=== PATIENT | male | born 1940 | race Caucasian/White ===

== ENCOUNTER 2019-09-16 23:55 | Observation (INO) ==
--- NOTE | 2019-09-17 00:17 | Emergency Department Note ---
General Adult HPI - General Chief complaint: Bleeding Other Stated complaint: Fall after surgery, bleeding Time Seen by Provider: 09/17/19 00:06 Source: patient Mode of arrival: wheelchair Limitations: no limitations - History of Present Illness HPI Narrative: 79-year-old male had surgery on his left elbow by Dr. Oviedo 2 weeks ago and was healing well. He had sutures removed 2 days ago. However earlier tonight he fell and his elbow ripped back open along incision line. He has Parkinson's and multiple comorbidities - Related Data Home Medications Medication Instructions Recorded Confirmed aspirin 325 mg tablet,delayed 325 mg PO QHS 11/04/15 09/01/19 release ropinirole 12 mg tablet,extended 12 mg PO QHS 03/23/18 09/01/19 release 24 hr quetiapine 25 mg tablet 25 mg PO QHS tab 11/23/18 09/01/19 amiodarone 200 mg tablet 100 mg PO QHS 05/17/19 09/01/19 Metoprolol Tartrate [Lopressor] 25 mg PO QHS 08/27/19 09/01/19 carbidopa 25 mg-levodopa 100 mg 1 tab PO DAILY 08/31/19 09/01/19 tablet Levothyroxine Sodium [Synthroid] 112 mcg PO QHS 09/01/19 09/01/19 Previous Rx's Medication Instructions Recorded simvastatin 20 mg tablet 20 mg PO QPM #90 tab 02/21/19 HYDROcodone/APAP 5/325MG [[place] 1 tab PO Q4HP PRN #7 tab 08/27/19 5-325Mg] Cephalexin [Keflex] 500 mg PO QID #40 cap 08/30/19 Allergies Allergy/AdvReac Type Severity Reaction Status Date / Time No Known Drug Allergies Allergy Verified 08/31/19 14:27 Review of Systems All systems ED: reviewed and negative except as stated. Past Medical History - Past Medical History Attestation: Yes: The following information was validated with the patient. [facility] Narrative: Family History (Last Reviewed 08/31/19 @ 10:01 by Henrry Evans PA-C) Brother Malignant neoplasm of prostate Father Coronary artery disease, Onset Age: 98 Mother Congestive heart failure, Onset Age: 89 Other Heart attack Hypertension Medical History (Last Reviewed 08/31/19 @ 10:01 by Henrry L Nathan, PA-C) At risk for falls (Chronic) Non compliance with medical treatment (Chronic) Dystonia (Chronic) Sialorrhea (Chronic) Restless legs syndrome (Chronic) Prediabetes (Acute) Hx of cardiac pacemaker (Acute) Bladder trabeculation (Acute) Papilloma, bladder urinary (Acute 10/18/14) Parkinsons disease (Chronic) Neuropathy (Acute) Mitral valve disorder (Acute) Lumbago (Acute) Hypothyroidism (Acute) Hypertension, essential (Acute) Hyperlipidemia (Acute) Hematuria (Acute) Heart disease (Acute) Gross hematuria (Acute 09/20/14) Glaucoma (Acute) Erectile dysfunction (Acute 04/19/15) Diverticulum of bladder (Acute) Degeneration, intervertebral disc (Acute) Colon polyp (Acute) Other chronic pain (Acute) Cellulitis (Acute) Cataracts, bilateral (Acute) CAD (coronary artery disease) (Acute) BPH (benign prostatic hyperplasia) (Acute) Benign prostatic hypertrophy without urinary obstruction (Acute 09/20/14) Back spasm (Acute) Atrioventricular block, complete (Acute) Atrial fibrillation (Acute) Aortic valve disorder (Acute) Abdominal pain, LLQ (Acute) Past Surgical History (Last Reviewed 08/31/19 @ 10:01 by Henrry Evans PA-C) Hx of shoulder surgery (Acute) Hx of inguinal hernia repair (Acute) Status post epidural steroid injection (Acute) History of coronary artery bypass surgery (Acute) Hx of colonoscopy (Acute) Hx of cataract surgery (Acute) Hx of CABG (Acute) History of back surgery (Acute) Hx of aortic valve replacement with porcine valve (Acute) History of right inguinal hernia repair (Chronic 10/28/15) Medical history: Reports: hypertension, other (parkinson's disease, neuropathy). Denies: DM Psychiatric history: Reports: no psych history Surgical history ED: Reports: non-contributory - Social History smoking status: Former smoker Alcohol use: Reports: Unknown Drug use: Reports: none Physical Exam No acute distress resting. Normocephalic atraumatic. Conjunctive are clear sclera white nonicteric. No nasal discharge or congestion. Oropharynx with dry buccal mucosa. Neck is supple without lymphadenopathy thyromegaly or carotid bruit. Heart is regular rate and rhythm no murmur appreciated. Lungs are clear to auscultation bilaterally without wheezes rales rhonchi or respiratory distress. Abdomen soft nontender nondistended. Exam of the left arm shows a dehisced wound from the elbow to the proximal one third of the extensor surface of the elbow. I can see underlying tissue-it is a full-thickness dehiscence. Reasonable hemostasis. I covered the wound with gauze wrap [place] over it. He is able to move his shoulder hand and wrist normally. No pedal edema Limitations: no limitations Course Vital Signs Temperature 98.0 F 09/16/19 23:56 Pulse Rate 61 09/16/19 23:56 Respiratory Rate 18 09/16/19 23:56 Blood Pressure 108/61 09/16/19 23:56 Pulse Oximetry (%) 98 09/16/19 23:56 Temperature 98.0 F 09/16/19 23:56 Pulse Rate 59 L 09/17/19 01:48 PST Respiratory Rate 18 09/16/19 23:56 Blood Pressure 121/59 09/17/19 01:46 PST Pulse Oximetry (%) 96 09/17/19 01:48 PST Medical Decision Making - Lab Data Lab results reviewed: Yes I reviewed the patient's lab results. Result diagrams: 09/17/19 00:54 09/17/19 00:54 Lab Results 09/17/19 09/17/19 Range/Units 00:54 00:54 WBC 9.4 (4.5-11.0) K/mcL RBC 3.51 L (4.50-5.90) M/mcL Hgb 9.8 L (13.5-16.5) g/dL Hct 29.4 L (41.0-55.0) % MCV 83.7 (80.0-100.0) fL MCH 27.8 (26.0-34.0) pg MCHC 33.2 (31.0-36.0) g/dL RDW 16.2 H (11.5-14.5) % Plt Count 153 (140-440) K/mcL MPV 6.9 L (7.4-10.4) fL Gran % 83.3 H (38.0-78.0) % Lymph % (Auto) 6.7 L (15.5-49.0) % [place] % (Auto) 6.9 (1.0-12.0) % Eos % (Auto) 2.8 (0.0-7.0) % Baso % (Auto) 0.3 (0.0-2.0) % Gran # 7.8 (1.8-8.0) K/mcL Lymph # (Auto) 0.6 L (1.5-4.8) K/mcL [place] # (Auto) 0.6 (0.1-0.9) K/mcL Eos # (Auto) 0.3 (0.0-0.7) K/mcL Baso # (Auto) 0 (0.0-0.3) K/mcL Sodium 140 (133-145) mmol/L Potassium 3.6 (3.3-5.1) mmol/L Chloride 102 (96-108) mmol/L Carbon Dioxide 26 (22-30) mmol/L Anion Gap 12.0 (8-16) BUN 25 H (8-23) mg/dl Creatinine 1.1 (0.7-1.2) mg/dl GFR Calculation 64 Glucose 119 H (70-105) mg/dL Calcium 8.2 L (8.6-10.4) mg/dl Total Bilirubin 0.3 (0.0-1.0) mg/dL AST 20 (0-37) U/l ALT 13 (0-40) U/l Alkaline Phosphatase 81 (39-117) U/L Total Protein 6.1 (5.9-8.4) gm/dL Albumin 3.2 (3.2-5.2) gm/dL Globulin 2.9 (2.2-3.7) gm/dL Albumin/Globulin Ratio 1.1 (1.0-2.3) - Radiology Data Radiology results reviewed: Yes I reviewed the patient's radiology results. Chest x-ray shows no acute cardia pulmonary disease. Pacemaker seen - EKG Data EKG #1 EKG attestation: Yes I reviewed and interpreted this EKG., Yes There are no EKG findings of acute coronary syndrome, Yes This EKG will be read by community organizer EKG results narrative: EKG shows a rate of 68 left anterior fascicular block. Disposition Pt seen by DISTANCE EDUCATION COORDINATOR/PA only: No Clinical Impression: Surgical wound dehiscence Qualifiers: Encounter type: initial encounter Qualified Code(s): T81.31XA - Disruption of external operation (surgical) wound, not elsewhere classified, initial encounter Fall Qualifiers: Encounter type: initial encounter Qualified Code(s): W19.XXXA - Unspecified fall, initial encounter Summary: Discussed with Dr. Gross, orthopedist front desk officer the situation. He would like the patient admitted to that he can wash the elbow out in the operating room. This would be likely a short observation stay but because of multiple comorbidities would need to go through the hospitalist Discussed with Dr. Jones, hospitalist. He agreed to accept the patient for further care and evaluation in the hospital. I will write transition orders and he will see the patient in the morning. Routine preoperative laboratory ordered and urinalysis. Patient did not urinate before he left but we did start IV fluid Disposition: Xfer As Outpt/Obs ([facility]) Condition: Fair Referrals: Henrry Evans PA-C [Primary Care Provider] - Shan Oviedo MD [Physician] -
[2019-09-17 01:39] LABS: Basophils # (Auto) 0 K/mcL (0.0-0.3); Basophils % (Auto) 0.3 % (0.0-2.0); Eosinophils # (Auto) 0.3 K/mcL (0.0-0.7); Eosinophils % (Auto) 2.8 % (0.0-7.0); Granulocytes % (Auto) 83.3 % (38.0-78.0); Hematocrit 29.4 % (41.0-55.0); Hemoglobin 9.8 g/dL (13.5-16.5); Lymphocytes # (Auto) 0.6 K/mcL (1.5-4.8); Lymphocytes % (Auto) 6.7 % (15.5-49.0); Mean Cell Volume 83.7 fL (80.0-100.0); Mean Corpuscular HGB Conc 33.2 g/dL (31.0-36.0); Mean Platelet Volume 6.9 fL (7.4-10.4); Monocytes # (Auto) 0.6 K/mcL (0.1-0.9); Monocytes % (Auto) 6.9 % (1.0-12.0); Platelet Count 153 K/mcL (140-440); RBC 3.51 M/mcL (4.50-5.90); Red Cell Distribution Width 16.2 % (11.5-14.5); WBC 9.4 K/mcL (4.5-11.0)
[2019-09-17] MEDS ORDERED: 0.9 % SODIUM CHLORIDE 1,000 ML IV ONE (01:40)
[2019-09-17 01:55] LABS: ALT/SGPT 13 U/l (0-40); AST/SGOT 20 U/l (0-37); Albumin 3.2 gm/dL (3.2-5.2); Albumin/Globulin Ratio 1.1 (1.0-2.3); Alkaline Phosphatase 81 U/L (39-117); Bilirubin,Total 0.3 mg/dL (0.0-1.0); Blood Urea Nitrogen 25 mg/dl (8-23); Calcium 8.2 mg/dl (8.6-10.4); Carbon Dioxide 26 mmol/L (22-30); Chloride 102 mmol/L (96-108); Globulin 2.9 gm/dL (2.2-3.7); Glomerular Filtration Rate 64; Glucose 119 mg/dL (70-105)
[2019-09-17] MEDS ORDERED: ONDANSETRON 4 MG/2 ML VIAL IV PRN ×3 (02:25→08:10)
[2019-09-17] MEDS ORDERED: NALOXONE HCL 0.4 MG/ML VIAL IV PRN ×2 (02:25→06:16)
[2019-09-17] MEDS ORDERED: 0.9 % SODIUM CHLORIDE 1,000 ML IV SCH (02:30)
[2019-09-17 04:34] LABS: Appearance,Urine CLEAR; Bacteria,Urine 0 /hpf (0); Bilirubin,Urine NEG (NEG); Color,Urine YELLOW; Culture Indicated,Urine NO; Glucose,Urine (UA) NEGATIVE (NEG); Ketones,Urine NEG (NEG); Leukocyte Esterase,Urine NEG /uL (NEG); Mucus,Urine FEW /hpf (0); Nitrate,Urine NEG (NEG); Protein,Urine 30 mg/dL (NEG); Specific Gravity,Urine 1.031 (1.000-1.035); Urine Blood NEG mg/dL (<0.03); Urine Hyaline Cast 2 /lpf (0-2); Urine RBC 1 /hpf (0-1); Urine Squamous Epithelial Cell 1 /hpf (0-4); Urine WBC 2 /hpf (0-4); Urobilinogen,Urine NEG (NEG)
--- NOTE | 2019-09-17 06:06 | Internal Med History&Physical ---
Medical - H&P: HPI Patient information: Note initiated : 09/17/19 at 6:04 am Service Date, if different from initiated Date: [] Patient: Ti Hallman a 79 y/o M admitted on 09/17/19 for Fall after surgery, bleeding. Chief Complaint: fall, wound bleeding History of present illness: Mr. Hallman is a 79 year old M with a history of Parkinson's, coronary disease, AV block with pacemaker, aortic valve replacement with tissue valve who presents after fall. Patient fell in early August with injury to his left elbow. There is no fracture but he underwent an olecranon bursectomy on 08/31/2019. He does have a history of frequent falls. Last evening and going down a ramp into his bedroom (he was ambulating, not in a wheelchair using a walker) he fell forward, struck his head on a dresser, also struck his left elbow which opened the surgical wound. He presents the ED with dehiscence of his left olecranon bursectomy wound. Patient was otherwise in his usual state of health. He is very unsteady on his feet, wears a helmet when ambulating because of frequent falls. Assistive devices are further limited by severe rotator cuff issues in the right shoulder and now his left elbow. He is has a little bit of sharp anterior chest pain since the fall, he did strike the front of his chest. He has no substernal chest pain/tightness/squeezing. No dyspnea, no cough. Patient's being hospitalized in anticipation of surgical washout and closure of the dehisced wound by Dr. Gross. Patient denies current headache. No fevers or chills. No nausea vomiting, no abdominal pain. He has generalized weakness which is chronic, no new focal weaknesses, no vision changes, no word finding problems. He has chronic pain in the right shoulder and is unable to fully elevate that shoulder due to rotator cuff injury which is unchanged. He does have easy bruising from falls. No sore throat, no rhinorrhea, no dysuria or change in urinary frequency. ROS unobtainable: other (Review of systems as noted above) Medical - H&P: PMH Medical history: Restless legs syndrome (Chronic) Prediabetes (Acute) Hx of cardiac pacemaker (Acute) 2008 Heart disease (Acute) 2008-Valvular heart disease CAD (coronary artery disease) (Acute) 2008-post CABG BPH (benign prostatic hyperplasia) (Acute) Parkinsons disease (Chronic) 2010 Neuropathy (Acute) 2008-numbness/tingling in both feet since heart surgery Atrioventricular block, complete (Acute) 2008-3rd degree AV block after heart surgery Atrial fibrillation (Acute) Post-op At risk for falls (Chronic) Non compliance with medical treatment (Chronic) Dystonia (Chronic) Dystonia of head Sialorrhea (Chronic) Bladder trabeculation (Acute) Papilloma, bladder urinary (Acute 10/18/14) Polypoid abnormality; Bladder-Polypoid abnormality in the posterior and inferior bladder consistent with bladder carcinoma Mitral valve disorder (Acute) Lumbago (Acute) Hypothyroidism (Acute) Hypertension, essential (Acute) Hyperlipidemia (Acute) Hematuria (Acute) Referral for hematuria. No change on imaging studies and cystoscopy confirmed. He stopped his Tamsulosin and Finasteride and will restart. RTC x 6 mo. Glaucoma (Acute) Erectile dysfunction (Acute 04/19/15) Diverticulum of bladder (Acute) Degeneration, intervertebral disc (Acute) Colon polyp (Acute) 01/31/15-Trina Other chronic pain (Acute) Cellulitis (Acute) recurrent on left lower leg ever since vein graft was harvested for CABG in 2008 Cataracts, bilateral (Acute) Back spasm (Acute) Aortic valve disorder (Acute) Abdominal pain, LLQ (Acute) Left groin pain Surgical history: Hx of elbow surgery Left olecranon bursectomy, 08/31/2019 Hx of shoulder surgery (Acute) 2011-Right rotator cuff repair Hx of inguinal hernia repair (Acute) 12/2014-left groin Status post epidural steroid injection (Acute) 01/2013-LESI History of coronary artery bypass surgery (Acute) 2008 Hx of colonoscopy (Acute) 08/03/15--Trina HP Hx of cataract surgery (Acute) 01/2013,02/2013-bilateral Hx of CABG (Acute) 2008 History of back surgery (Acute) 1995-lumbar Hx of aortic valve replacement with porcine valve (Acute) 2008-for aortic stenosis, mitral valve annuloplasty as well History of right inguinal hernia repair (Chronic 10/28/15) with mesh prosthesis 12/27/2014 and 10/28/2015 Pertinent family history: Brother Malignant neoplasm of prostate Father Coronary artery disease, Onset Age: 98 Mother Congestive heart failure, Onset Age: 89 Other Heart attack Hypertension Social history: marital status: occupational status: retired smoking status: Former smoker alcohol intake frequency: holiday/special occasion only substance use type: does not use Medical - H&P: Meds Home Medications Medication Instructions Recorded Confirmed Type aspirin 325 mg tablet,delayed 325 mg PO QHS 11/04/15 09/17/19 History release ropinirole 12 mg tablet,extended 12 mg PO QHS 03/23/18 09/17/19 History release 24 hr quetiapine 25 mg tablet 25 mg PO QHS tab 11/23/18 09/17/19 History simvastatin 20 mg tablet 20 mg PO QPM #90 tab 02/21/19 09/17/19 Rx amiodarone 200 mg tablet 100 mg PO QHS 05/17/19 09/17/19 History HYDROcodone/APAP 5/325MG [[place] 1 tab PO Q4HP PRN #7 tab 08/27/19 09/17/19 Rx 5-325Mg] Metoprolol Tartrate [Lopressor] 25 mg PO QHS 08/27/19 09/17/19 History carbidopa 25 mg-levodopa 100 mg 1 tab PO TID 08/31/19 09/17/19 History tablet Levothyroxine Sodium [Synthroid] 112 mcg PO QHS 09/01/19 09/17/19 History Allergies Allergy/AdvReac Type Severity Reaction Status Date / Time No Known Drug Allergies Allergy Verified 08/31/19 14:27 Medical - H&P: Exam - Constitutional Vitals: Temp Pulse Resp BP Pulse Ox 98.0 F 59 L 18 121/59 96 09/16/19 23:56 09/17/19 01:48 PST 09/16/19 23:56 09/17/19 01:46 PST 09/17/19 01:48 PST Exam: GENERAL: Elderly, alert, laying in bed, soft voice. HEENT: Fading ecchymosis right temporal area. Pupils equal. Oropharynx with moist mucous membranes. NECK: Supple without meningismus, no thyromegaly RESPIRATORY: Breath sounds clear bilaterally. Respiratory effort is unlabored. CARDIOVASCULAR: Regular rate and rhythm, 3/6 systolic murmur at the upper right sternal border radiates towards the clavicle. Left upper chest pacemaker in place. No peripheral edema. Carotid pulses 2+, dorsalis pedis 2+. GI: Abdomen soft, nontender, no guarding or rebound. Bowel sounds are present. MUSCULOSKELETAL: Left elbow with dressing in place. Wound photos reviewed, dehiscence of his olecranon bursectomy wound noted. Right shoulder with reduced range of motion. SKIN: As above, left elbow wound. Scattered areas of ecchymoses of varying ages. Skin turgor decreased. NEUROLOGIC: Cranial nerves II through XII grossly intact. Muscle mass diminished. Strength shows a generalized weakness. Sensation intact to light touch. Increased tone in the extremities with mild cogwheeling. PSYCHIATRIC: Alert, oriented x3, normal mood and affect, normal insight. Medical - H&P: Reslt - Labs CBC & Chem 7: 09/17/19 00:54 09/17/19 00:54 Labs: Short CBC 09/17/19 Range/Units 00:54 WBC 9.4 (4.5-11.0) K/mcL Hgb 9.8 L (13.5-16.5) g/dL Hct 29.4 L (41.0-55.0) % Plt Count 153 (140-440) K/mcL BMP 09/17/19 00:54 Sodium 140 Potassium 3.6 Chloride 102 Carbon Dioxide 26 BUN 25 H Creatinine 1.1 Glucose 119 H Calcium 8.2 L Liver Function 09/17/19 Range/Units 00:54 Total Bilirubin 0.3 (0.0-1.0) mg/dL AST 20 (0-37) U/l ALT 13 (0-40) U/l Alkaline Phosphatase 81 (39-117) U/L Albumin 3.2 (3.2-5.2) gm/dL Urine 09/17/19 09/17/19 Range/Units 03:38 03:38 Urine Color Yellow TNP Urine Appearance Clear TNP Urine pH 6.0 TNP (5.0-9.0) Ur Specific [place] 1.031 TNP (1.000-1.035) Urine Protein 30 A TNP (NEG) mg/dL Urine Glucose (UA) Negative TNP (NEG) mg/dL - EKG Data -: EKG Reviewed by Myself (Atrial paced at rate of 60, no acute ST changes.) - Imaging and Cardiology Chest x-ray Status: image reviewed by me Additional comments: Clear lung [place]ard, right upper lobe calcified density, has been noted previously and described as benign. Most recently CTA of 03/2019. No heart failure, no infiltrate. Pacemaker in place. Medical - H&P: A/P - Narrative A/P Narrative: 79-year-old gentleman with Parkinson's disease, coronary disease, AV block, frequent falls with recent olecranon bursectomy, presenting after a fall at home with wound dehiscence. Fall/wound dehiscence. Dr. Gross has been contacted by the emergency department, he plans to take the patient to the OR for repair later today. Patient does have history of coronary disease, is of surgical risk but this case is emergent. No evidence of decompensated heart failure, coronary ischemia or respiratory failure. Further risk stratification not indicated. Plan: Hospitalized on observation N.p.o. except for a.m. meds PT evaluation Parkinson's disease. On 3 times a day doses of Sinemet. Will provide a.m. dose with small sips of water to help prevent patient from locking up in the perioperative. Plan: A.m. Sinemet with sips of water this morning Coronary artery disease. Has a history of bypass. No current symptoms. Plan: Continue usual medications, all of which are dosed at bedtime History of atrial fibrillation, noted to have a cured postoperatively in the past. On amiodarone, presumably for rhythm control. Is atrially paced on current EKG. Plan: Continue daily amiodarone History of pacemaker for complete AV block. Atrially paced on current EKG. Plan: Noted, nothing further Restless leg syndrome. On Requip at home. Plan: Continue.
[2019-09-17] MEDS ORDERED: ceFAZolin 1 GM VIAL ONE (06:46)
[2019-09-17] MEDS ORDERED: ceFAZolin 2 GM in DEXTROSE 5% IN WATER 50 ML IV SCH (07:00)
--- NOTE | 2019-09-17 07:17 | XRay Report ---
CLINICAL INFORMATION:Fall. Left-sided chest pain TECHNIQUE: AP portable semiupright chest x-ray COMPARISON: Previous examination dated 02/01/2018 FINDINGS:Previous median sternotomy. There is a prosthetic cardiac valve. Left transvenous pacemaker leads are unchanged. No detectable rib fracture with chest x-ray technique. There is no pneumothorax. No focal pulmonary parenchymal infiltrate or contusion. Heart size and mediastinum are normal. No mediastinal widening. Again noted is a benign granuloma in the right upper lung. No acute abnormality or interval change IMPRESSION: No acute abnormality Interpreted and Authenticated by: Adrian Looney 09/17/19
[2019-09-17] MEDS ORDERED: PROPOFOL 200 MG/20 ML VIAL IV ONE (07:35)
[2019-09-17] MEDS ORDERED: LIDOCAINE HCL/PF 100 MG/5 ML SYRINGE IV ONE (07:35)
[2019-09-17] MEDS ORDERED: DEXAMETHASONE 10 MG/ML VIAL IV ONE (07:35)
[2019-09-17] MEDS ORDERED: KETAMINE 100 MG/ML ML IV ONE (07:35)
[2019-09-17] MEDS ORDERED: ePHEDrine 50 MG/ML AMPUL IV ONE (07:35)
[2019-09-17] MEDS ORDERED: GLYCOPYRROLATE 0.2 MG/ML VIAL IV ONE (07:35)
[2019-09-17] MEDS ORDERED: ONDANSETRON 4 MG/2 ML VIAL IV ONE (07:35)
[2019-09-17] MEDS ORDERED: fentaNYL 100 MCG/2 ML VIAL IV ONE (07:35)
[2019-09-17] MEDS ORDERED: VANCOMYCIN 1,000 MG in 0.9 % SODIUM CHLORIDE 250 ML TOPICAL ONE (07:55)
[2019-09-17] MEDS ORDERED: fentaNYL 100 MCG/2 ML VIAL IV PRN (08:10)
[2019-09-17] MEDS ORDERED: IPRATROPIUM/ALBUTEROL 3 ML AMPUL.NEB NEB PRN (08:10)
[2019-09-17] MEDS ORDERED: MEPERIDINE 25 MG/ML SYRINGE IV PRN (08:10)
[2019-09-17] MEDS ORDERED: LACTATED RINGERS 1,000 ML IV SCH (08:15)
[2019-09-17] MEDS: VANCOMYCIN 1 GM VIAL TOPICAL SCH (08:36)
--- NOTE | 2019-09-17 08:49 | Brief Operative Note ---
Date of procedure: 09/17/19 Pre-op diagnosis: left elbow surgical wound dehiscense Post-op diagnosis: same Procedure: I&D of wound, culture and wound closure Grafts/Implants: No Anesthesia: GLMA Findings: no evidence of infection, skin over olecranon very thin Complications: none Surgeon: Justin Gross Wetlands Conservation Laborer: Chasity Issa Estimated blood loss (cc): 2 Tourniquet Time (Minutes): 50 Specimens Removed/Pathology: other (culture tube x2) Condition: stable Disposition: PACU
[2019-09-17] MEDS ORDERED: BENZOCAINE/MENTHOL 1 LOZENGE PO PRN (09:01)
[2019-09-17] MEDS ORDERED: BISACODYL 10 MG SUPP.RECT PR PRN (09:01)
[2019-09-17] MEDS ORDERED: FLEETS ADULT ENEMA PR PRN (09:01)
--- NOTE | 2019-09-17 09:11 | Consultation ---
DATE OF CONSULTATION: 09/17/2019 ORTHOPEDIC CONSULTATION NOTE DATE OF CONSULTATION: 09/17/2019 REASON FOR CONSULTATION: Left elbow surgical wound dehiscence. HISTORY OF PRESENT ILLNESS: The patient is a 79-year-old male with history of Parkinson's, coronary artery disease with pacemaker, and aortic valve replacement, who underwent a left olecranon bursectomy on 08/[address] Oviedo and subsequently was followed up in clinic on 09/03 for suture removal. He fell yesterday evening and opened up his wound. At the time of surgery, per review of the chart, he had a staph infection of the bursa and was placed on Keflex. Review of the notes from the clinic, the wound was healing; however, it did have some significant drainage immediately postop. Per discussion with today, they say that the wound did continue to drain off and on. The patient is unable to immobilize his elbow due to Parkinson's and his significant unsteady gait. Thus, he has frequent falls along with using the extremity to ambulate and move about the house. PAST MEDICAL HISTORY: Noted history of coronary artery disease with a pacemaker in place, Parkinson's, AFib, restless leg syndrome, hypertension, and hyperlipidemia. PAST SURGICAL HISTORY: As noted above. He has also had a history of right rotator cuff repair, inguinal hernia repair, coronary artery bypass surgery in 2008, lumbar surgery, and aortic valve replacement for stenosis. ALLERGIES: No known drug allergies. MEDICATIONS: Aspirin 325 daily, ropinirole, quetiapine, simvastatin, amiodarone, [place], metoprolol, carbidopa, and levothyroxine. REVIEW OF SYSTEMS: Other than HPI are negative. He has multiple musculoskeletal pains including his shoulders. PHYSICAL EXAMINATION: On examination of his left elbow, he has small gas throughout the extremity. His wound from approximately the olecranon to approximately penitentiary down the forearm distal aspect has dehisced completely. He has fibrinous material within it. He has kind of woody tissue edges. There is no chata purulence noted. He does have the fibrinous exudate at the incision lines. He can flex and extend the elbow however. His hand is warm and well perfused. ASSESSMENT AND PLAN: This is a 79-year-old male, who has a surgical wound dehiscence after a fall approximately 2-1/2 weeks out from surgery. Discussed this with the and the patient. I think at this point given the history of the wound, repeat irrigation and debridement of the wound along with primary closure and immobilization will be in the best interest of the patient. He will likely be on postop antibiotics as well. They do understand the risk of repeat washouts and infection further developing as well as wound complications and they wish to proceed. DLW:alysia Job ID: [id number] Doc ID: [id number] Justin Gross MD [facility]LANDMark
[2019-09-17] MEDS: 0.9 % SODIUM CHLORIDE 1,000 ML IV SCH ×2 (09:44→15:01)
[2019-09-17] MEDS: HYDROcodone/APAP 5/325MG TABLET PO PRN ×2 (11:52→17:31)
[2019-09-17] MEDS: CARBIDOPA/LEVODOPA 25/100 TABLET PO SCH ×3 (11:53→20:36)
[2019-09-17] MEDS: 0.9 % SODIUM CHLORIDE 10 ML SYRINGE IV SCH ×2 (13:33→20:46)
--- NOTE | 2019-09-17 14:23 | Discharge Summary ---
Medical - DS: Prov Patient information: Note initiated : 09/17/19 at 2:22 pm Service Date, if different from initiated Date: [] Patient: Ti Hallman 79 y/o M admitted on 09/17/19 for Fall after surgery, bleeding. Chief Complaint: [] Date of admission: 09/17/19 03:11 Primary care physician: Henrry Evans Consults: 09/17/19 Consult to Physician [CONS] Stat Comment: Consulting Provider: Justin Gross Reason For Exam: Physician to Consult 09/17/19 01:30 Consult to Physician [CONS] Stat Comment: Consulting Provider: Janina Dye Reason For Exam: Physician to Consult Medical - DS: Meds - Discharge Medications Prescriptions: Sulfamethoxazole/Trimethoprim [Bactrim Ds Tablet] 1 each PO BID #8 tab Active and Home Medications: Home Medications aspirin 325 mg tablet,delayed release 325 mg PO QHS 11/04/15 [History Confirmed 09/17/19 Last Taken 08/30/19] ropinirole 12 mg tablet,extended release 24 hr 12 mg PO QHS 03/23/18 [History Confirmed 09/17/19 Last Taken 08/30/19] quetiapine 25 mg tablet 25 mg PO QHS tab 11/23/18 [History Confirmed 09/17/19 Last Taken 08/30/19] simvastatin 20 mg tablet 20 mg PO QPM #90 tab 02/21/19 [Rx Confirmed 09/17/19 Last Taken 08/30/19] amiodarone 200 mg tablet 100 mg PO QHS 05/17/19 [History Confirmed 09/17/19 Last Taken 08/30/19] HYDROcodone/APAP 5/325MG [[place] 5-325Mg] 1 tab PO Q4HP PRN #7 tab 08/27/19 [Rx Confirmed 09/17/19 Last Taken 08/31/19 09:00] Metoprolol Tartrate [Lopressor] 25 mg PO QHS 08/27/19 [History Confirmed 09/17/19 Last Taken 08/30/19] carbidopa 25 mg-levodopa 100 mg tablet 1 tab PO TID 08/31/19 [History Confirmed 09/17/19 Last Taken 08/31/19 09:00] Levothyroxine Sodium [Synthroid] 112 mcg PO QHS 09/01/19 [History Confirmed 09/17/19 Last Taken 08/30/19] Medical - DS: Hosp Hospital Course: Mr. Hallman is a 79 year old M with a history of Parkinson's, coronary disease, AV block with pacemaker, aortic valve replacement with tissue valve who presents after fall. Patient fell in early August with injury to his left elbow. There is no fracture but he underwent an olecranon bursectomy on 08/31/2019. He does have a history of frequent falls. Last evening and going down a ramp into his bedroom (he was ambulating, not in a wheelchair using a walker) he fell forward, struck his head on a dresser, also struck his left elbow which opened the surgical wound. He presents the ED with dehiscence of his left olecranon bursectomy wound. Patient was otherwise in his usual state of health. He is very unsteady on his feet, wears a helmet when ambulating because of frequent falls. Assistive devices are further limited by severe rotator cuff issues in the right shoulder and now his left elbow. He is has a little bit of sharp anterior chest pain since the fall, he did strike the front of his chest. He has no substernal chest pain/tightness/squeezing. No dyspnea, no cough. Patient's being hospitalized in anticipation of surgical washout and closure of the dehisced wound by Dr. Gross. Patient denies current headache. No fevers or chills. No nausea vomiting, no abdominal pain. He has generalized weakness which is chronic, no new focal weaknesses, no vision changes, no word finding problems. He has chronic pain in the right shoulder and is unable to fully elevate that shoulder due to rotator cuff injury which is unchanged. He does have easy bruising from falls. No sore throat, no rhinorrhea, no dysuria or change in urinary frequency. Surgical I&D left elbow on September 17. No evidence of skin infection skin over olecranon very thin. 09/18 Had I&D yesterday of left elbow By orthopedics no signs of infection. He did report he was having trouble urinating. Flomax started. Dates he had poor sleep. Surgical Gram stain shows gram-positive cocci in pairs and clusters. Does like he was on Keflex prior. Started on Bactrim. Discharge diagnosis: Wound dehiscence Secondary discharge diagnosis: Parkinson's disease coronary artery disease history of atrial fibrillation pacemaker for AV block restless leg syndrome - Time Spent with Patient Total time spent providing and/or coordinating discharge services: Greater than 30 minutes Medical - DS: Exam - Constitutional Vitals: Vital Signs Temp Pulse Pulse Resp BP BP Pulse Ox 09/17/19 12:00 98.0 F 80 16 106/69 94 09/17/19 09:19 97.0 F 60 16 132/65 98 09/17/19 09:06 60 12 135/57 100 09/17/19 09:01 60 12 128/58 100 09/17/19 08:56 60 13 115/57 100 09/17/19 08:55 98.2 F 61 12 101/58 99 09/17/19 07:45 98.3 F 20 129/68 92 09/17/19 03:11 97.8 F 61 18 130/66 93 09/17/19 01:48 PST 59 L 96 09/17/19 01:46 PST 60 121/59 100 09/17/19 01:34 PST 60 115/59 92 09/16/19 23:56 98.0 F 61 18 108/61 98 Intake and Output 09/17/19 09/17/19 09/17/19 05:59 13:59 21:59 Intake Total Balance Intake: IV Sodium Chloride 0.9% 1,000 ml @ Wide Open IV [facility] Rx#: [id number] Other: Urine Color Urine Odor # Voids Weight Medical - DS: Data Labs on day of discharge: Labs from last 24 hours 09/17/19 09/17/19 09/17/19 03:38 03:38 00:54 WBC RBC Hgb Hct MCV MCH MCHC RDW Plt Count MPV Gran % Lymph % (Auto) [place] % (Auto) Eos % (Auto) Baso % (Auto) Gran # Lymph # (Auto) [place] # (Auto) Eos # (Auto) Baso # (Auto) Sodium 140 Potassium 3.6 Chloride 102 Carbon Dioxide 26 Anion Gap 12.0 BUN 25 H Creatinine 1.1 GFR Calculation 64 Glucose 119 H Calcium 8.2 L Total Bilirubin 0.3 AST 20 ALT 13 Alkaline Phosphatase 81 Total Protein 6.1 Albumin 3.2 Globulin 2.9 Albumin/Globulin Ratio 1.1 Urine Color TNP Yellow Urine Appearance TNP Clear Urine pH TNP 6.0 Ur Specific [place] TNP 1.031 Urine Protein TNP 30 A Urine Glucose (UA) TNP Negative Urine Ketones TNP Neg Urine Occult Blood TNP Neg Urine Nitrate TNP Neg Urine Bilirubin TNP Neg Urine Urobilinogen TNP Neg Ur Leukocyte Esterase TNP Neg Urine RBC 1 Urine WBC 2 Ur Squamous Epith Cells 1 Urine Bacteria 0 Hyaline Casts 2 Urine Mucus Few Ur Culture Indicated? No 09/17/19 00:54 WBC 9.4 RBC 3.51 L Hgb 9.8 L Hct 29.4 L MCV 83.7 MCH 27.8 MCHC 33.2 RDW 16.2 H Plt Count 153 MPV 6.9 L Gran % 83.3 H Lymph % (Auto) 6.7 L [place] % (Auto) 6.9 Eos % (Auto) 2.8 Baso % (Auto) 0.3 Gran # 7.8 Lymph # (Auto) 0.6 L [place] # (Auto) 0.6 Eos # (Auto) 0.3 Baso # (Auto) 0 Sodium Potassium Chloride Carbon Dioxide Anion Gap BUN Creatinine GFR Calculation Glucose Calcium Total Bilirubin AST ALT Alkaline Phosphatase Total Protein Albumin Globulin Albumin/Globulin Ratio Urine Color Urine Appearance Urine pH Ur Specific [place] Urine Protein Urine Glucose (UA) Urine Ketones Urine Occult Blood Urine Nitrate Urine Bilirubin Urine Urobilinogen Ur Leukocyte Esterase Urine RBC Urine WBC Ur Squamous Epith Cells Urine Bacteria Hyaline Casts Urine Mucus Ur Culture Indicated? Medical - DS: A/P - Patient/Caregiver Discharge Instructions Activity: as per physical therapy Diet: Cardiac Prescriptions: Sulfamethoxazole/Trimethoprim [Bactrim Ds Tablet] 1 each PO BID #8 tab - Follow up Plan Follow up with: Henrry Evans PA-C [Primary Care Provider] - Shan Oviedo MD [Physician] - Disposition: Xfer SNF Prognosis: Fair Rehab Potential: Fair I certify that the patient requires SNF services: Yes Overall status at discharge: patient is progressing back to baseline Medical - DS: Qual - VTE Deep Vein Thrombosis/Pulmonary Embolism Present on Admission: No
[2019-09-17] MEDS ORDERED: ceFAZolin 1 GM VIAL IV SCH (15:00)
[2019-09-17] MEDS: LEVOTHYROXINE SODIUM 112 MCG TABLET PO SCH (20:35)
[2019-09-17] MEDS: DOCUSATE SODIUM 100 MG CAPSULE PO SCH (20:36)
[2019-09-17] MEDS: AMIODARONE HCL 200 MG TABLET PO SCH (20:36)
[2019-09-17] MEDS: ASPIRIN 325 MG ENTERIC COATED TABLET PO SCH (20:36)
[2019-09-17] MEDS: ROPINIROLE HCL 12 MG PO SCH (20:38)
[2019-09-17] MEDS: METOPROLOL TARTRATE 25 MG TABLET PO SCH (20:42)
[2019-09-17] MEDS: SENNOSIDES 1 TABLET PO SCH (20:42)
[2019-09-17] MEDS: SIMVASTATIN 20 MG TABLET PO SCH (20:42)
[2019-09-17] MEDS: QUEtiapine 25 MG TABLET PO SCH (20:42)
[2019-09-18] MEDS: 0.9 % SODIUM CHLORIDE 1,000 ML IV SCH ×2 (01:06→14:44)
[2019-09-18] MEDS: HYDROcodone/APAP 5/325MG TABLET PO PRN ×2 (05:05→20:49)
[2019-09-18] MEDS: 0.9 % SODIUM CHLORIDE 10 ML SYRINGE IV SCH ×3 (06:57→22:14)
[2019-09-18] MEDS ORDERED: TAMSULOSIN 0.4 MG CAPSULE PO ONE (08:59)
--- NOTE | 2019-09-18 09:07 | Operative Note ---
DATE OF OPERATION: 09/17/2019 PREOPERATIVE DIAGNOSIS: Dehiscence of left elbow surgical wound. POSTOPERATIVE DIAGNOSIS: Dehiscence of left elbow surgical wound. PROCEDURE PERFORMED: Irrigation and debridement of left elbow surgical wound and closure. SURGEON: Justin Gross M.D. WOOD SHINGLE ROOFER: Chasity Issa PA-C. The PA's assistance was required for the safe and efficient completion of the entire case. This provider's expertise and technical skill were required throughout the case. The PA assisted with preoperative coordination, intraoperative retraction, wound closure, dressing and splint application, as well as postoperative documentation and care coordination. ANESTHESIA: General via LMA. IV FLUIDS: A liter of lactated Ringer's. ESTIMATED BLOOD LOSS: Minimal. TOURNIQUET TIME: 50 minutes at 200 mmHg. IMPLANTS: None. However, I placed 1 gram of vancomycin powder in the wound. PATHOLOGY/LAB: Cultures x2 from the wound. INDICATION FOR PROCEDURE: The patient is a 79-year-old male who underwent a left olecranon bursectomy which appeared to be a septic bursectomy given the positive cultures from the bursa at that time. He was placed on Keflex and was healing well per routine until yesterday evening when he slipped and fell, resulting in dehiscence of his wound. He was brought to the emergency department for further evaluation and treatment. He was admitted for observation and I and D of his wound. I discussed with the patient and his that likely it should be irrigated and debrided with wound closure given the nature of the dehiscence. They do understand there is risk of infection, wound complications and surgery in general. They wished to proceed. DESCRIPTION OF PROCEDURE: The patient was met in the preoperative holding area where site was verified and marked with the patient's input. He was then taken back to the operating room where he underwent successful anesthesia via LMA. His left upper extremity had a padded tourniquet about the proximal thigh. It was scrubbed with Betadine initially prior to prepping and draping. After this was completed, the extremity was prepped and draped in the usual sterile fashion with Betadine. A surgical timeout was performed to verify patient identity, correct procedure being performed, and correct extremity being operated on. Everybody was in agreement. [place] exsanguination was utilized to exsanguinate the extremity and tourniquet was inflated to 200 mmHg. The incision was already opened, and I took a small curet and irrigated the wound with 3 liters of normal saline and trimmed the edges, removing all the eschar edges as well. There was no purulence within the wound. There did not appear to be any ongoing or active infection. The tissue edges were slightly woody in appearance, and I did take cultures of both the medial and lateral flaps of the wound itself and sent them. I irrigated with three additional liters of normal saline. At this point, the subcutaneous tissue did not have much integrity and was difficult to hold a suture. I put a 3-0 Monocryl deep to reapproximate the edges and then 2-0 nylon vertical mattress to reapproximate the wound edges. At this point, I cleaned and dried the extremity. I placed Xeroform over the wound, placed a compressive dressing over the incision, as well with 4 x 4's, fluffs, Webril, a posterior splint and Nino wrap and a sling. The patient awoke from anesthesia and was transferred to PACU in stable condition. POSTOPERATIVE PLAN: The patient will be resumed on antibiotics of Keflex which he had completed already. We will follow cultures. PHILIP:jeremy Job ID: [id number] Doc ID: [id number] Justin Gross MD MTDD
--- NOTE | 2019-09-18 10:00 | Internal Med Progress Note ---
Medical - PN: Subj Patient information: Note initiated : 09/18/19 at 9:55 am Service Date, if different from initiated Date: [] Patient: Ti Hallman a 79 y/o M admitted on 09/17/19 for Fall after surgery, bleeding. Chief Complaint: [] Interval history: Mr. Hallman is a 79 year old M with a history of Parkinson's, coronary disease, AV block with pacemaker, aortic valve replacement with tissue valve who presents after fall. Patient fell in early August with injury to his left elbow. There is no fracture but he underwent an olecranon bursectomy on 08/31/2019. He does have a history of frequent falls. Last evening and going down a ramp into his bedroom (he was ambulating, not in a wheelchair using a walker) he fell forward, struck his head on a dresser, also struck his left elbow which opened the surgical wound. He presents the ED with dehiscence of his left olecranon bursectomy wound. Patient was otherwise in his usual state of health. He is very unsteady on his feet, wears a helmet when ambulating because of frequent falls. Assistive devices are further limited by severe rotator cuff issues in the right shoulder and now his left elbow. He is has a little bit of sharp anterior chest pain since the fall, he did strike the front of his chest. He has no substernal chest pain/tightness/squeezing. No dyspnea, no cough. Patient's being hospitalized in anticipation of surgical washout and closure of the dehisced wound by Dr. Gross. Patient denies current headache. No fevers or chills. No nausea vomiting, no abdominal pain. He has generalized weakness which is chronic, no new focal weaknesses, no vision changes, no word finding problems. He has chronic pain in the right shoulder and is unable to fully elevate that shoulder due to rotator cuff injury which is unchanged. He does have easy bruising from falls. No sore throat, no rhinorrhea, no dysuria or change in urinary frequency. 09/18 Had I&D yesterday of left elbow By orthopedics no signs of infection. He did report he was having trouble urinating. Flomax started. Dates he had poor sleep. Review of Systems: denies headache/fever/chills/nausea/vomiting/chest or abdominal pain/cough/dyspnea/diarrhea. Otherwise see above. - Constitutional Vitals: Vital Signs Temp Pulse Resp BP Pulse Ox 97.7 F 61 20 151/74 91 09/18/19 03:56 09/18/19 03:56 09/18/19 03:56 09/18/19 03:56 09/18/19 03:56 Period Temp Pulse Resp BP Sys/Van Pulse Ox Last 24 Hr 97.7 F-98.4 F 60-80 16-20 100-151/57-74 90-98 Intake and Output 09/17/19 09/18/19 09/18/19 21:59 05:59 13:59 Intake Total 360 1525 Output Total 802 426 225 Balance -442 1099 -225 Weight 74.072 kg Intake & Output: Intake & Output 09/17/19 09/18/19 09/18/19 21:59 05:59 13:59 Intake Total 360 1525 Output Total 802 426 225 Balance -442 1099 -225 Weight 74.072 kg Intake: IV 1000 Sodium Chloride 0.9% 1,000 ml @ 1000 100 mls/hr IV .Q10H [facility] Rx#: [id number] Oral 360 525 Output: Urine Catheter Amount 800 Void Amount 425 225 # of times incontinent of urine 2 1 Other: Meal Lunch Percent of Meal Consumed 75% Feeding Ability Independent Urine Appearance Clear Clear Urine Color Dark Yellow Bright Yellow Urine Odor Normal Exam: General: Alert, Awake, No acute Distress Eyes/N/T: EOMI, Head/Neck: neck supple, CV: RRR, 3/6 SM Pulm: Clear b/l, no wheezing/rhonchi/rales Abd: soft, nontender, +BS x4 Ext: no clubbing/cyanosis/edema LE's. Left arm in sling Neuro: Alert, no focal deficits, moves all extremities, Skin: warm/dry Medical - PN: Obj Da - Labs CBC & Chem 7: 09/17/19 00:54 09/17/19 00:54 Labs: Abnormal Lab Results 09/17/19 09/17/19 09/17/19 03:38 00:54 00:54 RBC 3.51 L Hgb 9.8 L Hct 29.4 L RDW 16.2 H MPV 6.9 L Gran % 83.3 H Lymph % (Auto) 6.7 L Lymph # (Auto) 0.6 L BUN 25 H Glucose 119 H Calcium 8.2 L Urine Protein 30 A Meds: Medications Hydrocodone Bitart/Acetaminophen ([place] 5/325mg) 0 tab PO Q4HP PRN; Protocol PRN Reason: Per Pain Protocol Last Admin: 09/18/19 05:05 Dose: 1 tab Documented by: Amiodarone HCl (Cordarone) 100 mg PO QHS [facility] Last Admin: 09/17/19 20:36 Dose: 100 mg Documented by: Aspirin (Ecotrin) 325 mg PO QHS [facility] Last Admin: 09/17/19 20:36 Dose: 325 mg Documented by: Bisacodyl (Dulcolax) 10 mg TN Q2-3DAYS PRN PRN Reason: Constipation Carbidopa/Levodopa (Sinemet 25/100) 1 tab PO TID [facility] Last Admin: 09/17/19 20:36 Dose: 1 tab Documented by: Docusate Sodium (Colace) 100 mg PO BID [facility] Last Admin: 09/17/19 20:36 Dose: 100 mg Documented by: Enoxaparin Sodium (Lovenox) 40 mg SQ DAILY [facility] Sodium Chloride (Sodium Chloride 0.9%) 1,000 mls @ 100 mls/hr IV .Q10H [facility] Last Admin: 09/18/19 01:06 Dose: 100 mls/hr Documented by: [facility]othy[facility]ine [facility] ([facility]) [facility] Last Admin: 09/17/19 20:35 Dose: 112 mcg Documented by: Magnesium Hydroxide (Milk Of Magnesia) 30 ml PO BIDP PRN PRN Reason: Constipation Metoprolol Tartrate ([facility]ressor) [facility] Last Admin: 09/17/19 20:42 Dose: 25 mg Documented by: Morphine Sulfate (Morphine) 2 mg IV Q2HP PRN; Protocol PRN Reason: Per Pain Protocol Last Admin: 09/17/19 11:53 Dose: 2 mg Documented by: Naloxone HCl (Narcan) 0.1 mg IV Q2MIN PRN PRN Reason: Opiate Reversal Ondansetron HCl (Zofran) 4 mg IV Q4HP PRN PRN Reason: Nausea And Vomiting Ropinirole Hcl [ (Requip Xl] 12 Mg) 1 dose PO [facility] Last Admin: 11/03/19 20:38 Dose: Not Given Documented by: Polyethylene Glycol (Miralax) 17 gm PO DAILYP PRN PRN Reason: Constipation Quetiapine Fumarate (Seroquel) 25 mg PO QHS [facility] Last Admin: 09/17/19 20:42 Dose: 25 mg Documented by: Senna (Senokot) 2 tab PO HS [facility] Last Admin: 09/17/19 20:42 Dose: 2 tab Documented by: Simvastatin (Zocor) 20 mg PO QPM [facility] Last Admin: 09/17/19 20:42 Dose: 20 mg Documented by: Sodium Biphosphate/Sodium Phosphate (Fleets Adult) 1 dose [place] Q3-4DAYS PRN PRN Reason: Constipation Sodium Chloride (Saline Flush) 10 ml IV Q8 [facility] Last Admin: 09/18/19 06:57 Dose: Not Given Documented by: Tamsulosin HCl (Flomax) 0.4 mg PO HS [facility] Throat Lozenges (Cepacol) 1 lozenge PO PRN PRN PRN Reason: Sore Throat Vancomycin HCl (Vancomycin) 1 gm TOPICAL ONCE [facility]; Protocol Last Admin: 09/17/19 08:36 Dose: Not Given Documented by: Medical - PN: A/P - Time Spent With Patient Total time spent is greater than 50% in coordination of care (as documented) at patient's floor/unit and/or counseling patient: - Narrative A/P Narrative: A: *Fall/wound dehiscence. Plan: Patient had I&D (09/17) by Dr. Gross no signs of infection *Parkinson's disease: On Sinemet. Plan: cont Sinemet wit *Coronary artery disease. Has a history of bypass. No current symptoms. Plan: Continue ASA/BB *History of pacemaker for complete AV block. Atrially paced on current EKG. Plan: Noted, nothing further *Aortic valve replacement, porcine: *Restless leg syndrome. On Requip at home. *ppx: lovenox awaiting placement Medical - PN: Qual - VTE Deep Vein Thrombosis/Pulmonary Embolism Present on Admission: No
[2019-09-18] MEDS: ENOXAPARIN 40 MG/0.4 ML SYRINGE SQ SCH (10:27)
[2019-09-18] MEDS: LEVODOPA PO SCH ×3 (10:35→20:52)
[2019-09-18] MEDS: ENTACAPONE PO SCH ×3 (10:35→20:52)
[2019-09-18] MEDS: POLYETHYLENE GLYCOL 3350 17 GM PACKET PO PRN (10:35)
[2019-09-18] MEDS: DOCUSATE SODIUM 100 MG CAPSULE PO SCH ×2 (10:35→20:51)
[2019-09-18] MEDS: CARBIDOPA PO SCH ×3 (10:35→20:52)
[2019-09-18] MEDS: CARBIDOPA/LEVODOPA 25/100 TABLET PO SCH (11:08)
[2019-09-18] MEDS: VANCOMYCIN 1 GM VIAL TOPICAL SCH (12:00)
--- NOTE | 2019-09-18 13:36 | Orthopedic Progress Note ---
Subjective Patient information: Note initiated : 09/18/19 at 1:32 pm Service Date, if different from initiated Date: [] Patient: Ti Hallman 79 y/o M admitted on 09/17/19 for Fall after surgery, bleeding. Chief Complaint: [] Principal diagnosis: left elbow surgical wound dehiscence Interval history: No new issues overnight, likely will agree to SNF placement. Objective Vital signs: Vital Signs Temp Pulse Resp BP Pulse Ox 09/18/19 08:00 97.4 F 60 20 150/74 91 09/18/19 03:56 97.7 F 61 20 151/74 91 09/17/19 23:07 98.4 F 61 16 141/70 90 09/17/19 18:53 98.0 F 60 16 100/57 90 09/17/19 15:59 98.4 F 20 123/67 93 09/17/19 13:55 140/64 94 Intake and Output 09/17/19 09/18/19 09/18/19 21:59 05:59 13:59 Intake Total 360 1525 Output Total 802 426 425 Balance -442 1099 -425 Intake: IV 1000 Sodium Chloride 0.9% 1,000 ml @ 1000 100 mls/hr IV .Q10H [facility] Rx#: [id number] Oral 360 525 Output: Urine Catheter Amount 800 Void Amount 425 425 # of times incontinent of urine 2 1 Other: Meal Lunch Percent of Meal Consumed 75% Feeding Ability Independent Urine Appearance Clear Clear Urine Color Dark Yellow Bright Yellow Dark Yellow Urine Odor Normal Strong Weight 163 lb 4.8 oz Intake & Output: Intake & Output 09/17/19 09/18/19 09/18/19 21:59 05:59 13:59 Intake Total 360 1525 Output Total 802 426 425 Balance -442 1099 -425 Weight 163 lb 4.8 oz Intake: IV 1000 Sodium Chloride 0.9% 1,000 ml @ 1000 100 mls/hr IV .Q10H [facility] Rx#: [id number] Oral 360 525 Output: Urine Catheter Amount 800 Void Amount 425 425 # of times incontinent of urine 2 1 Other: Meal Lunch Percent of Meal Consumed 75% Feeding Ability Independent Urine Appearance Clear Clear Urine Color Dark Yellow Bright Yellow Dark Yellow Urine Odor Normal Strong Dressing: Yes splint in place Weight bearing status: non Additional Comments: hand is warm well perfused, more swollen in exposed digits. NVIT. - Labs CBC & BMP: 09/17/19 00:54 09/17/19 00:54 Labs: 09/17/19 00:54 Hgb 9.8 L Hct 29.4 L Assessment and Plan (1) Surgical wound dehiscence POD 1 s/p I&D with wound closure. -- splint, non weight bearing -- 09/17/2019 : cultures pos for gram pos cocci ------ continue ancef for now pending sensitivities -- PT eval and potentially having him placement in rehab facility as spouse feels that she is unable to care for him Status: Acute Qualifiers: Encounter type: initial encounter Qualified Code(s): T81.31XA - Disruption of external operation (surgical) wound, not elsewhere classified, initial encounter
--- NOTE | 2019-09-18 14:31 | Discharge Summary ---
Medical - DS: Prov Patient information: Note initiated : 09/18/19 at 2:28 pm Service Date, if different from initiated Date: [] Patient: Ti Hallman 79 y/o M admitted on 09/17/19 for Fall after surgery, bleeding. Chief Complaint: [] Date of admission: 09/17/19 03:11 Discharge date: 09/19/19 Primary care physician: Henrry Evans Consults: 09/17/19 Consult to Physician [CONS] Stat Comment: Consulting Provider: Justin Gross Reason For Exam: Physician to Consult 09/17/19 01:30 Consult to Physician [CONS] Stat Comment: Consulting Provider: Janina Dye Reason For Exam: Physician to Consult Medical - DS: Meds - Discharge Medications Prescriptions: Sulfamethoxazole/Trimethoprim [Bactrim Ds Tablet] 1 each PO BID #8 tab Active and Home Medications: Home Medications aspirin 325 mg tablet,delayed release 325 mg PO QHS 11/04/15 [History Confirmed 09/17/19 Last Taken 08/30/19] ropinirole 12 mg tablet,extended release 24 hr 12 mg PO QHS 03/23/18 [History Confirmed 09/17/19 Last Taken 08/30/19] quetiapine 25 mg tablet 25 mg PO QHS tab 11/23/18 [History Confirmed 09/17/19 Last Taken 08/30/19] simvastatin 20 mg tablet 20 mg PO QPM #90 tab 02/21/19 [Rx Confirmed 09/17/19 Last Taken 08/30/19] amiodarone 200 mg tablet 100 mg PO QHS 05/17/19 [History Confirmed 09/17/19 Last Taken 08/30/19] HYDROcodone/APAP 5/325MG [Sterling 5-325Mg] 1 tab PO Q4HP PRN #7 tab 08/27/19 [Rx Confirmed 09/17/19 Last Taken 08/31/19 09:00] Metoprolol Tartrate [Lopressor] 25 mg PO QHS 08/27/19 [History Confirmed 09/17/19 Last Taken 08/30/19] Levothyroxine Sodium [Synthroid] 112 mcg PO QHS 09/01/19 [History Confirmed 09/17/19 Last Taken 08/30/19] Patients Own Medication 1 tab PO TID 09/18/19 [History Confirmed 09/18/19 Last Taken Unknown] Medical - DS: Hosp Hospital Course: Mr. Hallman is a 79 year old M with a history of Parkinson's, coronary disease, AV block with pacemaker, aortic valve replacement with tissue valve who presents after fall. Patient fell in early August with injury to his left elbow. There is no fracture but he underwent an olecranon bursectomy on 08/31/2019. He does have a history of frequent falls. Last evening and going down a ramp into his bedroom (he was ambulating, not in a wheelchair using a walker) he fell forward, struck his head on a dresser, also struck his left elbow which opened the surgical wound. He presents the ED with dehiscence of his left olecranon bursectomy wound. Patient was otherwise in his usual state of health. He is very unsteady on his feet, wears a helmet when ambulating because of frequent falls. Assistive devices are further limited by severe rotator cuff issues in the right shoulder and now his left elbow. He is has a little bit of sharp anterior chest pain since the fall, he did strike the front of his chest. He has no substernal chest pain/tightness/squeezing. No dyspnea, no cough. Patient's being hospitalized in anticipation of surgical washout and closure of the dehisced wound by Dr. Gross. Patient denies current headache. No fevers or chills. No nausea vomiting, no abdominal pain. He has generalized weakness which is chronic, no new focal weaknesses, no vision changes, no word finding problems. He has chronic pain in the right shoulder and is unable to fully elevate that shoulder due to rotator cuff injury which is unchanged. He does have easy bruising from falls. No sore throat, no rhinorrhea, no dysuria or change in urinary frequency. Surgical I&D left elbow on September 17. No evidence of skin infection skin over olecranon very thin. 09/18 Had I&D yesterday of left elbow By orthopedics no signs of infection. He did report he was having trouble urinating. Flomax started. Dates he had poor sleep. Surgical Gram stain shows gram-positive cocci in pairs and clusters. Does like he was on Keflex prior. Started on Bactrim. 09/19 Plan for discharge today to rehab. Discharge diagnosis: Wound dehiscence with possible superficial infection Parkinson's disease Secondary discharge diagnosis: Coronary artery disease - Time Spent with Patient Total time spent providing and/or coordinating discharge services: Greater than 30 minutes Medical - DS: Exam - Constitutional Vitals: Vital Signs Temp Pulse Resp BP Pulse Ox 09/18/19 08:00 97.4 F 60 20 150/74 91 09/18/19 03:56 97.7 F 61 20 151/74 91 09/17/19 23:07 98.4 F 61 16 141/70 90 09/17/19 18:53 98.0 F 60 16 100/57 90 09/17/19 15:59 98.4 F 20 123/67 93 Intake and Output 09/18/19 09/18/19 09/18/19 05:59 13:59 21:59 Intake Total 1525 Output Total 426 425 Balance 1099 -425 Intake: IV 1000 Sodium Chloride 0.9% 1,000 ml @ 1000 100 mls/hr IV .Q10H BORA Rx#: [id number] Oral 525 Output: Void Amount 425 425 # of times incontinent of urine 1 Other: Urine Appearance Clear Urine Color Bright Yellow Dark Yellow Urine Odor Strong Medical - DS: Data Labs on day of discharge: Preliminary micro results at discharge 09/17/19 09:02 Anaerobic Culture - Preliminary Elbow - Left Wound Culture - Preliminary 09/17/19 09:02 Anaerobic Culture - Preliminary Elbow - Left Tissue Culture - Preliminary Medical - DS: A/P - Patient/Caregiver Discharge Instructions Activity: as per physical therapy Diet: Cardiac Prescriptions: Sulfamethoxazole/Trimethoprim [Bactrim Ds Tablet] 1 each PO BID #8 tab - Follow up Plan Follow up with: Henrry Evans PA-C [Primary Care Provider] - Shan Oviedo MD [Physician] - Disposition: Xfer SNF Prognosis: Undetermined Rehab Potential: Fair I certify that the patient requires SNF services: Yes Overall status at discharge: patient is progressing back to baseline Medical - DS: Qual - VTE Deep Vein Thrombosis/Pulmonary Embolism Present on Admission: No
[2019-09-18] MEDS: ceFAZolin 1 GM VIAL IV SCH ×2 (14:37→22:13)
[2019-09-18] MEDS: LEVOTHYROXINE SODIUM 112 MCG TABLET PO SCH (20:51)
[2019-09-18] MEDS: AMIODARONE HCL 200 MG TABLET PO SCH (20:51)
[2019-09-18] MEDS: SENNOSIDES 1 TABLET PO SCH (20:51)
[2019-09-18] MEDS: METOPROLOL TARTRATE 25 MG TABLET PO SCH (20:51)
[2019-09-18] MEDS: ASPIRIN 325 MG ENTERIC COATED TABLET PO SCH (20:51)
[2019-09-18] MEDS: QUEtiapine 25 MG TABLET PO SCH (20:51)
[2019-09-18] MEDS: SIMVASTATIN 20 MG TABLET PO SCH (20:52)
[2019-09-18] MEDS: ROPINIROLE HCL 12 MG PO SCH (20:52)
[2019-09-18] MEDS: MAGNESIUM HYDROXIDE 30 ML ORAL.SUSP PO PRN (21:24)
[2019-09-19] MEDS: 0.9 % SODIUM CHLORIDE 10 ML SYRINGE IV SCH ×3 (03:18→18:45)
[2019-09-19] MEDS: ceFAZolin 1 GM VIAL IV SCH ×2 (07:11→18:45)
[2019-09-19] MEDS: LEVODOPA PO SCH ×3 (09:36→23:01)
[2019-09-19] MEDS: CARBIDOPA PO SCH ×3 (09:36→23:01)
[2019-09-19] MEDS: ENOXAPARIN 40 MG/0.4 ML SYRINGE SQ SCH (09:36)
[2019-09-19] MEDS: POLYETHYLENE GLYCOL 3350 17 GM PACKET PO PRN (09:36)
[2019-09-19] MEDS: DOCUSATE SODIUM 100 MG CAPSULE PO SCH ×2 (09:36→22:50)
[2019-09-19] MEDS: ENTACAPONE PO SCH ×3 (09:36→23:01)
[2019-09-19] MEDS: MAGNESIUM HYDROXIDE 30 ML ORAL.SUSP PO PRN (11:03)
--- NOTE | 2019-09-19 12:41 | Orthopedic Progress Note ---
Subjective Patient information: Note initiated : 09/19/19 at 12:39 pm Service Date, if different from initiated Date: [] Patient: Ti Hallman 79 y/o M admitted on 09/17/19 for Fall after surgery, bleeding. Chief Complaint: [] Principal diagnosis: left elbow surgical wound dehiscence Interval history: no acute issues. Objective Vital signs: Vital Signs Temp Pulse Resp BP Pulse Ox 09/19/19 12:00 97.3 F 60 14 138/70 85 L 09/19/19 08:00 99.2 F H 60 20 128/70 90 09/19/19 04:27 97.5 F 60 22 145/66 90 09/19/19 03:26 97.9 F 60 28 H 173/78 89 L 09/19/19 00:18 97.5 F 60 20 136/71 90 09/18/19 19:30 98.1 F 63 18 116/75 98 09/18/19 16:00 97.4 F 69 18 134/68 90 Intake and Output 09/18/19 09/19/19 09/19/19 21:59 05:59 13:59 Intake Total 350 480 Output Total 1228 5 951 Balance -1228 345 -471 Intake: Oral 350 480 Output: Urine Catheter Amount 800 Straight 800 Void Amount 1225 150 # of times incontinent of urine 3 5 1 Other: Meal Dinner Breakfast Percent of Meal Consumed 100% 100% Urine Appearance Clear Clear Straight Clear Urine Color Dark Yellow Dark Yellow Bright Yellow Straight Light Flak[place] Urine Odor Normal # Voids 3 1 Weight 177 lb 6.4 oz Intake & Output: Intake & Output 09/18/19 09/19/19 09/19/19 21:59 05:59 13:59 Intake Total 350 480 Output Total 1228 5 951 Balance -1228 345 -471 Weight 177 lb 6.4 oz Intake: Oral 350 480 Output: Urine Catheter Amount 800 Straight 800 Void Amount 1225 150 # of times incontinent of urine 3 5 1 Other: Meal Dinner Breakfast Percent of Meal Consumed 100% 100% Urine Appearance Clear Clear Straight Clear Urine Color Dark Yellow Dark Yellow Bright Yellow Straight Light Flakita Urine Odor Normal # Voids 3 1 Dressing: Yes splint in place - Labs CBC & BMP: 09/17/19 00:54 09/17/19 00:54 Labs: 09/17/19 00:54 Hgb 9.8 L Hct 29.4 L Assessment and Plan (1) Surgical wound dehiscence POD 2 s/p I&D with wound closure. -- splint, non weight bearing -- 09/17/2019 : cultures pos for gram pos cocci -- sensitivities-- MSSA ------ bactrim x 2 weeks. -- Dispo: denied SNF since not in an inpt status. Plan for d/c home with home health. Will have to f/u with Salvatore Villarreal next week. Status: Acute Qualifiers: Encounter type: initial encounter Qualified Code(s): T81.31XA - Disruption of external operation (surgical) wound, not elsewhere classified, initial encounter
--- NOTE | 2019-09-19 16:37 | Internal Med Progress Note ---
Medical - PN: Subj Patient information: Note initiated : 09/19/19 at 4:34 pm Service Date, if different from initiated Date: [] Patient: Ti Hallman a 79 y/o M admitted on 09/17/19 for Fall after surgery, bleeding. Chief Complaint: [] Interval history: Mr. Hallman is a 79 year old M with a history of Parkinson's, coronary disease, AV block with pacemaker, aortic valve replacement with tissue valve who presents after fall. Patient fell in early August with injury to his left elbow. There is no fracture but he underwent an olecranon bursectomy on 08/31/2019. He does have a history of frequent falls. Last evening and going down a ramp into his bedroom (he was ambulating, not in a wheelchair using a walker) he fell forward, struck his head on a dresser, also struck his left elbow which opened the surgical wound. He presents the ED with dehiscence of his left olecranon bursectomy wound. Patient was otherwise in his usual state of health. He is very unsteady on his feet, wears a helmet when ambulating because of frequent falls. Assistive devices are further limited by severe rotator cuff issues in the right shoulder and now his left elbow. He is has a little bit of sharp anterior chest pain since the fall, he did strike the front of his chest. He has no substernal chest pain/tightness/squeezing. No dyspnea, no cough. Patient's being hospitalized in anticipation of surgical washout and closure of the dehisced wound by Dr. Gross. Patient denies current headache. No fevers or chills. No nausea vomiting, no abdominal pain. He has generalized weakness which is chronic, no new focal weaknesses, no vision changes, no word finding problems. He has chronic pain in the right shoulder and is unable to fully elevate that shoulder due to rotator cuff injury which is unchanged. He does have easy bruising from falls. No sore throat, no rhinorrhea, no dysuria or change in urinary frequency. 09/18 Had I&D yesterday of left elbow By orthopedics no signs of infection. He did report he was having trouble urinating. Flomax started. Dates he had poor sleep. 09/19 Patient feeling constipated today. Also feels little short of breath, but states better than this morning. Has been in bed not moving much. I asked and Acapella and ambulation more as well as physical therapy. He was digitally and disimpacted to some degree with noted hard stool. And now trying enema's. Denies any cough or chest pain. Review of Systems: denies headache/fever/chills/nausea/vomiting/chest pain/cough/diarrhea. Otherwise see above. - Constitutional Vitals: Vital Signs Temp Pulse Resp BP Pulse Ox 97.6 F 70 14 140/66 91 09/19/19 15:50 09/19/19 15:50 09/19/19 15:50 09/19/19 15:50 09/19/19 15:50 Period Temp Pulse Resp BP Sys/Van Pulse Ox Last 24 Hr 97.3 F-99.2 F 60-70 14-28 116-173/66-78 85-98 Intake and Output 09/19/19 09/19/19 09/19/19 05:59 13:59 21:59 Intake Total 350 480 Output Total 5 951 Balance 345 -471 Intake & Output: Intake & Output 09/19/19 09/19/19 09/19/19 05:59 13:59 21:59 Intake Total 350 480 Output Total 5 951 Balance 345 -471 Intake: Oral 350 480 Output: Urine Catheter Amount 800 Straight 800 Void Amount 150 # of times incontinent of urine 5 1 Other: Meal Breakfast Percent of Meal Consumed 100% 75% Feeding Ability Independent Urine Appearance Clear Straight Clear Urine Color Dark Yellow Bright Yellow Straight Light Flakita # Voids 1 Exam: General: Alert, Awake, No acute Distress Eyes/N/T: EOMI, Head/Neck: neck supple, CV: RRR, 3/6 SM Pulm: very mild rales left base, otherwise clear, no wheezing Abd: soft, nontender, +BS x4 Ext: no clubbing/cyanosis/edema LE's. Left arm in sling Neuro: Alert, no focal deficits, moves all extremities, Skin: warm/dry Medical - PN: Obj Da - Labs CBC & Chem 7: 09/17/19 00:54 09/17/19 00:54 Labs: Abnormal Lab Results 09/17/19 09/17/19 09/17/19 03:38 00:54 00:54 RBC 3.51 L Hgb 9.8 L Hct 29.4 L RDW 16.2 H MPV 6.9 L Gran % 83.3 H Lymph % (Auto) 6.7 L Lymph # (Auto) 0.6 L BUN 25 H Glucose 119 H Calcium 8.2 L Urine Protein 30 A Meds: Medications Hydrocodone Bitart/Acetaminophen (Oneco 5/325mg) 0 tab PO Q4HP PRN; Protocol PRN Reason: Per Pain Protocol Last Admin: 09/18/19 20:49 Dose: 1 tab Documented by: Amiodarone HCl (Cordarone) 100 mg PO QHS [facility] Last Admin: 09/18/19 20:51 Dose: 100 mg Documented by: Aspirin (Ecotrin) 325 mg PO QHS [facility] Last Admin: 09/18/19 20:51 Dose: 325 mg Documented by: Bisacodyl (Dulcolax) 10 mg UT Q2-3DAYS PRN PRN Reason: Constipation Cefazolin Sodium (Ancef) 1 gm IV Q8H [facility]; Protocol Last Admin: 09/19/19 07:11 Dose: 1 gm Documented by: Docusate Sodium (Colace) 100 mg PO BID [facility] Last Admin: 09/19/19 09:36 Dose: 100 mg Documented by: Enoxaparin Sodium (Lovenox) 40 mg SQ DAILY [facility] Last Admin: 09/19/19 09:36 Dose: 40 mg Documented by: Levothyroxine Sodium (Synthroid) 112 mcg PO [facility] Last Admin: 09/18/19 20:51 Dose: 112 mcg Documented by: Magnesium Hydroxide (Milk Of Magnesia) 30 ml PO BIDP PRN PRN Reason: Constipation Last Admin: 09/19/19 11:03 Dose: 30 ml Documented by: Metoprolol Tartrate (Lopressor) 25 mg PO QHS [facility] Last Admin: 09/18/19 20:51 Dose: 25 mg Documented by: Morphine Sulfate (Morphine) 2 mg IV Q2HP PRN; Protocol PRN Reason: Per Pain Protocol Last Admin: 09/19/19 03:19 Dose: 2 mg Documented by: Naloxone HCl (Narcan) 0.1 mg IV Q2MIN PRN PRN Reason: Opiate Reversal Ondansetron HCl (Zofran) 4 mg IV Q4HP PRN PRN Reason: Nausea And Vomiting Ropinirole Hcl [ (Requip Xl] 12 Mg) 1 dose PO [facility] Last Admin: 09/18/19 20:52 Dose: Not Given Documented by: Levodopa 100 Mg, Carbidopa 25 Mg, And Entacapone 200 Mg Tablet 1 dose PO TID [facility] Last Admin: 09/19/19 09:36 Dose: 1 dose Documented by: Polyethylene Glycol (Miralax) 17 gm PO DAILYP PRN PRN Reason: Constipation Last Admin: 09/19/19 09:36 Dose: 17 gm Documented by: Quetiapine Fumarate (Seroquel) 25 mg PO QHS [facility] Last Admin: 09/18/19 20:51 Dose: 25 mg Documented by: Senna (Senokot) 2 tab PO [facility] Last Admin: 09/18/19 20:51 Dose: 2 tab Documented by: Simvastatin (Zocor) 20 mg PO QPM [facility] Last Admin: 09/18/19 20:52 Dose: 20 mg Documented by: Sodium Biphosphate/Sodium Phosphate (Fleets Adult) 1 dose UT Q3-4DAYS PRN PRN Reason: Constipation Last Admin: 09/19/19 13:45 Dose: 1 dose Documented by: Sodium Chloride (Saline Flush) 10 ml IV Q8 [facility] Last Admin: 09/19/19 07:11 Dose: 10 ml Documented by: Tamsulosin HCl (Flomax) 0.4 mg PO [facility] Throat Lozenges (Cepacol) 1 lozenge PO PRN PRN PRN Reason: Sore Throat Medical - PN: A/P - Time Spent With Patient Total time spent is greater than 50% in coordination of care (as documented) at patient's floor/unit and/or counseling patient: - Narrative A/P Narrative: A: *Fall/wound dehiscence. Plan: Patient had I&D (09/17) by Dr. Gross no physical exam findings of infection but wound culture growing MSSA. on cefazolin currently *Parkinson's disease: On Sinemet. *Coronary artery disease. Has a history of bypass. No current symptoms. Plan: Continue ASA/BB *History of pacemaker for complete AV block. Atrially paced on current EKG. Plan: Noted, nothing further *Aortic valve replacement, porcine: *Restless leg syndrome. On Requip at home. *ppx: lovenox awaiting placement Medical - PN: Qual - VTE Deep Vein Thrombosis/Pulmonary Embolism Present on Admission: No
[2019-09-19] MEDS ORDERED: LACTULOSE 20 GM/30 ML ORAL.SOL PO PRN (17:04)
[2019-09-19] MEDS ORDERED: TAMSULOSIN 0.4 MG CAPSULE PO SCH (21:00)
[2019-09-19] MEDS: SIMVASTATIN 20 MG TABLET PO SCH (22:50)
[2019-09-19] MEDS: ASPIRIN 325 MG ENTERIC COATED TABLET PO SCH (22:50)
[2019-09-19] MEDS: AMIODARONE HCL 200 MG TABLET PO SCH (22:50)
[2019-09-19] MEDS: QUEtiapine 25 MG TABLET PO SCH (22:50)
[2019-09-19] MEDS: METOPROLOL TARTRATE 25 MG TABLET PO SCH (22:50)
[2019-09-19] MEDS: LEVOTHYROXINE SODIUM 112 MCG TABLET PO SCH (22:50)
[2019-09-19] MEDS: SENNOSIDES 1 TABLET PO SCH (23:01)
[2019-09-19] MEDS: ROPINIROLE HCL 12 MG PO SCH (23:02)
[2019-09-20] MEDS: ceFAZolin 1 GM VIAL IV SCH ×3 (00:26→13:52)
[2019-09-20] MEDS: 0.9 % SODIUM CHLORIDE 10 ML SYRINGE IV SCH ×3 (00:27→13:53)
[2019-09-20] MEDS ORDERED: PEG 3350/NA SULF,BICARB,CL/KCL 4,000 ML ORAL.SOL PO ONE (06:52)
[2019-09-20] MEDS ORDERED: METHYLNALTREXONE BROMIDE 12 MG/0.6 ML SYRINGE SC ONE (07:00)
[2019-09-20] MEDS: DOCUSATE SODIUM 100 MG CAPSULE PO SCH (08:51)
[2019-09-20] MEDS: ENOXAPARIN 40 MG/0.4 ML SYRINGE SQ SCH (08:51)
[2019-09-20] MEDS: CARBIDOPA PO SCH (08:52)
[2019-09-20] MEDS: ENTACAPONE PO SCH (08:52)
[2019-09-20] MEDS: LEVODOPA PO SCH (08:52)
== END 2019-09-20 14:30 ==
LOC: ED 23:55 → MEDSUR 23:55
PROVIDERS: ADMIT Internal Medicine; ATTEND Internal Medicine

== ENCOUNTER 2019-10-24 09:08 | Inpatient (IN) ==
[2019-10-24 09:57] LABS: Basophils # (Auto) 0 K/mcL (0.0-0.3); Basophils % (Auto) 0.3 % (0.0-2.0); Eosinophils # (Auto) 0.1 K/mcL (0.0-0.7); Eosinophils % (Auto) 1.9 % (0.0-7.0); Granulocytes % (Auto) 78.1 % (38.0-78.0); Lymphocytes # (Auto) 0.9 K/mcL (1.5-4.8); Lymphocytes % (Auto) 12.1 % (15.5-49.0); Mean Cell Volume 81.6 fL (80.0-100.0); Mean Corpuscular HGB Conc 32.1 g/dL (31.0-36.0); Mean Platelet Volume 6.2 fL (7.4-10.4); Monocytes # (Auto) 0.5 K/mcL (0.1-0.9); Monocytes % (Auto) 7.6 % (1.0-12.0); Platelet Count 219 K/mcL (140-440); Red Cell Distribution Width 15.9 % (11.5-14.5); WBC 7.2 K/mcL (4.5-11.0)
[2019-10-24 10:12] LABS: Blood Urea Nitrogen 23 mg/dl (8-23); Carbon Dioxide 27 mmol/L (22-30); Chloride 101 mmol/L (96-108); Glomerular Filtration Rate 71; Glucose 92 mg/dL (70-105)
[2019-10-24 10:32] LABS: Prothrombin Time 13.5 sec (11.9-14.5)
[2019-10-24 10:41] LABS: Erythrocyte Sedimentation Rate 60 mm/hr (0-15)
[2019-10-24] MEDS ORDERED: ceFAZolin 2 GM in DEXTROSE 5% IN WATER 50 ML IV SCH (11:00)
[2019-10-24 11:36] LABS: Appearance,Urine CLEAR; Bilirubin,Urine NEG (NEG); Color,Urine YELLOW; Culture Indicated,Urine NO; Glucose,Urine (UA) NEGATIVE (NEG); Ketones,Urine NEG (NEG); Leukocyte Esterase,Urine NEG /uL (NEG); Nitrate,Urine NEG (NEG); Protein,Urine NEG (NEG); Specific Gravity,Urine 1.019 (1.000-1.035); Urine Blood NEG mg/dL (<0.03); Urobilinogen,Urine NEG (NEG)
[2019-10-24] MEDS ORDERED: DEXAMETHASONE 10 MG/ML VIAL IV ONE (15:02)
[2019-10-24] MEDS ORDERED: PHENYLEPHRINE 10 MG/ML VIAL IV ONE (15:02)
[2019-10-24] MEDS ORDERED: ONDANSETRON 4 MG/2 ML VIAL IV ONE (15:02)
[2019-10-24] MEDS ORDERED: fentaNYL 100 MCG/2 ML VIAL IV ONE (15:02)
[2019-10-24] MEDS ORDERED: PROPOFOL 200 MG/20 ML VIAL IV ONE (15:02)
[2019-10-24] MEDS ORDERED: ATROPINE SULFATE 0.4 MG/ML VIAL IV PRN (15:15)
[2019-10-24] MEDS ORDERED: ONDANSETRON 4 MG/2 ML VIAL IV PRN ×2 (15:15→15:46)
[2019-10-24] MEDS ORDERED: PROMETHAZINE 25 MG/ML VIAL IV PRN (15:15)
[2019-10-24] MEDS ORDERED: ePHEDrine 50 MG/ML AMPUL IV PRN (15:15)
[2019-10-24] MEDS ORDERED: ACETAMINOPHEN 1,000 MG/100 ML BOTTLE IV ONE (15:15)
[2019-10-24] MEDS ORDERED: fentaNYL 100 MCG/2 ML VIAL IV PRN (15:15)
[2019-10-24] MEDS ORDERED: HYDROmorphone 2 MG/ML VIAL IV PRN (15:15)
[2019-10-24] MEDS ORDERED: IPRATROPIUM/ALBUTEROL 3 ML AMPUL.NEB NEB PRN (15:15)
[2019-10-24] MEDS ORDERED: NALOXONE HCL 0.4 MG/ML VIAL IV PRN (15:15)
[2019-10-24] MEDS ORDERED: diphenhydrAMINE 50 MG/ML VIAL IV PRN (15:15)
[2019-10-24] MEDS ORDERED: METOPROLOL TARTRATE 5 MG/5 ML VIAL IV PRN (15:15)
[2019-10-24] MEDS ORDERED: FLUMAZENIL 0.1 MG/ML ML IV PRN (15:15)
[2019-10-24] MEDS ORDERED: METHOCARBAMOL 1,000 MG/10 ML VIAL IV PRN (15:15)
[2019-10-24] MEDS ORDERED: FLEETS ADULT ENEMA PR PRN (15:46)
[2019-10-24] MEDS ORDERED: BENZOCAINE/MENTHOL 1 LOZENGE PO PRN (15:46)
[2019-10-24] MEDS ORDERED: POLYETHYLENE GLYCOL 3350 17 GM PACKET PO PRN (15:46)
[2019-10-24] MEDS ORDERED: BISACODYL 10 MG SUPP.RECT PR PRN (15:46)
--- NOTE | 2019-10-24 15:46 | Brief Operative Note ---
Date of procedure: 10/24/19 Pre-op diagnosis: Infected left elbow wound s/p prior bursectomy Post-op diagnosis: same Procedure: I&D and packing of Left elbow wound Grafts/Implants: No Anesthesia: GLMA Findings: mild purulence, wound tracking about 3 cm in diameter over the olecranon Complications: none Surgeon: Shan Oviedo All Round Logger: Miguel A Villarreal Estimated blood loss (cc): 50 Tourniquet Time (Minutes): 15 Specimens Removed/Pathology: other (c&s) Condition: stable Disposition: PACU
[2019-10-24] MEDS: HYDROcodone/APAP 5/325MG TABLET PO PRN (17:21)
[2019-10-24] MEDS: LACTATED RINGERS 1,000 ML IV SCH (19:30)
[2019-10-24] MEDS: ASPIRIN 325 MG ENTERIC COATED TABLET PO SCH (21:00)
[2019-10-24] MEDS: ENTACAPONE 200 MG PO SCH (21:00)
[2019-10-24] MEDS: LEVODOPA PO SCH (21:00)
[2019-10-24] MEDS: SENNOSIDES 1 TABLET PO SCH (21:00)
[2019-10-24] MEDS: CARBIDOPA PO SCH (21:00)
[2019-10-24] MEDS ORDERED: ROPINIROLE HCL 12 MG PO SCH (21:00)
[2019-10-24] MEDS: LEVOTHYROXINE SODIUM 112 MCG TABLET PO SCH (21:00)
[2019-10-24] MEDS: QUEtiapine 25 MG TABLET PO SCH (21:00)
[2019-10-24] MEDS: SIMVASTATIN 20 MG TABLET PO SCH (21:00)
[2019-10-24] MEDS: METOPROLOL TARTRATE 25 MG TABLET PO SCH (21:00)
[2019-10-24] MEDS: VANCOMYCIN 1,250 MG in 0.9 % SODIUM CHLORIDE 500 ML IV SCH (22:23)
[2019-10-24] MEDS: DOCUSATE SODIUM 100 MG CAPSULE PO SCH (22:50)
[2019-10-25] MEDS: 0.9 % SODIUM CHLORIDE 10 ML SYRINGE IV SCH ×4 (02:26→20:47)
[2019-10-25] MEDS: SENNOSIDES 1 TABLET PO SCH ×2 (02:36→20:38)
[2019-10-25] MEDS: ceFAZolin 1 GM VIAL IV SCH ×4 (02:37→23:30)
[2019-10-25] MEDS: LACTATED RINGERS 1,000 ML IV SCH (03:03)
[2019-10-25] MEDS: HYDROcodone/APAP 5/325MG TABLET PO PRN (03:53)
[2019-10-25 05:42] LABS: Basophils # (Auto) 0 K/mcL (0.0-0.3); Basophils % (Auto) 0 % (0.0-2.0); Eosinophils # (Auto) 0 K/mcL (0.0-0.7); Eosinophils % (Auto) 0 % (0.0-7.0); Granulocytes % (Auto) 93.9 % (38.0-78.0); Hematocrit 30.3 % (41.0-55.0); Hemoglobin 9.8 g/dL (13.5-16.5); Lymphocytes # (Auto) 0.4 K/mcL (1.5-4.8); Lymphocytes % (Auto) 5.6 % (15.5-49.0); Mean Cell Volume 81.7 fL (80.0-100.0); Mean Corpuscular HGB Conc 32.4 g/dL (31.0-36.0); Mean Platelet Volume 6.6 fL (7.4-10.4); Monocytes # (Auto) 0 K/mcL (0.1-0.9); Monocytes % (Auto) 0.5 % (1.0-12.0); Platelet Count 220 K/mcL (140-440); RBC 3.71 M/mcL (4.50-5.90); Red Cell Distribution Width 15.6 % (11.5-14.5); WBC 7.1 K/mcL (4.5-11.0)
[2019-10-25 05:49] LABS: C-Reactive Protein 1.4 mg/dl (0.0-0.8)
[2019-10-25 06:49] LABS: Erythrocyte Sedimentation Rate 55 mm/hr (0-15)
--- NOTE | 2019-10-25 07:02 | Orthopedic Progress Note ---
Orthopedics - Auxillary Note - Subjective Patient Information: Note initiated : 10/25/19 at 7:01 am Service Date, if different from initiated Date: [] Patient: Ti Hallman 79 y/o M admitted on 10/24/19 for Left Elbow Irrigation and Debridment. Chief Complaint: Mild L elbow pain. bandages c/d/i nvi-distal Vital Signs Temp Pulse Pulse Resp BP Pulse Ox 10/25/19 02:40 97.8 F 60 12 143/70 91 10/24/19 23:15 98.0 F 61 12 131/60 92 10/24/19 19:49 98.2 F 60 12 123/67 94 10/24/19 18:59 98.2 F 60 16 140/69 94 10/24/19 18:30 62 16 133/56 95 10/24/19 18:00 60 17 150/65 96 10/24/19 17:30 59 L 16 164/77 95 10/24/19 17:10 60 17 173/82 97 10/24/19 16:55 97.6 F 60 17 168/74 97 10/24/19 16:45 98.6 F 60 17 166/73 99 10/24/19 16:35 60 18 158/83 97 10/24/19 16:31 98.6 F 60 18 151/74 100 10/24/19 16:25 98.6 F 60 15 153/74 100 10/24/19 16:20 60 16 168/70 97 10/24/19 16:15 60 17 165/77 100 10/24/19 16:10 60 15 168/89 100 10/24/19 16:05 60 14 175/84 100 10/24/19 16:00 98.2 F 61 12 140/71 100 10/24/19 09:34 98.6 F 57 L 16 173/70 96 Intake and Output 10/24/19 10/25/19 10/25/19 21:59 05:59 13:59 Intake Total 1450 200 Output Total 451 278 250 Balance 999 -78 -250 Intake: IV 150 Ancef 2 gm In Dextrose 5% in 50 Water 50 ml @ 100 mls/hr IV PREOP [facility] Rx#:[id number] Oral 400 200 IV - Manual Only 900 Output: Void Amount 400 275 250 # of times incontinent of urine 1 3 Estimated Blood Loss 50 Other: Urine Appearance Clear Clear Clear Urine Color Bright Yellow Bright Yellow Dark Yellow Urine Odor Normal Strong # Voids 1 Weight 175 lb 8 oz Laboratory Results - last 24 hr 10/24/19 10/24/19 10/24/19 09:22 09:22 09:22 WBC 7.2 RBC 3.80 L Hgb 10.0 L Hct 31.0 L MCV 81.6 MCH 26.2 MCHC 32.1 RDW 15.9 H Plt Count 219 MPV 6.2 L Gran % 78.1 H Lymph % (Auto) 12.1 L Arch[place] % (Auto) 7.6 Eos % (Auto) 1.9 Baso % (Auto) 0.3 Gran # 5.6 Lymph # (Auto) 0.9 L [place] # (Auto) 0.5 Eos # (Auto) 0.1 Baso # (Auto) 0 ESR 60 H PT 13.5 INR 1.0 Sodium 139 Potassium 4.0 Chloride 101 Carbon Dioxide 27 Anion Gap 11.0 BUN 23 Creatinine 1.0 GFR Calculation 71 Glucose 92 Calcium 9.0 C-Reactive Protein 2.0 H Urine Color Urine Appearance Urine pH Ur Specific Iselin Urine Protein Urine Glucose (UA) Urine Ketones Urine Occult Blood Urine Nitrate Urine Bilirubin Urine Urobilinogen Ur Leukocyte Esterase Ur Culture Indicated? 10/24/19 10/25/19 10/25/19 10:39 04:10 04:10 WBC 7.1 RBC 3.71 L Hgb 9.8 L Hct 30.3 L MCV 81.7 MCH 26.5 MCHC 32.4 RDW 15.6 H Plt Count 220 MPV 6.6 L Gran % 93.9 H Lymph % (Auto) 5.6 L [place] % (Auto) 0.5 L Eos % (Auto) 0 Baso % (Auto) 0 Gran # 6.6 Lymph # (Auto) 0.4 L [place] # (Auto) 0 L Eos # (Auto) 0 Baso # (Auto) 0 ESR 55 H PT INR Sodium Potassium Chloride Carbon Dioxide Anion Gap BUN Creatinine GFR Calculation Glucose Calcium C-Reactive Protein 1.4 H Urine Color Yellow Urine Appearance Clear Urine pH 6.0 Ur Specific Iselin 1.019 Urine Protein Neg Urine Glucose (UA) Negative Urine Ketones Neg Urine Occult Blood Neg Urine Nitrate Neg Urine Bilirubin Neg Urine Urobilinogen Neg Ur Leukocyte Esterase Neg Ur Culture Indicated? No s/p L elbow I&D-stable will stay for consult with ID and Wound Care. May discharge once plan with ID and wound care has been developed. f/u with ortho 2 weeks.
--- NOTE | 2019-10-25 08:21 | Operative Note ---
DATE OF OPERATION: 10/24/2019 PREOPERATIVE DIAGNOSIS: Infected left elbow wound status post prior bursectomy. POSTOPERATIVE DIAGNOSIS: Infected left elbow wound status post prior bursectomy. PROCEDURE PERFORMED: Incision and drainage with irrigation and debridement of the left elbow wound with wound packing. SURGEON: Shan Oviedo MD MEDIA SERVICES DIRECTOR: Salvatore Villarreal PA-C. This provider's expertise and technical skill were required throughout the case. The PA assisted with preoperative coordination, intraoperative retraction, wound closure, dressing and splint application, as well as postoperative documentation and care coordination. ANESTHESIA: General. DRAINS: None. SPECIMENS: Culture and sensitivity. BLOOD LOSS: 30 mL COMPLICATIONS: None. POSTOPERATIVE CONDITION: Stable. INDICATIONS FOR SURGERY: This is a 79-year-old male who had a very inflamed olecranon bursitis for which we performed a bursectomy a number of weeks prior. He then early in his postoperative recovery fell, striking his elbow on the ground and dehiscing the wound. This was then washed out by my partner and then things had been doing well for a number of weeks, but then over the past few days, he had increasing redness and swelling and then eventually started draining purulent material. FINDINGS AT SURGERY: He did have a very small amount of pus, but there was clearly a pocket approximately 3 cm in diameter over the olecranon. The post-debridement showed complete washout and packing. PROCEDURE IN DETAIL: The patient had been seen preoperatively and informed consent had been obtained after discussion of risks and benefits of surgery. Risks including, but not limited to, bleeding, continued infection, injury to nerves, blood vessels or other surrounding structures; anesthetic risks; incomplete or no resolution of the infection, possibility of needing further surgery such as further washouts or skin grafting. He understood and wished to proceed. Correct operative site was marked and the patient was taken to the operating room. General anesthesia induced. He was carefully positioned in the right lateral decubitus position and pressure points carefully padded. The beanbag was suctioned to hold in that position. The left upper extremity was then carefully prepped and draped in normal sterile fashion and a timeout was performed verifying patient name, operative site, and plan. We used the scalpel to open about 3 cm of his incision directly over the olecranon and a small amount of purulent material was expressed; however, we did note that it tracked under the skin a couple of centimeters. We initially did a debridement with rongeur and curet and then pulse lavaged about 1500 mL of saline. We then irrigated about 100 mL of Betadine and then left the final irrigation of Betadine in place. This was left for 2 minutes and then I pulse irrigated another 1500 mL saline. At the conclusion then I took a Nu Gauze soaked in saline and then wrung out so it was damp and then packed this circumferentially in the wound. Fluffs and ABD were placed and then a Kerlix was wrapped around. We then released the sterile tourniquet and placed a removable long arm posterior splint. The patient was then awakened, extubated, and transferred to recovery in stable condition. BJB:elmer Job ID: [id number] Doc ID: [id number] Shan Oviedo MD
[2019-10-25] MEDS ORDERED: VANCOMYCIN PER PHARMACY IV SCH (09:00)
[2019-10-25] MEDS ORDERED: DOCUSATE SODIUM 100 MG CAPSULE PO SCH (09:00)
[2019-10-25] MEDS: VANCOMYCIN 1,250 MG in 0.9 % SODIUM CHLORIDE 500 ML IV SCH ×2 (09:41→20:49)
[2019-10-25] MEDS: CARBIDOPA PO SCH ×3 (09:42→20:38)
[2019-10-25] MEDS: TAMSULOSIN 0.4 MG CAPSULE PO SCH (09:42)
[2019-10-25] MEDS: LEVODOPA PO SCH ×3 (09:42→20:38)
[2019-10-25] MEDS: ENTACAPONE 200 MG PO SCH ×3 (09:42→20:38)
[2019-10-25] MEDS: DOCUSATE SODIUM 100 MG CAPSULE PO SCH ×2 (09:42→20:37)
--- NOTE | 2019-10-25 10:26 | General Surgery Consult Note ---
History of Present Illness Patient information: Note initiated : 10/25/19 at 10:20 am Service Date, if different from initiated Date: [] Patient: Ti Hallman 79 y/o M admitted on 10/24/19 for Left Elbow Irrigation and Debridment. Chief Complaint: [] Consult date: 10/24/19 Requesting physician: Shan Oviedo (Post Op Wound Management) History of present illness: 79/M I saw this gentleman along with his Temitope and Bethany RN In Patient wound care nurse. Spoke with Dr. Oviedo and Dr. Dominguez Infectious disease. Patient is s/p debridement of LEFT elbow olecranon bursa post surgical wound with open packing. Preliminary wound cultures are positive for Staph aureus, Antibiotic sensitivity is pending. I reviewed his comorbid conditions and went over his regular list of medications with him and his . He is afebrile with stable vital signs. LEFT elbow dressings currently are CDI. NO NV deficits. Fingers are PWD. ROM are WNL for forearm and hand. Medications and Allergies Home Medications Medication Instructions Recorded Confirmed Type aspirin 325 mg tablet,delayed 325 mg PO QHS 11/04/15 10/24/19 History release quetiapine 25 mg tablet 25 mg PO QHS tab 11/23/18 10/24/19 History simvastatin 20 mg tablet 20 mg PO QPM #90 tab 02/21/19 10/24/19 Rx Metoprolol Tartrate [Lopressor] 25 mg PO QHS 08/27/19 10/24/19 History Levothyroxine Sodium [Synthroid] 112 mcg PO QHS 09/01/19 10/24/19 History Patients Own Medication 1 tab PO TID 09/18/19 10/24/19 History tamsulosin 0.4 mg capsule 0.4 mg PO QDAY #30 cap 10/06/19 10/24/19 Rx Docusate Sodium [Colace] 100 mg PO DAILY PRN 10/24/19 10/24/19 History HYDROcodone/APAP 5/325MG [[place] 1 tab PO Q6HP PRN 10/24/19 10/24/19 History 5-325Mg] rOPINIRole HCL [Requip Xl] 16 mg PO QHS 10/24/19 10/24/19 History Allergies Allergy/AdvReac Type Severity Reaction Status Date / Time No Known Drug Allergies Allergy Verified 10/24/19 09:28 Exam Temp Pulse Resp BP Pulse Ox 98.2 F 60 18 144/70 91 10/25/19 08:00 10/25/19 08:00 10/25/19 08:00 10/25/19 08:00 10/25/19 08:00 - General physical appearance well developed, well nourished, no distress - Eyes PERRL - ENT normal pinna, normal nares, normal mucosa, no congestion - Head Head exam IM: Present: atraumatic, normocephalic - Neck no masses, trachea midline, no venous distension - Cardiovascular Cardiovascular exam IM: Present: normal rate and rhythm - Respiratory normal respiratory effort, clear to auscultation - Abdomen Abdomen: Present: soft, non tender, bowel sounds - Integumentary Present: other (Outer dressings were changed and packing site was reinforced. Currently CDI dressings.) - Neurologic Present: normal coordination, normal sensation, other (No gross neurological deficits. ) - Musculoskeletal Present: normal posture, other (Left UE elbow dressings are CDI. ) - Psychiatric Present: oriented to time, oriented to person, oriented to place, speech is normal, memory intact Results - Labs 10/25/19 04:10 10/24/19 09:22 Abnormal lab results 10/24/19 10/25/19 10/25/19 Range/Units 09:22 04:10 04:10 RBC 3.71 L (4.50-5.90) M/mcL Hgb 9.8 L (13.5-16.5) g/dL Hct 30.3 L (41.0-55.0) % RDW 15.6 H (11.5-14.5) % MPV 6.6 L (7.4-10.4) fL Gran % 93.9 H (38.0-78.0) % Lymph % (Auto) 5.6 L (15.5-49.0) % [place] % (Auto) 0.5 L (1.0-12.0) % Lymph # (Auto) 0.4 L (1.5-4.8) K/mcL [place] # (Auto) 0 L (0.1-0.9) K/mcL ESR 60 H 55 H (0-15) mm/hr C-Reactive Protein 1.4 H (0.0-0.8) mg/dl All other labs normal. Assessment and Plan (1) Wound dehiscence, external operation Assessment: Stable form wound care point of view. Plan: Per ID, patient will be staying in hospital until all results are in and plan of antibiotics / regime will be formalized before discharge. Upon discharge, F/U at the wound care center for ongoing care. Patient and his Temitope chambers. Status: Acute Priority: Medium Qualifiers: Encounter type: initial encounter Qualified Code(s): T81.31XA - Disruption of external operation (surgical) wound, not elsewhere classified, initial encounter
--- NOTE | 2019-10-25 20:34 | Infectious Disease Consult ---
History of Present Illness Patient information: Note initiated : 10/25/19 at 8:10 pm Service Date, if different from initiated Date: [] Patient: Ti Hallman 79 y/o M admitted on 10/24/19 for Left Elbow Irrigation and Debridment. Chief Complaint: [] Consult date: 10/25/19 Requesting Physician: Shan Oviedo Reason for Consult: Left olecranon bursitis Chief complaint: my left elbow hurts History of present illness: 79 year old man with PMHx of Parkinson's, coronary disease, AV block with pacemaker, aortic valve replacement with tissue valve, and severe left olecranon bursitis underwent left olecranon bursectomy initially on 08/31/19. The wound Cx grew MSSA. Pt mentioned that he didnot recieve any antibiotics post procedure. Pt fell in early August, leading to wound dehiscence of left olecranon bursectomy wound. Pt underwent surgical washout and closure of the dehisced wound by Dr. Gross. The cultures grew MSSA. Pt received 4-days of PO Bactrim after discharge. Pt presented again on 10/20 with worsening left elbow pain, redness, decreased range of motion since last few days. Endorsed chills, fever, left shoulder pain. Denies any trauma, contact with pets. He was admitted and underwent "I&D and packing of Left elbow wound" on 10/24. Cx were obtained. There were operative findings of mild purulence, wound tracking about 3 cm in diameter over the olecranon. Operatuve Cx grew Staph aureus with sensi pending. Review of Systems All systems PM: reviewed and no additional remarkable complaints except as stated Constitutional: as per HPI Past History Past family history: no sick contacts, although has MSSA ankle hardware infection as well. Past social history: Lives in [place] Medications and Allergies Home Medications Medication Instructions Recorded Confirmed Type aspirin 325 mg tablet,delayed 325 mg PO QHS 11/04/15 10/24/19 History release quetiapine 25 mg tablet 25 mg PO QHS tab 11/23/18 10/24/19 History simvastatin 20 mg tablet 20 mg PO QPM #90 tab 02/21/19 10/24/19 Rx Metoprolol Tartrate [Lopressor] 25 mg PO QHS 08/27/19 10/24/19 History Levothyroxine Sodium [Synthroid] 112 mcg PO QHS 09/01/19 10/24/19 History Patients Own Medication 1 tab PO TID 09/18/19 10/24/19 History tamsulosin 0.4 mg capsule 0.4 mg PO QDAY #30 cap 10/06/19 10/24/19 Rx Docusate Sodium [Colace] 100 mg PO DAILY PRN 10/24/19 10/24/19 History HYDROcodone/APAP 5/325MG [[place] 1 tab PO Q6HP PRN 10/24/19 10/24/19 History 5-325Mg] rOPINIRole HCL [Requip Xl] 16 mg PO QHS 10/24/19 10/24/19 History Allergies Allergy/AdvReac Type Severity Reaction Status Date / Time No Known Drug Allergies Allergy Verified 10/24/19 09:28 Physical Examination Vital signs: Temp Pulse Resp BP Pulse Ox 37.1 C 63 16 127/65 95 10/25/19 16:00 10/25/19 16:00 10/25/19 16:00 10/25/19 16:00 10/25/19 16:00 General appearance: appears uncomfortable Eyes pulmonary: nonicteric ENT: oropharynx moist, other (no thrush) Extremities: no cyanosis, no edema, pink and warm, other (left elbow wraped in dressing. The fingers are normal in color and temperature, intact movements) Results - Laboratory Findings CBC and BMP: 10/25/19 04:10 10/24/19 09:22 PT/INR, D-dimer PT 13.5 sec (11.9-14.5) 10/24/19 09:22 INR 1.0 (0.9-1.1) 10/24/19 09:22 Abnormal lab findings: Abnormal Labs 10/24/19 10/24/19 10/25/19 09:22 09:22 04:10 RBC 3.80 L 3.71 L Hgb 10.0 L 9.8 L Hct 31.0 L 30.3 L RDW 15.9 H 15.6 H MPV 6.2 L 6.6 L Gran % 78.1 H 93.9 H Lymph % (Auto) 12.1 L 5.6 L [place] % (Auto) 0.5 L Lymph # (Auto) 0.9 L 0.4 L [place] # (Auto) 0 L ESR 60 H 55 H C-Reactive Protein 2.0 H 10/25/19 04:10 RBC Hgb Hct RDW MPV Gran % Lymph % (Auto) [place] % (Auto) Lymph # (Auto) [place] # (Auto) ESR C-Reactive Protein 1.4 H Microbiology: Microbiology 10/24/19 15:47 Elbow - Left Gram Stain - Final 10/24/19 15:47 Elbow - Left Wound Culture - Preliminary Staphylococcus aureus Assessment and Plan - Narrative A/P Narrative: A: 1. Recurrent MSSA infections of left elbow: initially sec to bursitis (08/31), complicated by wound dehiscence (09/17) and then recurrence of bursitis (10/24) - s/p I and D on 10/24, with op Cx growing Staph aureus. I am concerned that it will be MSSA (similar to past Cx) - on IV Vanc and IV Cefazolin 2. NO sepsis 3. Left shoulder pain: no signs of active infection (redness, tenderness, fluctuance) - could be degenerative: rotator cuff tear, osteoarthritis Recommendations: - Continue IV Vanc per pharmacy assisted dosing. Check trough before 4th dose (target 10-20) - Continue IV Cefazolin 2 gm q8 hrs - will descalate to a single antibiotic tomorrow, once sensi are available. I am thinking IV Oritavancin 1200 mg once weekly x 2-3 doses with ID f/u. - start intranasl mupirocin2% bid with daily CHG bathing with chlorhexidine wipes 2% (below neck) for 5 days will follow Prabhakar Dominguez MD Infectious diseases
[2019-10-25] MEDS: SIMVASTATIN 20 MG TABLET PO SCH (20:37)
[2019-10-25] MEDS: ASPIRIN 325 MG ENTERIC COATED TABLET PO SCH (20:37)
[2019-10-25] MEDS: LEVOTHYROXINE SODIUM 112 MCG TABLET PO SCH (20:37)
[2019-10-25] MEDS: QUEtiapine 25 MG TABLET PO SCH (20:37)
[2019-10-25] MEDS: METOPROLOL TARTRATE 25 MG TABLET PO SCH (20:38)
[2019-10-25] MEDS: ROPINIROLE HCL 8 MG PO SCH (20:38)
[2019-10-26] MEDS: HYDROcodone/APAP 5/325MG TABLET PO PRN ×3 (00:52→21:09)
[2019-10-26] MEDS: 0.9 % SODIUM CHLORIDE 10 ML SYRINGE IV SCH ×4 (06:42→21:10)
[2019-10-26] MEDS: ceFAZolin 1 GM VIAL IV SCH ×3 (06:52→22:47)
[2019-10-26] MEDS: MAGNESIUM HYDROXIDE 30 ML ORAL.SUSP PO PRN ×2 (07:15→21:08)
--- NOTE | 2019-10-26 09:51 | Infectious Disease Prog Note ---
Subjective Patient information: Note initiated : 10/26/19 at 9:49 am Service Date, if different from initiated Date: [] Patient: Ti Hallman 79 y/o M admitted on 10/24/19 for Left Elbow Irrigation and Debridment. Chief Complaint: [] Interval history: Pt doing fine. Had a BM last night. Denies any fevers, chills, n/v/diarrhea. Endorses pain in left elbow. Objective Objective Narrative: drowsy but arousable no thrush chest cta s1 soft s2 normal, has 2/6 ESM at right 2nd ICS bs hypoactive, non tender Left elbow: the surgical incision and ulcer at the tip of elbow look clean, mild serosanguineous drainage, tender, swollen, slightly warm. able to move fingers without any problems. - Vital Signs Vital signs: Vital Signs Temp Pulse Pulse Resp BP Pulse Ox 10/26/19 08:00 36.6 C 60 20 124/65 96 10/26/19 02:57 37.2 C 60 20 156/94 96 10/25/19 23:51 36.3 C 60 16 160/74 92 10/25/19 19:28 37.2 C 61 16 146/61 94 10/25/19 16:00 37.1 C 63 63 16 127/65 95 10/25/19 15:00 62 60 10/25/19 12:00 36.6 C 62 18 139/63 93 Intake and Output 10/25/19 10/26/19 10/26/19 21:59 05:59 13:59 Intake Total 1000 1075 Output Total 775 626 300 Balance 225 449 -300 Intake: IV 500 Vancomycin 1,250 mg In Sodium 500 Chloride 0.9% 500 ml @ 333.3 mls/hr IV Q12H [facility] Rx#: [id number] Oral 1000 575 Output: Void Amount 775 625 300 # of times incontinent of urine 1 Other: Urine Appearance Clear Urine Color Bright Yellow Bright Yellow Bright Yellow Weight 80.059 kg Intake & Output: Intake & Output 10/25/19 10/26/19 10/26/19 21:59 05:59 13:59 Intake Total 1000 1075 Output Total 775 626 300 Balance 225 449 -300 Weight 80.059 kg Intake: IV 500 Vancomycin 1,250 mg In Sodium 500 Chloride 0.9% 500 ml @ 333.3 mls/hr IV Q12H [facility] Rx#: [id number] Oral 1000 575 Output: Void Amount 775 625 300 # of times incontinent of urine 1 Other: Urine Appearance Clear Urine Color Bright Yellow Bright Yellow Bright Yellow - Lab 10/25/19 04:10 10/24/19 09:22 Most recent lab results Calcium 9.0 mg/dl (8.6-10.4) 10/24/19 09:22 Microbiology 10/24/19 15:47 Elbow - Left Gram Stain - Final 10/24/19 15:47 Elbow - Left Wound Culture - Preliminary Staphylococcus aureus Medications Active Medications: Hydrocodone Bitart/Acetaminophen ([place] 5/325mg) 0 tab PO Q4HP PRN; Protocol PRN Reason: Per Pain Protocol Last Admin: 10/26/19 00:52 Dose: 1 tab Documented by: Admin: 10/25/19 03:53 Dose: 1 tab Documented by: Admin: 10/24/19 17:21 Dose: 2 tab Documented by: JOSE E Aspirin (Ecotrin) 325 mg PO QHS [facility] Last Admin: 10/25/19 20:37 Dose: 325 mg Documented by: Admin: 10/24/19 21:00 Dose: Not Given Documented by: KODI Non-Admin Reason: Clinical Judgement Comments: Pt's spouse gave his home medication without my knowledge & then told me after Bisacodyl (Dulcolax) 10 mg LA Q2-3DAYS PRN PRN Reason: Constipation Cefazolin Sodium (Ancef) 2 gm IV Q8H [facility] Last Admin: 10/26/19 06:52 Dose: 2 gm Documented by: Admin: 10/25/19 23:30 Dose: 2 gm Documented by: KODI Comments: Had to start new IV Admin: 10/25/19 16:01 Dose: 2 gm Documented by: Admin: 10/25/19 09:08 Dose: 2 gm Documented by: CITLALLI Comments: sliding times; given last last night/this am. Admin: 10/25/19 02:37 Dose: 2 gm Documented by: KODI Docusate Sodium (Colace) 100 mg PO BID [facility] Last Admin: 10/25/19 20:37 Dose: 100 mg Documented by: Admin: 10/25/19 09:42 Dose: 100 mg Documented by: Admin: 10/24/19 22:50 Dose: 100 mg Documented by: KODI Vancomycin HCl 1,250 mg/ (Sodium Chloride) 500 mls @ 333.3 mls/hr IV Q12H [facility] Last Infusion: 10/25/19 22:30 Dose: 0 mls/hr Documented by: Admin: 10/25/19 20:49 Dose: 333.3 mls/hr Documented by: Infusion: 10/25/19 11:12 Dose: 333.3 mls/hr Documented by: Admin: 10/25/19 09:41 Dose: 333.3 mls/hr Documented by: Infusion: 10/24/19 23:54 Dose: 333.3 mls/hr Documented by: Admin: 10/24/19 22:23 Dose: 333.3 mls/hr Documented by: KODI Levothyroxine Sodium (Synthroid) 112 mcg PO QHS [facility] Last Admin: 10/25/19 20:37 Dose: 112 mcg Documented by: Admin: 10/24/19 21:00 Dose: Not Given Documented by: KODI Non-Admin Reason: Clinical Judgement Comments: Pt's spouse gave his home medication without my knowledge & then told me after Magnesium Hydroxide (Milk Of Magnesia) 30 ml PO BIDP PRN PRN Reason: Constipation Last Admin: 10/26/19 07:15 Dose: 30 ml Documented by: CHLOÉ Metoprolol Tartrate (Lopressor) 25 mg PO QHS [facility] Last Admin: 10/25/19 20:38 Dose: 25 mg Documented by: Admin: 10/24/19 21:00 Dose: Not Given Documented by: KODI Non-Admin Reason: Clinical Judgement Comments: Pt's spouse gave his home medication without my knowledge & then told me after Mupirocin (Bactroban Oint 2%) 1 dose NARES BID [facility] Ondansetron HCl (Zofran) 4 mg IV Q4HP PRN; Protocol PRN Reason: Nausea And Vomiting Carbidopa 25 Mg/Levodopa 100 Mg/Entocapone 200 Mg Tablet 1 dose PO TID [facility] Last Admin: 10/25/19 20:38 Dose: 1 dose Documented by: Admin: 10/25/19 16:02 Dose: 1 dose Documented by: Admin: 10/25/19 09:42 Dose: 1 dose Documented by: Admin: 10/24/19 21:00 Dose: Not Given Documented by: KODI Non-Admin Reason: Clinical Judgement Comments: Pt's spouse gave his home medication without my knowledge & then told me after Ropinirole Hcl [ (Requip Xl] 8 Mg) 2 dose PO [facility] Last Admin: 10/25/19 20:38 Dose: 2 dose Documented by: KODI Polyethylene Glycol (Miralax) 17 gm PO DAILYP PRN PRN Reason: Constipation Quetiapine Fumarate (Seroquel) 25 mg PO QHS [facility] Last Admin: 10/25/19 20:37 Dose: 25 mg Documented by: Admin: 10/24/19 21:00 Dose: Not Given Documented by: KODI Non-Admin Reason: Clinical Judgement Comments: Pt's spouse gave his home medication without my knowledge & then told me after Senna (Senokot) 2 tab PO [facility] Last Admin: 10/25/19 20:38 Dose: 2 tab Documented by: Admin: 10/25/19 02:36 Dose: 2 tab Documented by: KODI Simvastatin (Zocor) 20 mg PO QPM [facility] Last Admin: 10/25/19 20:37 Dose: 20 mg Documented by: Admin: 10/24/19 21:00 Dose: Not Given Documented by: KODI Non-Admin Reason: Clinical Judgement Comments: Pt's spouse gave his home medication without my knowledge & then told me after Sodium Biphosphate/Sodium Phosphate (Fleets Adult) 1 dose LA Q3-4DAYS PRN PRN Reason: Constipation Sodium Chloride (Saline Flush) 10 ml IV Q8 [facility] Last Admin: 10/26/19 06:42 Dose: 10 ml Documented by: Admin: 10/25/19 20:47 Dose: 10 ml Documented by: Admin: 10/25/19 16:02 Dose: 10 ml Documented by: Admin: 10/25/19 09:09 Dose: 10 ml Documented by: Admin: 10/25/19 02:26 Dose: Not Given Documented by: KODI Non-Admin Reason: Bag Still Infusing Tamsulosin HCl (Flomax) 0.4 mg PO QDAY [facility] Last Admin: 10/25/19 09:42 Dose: 0.4 mg Documented by: CITLALLI Throat Lozenges (Cepacol) 1 lozenge PO PRN PRN PRN Reason: Sore Throat Vancomycin HCl (Vancomycin Per Pharmacy) 1 order IV UD [facility]; Protocol Assessment and Plan - Narrative A/P Narrative: A: 1. Recurrent MSSA infections of left elbow: initially sec to bursitis (08/31), complicated by wound dehiscence (09/17) and then recurrence of bursitis (10/24) - s/p I and D on 10/24, with op Cx growing Staph aureus. I am concerned that it will be MSSA (similar to past Cx) - on IV Vanc and IV Cefazolin 2. Left shoulder pain: no signs of active infection (redness, tenderness, fluctuance) - could be degenerative: rotator cuff tear, osteoarthritis Recommendations: - Stop IV Vanc - Continue IV Cefazolin 2 gm q8 hrs - will order IV Oritavancin 1200 mg once weekly x 2 doses at discharge, with ID f/u [scheduled for 11/10 at 9:45 am] - continue intranasal mupirocin 2% bid with daily CHG bathing with chlorhexidine wipes 2% (below neck) , today day 2/ Prabhakar Dominguez MD Infectious diseases
[2019-10-26] MEDS: DOCUSATE SODIUM 100 MG CAPSULE PO SCH ×2 (10:58→21:10)
[2019-10-26] MEDS: TAMSULOSIN 0.4 MG CAPSULE PO SCH (10:58)
[2019-10-26] MEDS: MUPIROCIN OINT 2% 22GM NARES SCH ×2 (10:58→21:11)
[2019-10-26] MEDS: LEVODOPA PO SCH ×3 (10:59→21:09)
[2019-10-26] MEDS: ENTACAPONE 200 MG PO SCH ×3 (10:59→21:09)
[2019-10-26] MEDS: CARBIDOPA PO SCH ×3 (10:59→21:09)
--- NOTE | 2019-10-26 11:39 | General Surgery Progress Note ---
Subjective Patient reports: no new complaints Narrative: Note initiated : 10/26/19 at 11:36 am Service Date, if different from initiated Date: [] Patient: Ti Hallman 79 y/o M admitted on 10/24/19 for Left Elbow Ir rigation and Debridement. Chief Complaint: [] Patient seen on rounds with Bethany GARCIA, Inpatient wound care nurse. Wound examined. Patient is progressing well. No overnight events. Objective Temp Pulse Resp BP Pulse Ox 97.8 F 60 20 124/65 96 10/26/19 08:00 10/26/19 08:00 10/26/19 08:00 10/26/19 08:00 10/26/19 08:00 AVSS No changes SALVATORE. L/E clean wound post surgical changes. Reviewed ID input and antibiotics plan. Will follow patient in clinic and consider VAC. - Additional Data Intake & Output - Last 24 hours: Intake & Output 10/24/19 10/25/19 10/26/19 10/27/19 05:59 05:59 05:59 05:59 Intake Total 2150 3175 Output Total 729 2301 300 Balance 1421 874 -300 Weight 175 lb 8 oz 176 lb 8 oz - Labs 10/25/19 04:10 10/24/19 09:22 Assessment and Plan (1) Wound dehiscence, external operation Status: Acute Current Visit: Yes - Narrative A/P Narrative: Assessment: Satisfactory progress from wound care point of view. Plan: O K for discharge and F/U at wound clinic - Time Spent With Patient Total time spent is greater than 50% in coordination of care (as documented) at patient's floor/unit and/or counseling patient: 15 - 24 minutes
--- NOTE | 2019-10-26 12:53 | Discharge Summary ---
Providers - Providers Patient information: Note initiated : 10/26/19 at 12:51 pm Service Date, if different from initiated Date: [] Patient: Ti Hallman 79 y/o M admitted on 10/24/19 for Left Elbow Irrigation and Debridment. Chief Complaint: [] Date of admission: 10/25/19 Discharge date: 10/27/19 Hospitalization Discharge diagnosis: infected elbow bursectomy wound Ortho Discharge Plan - General - Patient Instructions Diet: Consistent Carbohydrate Activity: other (keep elbow splint on except for dressing changes, non weight b earing) Dressing Care: Cover dressing in shower Patient Education: Incision and Drainage (DC) - Follow Up Plan Follow Up Appointments: Prabhakar Dominguez MD [Physician] - 11/10/19 9:30 am Disposition: Xfer SNF Prognosis: Fair Rehab Potential: Fair I certify that the patient requires SNF services: Yes Pending Studies Resuscitation Status Full Code Diet Regular Diet Start WedOct 24 1551 Hydrocodone Bitart/Acetaminophen ([place] 5/325mg) 0 tab PO Q4HP PRN; Protocol PRN Reason: Per Pain Protocol Last Admin: 10/26/19 10:57 Dose: 1 tab Documented by: Admin: 10/26/19 00:52 Dose: 1 tab Documented by: Admin: 10/25/19 03:53 Dose: 1 tab Documented by: Admin: 10/24/19 17:21 Dose: 2 tab Documented by: JOSE E Aspirin (Ecotrin) 325 mg PO QHS [facility] Last Admin: 10/25/19 20:37 Dose: 325 mg Documented by: Admin: 10/24/19 21:00 Dose: Not Given Documented by: KODI Cefazolin Sodium (Ancef) 2 gm IV Q8H [facility] Last Admin: 10/26/19 06:52 Dose: 2 gm Documented by: Admin: 10/25/19 23:30 Dose: 2 gm Documented by: Admin: 10/25/19 16:01 Dose: 2 gm Documented by: Admin: 10/25/19 09:08 Dose: 2 gm Documented by: Admin: 10/25/19 02:37 Dose: 2 gm Documented by: KODI Docusate Sodium (Colace) 100 mg PO BID [facility] Last Admin: 10/26/19 10:58 Dose: 100 mg Documented by: Admin: 10/25/19 20:37 Dose: 100 mg Documented by: Admin: 10/25/19 09:42 Dose: 100 mg Documented by: Admin: 10/24/19 22:50 Dose: 100 mg Documented by: KODI Levothyroxine Sodium (Synthroid) 112 mcg PO QHS [facility] Last Admin: 10/25/19 20:37 Dose: 112 mcg Documented by: Admin: 10/24/19 21:00 Dose: Not Given Documented by: KODI Magnesium Hydroxide (Milk Of Magnesia) 30 ml PO BIDP PRN PRN Reason: Constipation Last Admin: 10/26/19 07:15 Dose: 30 ml Documented by: CHLOÉ Metoprolol Tartrate (Lopressor) 25 mg PO QHS [facility] Last Admin: 10/25/19 20:38 Dose: 25 mg Documented by: Admin: 10/24/19 21:00 Dose: Not Given Documented by: KODI Mupirocin (Bactroban Oint 2%) 1 dose NARES BID [facility] Last Admin: 10/26/19 10:58 Dose: 1 dose Documented by: CHLOÉ Carbidopa 25 Mg/Levodopa 100 Mg/Entocapone 200 Mg Tablet 1 dose PO TID [facility] Last Admin: 10/26/19 10:59 Dose: 1 dose Documented by: Admin: 10/25/19 20:38 Dose: 1 dose Documented by: Admin: 10/25/19 16:02 Dose: 1 dose Documented by: Admin: 10/25/19 09:42 Dose: 1 dose Documented by: Admin: 10/24/19 21:00 Dose: Not Given Documented by: KODI Ropinirole Hcl [ (Requip Xl] 8 Mg) 2 dose PO [facility] Last Admin: 10/25/19 20:38 Dose: 2 dose Documented by: KODI Quetiapine Fumarate (Seroquel) 25 mg PO QHS [facility] Last Admin: 10/25/19 20:37 Dose: 25 mg Documented by: Admin: 10/24/19 21:00 Dose: Not Given Documented by: KODI Senna (Senokot) 2 tab PO HS [facility] Last Admin: 10/25/19 20:38 Dose: 2 tab Documented by: Admin: 10/25/19 02:36 Dose: 2 tab Documented by: KODI Simvastatin (Zocor) 20 mg PO QPM [facility] Last Admin: 10/25/19 20:37 Dose: 20 mg Documented by: Admin: 10/24/19 21:00 Dose: Not Given Documented by: KODI Sodium Chloride (Saline Flush) 10 ml IV Q8 [facility] Last Admin: 10/26/19 06:42 Dose: 10 ml Documented by: [email or web address] Admin: 10/25/19 20:47 Dose: 10 ml Documented by: Admin: 10/25/19 16:02 Dose: 10 ml Documented by: Admin: 10/25/19 09:09 Dose: 10 ml Documented by: Admin: 10/25/19 02:26 Dose: Not Given Documented by: KODI Tamsulosin HCl (Flomax) 0.4 mg PO QDAY [facility] Last Admin: 10/26/19 10:58 Dose: 0.4 mg Documented by: [email or web address] Admin: 10/25/19 09:42 Dose: 0.4 mg Documented by: CITLALLI Shift Summary 10/25/19 16:08 Shift Summary by Kelly Roberson Pt AA&O x4; pt is a , very bright; hx Parkinson's on two home meds in pt specific bin; ellie ellis, 1 asst with GB, uses the urinal at bedside and rings appropriately; VSS on RA; no pain medication requested most of the day; left FA/elbow wound from dehisced surgery, cultures pending; dressing wrapped with an RYAN with a brace which is to stay in place until tomorrow morning when Dr. Rodriguez and direct sales professional to assess; Infectious Disease following, conversed with Dr. Flores today; on Vanco and Ancef; SL between infusions; will update at bedside. Initialized on 10/25/19 16:08 - END OF NOTE
--- NOTE | 2019-10-26 15:05 | Orthopedic Progress Note ---
Orthopedics - Auxillary Note - Subjective Patient Information: Note initiated : 10/26/19 at 3:04 pm Service Date, if different from initiated Date: [] Patient: Ti Hallman 79 y/o M admitted on 10/24/19 for Left Elbow Irrigation and Debridment. Chief Complaint: No c/o. bandages c/d/i. nvi-distal Vital Signs Temp Pulse Pulse Resp BP Pulse Ox 10/26/19 14:00 60 60 10/26/19 08:00 97.8 F 60 60 20 124/65 96 10/26/19 02:57 98.9 F 60 20 156/94 96 10/25/19 23:51 97.4 F 60 16 160/74 92 10/25/19 19:28 98.9 F 61 16 146/61 94 10/25/19 16:00 98.7 F 63 63 16 127/65 95 Intake and Output 10/26/19 10/26/19 10/26/19 05:59 13:59 21:59 Intake Total 1075 Output Total 626 300 Balance 449 -300 Intake: IV 500 Vancomycin 1,250 mg In Sodium 500 Chloride 0.9% 500 ml @ 333.3 mls/hr IV Q12H [facility] Rx#: [id number] Oral 575 Output: Void Amount 625 300 # of times incontinent of urine 1 Other: Urine Color Bright Yellow Bright Yellow Weight 176 lb 8 oz Patient Weight 10/27/19 05:59 Weight 176 lb 8 oz Laboratory Results - last 24 hr 10/26/19 07:55 Vancomycin Trough 16.1 s/p L elbow I&D-stable discharge to SNF 10/27/19. f/u at [facility] 2 weeks.
[2019-10-26] MEDS: ROPINIROLE HCL 8 MG PO SCH (21:08)
[2019-10-26] MEDS: SENNOSIDES 1 TABLET PO SCH (21:09)
[2019-10-26] MEDS: METOPROLOL TARTRATE 25 MG TABLET PO SCH (21:10)
[2019-10-26] MEDS: QUEtiapine 25 MG TABLET PO SCH (21:10)
[2019-10-26] MEDS: ASPIRIN 325 MG ENTERIC COATED TABLET PO SCH (21:10)
[2019-10-26] MEDS: SIMVASTATIN 20 MG TABLET PO SCH (21:10)
[2019-10-26] MEDS: LEVOTHYROXINE SODIUM 112 MCG TABLET PO SCH (21:10)
[2019-10-27] MEDS: ceFAZolin 1 GM VIAL IV SCH (05:10)
[2019-10-27] MEDS: 0.9 % SODIUM CHLORIDE 10 ML SYRINGE IV SCH ×2 (05:10→08:51)
[2019-10-27] MEDS: DOCUSATE SODIUM 100 MG CAPSULE PO SCH (08:48)
[2019-10-27] MEDS: TAMSULOSIN 0.4 MG CAPSULE PO SCH (08:48)
[2019-10-27] MEDS: MUPIROCIN OINT 2% 22GM NARES SCH (08:48)
[2019-10-27] MEDS: CARBIDOPA PO SCH (08:48)
[2019-10-27] MEDS: LEVODOPA PO SCH (08:48)
[2019-10-27] MEDS: ENTACAPONE 200 MG PO SCH (08:48)
== END 2019-10-27 11:10 | DRG 572 ==
LOC: SUR 09:08 → MEDSUR 19:00
PROVIDERS: ADMIT Orthopaedic Surgery; ATTEND Orthopaedic Surgery

== ENCOUNTER 2021-03-14 09:21 | Observation (INO) ==
[2021-03-14] MEDS ORDERED: LIDOCAINE 1% 20 ML VIAL SQ ONE ×2 (09:22→19:09)
--- NOTE | 2021-03-14 09:40 | Emergency Department Note ---
Nausea/Vomiting/Diarrhea HPI General Chief complaint: Nausea/Vomiting/Diarrhea Stated complaint: Weakness, n/v Time Seen by Provider: 03/14/21 09:26 Source: EMS Mode of arrival: EMS Limitations: altered mental status History of Present Illness HPI Narrative: Narrative: Presents to room T3 via EMS for evaluation of nausea vomiting and generalized weakness. The patient has decreased level of function and that he only mumbles when I talk to him and I am unable to obtain additional history from the patient. There is no family at bedside initially. Per EMS, the patient called for evaluation of nausea vomiting and generalized weakness over the last 24 hours. The patient lives at home with his . The patient has multiple medical problems including Parkinson's disease. Further history is unavailable at this time. Related Data Home Medications Medication Instructions Recorded Confirmed aspirin 325 mg tablet,delayed 325 mg PO QHS 11/04/15 01/24/21 release quetiapine 25 mg tablet 25 mg PO QHS tab 11/23/18 01/24/21 metoprolol succinate 25 mg capsule 25 mg PO QDAY 11/10/19 01/24/21 sprinkle, ext. release 24 hr magnesium oxide 250 mg PO BID 05/07/20 01/24/21 [id number] 1 tab PO TID 03/14/21 hydrocodone-acetaminophen 1 tab PO BIDP PRN 03/14/21 ropinirole 16 mg PO HS 03/14/21 Previous Rx's Medication Instructions Recorded tamsulosin 0.4 mg capsule 0.4 mg PO QDAY #30 cap 10/06/19 simvastatin 20 mg tablet 20 mg PO QPM 90 Days #90 tab 04/18/20 amlodipine 10 mg tablet 10 mg PO QDAY 90 Days #90 tab 07/15/20 levothyroxine 112 mcg tablet 112 mcg PO QHS 90 Days #90 tab 10/21/20 albuterol sulfate 2.5 mg INHALATION TID #90 ml 12/04/20 nebulizer #1 ea 12/04/20 nebulizer accessories #1 each 12/04/20 pantoprazole 40 mg tablet,delayed 40 mg PO QDAY #14 tab 01/24/21 release Allergies Allergy/AdvReac Type Severity Reaction Status Date / Time No Known Drug Allergies Allergy Verified 03/14/21 09:22 Review of Systems ROS ROS Narrative: Narrative: Limitations: ROS unobtainable due to patients medical condition (Decreased level of consciousness) [facility] Narrative Patient History Narrative: Narrative: Medical/Surgical/Family History All Active Problems (Updated 03/14/21 @ 17:06 by Jordan Farias MD) Vomiting (Acute) Frequent falls (Acute) Altered level of consciousness (Acute) Chest pain (Acute) Knee swelling (Acute) Knee effusion (Acute) Fall (Acute) Bruised rib (Acute) Acute dyspnea (Acute) Falls frequently (Acute) Left elbow pain (Acute) Wound dehiscence, external operation (Acute) Urinary tract infection (Acute) Right thigh pain (Acute) Hip strain (Acute) History of aortic valve replacement (Chronic) CAD (coronary artery disease) (Chronic) Prediabetes (Chronic) Hyperlipidemia (Chronic) Hypertension, essential (Chronic) Pacemaker, artificial (Chronic) Atrial fibrillation (Chronic) Aortic valve disorder (Chronic) Foreign body in soft tissue (Acute) At risk for falls (Chronic) Non compliance with medical treatment (Chronic) Dystonia (Chronic) Restless legs syndrome (Chronic) Bladder trabeculation (Chronic) Papilloma, 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) Parkinsons disease (Chronic) Neuropathy (Chronic) Mitral valve disorder (Chronic) Lumbago (Chronic) Hypothyroidism (Chronic) Heart disease (Chronic) Glaucoma (Chronic) Erectile dysfunction (Chronic 04/19/15) Diverticulum of bladder (Chronic) Degeneration, intervertebral disc (Chronic) Other chronic pain (Chronic) Cataracts, bilateral (Chronic) BPH (benign prostatic hyperplasia) (Chronic) Benign prostatic hypertrophy without urinary obstruction (Chronic 09/20/14) Medical History (Updated 03/14/21 @ 17:06 by Jordan Farias MD) Abdominal pain, LLQ Left groin pain Acute retention of urine Aortic valve disorder At risk for falls Atrial fibrillation Post-op Atrioventricular block, complete 2008-3rd degree AV block after heart surgery Benign prostatic hypertrophy without urinary obstruction (09/20/14) Bladder trabeculation BPH (benign prostatic hyperplasia) CAD (coronary artery disease) 2008-post CABG Cataracts, bilateral Cellulitis recurrent on left lower leg ever since vein graft was harvested for CABG in 2008 Cellulitis of left elbow Colon polyp 01/31/15-[facility] Degeneration, intervertebral disc Diverticulum of bladder Dystonia Dystonia of head Erectile dysfunction (04/19/15) Fall Glaucoma Gross hematuria (09/20/14) Heart disease 2008-Valvular heart disease Hematuria Referral for hematuria. No change on imaging studies and cystoscopy confirmed. He stopped his Tamsulosin and Finasteride and will restart. RTC x 6 mo. 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 Parkinsons disease 2010 Prediabetes Restless legs syndrome Urine retention Post anesthesia/surgery Surgical History History of aortic valve replacement History of back surgery 1995-lumbar History of coronary artery bypass surgery 2008 History of right inguinal hernia repair (10/28/15) with mesh prosthesis 12/27/2014 and 10/28/2015 Hx of aortic valve replacement with porcine valve 2008-for aortic stenosis, mitral valve annuloplasty as well Hx of CABG 2008 Hx of cataract surgery 01/2013,02/2013-bilateral Hx of colonoscopy 08/03/15--[facility] Hx of inguinal hernia repair 12/2014-left groin Hx of shoulder surgery 2011-Right rotator cuff repair Status post epidural steroid injection 01/2013-[facility] Family History Brother Malignant neoplasm of prostate Father Coronary artery disease, Onset Age: 98 Mother Congestive heart failure, Onset Age: 89 Other Heart attack Hypertension Social History Smoking Status: Never smoker Alcohol Intake Frequency: holiday/special occasion only Substance Use: does not use Exam Narrative Narrative: Narrative: General Limitations: altered mental status General appearance: Present cachectic, in no apparent distress and lethargic Head Head: Present atraumatic, normocephalic and normal inspection Eye Eye: Present normal appearance, PERRL and EOMI; Absent conjunctival injection ENT ENT: Present normal exam and mucous membranes moist Neck Neck: Present normal inspection and trachea midline Respiratory Respiratory: Present normal lung sounds bilaterally; Absent respiratory distress Cardiovascular Cardiovascular: Present regular rate, normal rhythm and normal heart sounds Adbominal Abdominal: Present soft; Absent distention, tenderness, guarding and rebound Extremities Extremities: Present normal inspection; Absent tenderness Back Back: Present normal inspection; Absent tenderness Neurological Neurological: Present other (Limited neurologic exam secondary to altered mental status, no obvious focal neurologic deficit) Psychiatric Psychiatric: Present normal affect and normal mood Skin Skin: Present warm (WNL) and dry; Absent rash Course Vital Signs Vital signs: Vital Signs Temperature 97.6 F 03/14/21 09:22 Pulse Rate 67 03/14/21 09:22 Respiratory Rate 14 03/14/21 09:22 Blood Pressure 162/77 03/14/21 09:22 Pulse Oximetry (%) 93 03/14/21 09:22 Temperature 97.6 F 03/14/21 09:22 Pulse Rate 59 L 03/14/21 15:18 Respiratory Rate 20 03/14/21 16:06 Blood Pressure 127/85 03/14/21 16:06 Pulse Oximetry (%) 97 03/14/21 15:18 MDM MDM Narrative Medical decision making narrative: Narrative: The patient initially presents for evaluation of change in mental status with nausea and vomiting. The patient was treated with IV fluid and diagnostic studies were initiated. CT scan of the head is unremarkable. Chest x-ray is unremarkable. Labs are unremarkable. The patient was reassessed after the IV fluid and he does have improving mental status. He is more alert and interactive. His is at bedside and provides additional history. She states that he has been reporting occipital headache with some neck stiffness in addition to the nausea, vomiting and decreased level of consciousness. Lumbar puncture was performed under fluoroscopy. CSF studies are unremarkable. The patient's does report that the patient has had increasingly frequent falls and she is concerned about her ability to care for h im at home. I have engaged case management to initiate the process to look for placement for the patient. Due to the patient's frequent falls and the change in mentation it would be best to keep the patient overnight for observation until he can be placed. I discussed the case with the hospitalist, Dr. Negrete. He is agreed to see the patient for admission. Lab Data Lab results reviewed: Yes I reviewed the patient's lab results. Result diagrams: 03/14/21 10:04 03/14/21 10:04 Labs: Lab Results 03/14/21 03/14/21 03/14/21 Range/Units 10:04 10:04 10:04 WBC 5.9 (4.5-11.0) K/mcL RBC 4.45 L (4.50-5.90) M/mcL Hgb 11.1 L (13.5-16.5) g/dL Hct 35.8 L (41.0-55.0) % MCV 80.4 (80.0-100.0) fL MCH 24.9 L (26.0-34.0) pg MCHC 31.0 (31.0-36.0) g/dL RDW 15.6 H (11.5-14.5) % Plt Count 140 (140-440) K/mcL MPV 9.5 (7.4-10.4) fL Neut % (Auto) 78.0 (38.0-78.0) % Lymph % (Auto) 11.0 L (15.0-49.0) % [place] % (Auto) 8.0 (1.0-12.0) % Eos % (Auto) 2.5 (0.0-7.0) % Baso % (Auto) 0.5 (0.0-2.0) % Lymph # (Auto) 0.65 L (1.50-4.80) K/mcL [place] # (Auto) 0.47 (0.10-0.90) K/mcL Eos # (Auto) 0.15 (0.00-0.70) K/mcL Baso # (Auto) 0.03 (0.00-0.20) K/mcL Absolute Neutrophils 4.60 (1.80-8.00) K/mcL VBG Lactic Acid 0.9 (0.5-2.0) mmol/L Sodium 139 (133-145) mmol/L Potassium 3.9 (3.3-5.1) mmol/L Chloride 103 (96-108) mmol/L Carbon Dioxide 28 (22-30) mmol/L Anion Gap 8.0 (8.0-16.0) BUN 18 (8-23) mg/dL Creatinine 0.8 (0.7-1.2) mg/dL GFR Calculation 84 Glucose 104 (70-105) mg/dL Calcium 8.9 (8.6-10.4) mg/dL Total Bilirubin 0.4 (0.1-1.0) mg/dL AST 30 (<40) U/L ALT 16 (<40) U/L Alkaline Phosphatase 90 (39-117) U/L Ammonia (16-60) umol/L Total Protein 6.4 (5.9-8.4) gm/dL Albumin 3.9 (3.2-5.2) gm/dL Globulin 2.5 (2.2-3.7) gm/dL Albumin/Globulin Ratio 1.6 (1.0-2.3) Lipase 17 (7-60) U/L Urine Color Urine Appearance (Clear) Urine pH (5.0-9.0) Ur Specific [place] (1.000-1.035) Urine Protein (Negative) mg/dL Urine Glucose (UA) (Negative) mg/dL Urine Ketones (Negative) mg/dL Urine Occult Blood (Negative) mg/dL Urine Nitrate (Negative) Urine Bilirubin (Negative) mg/dL Urine Urobilinogen mg/dL Ur Leukocyte Esterase (Negative) /ug Urine RBC (0-3) /hpf Urine WBC (0-4) /hpf Ur Squamous Epith Cells (0-4) /hpf Urine Bacteria (0) /hpf Ur Culture Indicated? CSF Source CSF Appearance CSF Color CSF RBC (0-1) /cumm CSF Total Nucleated Auto (0-5) /cumm CSF Neutrophils (0-7) % CSF Lymphocytes (28-96) % CSF Monocytes (16-56) % CSF Glucose (40-70) mg/dL CSF Total Protein (15.0-60.0) mg/dL 03/14/21 03/14/21 03/14/21 Range/Units 10:04 10:55 14:19 WBC (4.5-11.0) K/mcL RBC (4.50-5.90) M/mcL Hgb (13.5-16.5) g/dL Hct (41.0-55.0) % MCV (80.0-100.0) fL MCH (26.0-34.0) pg MCHC (31.0-36.0) g/dL RDW (11.5-14.5) % Plt Count (140-440) K/mcL MPV (7.4-10.4) fL Neut % (Auto) (38.0-78.0) % Lymph % (Auto) (15.0-49.0) % [place] % (Auto) (1.0-12.0) % Eos % (Auto) (0.0-7.0) % Baso % (Auto) (0.0-2.0) % Lymph # (Auto) (1.50-4.80) K/mcL [place] # (Auto) (0.10-0.90) K/mcL Eos # (Auto) (0.00-0.70) K/mcL Baso # (Auto) (0.00-0.20) K/mcL Absolute Neutrophils (1.80-8.00) K/mcL VBG Lactic Acid (0.5-2.0) mmol/L Sodium (133-145) mmol/L Potassium (3.3-5.1) mmol/L Chloride (96-108) mmol/L Carbon Dioxide (22-30) mmol/L Anion Gap (8.0-16.0) BUN (8-23) mg/dL Creatinine (0.7-1.2) mg/dL GFR Calculation Glucose (70-105) mg/dL Calcium (8.6-10.4) mg/dL Total Bilirubin (0.1-1.0) mg/dL AST (<40) U/L ALT (<40) U/L Alkaline Phosphatase (39-117) U/L Ammonia 14 L (16-60) umol/L Total Protein (5.9-8.4) gm/dL Albumin (3.2-5.2) gm/dL Globulin (2.2-3.7) gm/dL Albumin/Globulin Ratio (1.0-2.3) Lipase (7-60) U/L Urine Color Yellow Urine Appearance Clear (Clear) Urine pH 7.0 (5.0-9.0) Ur Specific [place] 1.014 (1.000-1.035) Urine Protein Negative (Negative) mg/dL Urine Glucose (UA) Negative (Negative) mg/dL Urine Ketones Negative (Negative) mg/dL Urine Occult Blood Negative (Negative) mg/dL Urine Nitrate Negative (Negative) Urine Bilirubin Negative (Negative) mg/dL Urine Urobilinogen Negative mg/dL Ur Leukocyte Esterase Negative (Negative) /ug Urine RBC < 1 (0-3) /hpf Urine WBC 11 H (0-4) /hpf Ur Squamous Epith Cells 0 (0-4) /hpf Urine Bacteria None (0) /hpf Ur Culture Indicated? yes CSF Source Tube 1 CSF Appearance Clear CSF Color Colorless CSF RBC 281 H (0-1) /cumm CSF Total Nucleated Auto 3 (0-5) /cumm CSF Neutrophils 14 H (0-7) % CSF Lymphocytes 43 (28-96) % CSF Monocytes 34 (16-56) % CSF Glucose 56 (40-70) mg/dL CSF Total Protein 46.0 (15.0-60.0) mg/dL Discharge Plan Patient/Caregiver Discharge Instructions Pt seen by NYLON MENDER/PA only: No Clinical Impression: Vomiting, Frequent falls, Altered level of consciousness Patient Disposition: Xfer As Inpt ([facility] Follow up with: Henrry Evans PA-C [Primary Care Provider] - Prescriptions: No Action simvastatin 20 mg tablet 20 mg PO QPM 90 Days Qty: 90 RF: 1 Hold Instructions: Doctor's Order amlodipine 10 mg tablet 10 mg PO QDAY 90 Days Qty: 90 RF: 1 Hold Instructions: Low blood pressure levothyroxine 112 mcg tablet 112 mcg PO QHS 90 Days Qty: 90 RF: 1 albuterol sulfate 2.5 mg /3 mL (0.083 %) solution for nebulization 2.5 mg INHALATION TID Qty: 90 RF: 0 aspirin 325 mg tablet,delayed release (DR/EC) 325 mg PO QHS RF: 0 quetiapine 25 mg tablet 25 mg PO QHS RF: 0 (DME) nebulizer accessories Kit See Rx Instructions .ROUTE .MEDSUPPLY Qty: 1 RF: 0 (DME) nebulizer Qty: 1 RF: 0 pantoprazole 40 mg tablet,delayed release (DR/EC) 40 mg PO QDAY Qty: 14 RF: 0 magnesium oxide 250 mg magnesium tablet 250 mg PO BID RF: 0 Hold Instructions: Holding in light of diarrhea metoprolol succinate 25 mg capsule,sprinkle,ER 24hr 25 mg PO QDAY RF: 0 ropinirole 8 mg tablet extended release 24 hr 16 mg PO HS RF: 0 hydrocodone-acetaminophen 5-325 mg tablet 1 tab PO BIDP PRN (Reason: pain) RF: 0 wzggsejsp-xzpsajry-kbctewjcsd 25-100-200 mg tablet 1 tab PO TID RF: 0 tamsulosin 0.4 mg capsule 0.4 mg PO QDAY Qty: 30 RF: 3
[2021-03-14] MEDS ORDERED: ONDANSETRON 4 MG/2 ML VIAL IV ONE ×2 (09:48→11:53)
--- NOTE | 2021-03-14 10:02 | Cat Scan Report ---
CLINICAL INFORMATION: Decreased level consciousness COMPARISON: 08/27/[address] TECHNIQUE: 2.5 mm helical slices were obtained in the skull base to vertex. Following reconstruction, axial reformatted images were reviewed at bone and parenchymal windows. The exam was performed using radiation dose optimization techniques including, but not limited to, automated exposure control, adjustment of the mA and/or kV according to patient size and use of iterative reconstruction technique. FINDINGS: The ventricles, sulci, fissures, and cisterns are symmetrically enlarged compatible with mild age-related atrophy - no subdural hemorrhage or extra-axial fluid collection or mass appreciated. Patchy chronic ischemic changes in the deep cerebral white matter expected for age. A few tiny remote lacunar infarcts in the basal ganglia appreciated. There is no intracerebral hemorrhage, mass effect, edema or other acute posttraumatic change. Bone windows show no fracture or other osseous abnormalities. IMPRESSION: Mild atrophy and chronic ischemic changes in the deep cerebral white matter. No acute findings and no change. Interpreted and Authenticated by: Adrian Malone 03/14/21
--- NOTE | 2021-03-14 10:23 | XRay Report ---
CLINICAL INFORMATION: Decreased level of consciousness with n/v COMPARISON: 01/16/2021 FINDINGS: Moderate cardiomegaly is unchanged. Pacemaker leads in stable satisfactory position without complication. Mitral valve prostheses in stable, satisfactory position. Mediastinum and pulmonary vasculature are normal. Mild elevation left diaphragm unchanged. There is minor atelectasis left base. No new pulmonary abnormalities. IMPRESSION: Moderate stable cardiomegaly. No evidence of CHF or other acute process Mild elevation left diaphragm with minor atelectasis left base-stable Heavy calcific plaque seen in the carotid bifurcation. Suggest carotid Doppler study to evaluate for stenosis Interpreted and Authenticated by: Adrian Malone 03/14/21
[2021-03-14] MEDS ORDERED: 0.9 % SODIUM CHLORIDE 1,000 ML IV ONE ×2 (10:56→11:19)
[2021-03-14 11:12] LABS: Basophils # (Auto) 0.03 K/mcL (0.00-0.20); Basophils % (Auto) 0.5 % (0.0-2.0); Eosinophils # (Auto) 0.15 K/mcL (0.00-0.70); Eosinophils % (Auto) 2.5 % (0.0-7.0); Hematocrit 35.8 % (41.0-55.0); Hemoglobin 11.1 g/dL (13.5-16.5); Lymphocytes # (Auto) 0.65 K/mcL (1.50-4.80); Mean Cell Volume 80.4 fL (80.0-100.0); Mean Platelet Volume 9.5 fL (7.4-10.4); Monocytes # (Auto) 0.47 K/mcL (0.10-0.90); Platelet Count 140 K/mcL (140-440); RBC 4.45 M/mcL (4.50-5.90); Red Cell Distribution Width 15.6 % (11.5-14.5); WBC 5.9 K/mcL (4.5-11.0)
[2021-03-14 11:46] LABS: ALT/SGPT 16 U/L (<40); AST/SGOT 30 U/L (<40); Albumin 3.9 gm/dL (3.2-5.2); Albumin/Globulin Ratio 1.6 (1.0-2.3); Alkaline Phosphatase 90 U/L (39-117); Bilirubin,Total 0.4 mg/dL (0.1-1.0); Blood Urea Nitrogen 18 mg/dL (8-23); Calcium 8.9 mg/dL (8.6-10.4); Carbon Dioxide 28 mmol/L (22-30); Chloride 103 mmol/L (96-108); Globulin 2.5 gm/dL (2.2-3.7); Glomerular Filtration Rate 84; Glucose 104 mg/dL (70-105)
[2021-03-14 12:17] LABS: Appearance,Urine CLEAR (Clear); Bilirubin,Urine Negative (Negative); Color,Urine YELLOW; Culture Indicated,Urine yes; Glucose,Urine (UA) Negative (Negative); Ketones,Urine Negative (Negative); Leukocyte Esterase,Urine Negative /ug (Negative); Nitrate,Urine Negative (Negative); Protein,Urine Negative (Negative); Specific Gravity,Urine 1.014 (1.000-1.035); Urine Blood Negative (Negative); Urine RBC < 1 /hpf (0-3); Urine Squamous Epithelial Cell 0 /hpf (0-4); Urine WBC 11 /hpf (0-4); Urobilinogen,Urine Negative
--- NOTE | 2021-03-14 14:24 | XRay Report ---
CLINICAL INFORMATION: Obtundation occipital pain. COMPARISON: None. TECHNIQUE: The procedure and risks including the possibility of bleeding, infection, CSF leak requiring blood patch were explained to the patient. The understood and wished to proceed. Under fluoroscopic guidance, the L2-3 intralaminar space was marked, prepped and locally anesthetized with 1% Lidocaine using a 25 gauge needle. A 22 gauge spinal needle was placed under fluoroscopy through the intralaminar space into the thecal sac. Unfortunately, no fluid could be aspirated at this level. The L3-4 level was then prepped and attempted. Unfortunately, no fluid could be obtained at the L3-4 level, either. The L1-2 level was then utilized which did result in successful CSF aspiration. Approximately 5 cc of clear CSF was aspirated and sent to pathology for requested studies. There was no apparent complication. The patient tolerated procedure well. Fluoroscopy time one minute 33 seconds. IMPRESSION: Successful fluoroscopic guided lumbar puncture yielding 5 cc of clear CSF. Interpreted and Authenticated by: Adrian Malone 03/14/21
[2021-03-14 15:36] LABS: Glucose,CSF 56 mg/dL (40-70)
[2021-03-14 16:13] LABS: Appearance,CSF Clear; Lymphocytes,CSF 43 % (28-96); Monocytes,CSF 34 % (16-56); Neutrophils,CSF 14 % (0-7); Nucleated Cells,CSF 3 /cumm (0-5); Other Cells,CSF 9 %; Red Blood Cell,CSF 281 /cumm (0-1)
[2021-03-14] MEDS ORDERED: HYDROcodone/APAP 5/325MG TABLET PO PRN ×2 (17:14→19:09)
--- NOTE | 2021-03-14 17:33 | Internal Med History&Physical ---
HPI History of Present Illness Patient information: Note initiated : 03/14/21 at 5:20 pm Service Date, if different from initiated Date: [] Patient: Ti Hallman a 80 y/o M admitted on for Weakness, n/v. Chief Complaint: [Frequent falls ] History of present illness: Mr. Hallman is a 80 year old M history of Parkinson disease, BPH, atrial fibrillation status post pacemaker placement, aortic valve repair and replacement, essential hypertension, mixed dyslipidemia, hypothyroidism, restless leg syndrome, presenting with frequent falls and general body weakness. According to patient's present at the bedside, patient has frequent falls with 2 additional episodes of falls earlier this morning when he leg just gave out without loss of consciousness. This afternoon patient was not able to get up from his bed, so she called EMS to send patient to our emergency room for further evaluations. 3-year-old investigations including CT of the head, lumbar puncture with CSF fluid analysis, chest x-ray, urine analysis, and chemistry does not reveal any cause of such for such as infections, stroke, intracranial bleeding. Patient is currently denying of any confusions or lethargy. Constitutional Constitutional: Present fatigue and weakness; Absent chills, excessive sweating and fever(s) EENT Eyes: Absent blurry vision, change in vision, loss of vision and other visual disturbances Ears: Absent decreased hearing and tinnitus Nose, mouth and throat: Absent abnormal hearing, dry mouth, headache(s), nasal congestion and sore throat Cardiovascular Cardiovascular: Absent chest pain, chest pain at rest, edema, irregular heart rhythm and palpatations Respiratory Respiratory: Absent cough, dyspnea and wheezing Gastrointestinal Gastrointestinal: Absent abdominal pain, constipation, diarrhea, nausea and vomiting Musculoskeletal Musculoskeletal: Absent back pain, deformity, limited range of motion, muscle cramps, muscle weakness and numbness Integumentary Integumentary: Absent lesions, rash and wounds Neurological Neurological: Absent focal weakness, headache(s) and numbness Psychiatric Psychiatric: Absent anxiety, depression and hallucinations PFSH PFSH All Active Problems (Updated 03/14/21 @ 17:06 by Jordan Farias MD) Vomiting (Acute) Frequent falls (Acute) Altered level of consciousness (Acute) Chest pain (Acute) Knee swelling (Acute) Knee effusion (Acute) Fall (Acute) Bruised rib (Acute) Acute dyspnea (Acute) Falls frequently (Acute) Left elbow pain (Acute) Wound dehiscence, external operation (Acute) Urinary tract infection (Acute) Right thigh pain (Acute) Hip strain (Acute) History of aortic valve replacement (Chronic) CAD (coronary artery disease) (Chronic) Prediabetes (Chronic) Hyperlipidemia (Chronic) Hypertension, essential (Chronic) Pacemaker, artificial (Chronic) Atrial fibrillation (Chronic) Aortic valve disorder (Chronic) Foreign body in soft tissue (Acute) At risk for falls (Chronic) Non compliance with medical treatment (Chronic) Dystonia (Chronic) Restless legs syndrome (Chronic) Bladder trabeculation (Chronic) Papilloma, 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) Parkinsons disease (Chronic) Neuropathy (Chronic) Mitral valve disorder (Chronic) Lumbago (Chronic) Hypothyroidism (Chronic) Heart disease (Chronic) Glaucoma (Chronic) Erectile dysfunction (Chronic 04/19/15) Diverticulum of bladder (Chronic) Degeneration, intervertebral disc (Chronic) Other chronic pain (Chronic) Cataracts, bilateral (Chronic) BPH (benign prostatic hyperplasia) (Chronic) Benign prostatic hypertrophy without urinary obstruction (Chronic 09/20/14) Medical History (Updated 03/14/21 @ 17:06 by Jordan Farias MD) Abdominal pain, LLQ Left groin pain Acute retention of urine Aortic valve disorder At risk for falls Atrial fibrillation Post-op Atrioventricular block, complete 2008-3rd degree AV block after heart surgery Benign prostatic hypertrophy without urinary obstruction (09/20/14) Bladder trabeculation BPH (benign prostatic hyperplasia) CAD (coronary artery disease) 2009-post CABG Cataracts, bilateral Cellulitis recurrent on left lower leg ever since vein graft was harvested for CABG in 2008 Cellulitis of left elbow Colon polyp 01/31/15-[facility] Degeneration, intervertebral disc Diverticulum of bladder Dystonia Dystonia of head Erectile dysfunction (04/19/15) Fall Glaucoma Gross hematuria (09/20/14) Heart disease 2009-Valvular heart disease Hematuria Referral for hematuria. No change on imaging studies and cystoscopy confirmed. He stopped his Tamsulosin and Finasteride and will restart. RTC x 6 mo. 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 ferior bladder consistent with bladder carcinoma Parkinsons disease 2010 Prediabetes Restless legs syndrome Urine retention Post anesthesia/surgery Surgical History History of aortic valve replacement History of back surgery 1995-lumbar History of coronary artery bypass surgery 2008 History of right inguinal hernia repair (10/28/15) with mesh prosthesis 12/27/2014 and 10/28/2015 Hx of aortic valve replacement with porcine valve 2008-for aortic stenosis, mitral valve annuloplasty as well Hx of CABG 2009 Hx of cataract surgery 01/2013,02/2013-bilateral Hx of colonoscopy 08/03/15--[facility] Hx of inguinal hernia repair 12/2014-left groin Hx of shoulder surgery 2011-Right rotator cuff repair Status post epidural steroid injection 01/2013-[facility] Family History Brother Malignant neoplasm of prostate Father Coronary artery disease, Onset Age: 98 Mother Congestive heart failure, Onset Age: 89 Other Heart attack Hypertension Social History marital status: occupational status: retired alcohol intake frequency: holiday/special occasion only substance use type: does not use MEDS/ALLERGIES Home Medications and Allergies Home Medications Medication Instructions Recorded Confirmed Type aspirin 325 mg tablet,delayed 325 mg PO QHS 11/04/15 01/24/21 History release quetiapine 25 mg tablet 25 mg PO QHS tab 11/23/18 01/24/21 History tamsulosin 0.4 mg capsule 0.4 mg PO QDAY #30 cap 10/06/19 01/24/21 Rx metoprolol succinate 25 mg capsule 25 mg PO QDAY 11/10/19 01/24/21 History sprinkle, ext. release 24 hr simvastatin 20 mg tablet 20 mg PO QPM 90 Days #90 tab 04/18/20 01/24/21 Rx magnesium oxide 250 mg PO BID 05/07/20 01/24/21 History amlodipine 10 mg tablet 10 mg PO QDAY 90 Days #90 tab 07/15/20 01/24/21 Rx levothyroxine 112 mcg tablet 112 mcg PO QHS 90 Days #90 tab 10/21/20 01/24/21 Rx albuterol sulfate 2.5 mg INHALATION TID #90 ml 12/04/20 01/24/21 Rx nebulizer #1 ea 12/04/20 01/24/21 Rx nebulizer accessories #1 each 12/04/20 01/24/21 Rx pantoprazole 40 mg tablet,delayed 40 mg PO QDAY #14 tab 01/24/21 01/24/21 Rx release dfiksjjvw-fijurxoa-npjnvxebgr 1 tab PO TID 03/14/21 History hydrocodone-acetaminophen 1 tab PO BIDP PRN 03/14/21 History ropinirole 16 mg PO HS 03/14/21 History Allergies Allergy/AdvReac Type Severity Reaction Status Date / Time No Known Drug Allergies Allergy Verified 03/14/21 09:22 EXAM Constitutional Vitals: Temp Pulse Resp BP Pulse Ox 36.4 C 59 L 20 127/85 97 03/14/21 09:22 03/14/21 15:18 03/14/21 16:06 03/14/21 16:06 03/14/21 15:18 General appearance: cooperative and no acute distress Exam: Dysarthria with soft, stuttered speech Head Head exam: Present atraumatic and normocephalic Eye Eye exam: Present EOMI and PERRL ENT ENT exam: Present mucous membranes moist, normal exam and normal external ear exam Neck Neck exam: Present normal inspection; Absent lymphadenopathy, tenderness and thyromegaly Respiratory Respiratory exam: Absent accessory muscle use, respiratory distress and wheezes Cardiovascular Cardiovascular exam: Present normal rate and rhythm; Absent JVD GI/Abdominal GI/Abdominal exam: Present normal bowel sounds and soft; Absent organomegaly and tenderness Rectal Rectal exam: Present deferred Extremities Exam Extremities exam: Present full ROM, normal capillary refill and normal inspection; Absent tenderness Neurological Exam Neurological exam: Present alert, CN II-XII intact and oriented X3; Absent motor sensory deficit Additional comments: Right > left hand tremors Psychiatric Psychiatric exam: Present normal affect and normal mood; Absent anxious and depressed Skin Skin exam: Present dry and intact DATA Data Completed and Pending Labs: Labs from last 24 hours 03/14/21 03/14/21 03/14/21 14:19 10:55 10:04 WBC RBC Hgb Hct MCV MCH MCHC RDW Plt Count MPV Neut % (Auto) Lymph % (Auto) Wilson % (Auto) Eos % (Auto) Baso % (Auto) Lymph # (Auto) Wilson # (Auto) Eos # (Auto) Baso # (Auto) Absolute Neutrophils VBG Lactic Acid Sodium Potassium Chloride Carbon Dioxide Anion Gap BUN Creatinine GFR Calculation Glucose Calcium Total Bilirubin AST ALT Alkaline Phosphatase Ammonia 14 L Total Protein Albumin Globulin Albumin/Globulin Ratio Lipase Urine Color Yellow Urine Appearance Clear Urine pH 7.0 Ur Specific [place] 1.014 Urine Protein Negative Urine Glucose (UA) Negative Urine Ketones Negative Urine Occult Blood Negative Urine Nitrate Negative Urine Bilirubin Negative Urine Urobilinogen Negative Ur Leukocyte Esterase Negative Urine RBC < 1 Urine WBC 11 H Ur Squamous Epith Cells 0 Urine Bacteria None Ur Culture Indicated? yes CSF Source Tube 1 CSF Appearance Clear CSF Color Colorless CSF RBC 281 H CSF Total Nucleated Auto 3 CSF Neutrophils 14 H CSF Lymphocytes 43 CSF Monocytes 34 CSF Glucose 56 CSF Total Protein 46.0 03/14/21 03/14/21 03/14/21 10:04 10:04 10:04 WBC 5.9 RBC 4.45 L Hgb 11.1 L Hct 35.8 L MCV 80.4 MCH 24.9 L MCHC 31.0 RDW 15.6 H Plt Count 140 MPV 9.5 Neut % (Auto) 78.0 Lymph % (Auto) 11.0 L Wilson % (Auto) 8.0 Eos % (Auto) 2.5 Baso % (Auto) 0.5 Lymph # (Auto) 0.65 L Wilson # (Auto) 0.47 Eos # (Auto) 0.15 Baso # (Auto) 0.03 Absolute Neutrophils 4.60 VBG Lactic Acid 0.9 Sodium 139 Potassium 3.9 Chloride 103 Carbon Dioxide 28 Anion Gap 8.0 BUN 18 Creatinine 0.8 GFR Calculation 84 Glucose 104 Calcium 8.9 Total Bilirubin 0.4 AST 30 ALT 16 Alkaline Phosphatase 90 Ammonia Total Protein 6.4 Albumin 3.9 Globulin 2.5 Albumin/Globulin Ratio 1.6 Lipase 17 Urine Color Urine Appearance Urine pH Ur Specific [place] Urine Protein Urine Glucose (UA) Urine Ketones Urine Occult Blood Urine Nitrate Urine Bilirubin Urine Urobilinogen Ur Leukocyte Esterase Urine RBC Urine WBC Ur Squamous Epith Cells Urine Bacteria Ur Culture Indicated? CSF Source CSF Appearance CSF Color CSF RBC CSF Total Nucleated Auto CSF Neutrophils CSF Lymphocytes CSF Monocytes CSF Glucose CSF Total Protein Preliminary micro results at discharge 03/14/21 14:19 Gram Stain - Preliminary Cerebral Spinal Fluid - Cerebral Spinal Fluid A/P Assessment and plan (1) Frequent falls: Status: Acute (2) Parkinsons disease: Status: Chronic Comment: 2010 (3) BPH (benign prostatic hyperplasia): Status: Chronic Qualifiers: Prostatic enlargement morphology: unspecified morphology Lower urinary tract symptom presence: symptoms present Qualified Code(s): N40.1 - Enlarged prostate with lower urinary tract symptoms (4) Hypothyroidism: Status: Chronic Qualifiers: Hypothyroidism type: acquired Qualified Code(s): E03.9 - Hypothyroidism, unspecified (5) Restless legs syndrome: Status: Chronic (6) Hyperlipidemia: Status: Chronic (7) Hypertension, essential: Status: Chronic (8) Pacemaker, artificial: Status: Chronic (9) Atrial fibrillation: Status: Chronic Comment: Post-op Narrative A/P Narrative: 1. Parkinson's Disease with frequent falls: Observation med surg Bedside swwallowing evaluation before feeding regular diet Physical therapy Occupational therapy Continue Avwwqjetk-Xciysltx-Qdkrvegpqk 2. Hypothyroidism: Continue thyroid replacement therapy 3. BPH: Continue Flomax 4. Restless Leg Syndrome: Continue Ropinirole 5. Essential HTN: Currently normotensive Continue Metoprolol ER Continue Amlodipine 6. Mixed dyslipidemia: Continue statin therapy 7. h/o atrial fibrillation s/p cardiac pacemaker placement: Continue Metoprolol ER for rate control Anticoagulants contra-indicated at this point given elevated fall risk GI ppx: continue oral PPI from home regimen DVT ppx: SCDs Code status: Full Prognosis: Stable Disposition: observation med surg; PT OT evaluation for placement Time Spent With Patient Time: Total time spent is greater than 50% in coordination of care (as documented) at patient's floor/unit and/or counseling patient: Total time spent with greater than 50% in coordination of care (as documented) at patient's floor/unit and/or counseling patient:: 15 - 24 minutes
[2021-03-14] MEDS ORDERED: ONDANSETRON 4 MG/2 ML VIAL IV PRN (19:09)
[2021-03-14] MEDS ORDERED: traZODone HCL 50 MG TABLET PO PRN (19:09)
[2021-03-14] MEDS ORDERED: ACETAMINOPHEN 325 MG TABLET PO PRN (19:09)
[2021-03-14] MEDS ORDERED: QUEtiapine 25 MG TABLET PO SCH (21:00)
[2021-03-14] MEDS ORDERED: ROPINIROLE 8 MG PO SCH ×2 (21:00)
[2021-03-14] MEDS ORDERED: SIMVASTATIN 20 MG TABLET PO SCH (21:00)
[2021-03-14] MEDS ORDERED: CARBIDOPA LEVODOPA ENTACAPONE PO SCH (21:00)
[2021-03-14] MEDS ORDERED: SENNOSIDES 1 TABLET PO SCH (21:00)
[2021-03-14] MEDS ORDERED: LEVOTHYROXINE SODIUM 112 MCG TABLET PO SCH (21:00)
[2021-03-14] MEDS ORDERED: ASPIRIN 325 MG ENTERIC COATED TABLET PO SCH (21:00)
[2021-03-14] MEDS: MAGNESIUM OXIDE 400 MG TABLET PO SCH (21:04)
[2021-03-14] MEDS: DOCUSATE SODIUM 100 MG CAPSULE PO SCH (21:04)
[2021-03-14] MEDS: CARBIDOPA LEVODOPA ENTACAPONE PO SCH (21:05)
[2021-03-14] MEDS: ALBUTEROL SULFATE 2.5 MG/3 ML NEBULIZER INH SCH (21:07)
[2021-03-14] MEDS: 0.9 % SODIUM CHLORIDE 10 ML SYRINGE IV SCH (21:08)
[2021-03-15] MEDS: 0.9 % SODIUM CHLORIDE 10 ML SYRINGE IV SCH (04:49)
--- NOTE | 2021-03-15 07:40 | Internal Med Progress Note ---
SUBJECTIVE Subjective Patient information: Note initiated : 03/15/21 at 7:34 am Service Date, if different from initiated Date: [] Patient: Ti Hallman a 80 y/o M admitted on 03/14/21 for Weakness, n/v. Chief Complaint: [Frequent falls ] History of present illness: Mr. Hallman is a 80 year old M history of Parkinson disease, BPH, atrial fibrillation status post pacemaker placement, aortic valve repair and replacement, essential hypertension, mixed dyslipidemia, hypothyroidism, restless leg syndrome, presenting with frequent falls and general body weakness. According to patient's present at the bedside, patient has frequent falls with 2 additional episodes of falls earlier this mo rning when he leg just gave out without loss of consciousness. This afternoon patient was not able to get up from his bed, so she called EMS to send patient to our emergency room for further evaluations. 3-year-old investigations including CT of the head, lumbar puncture with CSF fluid analysis, chest x-ray, urine analysis, and chemistry does not reveal any cause of such for such as infections, stroke, intracranial bleeding. Patient is currently denying of any confusions or lethargy. 03/15: No major overnight events. No falls. c/o mild pain to his left elbow. Denies SOB. Denies dizziness or light headedness. Constitutional Vitals: Vital Signs Temp Pulse Resp BP Pulse Ox 36.3 C 60 14 134/72 60 L 03/15/21 07:25 03/15/21 07:25 03/15/21 07:25 03/15/21 07:25 03/15/21 07:25 Period Temp Pulse Resp BP Sys/Van Pulse Ox Last 24 Hr 36.3 C-36.9 C 56-72 13-22 127-179/49-121 60-99 Intake and Output 03/14/21 03/15/21 03/15/21 21:59 05:59 13:59 Intake Total 1000 300 Output Total 1103 Balance 1000 -803 Weight 68.719 kg Intake & Output: Intake & Output 03/14/21 03/15/21 03/15/21 21:59 05:59 13:59 Intake Total 1000 300 Output Total 1103 Balance 1000 -803 Weight 68.719 kg Intake: IV 1000 Sodium Chloride 0.9% 1,000 ml @ 1000 Wide Open IV BOLUS ONE Rx#: [id number] Oral 300 Output: Void Amount 1100 # of times incontinent of urine 3 Other: Urine Appearance Clear Urine Color Bright Yellow Urine Odor Normal General appearance: cooperative and no acute distress Exam: Stuttering speech Head Head exam: Present atraumatic and normocephalic Additional comments: Masked faces Eye Eye exam: Present EOMI and PERRL ENT ENT exam: Present mucous membranes moist, normal exam and normal external ear exam Neck Neck exam: Present normal inspection; Absent lymphadenopathy, tenderness and t hyromegaly Respiratory Respiratory exam: Absent accessory muscle use, respiratory distress and wheezes Cardiovascular Cardiovascular exam: Present normal rate and rhythm; Absent JVD GI/Abdominal GI/Abdominal exam: Present normal bowel sounds and soft; Absent organomegaly and tenderness Rectal Rectal exam: Present deferred Extremities Exam Extremities exam: Present full ROM, normal capillary refill and normal inspection; Absent tenderness Neurological Exam Neurological exam: Present alert, CN II-XII intact and oriented X3; Absent motor sensory deficit Additional comments: Cogwheel movement of bilateral hands Psychiatric Psychiatric exam: Present normal affect and normal mood; Absent anxious and depressed Skin Skin exam: Present dry and intact OBJ DATA Labs CBC & Chem 7: 03/14/21 10:04 03/14/21 10:04 Labs: Abnormal Lab Results 03/14/21 03/14/21 03/14/21 14:19 10:55 10:04 RBC Hgb Hct MCH RDW Lymph % (Auto) Lymph # (Auto) Ammonia 14 L Urine WBC 11 H CSF RBC 281 H CSF Neutrophils 14 H 03/14/21 10:04 RBC 4.45 L Hgb 11.1 L Hct 35.8 L MCH 24.9 L RDW 15.6 H Lymph % (Auto) 11.0 L Lymph # (Auto) 0.65 L Ammonia Urine WBC CSF RBC CSF Neutrophils Meds: Medications Acetaminophen (Acetaminophen 325 Mg Tablet) 650 mg PO Q6HP PRN; Protocol PRN Reason: Per Pain Protocol/Fever > 101 Hydrocodone Bitart/Acetaminophen (Hydrocodone/Apap 5/325mg Tablet) 1 tab PO BIDP PRN; Protocol PRN Reason: pain Albuterol Sulfate (Albuterol Sulfate 2.5 Mg/3 Ml Nebulizer) 2.5 mg INH TID BORA Last Admin: 03/14/21 21:07 Dose: Not Given Documented by: Amlodipine Besylate (Amlodipine 10 Mg Tablet) 10 mg PO QDAY [facility] Aspirin (Aspirin 325 Mg Enteric Coated Tablet) 325 mg PO QHS [facility] Last Admin: 03/14/21 21:04 Dose: 325 mg Documented by: Docusate Sodium (Docusate Sodium 100 Mg Capsule) 100 mg PO BID [facility] Last Admin: 03/14/21 21:04 Dose: 100 mg Documented by: Levothyroxine Sodium (Levothyroxine Sodium 112 Mcg Tablet) 112 mcg PO QHS [facility] Last Admin: 03/14/21 21:04 Dose: 112 mcg Documented by: Magnesium Oxide (Magnesium Oxide 400 Mg Tablet) 400 mg PO BID [facility] Last Admin: 03/14/21 21:04 Dose: 400 mg Documented by: Metoprolol Succinate (Metoprolol Succinate 25 Mg Tab.Xl.24h) 25 mg PO DAILY [facility] Ondansetron HCl (Ondansetron 4 Mg/2 Ml Vial) 4 mg IV Q6HP PRN PRN Reason: Nausea And Vomiting Pantoprazole Sodium (Pantoprazole 40 Mg Tablet) 40 mg PO QDAY [facility] (Carbidopa-Levodopa- Entacapone 25 Mg-100 Mg-200 Mg Tablet 1 dose PO TID [facility] Last Admin: 03/14/21 21:05 Dose: 1 dose Documented by: Ropinirole Er 8 Mg (Tablet) 1 dose PO [facility] Last Admin: 03/14/21 21:05 Dose: 1 dose Documented by: Quetiapine Fumarate (Quetiapine 25 Mg Tablet) 25 mg PO QHS [facility] Last Admin: 03/14/21 21:04 Dose: 25 mg Documented by: Senna (Sennosides 1 Tablet) 2 tab PO [facility] Last Admin: 03/14/21 21:04 Dose: 2 tab Documented by: Simvastatin (Simvastatin 20 Mg Tablet) 20 mg PO QPM [facility] Last Admin: 03/14/21 21:04 Dose: 20 mg Documented by: Sodium Chloride (0.9 % Sodium Chloride 10 Ml Syringe) 10 ml IV Q8 [facility] Last Admin: 03/15/21 04:49 Dose: 10 ml Documented by: Tamsulosin HCl (Tamsulosin 0.4 Mg Capsule) 0.4 mg PO QDAY [facility] Trazodone HCl (Trazodone Hcl 50 Mg Tablet) 25 mg PO HSP PRN PRN Reason: Insomnia A/P Assessment and plan (1) Frequent falls: Status: Acute (2) Parkinsons disease: Status: Chronic Comment: 2010 (3) BPH (benign prostatic hyperplasia): Status: Chronic Qualifiers: Prostatic enlargement morphology: unspecified morphology Lower urinary tract symptom presence: symptoms present Qualified Code(s): N40.1 - Enlarged prostate with lower urinary tract symptoms (4) Hypothyroidism: Status: Chronic Qualifiers: Hypothyroidism type: acquired Qualified Code(s): E03.9 - Hypothyroidism, unspecified (5) Restless legs syndrome: Status: Chronic (6) Hyperlipidemia: Status: Chronic (7) Hypertension, essential: Status: Chronic (8) Pacemaker, artificial: Status: Chronic (9) Atrial fibrillation: Status: Chronic Comment: Post-op Narrative A/P Narrative: 1. Parkinson's Disease with frequent falls: Observation med surg Bedside swwallowing evaluation before feeding regular diet Physical therapy Occupational therapy Continue Nhjnmzigi-Ayfmjdjx-Zvwzbpgwgm 2. Hypothyroidism: Continue thyroid replacement therapy 3. BPH: Continue Flomax 4. Restless Leg Syndrome: Continue Ropinirole 5. Essential HTN: Currently normotensive Continue Metoprolol ER Continue Amlodipine 6. Mixed dyslipidemia: Continue statin therapy 7. h/o atrial fibrillation s/p cardiac pacemaker placement: Continue Metoprolol ER for rate control Anticoagulants contra-indicated at this point given elevated fall risk GI ppx: continue oral PPI from home regimen DVT ppx: SCDs Code status: Full Prognosis: Stable Disposition: observation med surg; PT OT evaluation for placement Time Spent With Patient Time: Total time spent is greater than 50% in coordination of care (as documented) at patient's floor/unit and/or counseling patient: QUALITY VTE Deep Vein Thrombosis/Pulmonary Embolism Present on Admission: No
[2021-03-15] MEDS: ALBUTEROL SULFATE 2.5 MG/3 ML NEBULIZER INH SCH (08:42)
[2021-03-15] MEDS ORDERED: amLODIPine 10 MG TABLET PO SCH (09:00)
[2021-03-15] MEDS ORDERED: TAMSULOSIN 0.4 MG CAPSULE PO SCH (09:00)
[2021-03-15] MEDS ORDERED: METOPROLOL SUCCINATE 25 MG TAB.XL.24H PO SCH (09:00)
[2021-03-15] MEDS ORDERED: PANTOPRAZOLE 40 MG TABLET PO SCH (09:00)
[2021-03-15] MEDS: DOCUSATE SODIUM 100 MG CAPSULE PO SCH (09:52)
[2021-03-15] MEDS: CARBIDOPA LEVODOPA ENTACAPONE PO SCH (09:52)
--- NOTE | 2021-03-15 09:57 | Discharge Summary ---
Discharge Provider Provider Patient information: Note initiated : 03/15/21 at 9:54 am Service Date, if different from initiated Date: [] Patient: Ti Hallman 80 y/o M admitted on 03/14/21 for Weakness, n/v. Chief Complaint: [Frequent falls] Date of admission: 03/14/21 18:33 Discharge date: 03/15/21 Primary care physician: Henrry Evans PA-C Consults: 03/14/21 16:52 Consult to Physician [CONS] Stat Comment: Consulting Provider: Rony Negrete Reason For Exam: Physician to Consult Discharge Meds Discharge Medications Home Medications aspirin 325 mg tablet,delayed release 325 mg PO QHS 11/04/15 [History Confirmed 03/14/21 Last Taken 03/13/21 09:00 325 mg] quetiapine 25 mg tablet 25 mg PO QHS tab 11/23/18 [History Confirmed 03/14/21 Last Taken 03/13/21 09:00 25 mg] metoprolol succinate 25 mg capsule sprinkle, ext. release 24 hr 25 mg PO QHS 11/10/19 [History Confirmed 03/15/21 Last Taken 03/13/21 09:00 25 mg] levothyroxine 112 mcg tablet 112 mcg PO QHS 90 Days #90 tab 10/21/20 [Rx Confirmed 03/14/21 Last Taken 03/13/21 09:00 112 mcg] nebulizer #1 ea 12/04/20 [Rx Confirmed 03/14/21 Last Taken Unknown] nebulizer accessories #1 each 12/04/20 [Rx Confirmed 03/14/21 Last Taken Unknown] azpdmlhxs-fxgiqiyj-jedqtlfimv 1 tab PO TID 03/14/21 [History Confirmed 03/14/21 Last Taken 03/13/21 09:00 tid] ropinirole 16 mg PO HS 03/14/21 [History Confirmed 03/14/21 Last Taken 03/13/21 09:00 8 mg] albuterol sulfate 2.5 mg INH TID 14 Days ml 03/15/21 [Rx Last Taken Unknown] amlodipine 10 mg PO QDAY 14 Days #14 tab 03/15/21 [Rx Last Taken Unknown] amlodipine PO QHS 03/15/21 [History Last Taken Unknown] hydrocodone-acetaminophen 1 tab PO BIDP PRN #10 tab 03/15/21 [Rx Last Taken Unknown] magnesium oxide 400 mg PO BID 14 Days #28 tab 03/15/21 [Rx Last Taken Unknown] simvastatin 20 mg PO QHS 03/15/21 [History Last Taken Unknown] simvastatin 20 mg PO QPM 14 Days #14 tab 03/15/21 [Rx Last Taken Unknown] tamsulosin 0.4 mg PO QDAY 14 Days #14 cap 03/15/21 [Rx Last Taken Unknown] COURSE Hospital Course Hospital course: Conservative cares with cautions on fall given. No additional falls during his hospital stay. Physical and occupational therapy consulted and recommended SNF placement. Family insisted of taking patient home with private caregiver instead. Discharge diagnosis: Parkinson's Disease Time Spent with Patient Time attestation: Total time spent providing and/or coordinating discharge services: Time spent: Less than 30 minutes EXAM Constitutional Vitals: Temp Pulse Resp BP Pulse Ox 36.3 C 60 20 134/72 91 03/15/21 07:25 03/15/21 07:25 03/15/21 08:30 03/15/21 07:25 03/15/21 08:30 Exam: Stuttering speech Head Additional comments: Masked faces Neurological Exam Additional comments: Cogwheel movement of bilateral hands Discharge Data Data Completed and Pending Labs on day of discharge: Labs from last 24 hours 03/14/21 03/14/21 03/14/21 14:19 10:55 10:04 WBC RBC Hgb Hct MCV MCH MCHC RDW Plt Count MPV Neut % (Auto) Lymph % (Auto) [place] % (Auto) Eos % (Auto) Baso % (Auto) Lymph # (Auto) [place] # (Auto) Eos # (Auto) Baso # (Auto) Absolute Neutrophils VBG Lactic Acid Sodium Potassium Chloride Carbon Dioxide Anion Gap BUN Creatinine GFR Calculation Glucose Calcium Total Bilirubin AST ALT Alkaline Phosphatase Ammonia 14 L Total Protein Albumin Globulin Albumin/Globulin Ratio Lipase Urine Color Yellow Urine Appearance Clear Urine pH 7.0 Ur Specific [place] 1.014 Urine Protein Negative Urine Glucose (UA) Negative Urine Ketones Negative Urine Occult Blood Negative Urine Nitrate Negative Urine Bilirubin Negative Urine Urobilinogen Negative Ur Leukocyte Esterase Negative Urine RBC < 1 Urine WBC 11 H Ur Squamous Epith Cells 0 Urine Bacteria None Ur Culture Indicated? yes CSF Source Tube 1 CSF Appearance Clear CSF Color Colorless CSF RBC 281 H CSF Total Nucleated Auto 3 CSF Neutrophils 14 H CSF Lymphocytes 43 CSF Monocytes 34 CSF Glucose 56 CSF Total Protein 46.0 03/14/21 03/14/21 03/14/21 10:04 10:04 10:04 WBC 5.9 RBC 4.45 L Hgb 11.1 L Hct 35.8 L MCV 80.4 MCH 24.9 L MCHC 31.0 RDW 15.6 H Plt Count 140 MPV 9.5 Neut % (Auto) 78.0 Lymph % (Auto) 11.0 L [place] % (Auto) 8.0 Eos % (Auto) 2.5 Baso % (Auto) 0.5 Lymph # (Auto) 0.65 L [place] # (Auto) 0.47 Eos # (Auto) 0.15 Baso # (Auto) 0.03 Absolute Neutrophils 4.60 VBG Lactic Acid 0.9 Sodium 139 Potassium 3.9 Chloride 103 Carbon Dioxide 28 Anion Gap 8.0 BUN 18 Creatinine 0.8 GFR Calculation 84 Glucose 104 Calcium 8.9 Total Bilirubin 0.4 AST 30 ALT 16 Alkaline Phosphatase 90 Ammonia Total Protein 6.4 Albumin 3.9 Globulin 2.5 Albumin/Globulin Ratio 1.6 Lipase 17 Urine Color Urine Appearance Urine pH Ur Specific [place] Urine Protein Urine Glucose (UA) Urine Ketones Urine Occult Blood Urine Nitrate Urine Bilirubin Urine Urobilinogen Ur Leukocyte Esterase Urine RBC Urine WBC Ur Squamous Epith Cells Urine Bacteria Ur Culture Indicated? CSF Source CSF Appearance CSF Color CSF RBC CSF Total Nucleated Auto CSF Neutrophils CSF Lymphocytes CSF Monocytes CSF Glucose CSF Total Protein Preliminary micro results at discharge 03/14/21 14:19 Gram Stain - Preliminary Cerebral Spinal Fluid - Cerebral Spinal Fluid Discharge Plan Patient/Caregiver Discharge Instructions Activity: as per physical therapy Diet: Regular Diet Activity Restrictions/Additional Instructions: 2 week PCP follow up appointment Prescriptions: New albuterol sulfate 2.5 mg /3 mL (0.083 %) Solution For Nebulization 2.5 mg INH TID 14 Days RF: 0 hydrocodone-acetaminophen 5-325 mg Tablet 1 tab PO BIDP PRN (Reason: pain) Qty: 10 RF: 0 magnesium oxide 400 mg (241.3 mg magnesium) Tablet 400 mg PO BID 14 Days Qty: 28 RF: 0 amlodipine 10 mg Tablet 10 mg PO QDAY 14 Days Qty: 14 RF: 0 simvastatin 20 mg Tablet 20 mg PO QPM 14 Days Qty: 14 RF: 0 tamsulosin 0.4 mg Capsule 0.4 mg PO QDAY 14 Days Qty: 14 RF: 0 Continued levothyroxine 112 mcg tablet 112 mcg PO QHS 90 Days Qty: 90 RF: 1 aspirin 325 mg tablet,delayed release (DR/EC) 325 mg PO QHS RF: 0 quetiapine 25 mg tablet 25 mg PO QHS RF: 0 (DME) nebulizer accessories Kit See Rx Instructions .ROUTE .MEDSUPPLY Qty: 1 RF: 0 (DME) nebulizer Qty: 1 RF: 0 metoprolol succinate 25 mg capsule,sprinkle,ER 24hr 25 mg PO QHS RF: 0 ropinirole 8 mg tablet extended release 24 hr 16 mg PO HS RF: 0 fwjlgirnd-khrehdcd-npaojjzxlp 25-100-200 mg tablet 1 tab PO TID RF: 0 amlodipine 10 mg Tablet PO QHS RF: 0 simvastatin 20 mg Tablet 20 mg PO QHS RF: 0 Follow Up Plan Follow up with: Henrry Evans PA-C [Primary Care Provider] - Patient Disposition: Xfer Other Rehab Potential: Fair Overall status at discharge: patient is back to baseline Discharge Orders: Discharge Order (Routine); Ordered 03/15/21 Ordered By: Rony MORENO VTE Deep Vein Thrombosis/Pulmonary Embolism Present on Admission: No
[2021-03-15] MEDS: MAGNESIUM OXIDE 400 MG TABLET PO SCH (10:03)
== END 2021-03-15 11:14 | disposition other institution (70) ==
LOC: MEDSUR 09:21 → ED 09:21 → MEDSUR 18:47
PROVIDERS: ADMIT Internal Medicine; ATTEND Internal Medicine

== ENCOUNTER 2021-08-11 01:33 | Inpatient (IN) ==
[2021-08-11] MEDS ORDERED: IOPAMIDOL 100 ML BOTTLE IV ONE ×2 (01:34→11:06)
--- NOTE | 2021-08-11 01:37 | Emergency Department Note ---
HPI General Chief complaint: Abdominal Pain Stated complaint: ABD pain, diarrhea Time Seen by Provider: 08/11/21 01:37 Mode of arrival: ambulatory History of Present Illness HPI Narrative: Narrative: The patient is an 81-year-old male who presents via ambulance with a chief complaint of abdominal pain and diarrhea. The patient is a DNR/comfort care. He was treated with antibiotics last month for cellulitis. He has advanced dementia. His is here with him and states that he started having abdominal pain and diarrhea earlier today without fevers she also noted that he is more weak than usual. Related Data Home Medications Medication Instructions Recorded Confirmed aspirin 325 mg tablet,delayed 325 mg PO QHS 11/04/15 07/03/21 release metoprolol succinate 25 mg capsule 25 mg PO QHS 11/10/19 07/03/21 sprinkle, ext. release 24 hr otwychkuw-catrusux-acfickwzwi 1 tab PO TID 03/14/21 07/03/21 amlodipine PO QHS 03/15/21 07/03/21 Previous Rx's Medication Instructions Recorded hydrocodone-acetaminophen 1 tab PO BIDP PRN #10 tab 03/15/21 levothyroxine 112 mcg tablet 112 mcg PO QHS 90 Days #90 tab 04/15/21 citalopram 20 mg tablet 20 mg PO QDAY #30 tab 06/02/21 ropinirole 8 mg tablet,extended 16 mg PO HS #180 tab 06/02/21 release 24 hr simvastatin 20 mg tablet 20 mg PO QHS 90 Days #90 tab 07/10/21 Allergies Allergy/AdvReac Type Severity Reaction Status Date / Time No Known Drug Allergies Allergy Verified 08/11/21 01:41 Review of Systems ROS ROS Narrative: Narrative: All systems ED: reviewed and negative except as stated. [facility] Narrative Patient History Narrative: Narrative: Medical/Surgical/Family History All Active Problems Laceration (Acute) Dehiscence of laceration wound (Acute) Acute hypotension (Acute) Diarrhea (Acute) Leukocytosis (Acute) Bursitis, prepatellar, left (Acute) Laceration (Acute) Medicare annual wellness visit, initial (Acute) Vomiting (Acute) Frequent falls (Acute) Altered level of consciousness (Acute) Chest pain (Acute) Knee swelling (Acute) Knee effusion (Acute) Fall (Acute) Bruised rib (Acute) Acute dyspnea (Acute) Falls frequently (Acute) Left elbow pain (Acute) Wound dehiscence, external operation (Acute) Urinary tract infection (Acute) Right thigh pain (Acute) Hip strain (Acute) History of aortic valve replacement (Chronic) CAD (coronary artery disease) (Chronic) Prediabetes (Chronic) Hyperlipidemia (Chronic) Hypertension, essential (Chronic) Pacemaker, artificial (Chronic) Atrial fibrillation (Chronic) Aortic valve disorder (Chronic) Foreign body in soft tissue (Acute) At risk for falls (Chronic) Non compliance with medical treatment (Chronic) Dystonia (Chronic) Restless legs syndrome (Chronic) Bladder trabeculation (Chronic) Papilloma, 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) Parkinsons disease (Chronic) Neuropathy (Chronic) Mitral valve disorder (Chronic) Lumbago (Chronic) Hypothyroidism (Chronic) Heart disease (Chronic) Glaucoma (Chronic) Erectile dysfunction (Chronic 04/19/15) Diverticulum of bladder (Chronic) Degeneration, intervertebral disc (Chronic) Other chronic pain (Chronic) Cataracts, bilateral (Chronic) BPH (benign prostatic hyperplasia) (Chronic) Benign prostatic hypertrophy without urinary obstruction (Chronic 09/20/14) Medical History Abdominal pain, LLQ Left groin pain Acute retention of urine Aortic valve disorder At risk for falls Atrial fibrillation Post-op Atrioventricular block, complete 2008-3rd degree AV block after heart surgery Benign prostatic hypertrophy without urinary obstruction (09/20/14) Bladder trabeculation BPH (benign prostatic hyperplasia) CAD (coronary artery disease) 2009-post CABG Cataracts, bilateral Cellulitis recurrent on left lower leg ever since vein graft was harvested for CABG in 2008 Cellulitis of left elbow Colon polyp 01/31/15-[facility] Degeneration, intervertebral disc Diverticulum of bladder Dystonia Dystonia of head Erectile dysfunction (04/19/15) Fall Glaucoma Gross hematuria (09/20/14) Heart disease 2009-Valvular heart disease Hematuria Referral for hematuria. No change on imaging studies and cystoscopy confirmed. He stopped his Tamsulosin and Finasteride and will restart. RTC x 6 mo. 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 Parkinsons disease 2010 Prediabetes Restless legs syndrome Urine retention Post anesthesia/surgery Surgical History History of aortic valve replacement History of back surgery 1995-lumbar History of coronary artery bypass surgery 2008 History of right inguinal hernia repair (10/28/15) with mesh prosthesis 12/27/2014 and 10/28/2015 Hx of aortic valve replacement with porcine valve 2008-for aortic stenosis, mitral valve annuloplasty as well Hx of CABG 2009 Hx of cataract surgery 01/2013,02/2013-bilateral Hx of colonoscopy 08/03/15--[facility] Hx of inguinal hernia repair 12/2014-left groin Hx of shoulder surgery 2011-Right rotator cuff repair Status post epidural steroid injection 01/2013-[facility] Family History Brother Malignant neoplasm of prostate Father Coronary artery disease, Onset Age: 98 Mother Congestive heart failure, Onset Age: 89 Other Heart attack Hypertension Social History Smoking Status: Never smoker Alcohol Intake Frequency: holiday/special occasion only Substance Use: does not use Exam Narrative Narrative: Narrative: General General appearance: Present alert, thin and other (Frail-appearing, advanced dementia.) Head Head: Present atraumatic and normocephalic Eye Eye: Present normal appearance, PERRL and EOMI ENT ENT: Present normal exam, normal oropharynx and mucous membranes moist Neck Neck: Present normal inspection, full ROM and trachea midline Chest Chest: Present normal inspection and symmetric chest wall rise Respiratory Respiratory: Present normal lung sounds bilaterally Cardiovascular Cardiovascular: Present regular rate and normal rhythm Adbominal Abdominal: Present soft, tenderness and normal bowel sounds; Absent guarding, rebound, organomegaly and pulsatile mass Rectal Rectal: Present normal rectal tone, heme (+) stool and other (Profuse watery stool) Extremities Extremities: Present normal inspection and full ROM; Absent tenderness Back Back: Present normal inspection and full ROM; Absent tenderness Neurological Neurological: Present alert, oriented X3, CN II-XII intact and other (Advanced dementia. No facial droop or unilateral weakness.) Psychiatric Psychiatric: Present normal affect Skin Skin: Present warm (WNL); Absent rash Course Course Course Narrative: Work-up shows a leukocytosis. Patient continues to be hypotensive he received IV Rocephin empirically. CT scan the abdomen and pelvis are pending at this time. Patient will need to be admitted to the hospital. His work-up is still incomplete at the time of shift change. Shift change the patient's care will be turned over to the oncoming emergency physician Dr. Mitch Gao. Vital Signs Vital signs: Vital Signs Temperature 96.8 F L 08/11/21 01:36 Pulse Rate 79 08/11/21 01:36 Respiratory Rate 14 08/11/21 01:36 Blood Pressure 128/115 08/11/21 01:36 Pulse Oximetry (%) 93 08/11/21 01:36 Temperature 96.8 F L 08/11/21 01:36 Pulse Rate 59 L 08/11/21 06:34 Respiratory Rate 14 08/11/21 06:34 Blood Pressure 70/50 08/11/21 06:34 Pulse Oximetry (%) 96 08/11/21 06:34 MDM MDM Narrative Medical decision making narrative: Narrative: Lab Data Result diagrams: 08/11/21 02:25 08/11/21 02:25 Labs: Lab Results 08/11/21 08/11/21 08/11/21 Range/Units 02:25 02:25 04:12 WBC 17.1 H (4.5-11.0) K/mcL RBC 5.12 (4.63-6.08) M/mcL Hgb 12.9 L (13.7-17.5) g/dL Hct 43.2 (40.1-51.0) % MCV 84.4 (80.0-100.0) fL MCH 25.2 L (26.0-34.0) pg MCHC 29.9 L (31.0-36.0) g/dL RDW 16.8 H (11.5-14.5) % Plt Count 162 (140-440) K/mcL MPV 9.5 (7.4-10.4) fL Neut % (Auto) 94.0 H (38.0-78.0) % Lymph % (Auto) 4.1 L (15.5-49.0) % [place] % (Auto) 1.2 (1.0-12.0) % Eos % (Auto) 0.5 (0.0-7.0) % Baso % (Auto) 0.2 (0.0-2.0) % Lymph # (Auto) 0.70 L (1.50-4.80) K/mcL [place] # (Auto) 0.21 (0.10-0.90) K/mcL Eos # (Auto) 0.08 (0.00-0.70) K/mcL Baso # (Auto) 0.04 (0.00-0.30) K/mcL Absolute Neutrophils 16.06 H (1.80-8.00) K/mcL VBG Lactic Acid 2.4 H (0.5-2.0) mmol/L Sodium 139 (133-145) mmol/L Potassium 4.2 (3.3-5.1) mmol/L Chloride 99 (96-108) mmol/L Carbon Dioxide 23 (22-30) mmol/L Anion Gap 17.0 H (8.0-16.0) BUN 19 (8-23) mg/dL Creatinine 1.2 (0.7-1.2) mg/dL GFR Calculation 56 Glucose 119 H (70-105) mg/dL Calcium 9.8 (8.6-10.4) mg/dL Total Bilirubin 0.5 (0.1-1.0) mg/dL AST 38 (<40) U/L ALT 6 (<40) U/L Alkaline Phosphatase 109 (39-117) U/L Total Protein 7.1 (5.9-8.4) gm/dL Albumin 4.2 (3.2-5.2) gm/dL Globulin 2.9 (2.2-3.7) gm/dL Albumin/Globulin Ratio 1.4 (1.0-2.3) Lipase 32 (7-60) U/L Discharge Plan Patient/Caregiver Discharge Instructions Pt seen by [employer]/PA only: No Clinical Impression: Acute hypotension, Diarrhea, Leukocytosis Patient Disposition: Still a Patient Follow up with: Henrry Evans PA-C [Primary Care Provider] - Prescriptions: No Action levothyroxine 112 mcg tablet 112 mcg PO QHS 90 Days Qty: 90 RF: 1 simvastatin 20 mg tablet 20 mg PO QHS 90 Days Qty: 90 RF: 1 aspirin 325 mg tablet,delayed release (DR/EC) 325 mg PO QHS RF: 0 citalopram 20 mg tablet 20 mg PO QDAY Qty: 30 RF: 2 ropinirole 8 mg tablet extended release 24 hr 16 mg PO HS Qty: 180 RF: 1 metoprolol succinate 25 mg capsule,sprinkle,ER 24hr 25 mg PO QHS RF: 0 tmdceawmy-tcgorima-moqkiptsfr 25-100-200 mg tablet 1 tab PO TID RF: 0 amlodipine 10 mg Tablet PO QHS RF: 0 hydrocodone-acetaminophen 5-325 mg Tablet 1 tab PO BIDP PRN (Reason: pain) Qty: 10 RF: 0
[2021-08-11] MEDS ORDERED: ONDANSETRON 4 MG/2 ML VIAL IV ONE (01:42)
[2021-08-11] MEDS ORDERED: 0.9 % SODIUM CHLORIDE 1,000 ML IV ONE ×2 (01:42→03:38)
[2021-08-11] MEDS ORDERED: morphine 4 MG/ML VIAL IV ONE (01:42)
[2021-08-11 03:30] LABS: Basophils # (Auto) 0.04 K/mcL (0.00-0.30); Basophils % (Auto) 0.2 % (0.0-2.0); Eosinophils # (Auto) 0.08 K/mcL (0.00-0.70); Eosinophils % (Auto) 0.5 % (0.0-7.0); Hematocrit 43.2 % (40.1-51.0); Hemoglobin 12.9 g/dL (13.7-17.5); Lymphocytes % (Auto) 4.1 % (15.5-49.0); Mean Cell Volume 84.4 fL (80.0-100.0); Mean Corpuscular HGB Conc 29.9 g/dL (31.0-36.0); Mean Platelet Volume 9.5 fL (7.4-10.4); Monocytes # (Auto) 0.21 K/mcL (0.10-0.90); Monocytes % (Auto) 1.2 % (1.0-12.0); Platelet Count 162 K/mcL (140-440); RBC 5.12 M/mcL (4.63-6.08); Red Cell Distribution Width 16.8 % (11.5-14.5); WBC 17.1 K/mcL (4.5-11.0)
[2021-08-11 03:53] LABS: ALT/SGPT 6 U/L (<40); AST/SGOT 38 U/L (<40); Albumin 4.2 gm/dL (3.2-5.2); Albumin/Globulin Ratio 1.4 (1.0-2.3); Alkaline Phosphatase 109 U/L (39-117); Bilirubin,Total 0.5 mg/dL (0.1-1.0); Blood Urea Nitrogen 19 mg/dL (8-23); Calcium 9.8 mg/dL (8.6-10.4); Carbon Dioxide 23 mmol/L (22-30); Chloride 99 mmol/L (96-108); Globulin 2.9 gm/dL (2.2-3.7); Glomerular Filtration Rate 56; Glucose 119 mg/dL (70-105)
[2021-08-11] MEDS ORDERED: cefTRIAXone 1 GM VIAL IV ONE (05:18)
[2021-08-11] MEDS ORDERED: LOPERAMIDE 2 MG CAPSULE PO ONE (05:49)
--- NOTE | 2021-08-11 07:39 | Cat Scan Report ---
INDICATION: abd pain COMPARISON: Previous CT scans dated 04/29/2020 and 10/18/2014 TECHNIQUE: Axial images were obtained through the abdomen and pelvis. Sagittally and coronally reformatted images. 80 mL Isovue 370 injected intravenously. Oral contrast material was not administered FINDINGS: Lung bases:There is left lower lobe parenchymal density. This is at the left lung base. Appearance is essentially unchanged since 04/29/2020 and is consistent with chronic volume loss. Chest x-ray recommended. There is no pleural fluid. No pericardial fluid. There is cardiomegaly, unchanged. There is a cardiac pacemaker. There is coronary artery calcification and findings consistent with previous coronary artery bypass procedure. There is a prosthetic mitral valve. Liver:Negative. No focal intrahepatic mass. No focal abnormality. Liver contour is smooth. No evidence for cirrhosis Gallbladder, bilary:No calcified gallstones. No gallbladder wall thickening. No dilated intra or extrahepatic bile ducts. Spleen:No splenomegaly. Normal enhancement of splenic and portal veins. Pancreas:There is a 10 mm low density pancreatic tail mass. This was not described on previous examination but was present and appears essentially unchanged. This may have been present on a prior CT scan dated 10/18/2014 but is not as well visualized. [address] follow-up is recommended. Pancreas is otherwise negative. No evidence for pancreatitis. Adrenal glands:Negative Kidneys, ureters, bladder:No solid renal mass. No hydronephrosis. No obstructing calculi. There is no hydroureter. No ureteral stone Bladder is not distended. Diffusely thickened bladder wall is possible. There are intraluminal gas bubbles. Clinical correlation recommended for history of instrumentation. Cystitis is possible. Gastrointestinal: Prominent fecal material within the rectum consistent with constipation or impaction. There is no pneumatosis. There is thickening of the rectal wall. There is mural thickening in the descending colon and sigmoid colon. Appearance is consistent with colitis. There is no discrete mass. There is mild pericolonic inflammatory change and prominence of the vasa recta. No focal abnormality. No evidence for diverticulitis. No discrete abscess. A sending colon and transverse colon are mildly prominent and contain fluid and gas. Small bowel is negative. No mechanical small bowel obstruction. Stomach and duodenum are unremarkable Appendix: The appendix is not well visualized. No enlarged appendix or evidence for appendicitis. Vascular:Severe calcified atherosclerotic plaque. No abdominal aortic aneurysm. There is calcified plaque at the origin of the superior mesenteric artery and probable 50% diameter stenosis. Celiac trunk is patent. Superior mesenteric artery enhances normally. Inferior mesenteric artery also enhances. Lymphatic:No retroperitoneal or mesenteric adenopathy Mesentery, peritoneum: Small amount of free fluid within the pelvis and right lower quadrant. There is no pneumoperitoneum. No intra-abdominal abscess. Reproductive:No definite prostatic mass. Prostate appears prominent with mild calcification. Musculoskeletal:Multilevel degenerative disc disease. No lumbar compression fracture. Sacrum is negative. Pelvis is negative. No pelvic fracture. No lytic lesion. No abdominal wall or inguinal hernia IMPRESSION: 1. Prominent fecal material within the rectum consistent with impaction or constipation. 2. Thickened colonic wall involving the rectum, sigmoid colon, descending colon. Appearance is consistent with colitis. 3. Mild free intraperitoneal fluid. No localized abscess. 4. Severe atherosclerotic disease. Superior mesenteric artery and inferior mesenteric artery are opacified 5. 10 mm mass in the pancreatic tail. This is unchanged since 04/29/2020. 12 month follow-up recommended. 6. Multilevel degenerative disc disease in the lumbar spine 7. Left lower lobe pulmonary parenchymal density consistent with chronic volume loss. Chest x-ray recommended 8. Cardiomegaly and severe coronary artery calcification. Patient has a cardiac pacemaker and is undergone previous coronary artery bypass procedure and mitral valve replacement. The exam was performed using radiation dose optimization techniques including, but not limited to, automated exposure control, adjustment of the mA and/or kV according to patient size and use of iterative reconstruction technique. Interpreted and Authenticated by: Adrian Looney 08/11/21
[2021-08-11] MEDS ORDERED: metroNIDAZOLE 500 MG/100 ML BAG IV ONE (09:30)
--- NOTE | 2021-08-11 09:34 | Emergency Department Note ---
Course Vital Signs Vital signs: Vital Signs Temperature 96.8 F L 08/11/21 01:36 Pulse Rate 79 08/11/21 01:36 Respiratory Rate 14 08/11/21 01:36 Blood Pressure 128/115 08/11/21 01:36 Pulse Oximetry (%) 93 08/11/21 01:36 Temperature 96.8 F L 08/11/21 01:36 Pulse Rate 62 08/11/21 08:31 Respiratory Rate 14 08/11/21 06:34 Blood Pressure 87/55 08/11/21 08:31 Pulse Oximetry (%) 95 08/11/21 08:31 MDM MDM Narrative Medical decision making narrative: Narrative: Lab Data Lab results reviewed: Yes I reviewed the patient's lab results. Lab results narrative: I assumed care at the change of shift. I evaluated the patient in person at approximately 9 AM. He is complaining of abdominal pain. His abdomen is soft and mildly tender to palpation diffusely without guarding rebound tenderness. He appears quite dehydrated on exam with dry mucous membranes and poor skin turgor. I discussed the plan for admission and he was agreeable. Patient's labs are remarkable for minimal alteration in his renal function. He does have a significant leukocytosis. CT scan reveals findings concerning for colitis. Given that his leukocytosis and high level of suspicion for C. difficile colitis I think he would benefit from antibiotics. I discussed his history examination diagnostic findings with Dr. Negrete. He agrees with the plan to initiate antibiotic therapy and accepts admission. Result diagrams: 08/11/21 02:25 08/11/21 02:25 Labs: Lab Results 08/11/21 08/11/21 08/11/21 Range/Units 02:25 02:25 04:12 WBC 17.1 H (4.5-11.0) K/mcL RBC 5.12 (4.63-6.08) M/mcL Hgb 12.9 L (13.7-17.5) g/dL Hct 43.2 (40.1-51.0) % MCV 84.4 (80.0-100.0) fL MCH 25.2 L (26.0-34.0) pg MCHC 29.9 L (31.0-36.0) g/dL RDW 16.8 H (11.5-14.5) % Plt Count 162 (140-440) K/mcL MPV 9.5 (7.4-10.4) fL Neut % (Auto) 94.0 H (38.0-78.0) % Lymph % (Auto) 4.1 L (15.5-49.0) % [place] % (Auto) 1.2 (1.0-12.0) % Eos % (Auto) 0.5 (0.0-7.0) % Baso % (Auto) 0.2 (0.0-2.0) % Lymph # (Auto) 0.70 L (1.50-4.80) K/mcL [place] # (Auto) 0.21 (0.10-0.90) K/mcL Eos # (Auto) 0.08 (0.00-0.70) K/mcL Baso # (Auto) 0.04 (0.00-0.30) K/mcL Absolute Neutrophils 16.06 H (1.80-8.00) K/mcL VBG Lactic Acid 2.4 H (0.5-2.0) mmol/L Sodium 139 (133-145) mmol/L Potassium 4.2 (3.3-5.1) mmol/L Chloride 99 (96-108) mmol/L Carbon Dioxide 23 (22-30) mmol/L Anion Gap 17.0 H (8.0-16.0) BUN 19 (8-23) mg/dL Creatinine 1.2 (0.7-1.2) mg/dL GFR Calculation 56 Glucose 119 H (70-105) mg/dL Calcium 9.8 (8.6-10.4) mg/dL Total Bilirubin 0.5 (0.1-1.0) mg/dL AST 38 (<40) U/L ALT 6 (<40) U/L Alkaline Phosphatase 109 (39-117) U/L Total Protein 7.1 (5.9-8.4) gm/dL Albumin 4.2 (3.2-5.2) gm/dL Globulin 2.9 (2.2-3.7) gm/dL Albumin/Globulin Ratio 1.4 (1.0-2.3) Lipase 32 (7-60) U/L ED POC Tests ED POC Tests: HOLLIE - SARS Antigen Negative Discharge Plan Patient/Caregiver Discharge Instructions Pt seen by JAVA DEVELOPER ANALYST/PA only: No Clinical Impression: Acute hypotension, Diarrhea, Leukocytosis Patient Disposition: Xfer As Inpt ([facility]) Follow up with: Henrry Evans PA-C [Primary Care Provider] - Prescriptions: No Action levothyroxine 112 mcg tablet 112 mcg PO QHS 90 Days Qty: 90 RF: 1 simvastatin 20 mg tablet 20 mg PO QHS 90 Days Qty: 90 RF: 1 aspirin 325 mg tablet,delayed release (DR/EC) 325 mg PO QHS RF: 0 citalopram 20 mg tablet 20 mg PO QDAY Qty: 30 RF: 2 ropinirole 8 mg tablet extended release 24 hr 16 mg PO HS Qty: 180 RF: 1 metoprolol succinate 25 mg capsule,sprinkle,ER 24hr 25 mg PO QHS RF: 0 fnigacqft-diivlbmt-xiykxptgsq 25-100-200 mg tablet 1 tab PO TID RF: 0 amlodipine 10 mg Tablet PO QHS RF: 0 hydrocodone-acetaminophen 5-325 mg Tablet 1 tab PO BIDP PRN (Reason: pain) Qty: 10 RF: 0
--- NOTE | 2021-08-11 10:41 | Internal Med History&Physical ---
HPI History of Present Illness Patient information: Note initiated : 08/11/21 at 10:39 am Service Date, if different from initiated Date: [] Patient: Ti Hallman a 81 y/o M admitted on for ABD pain, diarrhea. Chief Complaint: [C diff colitis] History of present illness: Mr. Hallman is a 81 year old M history of restless leg syndrome, Parkinson disease, essential HTN, mixed dyslipidemia, hypothyroidism, presenting with 2-day history of diarrhea and abdominal pain. There was no prior similar episode. According to the family, yesterday patient developed acute onset of the multiple episode of watery diarrhea, in addition to diffuse abdominal pain. The pain is graded as moderate to severe, cramping, constant. No associated fever or shaking chills or diaphoresis. No reported nausea vomiting. No alleviating or exacerbating factors. Decreased appetite since yesterday. Vital signs at ED presentations significant for mild bradycardia with heart rate in the 50s, as well as softer blood pressure as low as 80s over 50s mmHg. Labs significant for leukocytosis with WBC 17.1. Lactic acid elevated 2.4. Initial CT screening negative. CT abdomen pelvis showing thickened colonic wall involving the rectum sigmoid colon and descending colon s uggestive of colitis. Constitutional Constitutional: Absent chills, excessive sweating, fatigue, fever(s) and weak ness EENT Eyes: Absent blurry vision, change in vision, loss of vision and other visual disturbances Ears: Absent decreased hearing and tinnitus Nose, mouth and throat: Absent abnormal hearing, dry mouth, headache(s), nasal congestion and sore throat Cardiovascular Cardiovascular: Absent chest pain, chest pain at rest, edema, irregular heart rhythm and palpatations Respiratory Respiratory: Absent cough, dyspnea and wheezing Gastrointestinal Gastrointestinal: Present abdominal pain and diarrhea; Absent constipation, nausea and vomiting Musculoskeletal Musculoskeletal: Absent back pain, deformity, limited range of motion, muscle cramps, muscle weakness and numbness Integumentary Integumentary: Absent lesions, rash and wounds Neurological Neurological: Absent focal weakness, headache(s) and numbness Psychiatric Psychiatric: Absent anxiety, depression and hallucinations PFSH PFSH All Active Problems (Updated 08/11/21 @ 10:47 by Rony Negrete MD) C. difficile colitis (Acute) Laceration (Acute) Dehiscence of laceration wound (Acute) Acute hypotension (Acute) Diarrhea (Acute) Leukocytosis (Acute) Bursitis, prepatellar, left (Acute) Laceration (Acute) Medicare annual wellness visit, initial (Acute) Vomiting (Acute) Frequent falls (Acute) Altered level of consciousness (Acute) Chest pain (Acute) Knee swelling (Acute) Knee effusion (Acute) Fall (Acute) Bruised rib (Acute) Acute dyspnea (Acute) Falls frequently (Acute) Left elbow pain (Acute) Wound dehiscence, external operation (Acute) Urinary tract infection (Acute) Right thigh pain (Acute) Hip strain (Acute) History of aortic valve replacement (Chronic) CAD (coronary artery disease) (Chronic) Prediabetes (Chronic) Hyperlipidemia (Chronic) Hypertension, essential (Chronic) Pacemaker, artificial (Chronic) Atrial fibrillation (Chronic) Aortic valve disorder (Chronic) Foreign body in soft tissue (Acute) At risk for falls (Chronic) Non compliance with medical treatment (Chronic) Dystonia (Chronic) Restless legs syndrome (Chronic) Bladder trabeculation (Chronic) Papilloma, 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) Parkinsons disease (Chronic) Neuropathy (Chronic) Mitral valve disorder (Chronic) Lumbago (Chronic) Hypothyroidism (Chronic) Heart disease (Chronic) Glaucoma (Chronic) Erectile dysfunction (Chronic 04/19/15) Diverticulum of bladder (Chronic) Degeneration, intervertebral disc (Chronic) Other chronic pain (Chronic) Cataracts, bilateral (Chronic) BPH (benign prostatic hyperplasia) (Chronic) Benign prostatic hypertrophy without urinary obstruction (Chronic 09/20/14) Medical History Abdominal pain, LLQ Left groin pain Acute retention of urine Aortic valve disorder At risk for falls Atrial fibrillation Post-op Atrioventricular block, complete 2008-3rd degree AV block after heart surgery Benign prostatic hypertrophy without urinary obstruction (09/20/14) Bladder trabeculation BPH (benign prostatic hyperplasia) CAD (coronary artery disease) 2009-post CABG Cataracts, bilateral Cellulitis recurrent on left lower leg ever since vein graft was harvested for CABG in 2008 Cellulitis of left elbow Colon polyp 01/31/15-[facility] Degeneration, intervertebral disc Diverticulum of bladder Dystonia Dystonia of head Erectile dysfunction (04/19/15) Fall Glaucoma Gross hematuria (09/20/14) Heart disease 2009-Valvular heart disease Hematuria Referral for hematuria. No change on imaging studies and cystoscopy confirmed. He stopped his Tamsulosin and Finasteride and will restart. RTC x 6 mo. 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 Parkinsons disease 2010 Prediabetes Restless legs syndrome Urine retention Post anesthesia/surgery Surgical History History of aortic valve replacement History of back surgery 1995-lumbar History of coronary artery bypass surgery 2008 History of right inguinal hernia repair (10/28/15) with mesh prosthesis 12/27/2014 and 10/28/2015 Hx of aortic valve replacement with porcine valve 2008-for aortic stenosis, mitral valve annuloplasty as well Hx of CABG 2008 Hx of cataract surgery 01/2013,02/2013-bilateral Hx of colonoscopy 08/03/15--[facility] Hx of inguinal hernia repair 12/2014-left groin Hx of shoulder surgery 2011-Right rotator cuff repair Status post epidural steroid injection 01/2013-LESI Family History Brother Malignant neoplasm of prostate Father Coronary artery disease, Onset Age: 98 Mother Congestive heart failure, Onset Age: 89 Other Heart attack Hypertension Social History household members: spouse housing: house lives independently: Yes marital status: education level: high school service: Yes [phone]) branch: [employer] force 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 release 24 hr duhevuazt-bgeviuvk-vnseywahis 1 tab PO TID 03/14/21 08/11/21 History levothyroxine 112 mcg tablet 112 mcg PO QHS 90 Days #90 tab 04/15/21 08/11/21 Rx citalopram 20 mg tablet 20 mg PO QDAY #30 tab 06/02/21 08/11/21 Rx ropinirole 8 mg tablet,extended 16 mg PO HS #180 tab 06/02/21 08/11/21 Rx release 24 hr simvastatin 20 mg tablet 20 mg PO QHS 90 Days #90 tab 07/10/21 08/11/21 Rx Allergies Allergy/AdvReac Type Severity Reaction Status Date / Time No Known Drug Allergies Allergy Verified 08/11/21 01:41 EXAM Constitutional Vitals: Temp Pulse Resp BP Pulse Ox 37.2 C 62 14 90/77 96 08/11/21 09:50 08/11/21 09:30 08/11/21 06:34 08/11/21 09:30 08/11/21 09:30 General appearance: cooperative and mild distress Head Head exam: Present atraumatic and normocephalic Eye Eye exam: Present EOMI and PERRL ENT ENT exam: Present mucous membranes moist, normal exam and normal external ear exam Neck Neck exam: Present normal inspection; Absent lymphadenopathy, tenderness and thyromegaly Respiratory Respiratory exam: Absent accessory muscle use, respiratory distress and wheezes Cardiovascular Cardiovascular exam: Present normal rate and rhythm; Absent JVD GI/Abdominal GI/Abdominal exam: Present normal bowel sounds, soft, guarding and tenderness; Absent organomegaly Rectal Rectal exam: Present deferred Extremities Exam Extremities exam: Present full ROM, normal capillary refill and normal inspection; Absent tenderness Neurological Exam Neurological exam: Present alert, CN II-XII intact and oriented X3; Absent motor sensory deficit Psychiatric Psychiatric exam: Present normal affect and normal mood; Absent anxious and depressed Skin Skin exam: Present dry and intact DATA Data Completed and Pending Labs: Labs from last 24 hours 08/11/21 08/11/21 08/11/21 04:12 02:25 02:25 WBC 17.1 H RBC 5.12 Hgb 12.9 L Hct 43.2 MCV 84.4 MCH 25.2 L MCHC 29.9 L RDW 16.8 H Plt Count 162 MPV 9.5 Neut % (Auto) 94.0 H Lymph % (Auto) 4.1 L [place] % (Auto) 1.2 Eos % (Auto) 0.5 Baso % (Auto) 0.2 Lymph # (Auto) 0.70 L [place] # (Auto) 0.21 Eos # (Auto) 0.08 Baso # (Auto) 0.04 Absolute Neutrophils 16.06 H VBG Lactic Acid 2.4 H Sodium 139 Potassium 4.2 Chloride 99 Carbon Dioxide 23 Anion Gap 17.0 H BUN 19 Creatinine 1.2 GFR Calculation 56 Glucose 119 H Calcium 9.8 Total Bilirubin 0.5 AST 38 ALT 6 Alkaline Phosphatase 109 Total Protein 7.1 Albumin 4.2 Globulin 2.9 Albumin/Globulin Ratio 1.4 Lipase 32 A/P Assessment and plan (1) Hypertension, essential: Status: Chronic (2) Restless legs syndrome: Status: Chronic (3) Parkinsons disease: Status: Chronic Comment: 2010 (4) Hyperlipidemia: Status: Chronic Qualifiers: Hyperlipidemia type: unspecified Qualified Code(s): E78.5 - Hyperlipidemia, unspecified (5) C. difficile colitis: Status: Acute (6) Hypothyroidism: Status: Chronic Qualifiers: Hypothyroidism type: acquired Qualified Code(s): E03.9 - Hypothyroidism, unspecified Narrative A/P Narrative: Assessment and Plans: 1. C diff colitis: Admit to inpatient med surg Although patient was initially tested negative for C. difficile PCR, given the high clinical suspicions, will be tested for C. difficile PCR Isolations: Contact Vancomycin 500 mg p.o. 4 times daily for 10 days Status post 3 L fluid boluses given in the ED, IV NS at 100 cc/h Oxycodone as needed moderate pain Morphine IV as needed severe pain Regular diet CBC with auto differential in the morning to trend WBC next #2 history of essential hypertension: Given soft blood pressure, will hold any oral antihypertensives including beta- albert #3 mixed dyslipidemia: Continue statin therapy 4. Parkinson disease: Continue Sinemet 5. Restless leg syndrome: Continue ropinirole 6. Hypothyroidism: Continue oral thyroid replacement GI prophylaxis: Not currently indicated DVT prophylaxis: Lovenox CODE STATUS: DNI DNR Prognosis: Guarded Dispositions: Inpatient MedSurg Time Spent With Patient Time: Total time spent is greater than 50% in coordination of care (as documented) at patient's floor/unit and/or counseling patient: Total time spent with greater than 50% in coordination of care (as documented) at patient's floor/unit and/or counseling patient:: Greater than 35 minutes
[2021-08-11] MEDS ORDERED: morphine 4 MG/ML VIAL IV PRN (11:06)
[2021-08-11] MEDS ORDERED: ACETAMINOPHEN 325 MG TABLET PO PRN (11:06)
[2021-08-11] MEDS ORDERED: ONDANSETRON 4 MG/2 ML VIAL IV PRN (11:06)
[2021-08-11] MEDS ORDERED: ZOLPIDEM 5 MG TABLET PO PRN (11:06)
--- NOTE | 2021-08-11 11:37 | XRay Report ---
INDICATION: follow up study to CT abdomen pelvis TECHNIQUE: AP portable upright chest x-ray COMPARISON: Previous chest x-rays dated 03/14/2021, 01/16/2021, 07/28/2020. Chest CT scan dated 08/11/2021 FINDINGS:Previous median sternotomy and probable coronary artery bypass procedure. There is a prosthetic cardiac valve, probably mitral. There are left transvenous pacemaker leads with tips in appropriate positions for right atrium and right ventricle. Lungs:No focal pulmonary parenchymal consolidation or acute infiltrate. Benign calcification in the right upper lobe is stable. There is elevation of the left hemidiaphragm. Density on previous CT scan is probably secondary to chronic volume loss. Heart, vascular:No significant cardiomegaly. Pulmonary vascularity is normal. No pulmonary edema or pulmonary congestion Mediastinum, isis:No mediastinal widening. No hilar mass Pleura:No pleural fluid. No pleural-based mass or calcification Skeletal:Severe degenerative joint disease in the right glenohumeral joint. Elevation of right humeral head consistent with rotator cuff degeneration. Patient has undergone previous bilateral Suzanne procedure IMPRESSION: 1. Mild chronic elevation of left hemidiaphragm. Probable chronic left basilar volume loss 2. No acute abnormality. No interval change Interpreted and Authenticated by: Adrian Looney 08/11/21
[2021-08-11] MEDS: 0.9 % SODIUM CHLORIDE 1,000 ML IV SCH ×2 (11:42→22:34)
[2021-08-11] MEDS ORDERED: VANCOMYCIN 250 MG CAPSULE PO SCH (13:00)
[2021-08-11] MEDS: 0.9 % SODIUM CHLORIDE 10 ML SYRINGE IV SCH ×2 (13:45→21:17)
[2021-08-11] MEDS: CARBIDOPA LEVODOPA ENTACAPONE PO SCH ×2 (13:45→21:17)
[2021-08-11] MEDS: VANCOMYCIN ORAL SOL 1,000 MG/10 ML BOTTLE PO SCH ×3 (13:46→20:10)
[2021-08-11] MEDS ORDERED: CARBIDOPA LEVODOPA ENTACAPONE PO SCH (15:00)
[2021-08-11] MEDS: ROPINIROLE 8 MG PO SCH (20:09)
[2021-08-11] MEDS: SIMVASTATIN 20 MG TABLET PO SCH (20:10)
[2021-08-11] MEDS: LEVOTHYROXINE SODIUM 112 MCG TABLET PO SCH (20:10)
[2021-08-11] MEDS: ASPIRIN 325 MG ENTERIC COATED TABLET PO SCH (20:10)
[2021-08-11] MEDS: SENNOSIDES 1 TABLET PO SCH (20:11)
[2021-08-11] MEDS: DOCUSATE SODIUM 100 MG CAPSULE PO SCH (20:11)
[2021-08-11] MEDS ORDERED: ASPIRIN 325 MG ENTERIC COATED TABLET PO SCH (21:00)
[2021-08-11] MEDS ORDERED: ROPINIROLE 8 MG PO SCH (21:00)
[2021-08-11] MEDS ORDERED: SIMVASTATIN 20 MG TABLET PO SCH (21:00)
[2021-08-11] MEDS ORDERED: LEVOTHYROXINE SODIUM 112 MCG TABLET PO SCH (21:00)
[2021-08-12] MEDS: oxyCODONE HCL 5 MG TABLET PO PRN (03:48)
[2021-08-12] MEDS: 0.9 % SODIUM CHLORIDE 10 ML SYRINGE IV SCH ×3 (06:12→22:21)
[2021-08-12 08:25] LABS: Basophils # (Auto) 0.03 K/mcL (0.00-0.30); Basophils % (Auto) 0.3 % (0.0-2.0); Eosinophils # (Auto) 0.08 K/mcL (0.00-0.70); Eosinophils % (Auto) 0.7 % (0.0-7.0); Hematocrit 30.6 % (40.1-51.0); Hemoglobin 9.6 g/dL (13.7-17.5); Lymphocytes # (Auto) 0.79 K/mcL (1.50-4.80); Lymphocytes % (Auto) 6.7 % (15.5-49.0); Mean Cell Volume 80.7 fL (80.0-100.0); Mean Corpuscular HGB Conc 31.4 g/dL (31.0-36.0); Mean Platelet Volume 9.7 fL (7.4-10.4); Monocytes # (Auto) 1.06 K/mcL (0.10-0.90); Monocytes % (Auto) 8.9 % (1.0-12.0); Neutrophils % (Auto) 83.4 % (38.0-78.0); Platelet Count 89 K/mcL (140-440); RBC 3.79 M/mcL (4.63-6.08); Red Cell Distribution Width 17.2 % (11.5-14.5); WBC 11.9 K/mcL (4.5-11.0)
[2021-08-12] MEDS: 0.9 % SODIUM CHLORIDE 1,000 ML IV SCH ×2 (08:40→22:16)
[2021-08-12] MEDS ORDERED: CITALOPRAM 20 MG TABLET PO SCH (09:00)
[2021-08-12] MEDS: CARBIDOPA LEVODOPA ENTACAPONE PO SCH ×3 (09:16→22:19)
[2021-08-12] MEDS: CITALOPRAM 20 MG TABLET PO SCH (10:01)
[2021-08-12] MEDS: DOCUSATE SODIUM 100 MG CAPSULE PO SCH ×2 (10:01→22:19)
[2021-08-12] MEDS: ENOXAPARIN 40 MG/0.4 ML SYRINGE SQ SCH (10:01)
[2021-08-12] MEDS: VANCOMYCIN ORAL SOL 1,000 MG/10 ML BOTTLE PO SCH (10:02)
[2021-08-12] MEDS: metroNIDAZOLE 500 MG TABLET PO SCH ×2 (13:39→22:17)
--- NOTE | 2021-08-12 15:05 | Internal Med Progress Note ---
SUBJECTIVE Subjective Patient information: Note initiated : 08/12/21 at 3:02 pm Service Date, if different from initiated Date: [] Patient: Ti Hallman a 81 y/o M admitted on 08/11/21 for ABD pain, diarrhea. Chief Complaint: [descending, sigmoid, and rectal colitis] Interval history: History of present illness: Mr. Hallman is a 81 year old M hi story of restless leg syndrome, Parkinson disease, essential HTN, mixed dyslipidemia, hypothyroidism, presenting with 2-day history of diarrhea and abdominal pain. There was no prior similar episode. According to the family, yesterday patient developed acute onset of the multiple episode of watery d iarrhea, in addition to diffuse abdominal pain. The pain is graded as moderate to severe, cramping, constant. No associated fever or shaking chills or diaphoresis. No reported nausea vomiting. No alleviating or exacerbating factors. Decreased appetite since yesterday. Vital signs at ED presentations significant for mild bradycardia with heart rate in the 50s, as well as softer blood pressure as low as 80s over 50s mmHg. Labs significant for leukocytosis with WBC 17.1. Lactic acid elevated 2.4. Initial CT screening negative. CT abdomen pelvis showing thickened colonic wall involving the rectum sigmoid colon and descending colon suggestive of colitis. 08/12: Afebrile overnight. C diff toxin PCR retest negative. Blood culture negative to date. Subjective not obtained due to clinical situations. Constitutional Vitals: Vital Signs Temp Pulse Resp BP Pulse Ox 36.3 C 62 20 135/64 93 08/12/21 12:00 08/12/21 12:00 08/12/21 12:00 08/12/21 12:00 08/12/21 12:00 Period Temp Pulse Resp BP Sys/Van Pulse Ox Last 24 Hr 36.2 C-36.9 C 59-68 20-26 96-135/53-64 87-95 Intake and Output 08/12/21 08/12/21 08/12/21 05:59 13:59 21:59 Intake Total 300 1000 Output Total 1 Balance 299 1000 Intake & Output: Intake & Output 08/12/21 08/12/21 08/12/21 05:59 13:59 21:59 Intake Total 300 1000 Output Total 1 Balance 299 1000 Intake: IV 1000 Sodium Chloride 0.9% 1,000 ml @ 1000 100 mls/hr IV .Q10H [facility] Rx#: [id number] Oral 300 Output: # of times incontinent of urine 1 Other: Stool Size Moderate Small Stool Color Brown Brown Stool Consistency Liquid Loose Watery Loose # Bowel Movements 1 # of times incontinent of 1 Bowels General appearance: cooperative and no acute distress Head Head exam: Present atraumatic and normocephalic Eye Eye exam: Present EOMI and PERRL ENT ENT exam: Present mucous membranes moist, normal exam and normal external ear exam Neck Neck exam: Present normal inspection; Absent lymphadenopathy, tenderness and thyromegaly Respiratory Respiratory exam: Absent accessory muscle use, respiratory distress and wheezes Cardiovascular Cardiovascular exam: Present normal rate and rhythm; Absent JVD GI/Abdominal GI/Abdominal exam: Present normal bowel sounds and soft; Absent organomegaly and tenderness Rectal Rectal exam: Present deferred Extremities Exam Extremities exam: Present full ROM, normal capillary refill and normal inspectio n; Absent tenderness Neurological Exam Neurological exam: Present alert and CN II-XII intact; Absent motor sensory deficit and oriented X3 Psychiatric Psychiatric exam: Present normal affect and normal mood; Absent anxious and depressed Skin Skin exam: Present dry and intact OBJ DATA Labs CBC & Chem 7: 08/12/21 06:33 08/11/21 02:25 Labs: Abnormal Lab Results 08/12/21 08/11/21 08/11/21 06:33 04:12 02:25 WBC 11.9 H RBC 3.79 L Hgb 9.6 L Hct 30.6 L MCH 25.3 L MCHC RDW 17.2 H Plt Count 89 L Neut % (Auto) 83.4 H Lymph % (Auto) 6.7 L Lymph # (Auto) 0.79 L [place] # (Auto) 1.06 H Absolute Neutrophils 9.90 H VBG Lactic Acid 2.4 H Anion Gap 17.0 H Glucose 119 H 08/11/21 02:25 WBC 17.1 H RBC Hgb 12.9 L Hct MCH 25.2 L MCHC 29.9 L RDW 16.8 H Plt Count Neut % (Auto) 94.0 H Lymph % (Auto) 4.1 L Lymph # (Auto) 0.70 L [place] # (Auto) Absolute Neutrophils 16.06 H VBG Lactic Acid Anion Gap Glucose Meds: Medications Acetaminophen (Acetaminophen 325 Mg Tablet) 650 mg PO Q6HP PRN; Protocol PRN Reason: Per Pain Protocol/Fever > 101 Aspirin (Aspirin 325 Mg Enteric Coated Tablet) 325 mg PO QHS [facility] Last Admin: 08/11/21 20:10 Dose: 325 mg Documented by: Ciprofloxacin (Ciprofloxacin 500 Mg Tablet) 500 mg PO BID [facility]; Protocol Citalopram Hydrobromide (Citalopram 20 Mg Tablet) 20 mg PO QDAY [facility] Last Admin: 08/12/21 10:01 Dose: 20 mg Documented by: Docusate Sodium (Docusate Sodium 100 Mg Capsule) 100 mg PO BID [facility] Last Admin: 08/12/21 10:01 Dose: Not Given Documented by: Enoxaparin Sodium (Enoxaparin 40 Mg/0.4 Ml Syringe) 40 mg SQ DAILY [facility] Last Admin: 08/12/21 10:01 Dose: 40 mg Documented by: Sodium Chloride (Sodium Chloride 0.9%) 1,000 mls @ 100 mls/hr IV .Q10H [facility] Last Admin: 08/12/21 08:40 Dose: 100 mls/hr Documented by: Levothyroxine Sodium (Levothyroxine Sodium 112 Mcg Tablet) 112 mcg PO QHS [facility] Last Admin: 08/11/21 20:10 Dose: 112 mcg Documented by: Metronidazole (Metronidazole 500 Mg Tablet) 500 mg PO Q8 [facility]; Protocol Last Admin: 08/12/21 13:39 Dose: 500 mg Documented by: Morphine Sulfate (Morphine 4 Mg/Ml Vial) 4 mg IV Q4HP PRN; Protocol PRN Reason: Per Pain Protocol Ondansetron HCl (Ondansetron 4 Mg/2 Ml Vial) 4 mg IV Q6HP PRN PRN Reason: Nausea And Vomiting Oxycodone HCl (Oxycodone Hcl 5 Mg Tablet) 5 mg PO Q4HP PRN; Protocol PRN Reason: Per Pain Protocol Last Admin: 08/12/21 03:48 Dose: 5 mg Documented by: Carbidopa-Levodopa- (Entacapone 1 Tab)) 1 dose PO TID [facility] Last Admin: 08/12/21 09:16 Dose: Not Given Documented by: Ropinirole Er 8 Mg (Tablets) 1 dose PO [facility] Last Admin: 08/11/21 20:09 Dose: 1 dose Documented by: Senna (Sennosides 1 Tablet) 2 tab PO [facility] Last Admin: 08/11/21 20:11 Dose: Not Given Documented by: Simvastatin (Simvastatin 20 Mg Tablet) 20 mg PO QHS [facility] Last Admin: 08/11/21 20:10 Dose: 20 mg Documented by: Sodium Chloride (0.9 % Sodium Chloride 10 Ml Syringe) 10 ml IV Q8 [facility] Last Admin: 08/12/21 13:40 Dose: Not Given Documented by: Zolpidem Tartrate (Zolpidem 5 Mg Tablet) 5 mg PO HSP PRN PRN Reason: Insomnia A/P Assessment and plan (1) Hypertension, essential: Status: Chronic (2) Restless legs syndrome: Status: Chronic (3) Parkinsons disease: Status: Chronic Comment: 2010 (4) Hyperlipidemia: Status: Chronic Qualifiers: Hyperlipidemia type: unspecified Qualified Code(s): E78.5 - Hype rlipidemia, unspecified (5) Hypothyroidism: Status: Chronic Qualifiers: Hypothyroidism type: acquired Qualified Code(s): E03.9 - Hypothyroidism, unspecified (6) Colitis: Status: Acute Narrative A/P Narrative: Assessment and Plans: 1. Colitis, descending, sigmoid, and rectal: Stays in inpatient med surg C Diff PCR re-test negative Remove contact isolation DC oral vancomycin Start ciprofloxacin p.o. Start metronidazole p.o. Status post 3 L fluid boluses given in the ED, IV NS at 100 cc/h Oxycodone as needed moderate pain Morphine IV as needed severe pain Regular diet CBC with auto differential in the morning to trend WBC next #2 history of essential hypertension: Given soft blood pressure, will hold any oral antihypertensives including beta- albert #3 mixed dyslipidemia: Continue statin therapy 4. Parkinson disease: Continue Sinemet 5. Restless leg syndrome: Continue ropinirole 6. Hypothyroidism: Continue oral thyroid replacement GI prophylaxis: Not currently indicated DVT prophylaxis: Lovenox CODE STATUS: DNI DNR Prognosis: Guarded Dispositions: Inpatient MedSurg Time Spent With Patient Time: Total time spent is greater than 50% in coordination of care (as documented) at patient's floor/unit and/or counseling patient: Total time spent with greater than 50% in coordination of care (as documented) at patient's floor/unit and/or counseling patient:: 25 - 35 minutes QUALITY VTE Deep Vein Thrombosis/Pulmonary Embolism Present on Admission: No
[2021-08-12 18:22] LABS: ALT/SGPT 19 U/L (<40); AST/SGOT 29 U/L (<40); Albumin 2.8 gm/dL (3.2-5.2); Albumin/Globulin Ratio 1.1 (1.0-2.3); Alkaline Phosphatase 68 U/L (39-117); Bilirubin,Total 0.3 mg/dL (0.1-1.0); Blood Urea Nitrogen 21 mg/dL (8-23); Calcium 7.9 mg/dL (8.6-10.4); Carbon Dioxide 21 mmol/L (22-30); Chloride 106 mmol/L (96-108); Globulin 2.5 gm/dL (2.2-3.7); Glomerular Filtration Rate 88; Glucose 104 mg/dL (70-105)
[2021-08-12] MEDS: ASPIRIN 325 MG ENTERIC COATED TABLET PO SCH (22:17)
[2021-08-12] MEDS: SIMVASTATIN 20 MG TABLET PO SCH (22:17)
[2021-08-12] MEDS: LEVOTHYROXINE SODIUM 112 MCG TABLET PO SCH (22:17)
[2021-08-12] MEDS: CIPROFLOXACIN 500 MG TABLET PO SCH (22:17)
[2021-08-12] MEDS: ROPINIROLE 8 MG PO SCH (22:19)
[2021-08-12] MEDS: SENNOSIDES 1 TABLET PO SCH (22:20)
[2021-08-13] MEDS: metroNIDAZOLE 500 MG TABLET PO SCH ×3 (05:37→21:15)
[2021-08-13] MEDS: 0.9 % SODIUM CHLORIDE 1,000 ML IV SCH (05:37)
[2021-08-13] MEDS: 0.9 % SODIUM CHLORIDE 10 ML SYRINGE IV SCH ×3 (05:57→21:15)
[2021-08-13 07:51] LABS: ALT/SGPT 17 U/L (<40); AST/SGOT 24 U/L (<40); Albumin/Globulin Ratio 1.2 (1.0-2.3); Alkaline Phosphatase 93 U/L (39-117); Bilirubin,Total 0.3 mg/dL (0.1-1.0); Blood Urea Nitrogen 16 mg/dL (8-23); Calcium 8.2 mg/dL (8.6-10.4); Carbon Dioxide 24 mmol/L (22-30); Chloride 104 mmol/L (96-108); Globulin 2.5 gm/dL (2.2-3.7); Glomerular Filtration Rate 94; Glucose 74 mg/dL (70-105)
[2021-08-13 08:08] LABS: Basophils # (Auto) 0.03 K/mcL (0.00-0.30); Basophils % (Auto) 0.4 % (0.0-2.0); Eosinophils # (Auto) 0.17 K/mcL (0.00-0.70); Eosinophils % (Auto) 2.4 % (0.0-7.0); Hematocrit 32.6 % (40.1-51.0); Hemoglobin 9.9 g/dL (13.7-17.5); Lymphocytes # (Auto) 0.62 K/mcL (1.50-4.80); Lymphocytes % (Auto) 8.8 % (15.5-49.0); Mean Corpuscular HGB Conc 30.4 g/dL (31.0-36.0); Mean Platelet Volume 9.6 fL (7.4-10.4); Monocytes % (Auto) 5.7 % (1.0-12.0); Neutrophils % (Auto) 82.7 % (38.0-78.0); Platelet Count 101 K/mcL (140-440); RBC 3.93 M/mcL (4.63-6.08)
[2021-08-13] MEDS: CITALOPRAM 20 MG TABLET PO SCH (09:29)
[2021-08-13] MEDS: oxyCODONE HCL 5 MG TABLET PO PRN (09:29)
[2021-08-13] MEDS: CIPROFLOXACIN 500 MG TABLET PO SCH ×2 (09:30→21:15)
[2021-08-13] MEDS: DOCUSATE SODIUM 100 MG CAPSULE PO SCH ×2 (09:30→21:16)
[2021-08-13] MEDS: CARBIDOPA LEVODOPA ENTACAPONE PO SCH ×3 (09:30→21:14)
[2021-08-13] MEDS: ENOXAPARIN 40 MG/0.4 ML SYRINGE SQ SCH (09:30)
--- NOTE | 2021-08-13 11:19 | Internal Med Progress Note ---
SUBJECTIVE Subjective Patient information: Note initiated : 08/13/21 at 11:18 am Service Date, if different from initiated Date: [] Patient: Ti Hallman a 81 y/o M admitted on 08/11/21 for ABD pain, diarrhea. Chief Complaint: [colitis] Interval history: History of present illness: Mr. Hallman is a 81 year old M history of restless leg syndrome, Parkinson disease, essential HTN, mixed dyslipidemia, hypothyroidism, presenting with 2-day history of diarrhea and abdominal pain. There was no prior similar episode. According to the family, yesterday patient developed acute onset of the multiple episode of watery diarrhea, in addition to diffuse abdominal pain. The pain is graded as moderate to severe, cramping, constant. No associated fever or shaking chills or diaphoresis. No reported nausea vomiting. No alleviating or exacerbating facto rs. Decreased appetite since yesterday. Vital signs at ED presentations significant for mild bradycardia with heart rate in the 50s, as well as softer blood pressure as low as 80s over 50s mmHg. Labs significant for leukocytosis with WBC 17.1. Lactic acid elevated 2.4. Initial CT screening negative. CT abdomen pelvis showing thickened colonic wall involving the rectum sigmoid colon and descending colon suggestive of colitis. 08/12: Afebrile overnight. C diff toxin PCR retest negative. Blood culture negative to date. Subjective not obtained due to clinical situations. 08/13: Afebrile overnight. Still has 10 BMs overnight as per patient. Denies abdominal pain. Denies fever chills or sweating. Constitutional Vitals: Vital Signs Temp Pulse Resp BP Pulse Ox 36.3 C 63 22 169/86 93 08/13/21 07:41 08/13/21 07:41 08/13/21 07:41 08/13/21 07:41 08/13/21 07:41 Period Temp Pulse Resp BP Sys/Van Pulse Ox Last 24 Hr 36.3 C-36.9 C 62-67 18-22 135-169/64-86 91-93 Intake and Output 08/12/21 08/13/21 08/13/21 21:59 05:59 13:59 Intake Total 1000 735 Output Total 3 3 Balance 997 732 Weight 65.408 kg Intake & Output: Intake & Output 08/12/21 08/13/21 08/13/21 21:59 05:59 13:59 Intake Total 1000 735 Output Total 3 3 Balance 997 732 Weight 65.408 kg Intake: IV 1000 735 Sodium Chloride 0.9% 1,000 ml @ 1000 735 100 mls/hr IV .Q10H [facility] Rx#: [id number] Output: # of times incontinent of urine 3 3 Other: Urine Color Dark Yellow Urine Odor Normal Stool Size Smear Small Stool Color Brown Brown Stool Consistency Watery # of times incontinent of 1 3 Bowels General appearance: cooperative and no acute distress Head Head exam: Present atraumatic and normocephalic Eye Eye exam: Present EOMI and PERRL ENT ENT exam: Present mucous membranes moist, normal exam and normal external ear exam Neck Neck exam: Present normal inspection; Absent lymphadenopathy, tenderness and thy romegaly Respiratory Respiratory exam: Absent accessory muscle use, respiratory distress and wheezes Cardiovascular Cardiovascular exam: Present normal rate and rhythm; Absent JVD GI/Abdominal GI/Abdominal exam: Present normal bowel sounds and soft; Absent organomegaly and tenderness Rectal Rectal exam: Present deferred Extremities Exam Extremities exam: Present full ROM, normal capillary refill and normal inspection; Absent tenderness Neurological Exam Neurological exam: Present alert, CN II-XII intact and oriented X3; Absent motor sensory deficit Psychiatric Psychiatric exam: Present normal affect and normal mood; Absent anxious and depressed Skin Skin exam: Present dry and intact OBJ DATA Labs CBC & Chem 7: 08/13/21 05:32 08/13/21 05:32 Labs: Abnormal Lab Results 08/13/21 08/13/21 08/12/21 05:32 05:32 09:22 WBC RBC 3.93 L Hgb 9.9 L Hct 32.6 L MCH 25.2 L MCHC 30.4 L RDW 17.0 H Plt Count 101 L Neut % (Auto) 82.7 H Lymph % (Auto) 8.8 L Lymph # (Auto) 0.62 L [place] # (Auto) Absolute Neutrophils VBG Lactic Acid Carbon Dioxide 21 L Anion Gap Creatinine 0.6 L Glucose Calcium 8.2 L 7.9 L Total Protein 5.5 L 5.3 L Albumin 3.0 L 2.8 L 08/12/21 08/11/21 08/11/21 06:33 04:12 02:25 WBC 11.9 H RBC 3.79 L Hgb 9.6 L Hct 30.6 L MCH 25.3 L MCHC RDW 17.2 H Plt Count 89 L Neut % (Auto) 83.4 H Lymph % (Auto) 6.7 L Lymph # (Auto) 0.79 L [place] # (Auto) 1.06 H Absolute Neutrophils 9.90 H VBG Lactic Acid 2.4 H Carbon Dioxide Anion Gap 17.0 H Creatinine Glucose 119 H Calcium Total Protein Albumin 08/11/21 02:25 WBC 17.1 H RBC Hgb 12.9 L Hct MCH 25.2 L MCHC 29.9 L RDW 16.8 H Plt Count Neut % (Auto) 94.0 H Lymph % (Auto) 4.1 L Lymph # (Auto) 0.70 L [place] # (Auto) Absolute Neutrophils 16.06 H VBG Lactic Acid Carbon Dioxide Anion Gap Creatinine Glucose Calcium Total Protein Albumin Meds: Medications Acetaminophen (Acetaminophen 325 Mg Tablet) 650 mg PO Q6HP PRN; Protocol PRN Reason: Per Pain Protocol/Fever > 101 Aspirin (Aspirin 325 Mg Enteric Coated Tablet) 325 mg PO QHS [facility] Last Admin: 08/12/21 22:17 Dose: 325 mg Documented by: Ciprofloxacin (Ciprofloxacin 500 Mg Tablet) 500 mg PO BID [facility]; Protocol Last Admin: 08/13/21 09:30 Dose: 500 mg Documented by: Citalopram Hydrobromide (Citalopram 20 Mg Tablet) 20 mg PO QDAY [facility] Last Admin: 08/13/21 09:29 Dose: 20 mg Documented by: Docusate Sodium (Docusate Sodium 100 Mg Capsule) 100 mg PO BID [facility] Last Admin: 08/13/21 09:30 Dose: 100 mg Documented by: Enoxaparin Sodium (Enoxaparin 40 Mg/0.4 Ml Syringe) 40 mg SQ DAILY [facility] Last Admin: 08/13/21 09:30 Dose: 40 mg Documented by: Sodium Chloride (Sodium Chloride 0.9%) 1,000 mls @ 100 mls/hr IV .Q10H [facility] Last Admin: 08/13/21 05:37 Dose: 100 mls/hr Documented by: Levothyroxine Sodium (Levothyroxine Sodium 112 Mcg Tablet) 112 mcg PO QHS [facility] Last Admin: 08/12/21 22:17 Dose: 112 mcg Documented by: Loperamide HCl (Loperamide 2 Mg Capsule) 2 mg PO PRN PRN PRN Reason: Diarrhea Metronidazole (Metronidazole 500 Mg Tablet) 500 mg PO Q8 [facility]; Protocol Last Admin: 08/13/21 05:37 Dose: 500 mg Documented by: Morphine Sulfate (Morphine 4 Mg/Ml Vial) 4 mg IV Q4HP PRN; Protocol PRN Reason: Per Pain Protocol Ondansetron HCl (Ondansetron 4 Mg/2 Ml Vial) 4 mg IV Q6HP PRN PRN Reason: Nausea And Vomiting Oxycodone HCl (Oxycodone Hcl 5 Mg Tablet) 5 mg PO Q4HP PRN; Protocol PRN Reason: Per Pain Protocol Last Admin: 08/13/21 09:29 Dose: 5 mg Documented by: Carbidopa-Levodopa- (Entacapone 1 Tab)) 1 dose PO TID [facility] Last Admin: 08/13/21 09:30 Dose: Not Given Documented by: Ropinirole Er 8 Mg (Tablets) 1 dose PO [facility] Last Admin: 08/12/21 22:19 Dose: Not Given Documented by: Senna (Sennosides 1 Tablet) 2 tab PO [facility] Last Admin: 08/12/21 22:20 Dose: Not Given Documented by: Simvastatin (Simvastatin 20 Mg Tablet) 20 mg PO QHS [facility] Last Admin: 08/12/21 22:17 Dose: 20 mg Documented by: Sodium Chloride (0.9 % Sodium Chloride 10 Ml Syringe) 10 ml IV Q8 [facility] Last Admin: 08/13/21 05:57 Dose: Not Given Documented by: Zolpidem Tartrate (Zolpidem 5 Mg Tablet) 5 mg PO HSP PRN PRN Reason: Insomnia A/P Assessment and plan (1) Hypertension, essential: Status: Chronic (2) Restless legs syndrome: Status: Chronic (3) Parkinsons disease: Status: Chronic Comment: 2010 (4) Hyperlipidemia: Status: Chronic Qualifiers: Hyperlipidemia type: unspecified Qualified Code(s): E78.5 - Hyperlipidemia, unspecified (5) Hypothyroidism: Status: Chronic Qualifiers: Hypothyroidism type: acquired Qualified Code(s): E03.9 - Hypothyroidism, unspecified (6) Colitis: Status: Acute Narrative A/P Narrative: Assessment and Plans: 1. Colitis, descending, sigmoid, and rectal: Stays in inpatient med surg C Diff PCR re-test negative Remove contact isolation DC oral vancomycin Ciprofloxacin p.o. Metronidazole p.o. Imodium PRN loose stool Oxycodone as needed moderate pain Morphine IV as needed severe pain Regular diet Saline lock CBC with auto differential in the morning to trend WBC next #2 history of essential hypertension: Given soft blood pressure, will hold any oral antihypertensives including beta-albert #3 mixed dyslipidemia: Continue statin therapy 4. Parkinson disease: Continue Sinemet 5. Restless leg syndrome: Continue ropinirole 6. Hypothyroidism: Continue oral thyroid replacement GI prophylaxis: Not currently indicated DVT prophylaxis: Lovenox CODE STATUS: DNI DNR Prognosis: Stable Dispositions: Inpatient MedSurg; PT OT for placement pending Time Spent With Patient Time: Total time spent is greater than 50% in coordination of care (as documented) at patient's floor/unit and/or counseling patient: QUALITY VTE Deep Vein Thrombosis/Pulmonary Embolism Present on Admission: No
--- NOTE | 2021-08-13 14:38 | Internal Med Progress Note ---
SUBJECTIVE Subjective Patient information: Note initiated : 08/13/21 at 2:35 pm Service Date, if different from initiated Date: [] Patient: Ti Hallman a 81 y/o M admitted on 08/11/21 for ABD pain, diarrhea. Chief Complaint: [] Interval history: History of present illness: Mr. Hallman is a 81 year old M history of restless leg syndrome, Parkinson disease, essential HTN, mixed dyslipidemia, hypothyroidism, presenting with 2-day history of diarrhea and abdominal pain. There was no prior similar episode. According to the family, yesterday patient developed acute onset of the multiple episode of watery diarrhea, in addition to diffuse abdominal pain. The pain is graded as moderate to severe, cramping, constant. No associated fever or shaking chills or diaphoresis. No reported nausea vomiting. No alleviating or exacerbating factors. Decreased appetite since yesterday. Vital signs at ED presentations significant for mild bradycardia with heart rate in the 50s, as well as softer blood pressure as low as 80s over 50s mmHg. Labs significant for leukocytosis with WBC 17.1. Lactic acid elevated 2.4. Initial CT screening negative. CT a bdomen pelvis showing thickened colonic wall involving the rectum sigmoid colon and descending colon suggestive of colitis. 08/12: Afebrile overnight. C diff toxin PCR retest negative. Blood culture negative to date. Subjective not obtained due to clinical situations. 08/13: Afebrile overnight. Still has 10 BMs overnight as per patient. Denies abdominal pain. Denies fever chills or sweating. 08/14 Constitutional Vitals: Vital Signs Temp Pulse Resp BP Pulse Ox 97.9 F 78 22 159/91 92 08/13/21 12:00 08/13/21 12:00 08/13/21 12:00 08/13/21 12:00 08/13/21 12:00 Period Temp Pulse Resp BP Sys/Van Pulse Ox Last 24 Hr 97.3 F-98.4 F 63-78 18-22 138-169/71-91 91-93 Intake and Output 08/13/21 08/13/21 08/13/21 05:59 13:59 21:59 Intake Total 735 680 Output Total 3 102 Balance 732 578 Intake & Output: Intake & Output 08/13/21 08/13/21 08/13/21 05:59 13:59 21:59 Intake Total 735 680 Output Total 3 102 Balance 732 578 Intake: IV 735 Sodium Chloride 0.9% 1,000 ml @ 735 100 mls/hr IV .Q10H [facility] Rx#: [id number] Oral 680 Output: Void Amount 100 # of times incontinent of urine 3 2 Other: Meal Lunch Percent of Meal Consumed 100% Feeding Ability Assist with Tray Set Up Urine Color Dark Yellow Straw Urine Odor Normal Strong Stool Size Small Stool Color Brown Stool Consistency Watery # of times incontinent of 3 Bowels Exam: General: Alert, Awake, No acute Distress Eyes/N/T: EOMI, Head/Neck: neck supple, CV: RRR, No murmurs, Pulm: Clear b/l, no wheezing/rhonchi/rales Abd: soft, nontender, +BS x4 Ext: no clubbing/cyanosis/edema Neuro: Alert, no focal deficits, moves all extremities, Skin: warm/dry OBJ DATA Labs CBC & Chem 7: 08/13/21 05:32 08/13/21 05:32 Labs: Abnormal Lab Results 08/13/21 08/13/21 08/12/21 05:32 05:32 09:22 WBC RBC 3.93 L Hgb 9.9 L Hct 32.6 L MCH 25.2 L MCHC 30.4 L RDW 17.0 H Plt Count 101 L Neut % (Auto) 82.7 H Lymph % (Auto) 8.8 L Lymph # (Auto) 0.62 L [place] # (Auto) Absolute Neutrophils VBG Lactic Acid Carbon Dioxide 21 L Anion Gap Creatinine 0.6 L Glucose Calcium 8.2 L 7.9 L Total Protein 5.5 L 5.3 L Albumin 3.0 L 2.8 L 08/12/21 08/11/21 08/11/21 06:33 04:12 02:25 WBC 11.9 H RBC 3.79 L Hgb 9.6 L Hct 30.6 L MCH 25.3 L MCHC RDW 17.2 H Plt Count 89 L Neut % (Auto) 83.4 H Lymph % (Auto) 6.7 L Lymph # (Auto) 0.79 L [place] # (Auto) 1.06 H Absolute Neutrophils 9.90 H VBG Lactic Acid 2.4 H Carbon Dioxide Anion Gap 17.0 H Creatinine Glucose 119 H Calcium Total Protein Albumin 08/11/21 02:25 WBC 17.1 H RBC Hgb 12.9 L Hct MCH 25.2 L MCHC 29.9 L RDW 16.8 H Plt Count Neut % (Auto) 94.0 H Lymph % (Auto) 4.1 L Lymph # (Auto) 0.70 L [place] # (Auto) Absolute Neutrophils 16.06 H VBG Lactic Acid Carbon Dioxide Anion Gap Creatinine Glucose Calcium Total Protein Albumin Meds: Medications Acetaminophen (Acetaminophen 325 Mg Tablet) 650 mg PO Q6HP PRN; Protocol PRN Reason: Per Pain Protocol/Fever > 101 Aspirin (Aspirin 325 Mg Enteric Coated Tablet) 325 mg PO QHS [facility] Last Admin: 08/12/21 22:17 Dose: 325 mg Documented by: Ciprofloxacin (Ciprofloxacin 500 Mg Tablet) 500 mg PO BID [facility]; Protocol Last Admin: 08/13/21 09:30 Dose: 500 mg Documented by: Citalopram Hydrobromide (Citalopram 20 Mg Tablet) 20 mg PO QDAY [facility] Last Admin: 08/13/21 09:29 Dose: 20 mg Documented by: Docusate Sodium (Docusate Sodium 100 Mg Capsule) 100 mg PO BID [facility] Last Admin: 08/13/21 09:30 Dose: 100 mg Documented by: Enoxaparin Sodium (Enoxaparin 40 Mg/0.4 Ml Syringe) 40 mg SQ DAILY [facility] Last Admin: 08/13/21 09:30 Dose: 40 mg Documented by: Levothyroxine Sodium (Levothyroxine Sodium 112 Mcg Tablet) 112 mcg PO QHS [facility] Last Admin: 08/12/21 22:17 Dose: 112 mcg Documented by: Loperamide HCl (Loperamide 2 Mg Capsule) 2 mg PO PRN PRN PRN Reason: Diarrhea Metronidazole (Metronidazole 500 Mg Tablet) 500 mg PO Q8 [facility]; Protocol Last Admin: 08/13/21 05:37 Dose: 500 mg Documented by: Morphine Sulfate (Morphine 4 Mg/Ml Vial) 4 mg IV Q4HP PRN; Protocol PRN Reason: Per Pain Protocol Ondansetron HCl (Ondansetron 4 Mg/2 Ml Vial) 4 mg IV Q6HP PRN PRN Reason: Nausea And Vomiting Oxycodone HCl (Oxycodone Hcl 5 Mg Tablet) 5 mg PO Q4HP PRN; Protocol PRN Reason: Per Pain Protocol Last Admin: 08/13/21 09:29 Dose: 5 mg Documented by: Carbidopa-Levodopa- (Entacapone 1 Tab)) 1 dose PO TID [facility] Last Admin: 08/13/21 09:30 Dose: Not Given Documented by: Ropinirole Er 8 Mg (Tablets) 1 dose PO HS [facility] Last Admin: 08/12/21 22:19 Dose: Not Given Documented by: Senna (Sennosides 1 Tablet) 2 tab PO [facility] Last Admin: 08/12/21 22:20 Dose: Not Given Documented by: Simvastatin (Simvastatin 20 Mg Tablet) 20 mg PO QHS [facility] Last Admin: 08/12/21 22:17 Dose: 20 mg Documented by: Sodium Chloride (0.9 % Sodium Chloride 10 Ml Syringe) 10 ml IV Q8 [facility] Last Admin: 08/13/21 05:57 Dose: Not Given Documented by: Zolpidem Tartrate (Zolpidem 5 Mg Tablet) 5 mg PO HSP PRN PRN Reason: Insomnia A/P Narrative A/P Narrative: Assessment and Plans: # Colitis, descending, sigmoid, and rectal: -C Diff PCR re-test negative -Ciprofloxacin/Metronidazole #HTN/HLD: cont beta-albert #Parkinson disease: Continue Sinemet #Depression: #Restless leg syndrome: Continue ropinirole #Anemia, chronic: #Hypothyroidism: DVT prophylaxis: Lovenox CODE STATUS: DNI DNR Time Spent With Patient Time: Total time spent is greater than 50% in coordination of care (as documented) at patient's floor/unit and/or counseling patient: QUALITY VTE Deep Vein Thrombosis/Pulmonary Embolism Present on Admission: No
[2021-08-13] MEDS ORDERED: hydrALAZINE 20 MG/ML VIAL IV PRN (14:47)
--- NOTE | 2021-08-13 14:47 | Discharge Summary ---
Discharge Provider Provider Patient information: Note initiated : 08/13/21 at 2:46 pm Service Date, if different from initiated Date: [] Patient: Ti Hallman 81 y/o M admitted on 08/11/21 for ABD pain, diarrhea. Chief Complaint: [] Date of admission: 08/11/21 10:45 Primary care physician: Henrry Evans PA-C Consults: 08/11/21 09:09 Consult to Physician [CONS] Stat Comment: Consulting Provider: Rony Negrete Reason For Exam: Physician to Consult 08/13/21 14:19 Consult to Physician [CONS] Routine Comment: snf referral Consulting Provider: [facility] Reason For Exam: Physician to Consult Discharge Meds Discharge Medications Home Medications aspirin 325 mg tablet,delayed release 325 mg PO QHS 11/04/15 [History Confirmed 08/11/21 Last Taken 03/13/21 09:00 325 mg] metoprolol succinate 25 mg capsule sprinkle, ext. release 24 hr 25 mg PO QHS 11/10/19 [History Confirmed 08/11/21 Last Taken 03/13/21 09:00 25 mg] euogdiknp-jcdckgbt-spythhuuty 1 tab PO TID 03/14/21 [History Confirmed 08/11/21 Last Taken 03/13/21 09:00 tid] levothyroxine 112 mcg tablet 112 mcg PO QHS 90 Days #90 tab 04/15/21 [Rx Confirmed 08/11/21 Last Taken Unknown] citalopram 20 mg tablet 20 mg PO QDAY #30 tab 06/02/21 [Rx Confirmed 08/11/21 Last Taken Unknown] ropinirole 8 mg tablet,extended release 24 hr 16 mg PO HS #180 tab 06/02/21 [Rx Confirmed 08/11/21 Last Taken Unknown] simvastatin 20 mg tablet 20 mg PO QHS 90 Days #90 tab 07/10/21 [Rx Confirmed 08/11/21 Last Taken Unknown] ciprofloxacin HCl 500 mg PO BID #6 tab 08/13/21 [Rx Last Taken Unknown] metronidazole 500 mg PO Q8 #9 tab 08/13/21 [Rx Last Taken Unknown] COURSE Hospital Course Hospital course: Interval history: History of present illness: Mr. Hallman is a 81 year old M history of restless leg syndrome, Parkinson disease, essential HTN, mixed dyslipidemia, hypothyroidism, presenting with 2-day history of diarrhea and abdominal pain. There was no prior similar episode. According to the family, yesterday patient developed acute onset of the multiple episode of watery diarrhea, in addition to diffuse abdominal pain. The pain is graded as moderate to severe, cramping, constant. No associated fever or shaking chills or diaphoresis. No reported nausea vomiting. No alleviating or exacerbating factors. Decreased appetite since yesterday. Vital signs at ED presentations significant for mild bradycardia with heart rate in the 50s, as well as softer blood pressure as low as 80s over 50s mmHg. Labs significant for leukocytosis with WBC 17.1. Lactic acid elevated 2.4. Initial CT screening negative. CT abdomen pelvis showing thickened colonic wall involving the rectum sigmoid colon and descending colon suggestive of colitis. 08/12: Afebrile overnight. C diff toxin PCR retest negative. Blood culture negative to date. Subjective not obtained due to clinical situations. 08/13: Afebrile overnight. Still has 10 BMs overnight as per patient. Denies abdominal pain. Denies fever chills or sweating. 08/14 Assessment and Plans: # Colitis, descending, sigmoid, and rectal: -C Diff PCR re-test negative -Ciprofloxacin/Metronidazole #HTN/HLD: Given soft blood pressure, will hold any oral antihypertensives including beta-albert #Parkinson disease: Continue Sinemet #Depression: #Restless leg syndrome: Continue ropinirole #Anemia, chronic: #Hypothyroidism: Discharge diagnosis: Colitis Secondary discharge diagnosis: Parkinson's depression anemia hypothyroidism hypertension Time Spent with Patient Time attestation: Total time spent providing and/or coordinating discharge services: Time spent: Greater than 30 minutes EXAM Constitutional Vitals: Temp Pulse Resp BP Pulse Ox 97.9 F 78 22 159/91 92 08/13/21 12:00 08/13/21 12:00 08/13/21 12:00 08/13/21 12:00 08/13/21 12:00 Discharge Data Data Completed and Pending Labs on day of discharge: Labs from last 24 hours 08/13/21 08/13/21 08/12/21 05:32 05:32 09:22 WBC 7.0 RBC 3.93 L Hgb 9.9 L Hct 32.6 L MCV 83.0 MCH 25.2 L MCHC 30.4 L RDW 17.0 H Plt Count 101 L MPV 9.6 Neut % (Auto) 82.7 H Lymph % (Auto) 8.8 L Jefferson % (Auto) 5.7 Eos % (Auto) 2.4 Baso % (Auto) 0.4 Lymph # (Auto) 0.62 L Jefferson # (Auto) 0.40 Eos # (Auto) 0.17 Baso # (Auto) 0.03 Absolute Neutrophils 5.81 Sodium 138 138 Potassium 4.0 4.3 Chloride 104 106 Carbon Dioxide 24 21 L Anion Gap 10.0 11.0 BUN 16 21 Creatinine 0.6 L 0.7 GFR Calculation 94 88 Glucose 74 104 Calcium 8.2 L 7.9 L Total Bilirubin 0.3 0.3 AST 24 29 ALT 17 19 Alkaline Phosphatase 93 68 Total Protein 5.5 L 5.3 L Albumin 3.0 L 2.8 L Globulin 2.5 2.5 Albumin/Globulin Ratio 1.2 1.1 Preliminary micro results at discharge 08/11/21 04:49 Blood Culture - Preliminary Blood 08/11/21 04:00 Blood Culture - Preliminary Blood Discharge Plan Patient/Caregiver Discharge Instructions Activity: increase activity as tolerated Diet: Regular Diet Prescriptions: New metronidazole 500 mg Tablet 500 mg PO Q8 Qty: 9 RF: 0 ciprofloxacin HCl 500 mg Tablet 500 mg PO BID Qty: 6 RF: 0 Continued levothyroxine 112 mcg tablet 112 mcg PO QHS 90 Days Qty: 90 RF: 1 simvastatin 20 mg tablet 20 mg PO QHS 90 Days Qty: 90 RF: 1 aspirin 325 mg tablet,delayed release (DR/EC) 325 mg PO QHS RF: 0 citalopram 20 mg tablet 20 mg PO QDAY Qty: 30 RF: 2 ropinirole 8 mg tablet extended release 24 hr 16 mg PO HS Qty: 180 RF: 1 metoprolol succinate 25 mg capsule,sprinkle,ER 24hr 25 mg PO QHS RF: 0 hjvrlkbgu-onsvctau-manpljmttk 25-100-200 mg tablet 1 tab PO TID RF: 0 Follow Up Plan Follow up with: Henrry Evans PA-C [Primary Care Provider] - Patient Disposition: Xfer SNF Prognosis: Fair Rehab Potential: Fair I certify that the patient requires SNF services: Yes Overall status at discharge: patient is progressing back to baseline QUALITY VTE Deep Vein Thrombosis/Pulmonary Embolism Present on Admission: No
[2021-08-13] MEDS: ROPINIROLE 8 MG PO SCH (21:14)
[2021-08-13] MEDS: ASPIRIN 325 MG ENTERIC COATED TABLET PO SCH (21:14)
[2021-08-13] MEDS: METOPROLOL SUCCINATE 25 MG TAB.XL.24H PO SCH (21:15)
[2021-08-13] MEDS: LEVOTHYROXINE SODIUM 112 MCG TABLET PO SCH (21:15)
[2021-08-13] MEDS: SIMVASTATIN 20 MG TABLET PO SCH (21:15)
[2021-08-13] MEDS: SENNOSIDES 1 TABLET PO SCH (21:16)
[2021-08-14] MEDS: metroNIDAZOLE 500 MG TABLET PO SCH ×3 (05:58→20:19)
[2021-08-14] MEDS: 0.9 % SODIUM CHLORIDE 10 ML SYRINGE IV SCH ×3 (05:58→23:01)
--- NOTE | 2021-08-14 08:29 | Internal Med Progress Note ---
SUBJECTIVE Subjective Patient information: Note initiated : 08/14/21 at 8:27 am Service Date, if different from initiated Date: [] Patient: Ti Hallman a 81 y/o M admitted on 08/11/21 for ABD pain, diarrhea. Chief Complaint: [] Interval history: History of present illness: Mr. Hallman is a 81 year old M history of restless leg syndrome, Parkinson disease, essential HTN, mixed dyslipidemia, hypothyroidism, presenting with 2-day history of diarrhea and abdominal pain. There was no prior similar episode. According to the family, yesterday patient developed acute onset of the multiple episode of watery diarrhea, in addition to diffuse abdominal pain. The pain is graded as moderate to severe, cramping, constant. No associated fever or shaking chills or diaphoresis. No reported nausea vomiting. No alleviating or exacerbating factors. Decreased appetite since yesterday. Vital signs at ED presentations significant for mild bradycardia with heart rate in the 50s, as well as softer blood pressure as low as 80s over 50s mmHg. Labs significant for leukocytosis with WBC 17.1. Lactic acid elevated 2.4. Initial CT screening negative. CT a bdomen pelvis showing thickened colonic wall involving the rectum sigmoid colon and descending colon suggestive of colitis. 08/12: Afebrile overnight. C diff toxin PCR retest negative. Blood culture negative to date. Subjective not obtained due to clinical situations. 08/13: Afebrile overnight. Still has 10 BMs overnight as per patient. Denies abdominal pain. Denies fever chills or sweating. 08/14 Patient found down to the bathroom. Was felt he might of bumped his head. CT head unremarkable. Leukocytosis resolved. No complaints other than some diarrhea Review of Systems: denies headache/fever/chills/nausea/vomiting/chest or abdominal pain/cough/dyspnea. Otherwise see above. Constitutional Vitals: Vital Signs Temp Pulse Resp BP Pulse Ox 97.4 F 93 H 22 141/90 94 08/14/21 04:19 08/14/21 04:19 08/14/21 04:19 08/14/21 04:19 08/14/21 04:19 Period Temp Pulse Resp BP Sys/Van Pulse Ox Last 24 Hr 97.4 F-98.1 F 61-93 20-24 141-178/71-91 92-95 Intake and Output 09/29/21 09/30/21 09/30/21 21:59 05:59 13:59 Intake Total 1480 340 Output Total 555 455 Balance 925 -115 Weight 64.047 kg Intake & Output: Intake & Output 08/13/21 08/14/21 08/14/21 21:59 05:59 13:59 Intake Total 1480 340 Output Total 555 455 Balance 925 -115 Weight 64.047 kg Intake: IV 1000 Sodium Chloride 0.9% 1,000 ml @ 1000 100 mls/hr IV .Q10H BORA Rx#: [id number] Oral 480 340 Output: Void Amount 550 450 # of times incontinent of urine 5 5 Other: Meal Dinner Percent of Meal Consumed 100% Feeding Ability Independent Urine Appearance Clear Clear Urine Color Bright Yellow Bright Yellow Stool Size Small Stool Color Brown Stool Consistency Watery # of times incontinent of 1 1 Bowels Exam: General: Alert, Awake, No acute Distress Eyes/N/T: EOMI, Head/Neck: neck supple, CV: RRR, 2/6 SM Pulm: Clear b/l, no wheezing/rhonchi/rales Abd: soft, nontender, +BS x4 Ext: no clubbing/cyanosis/edema Neuro: Alert, no focal deficits, moves all extremities, Skin: warm/dry OBJ DATA Labs CBC & Chem 7: 08/13/21 05:32 08/13/21 05:32 Labs: Abnormal Lab Results 08/13/21 08/13/21 08/12/21 05:32 05:32 09:22 WBC RBC 3.93 L Hgb 9.9 L Hct 32.6 L MCH 25.2 L MCHC 30.4 L RDW 17.0 H Plt Count 101 L Neut % (Auto) 82.7 H Lymph % (Auto) 8.8 L Lymph # (Auto) 0.62 L Craig # (Auto) Absolute Neutrophils Carbon Dioxide 21 L Creatinine 0.6 L Calcium 8.2 L 7.9 L Total Protein 5.5 L 5.3 L Albumin 3.0 L 2.8 L 08/12/21 06:33 WBC 11.9 H RBC 3.79 L Hgb 9.6 L Hct 30.6 L MCH 25.3 L MCHC RDW 17.2 H Plt Count 89 L Neut % (Auto) 83.4 H Lymph % (Auto) 6.7 L Lymph # (Auto) 0.79 L Craig # (Auto) 1.06 H Absolute Neutrophils 9.90 H Carbon Dioxide Creatinine Calcium Total Protein Albumin Meds: Medications Acetaminophen (Acetaminophen 325 Mg Tablet) 650 mg PO Q6HP PRN; Protocol PRN Reason: Per Pain Protocol/Fever > 101 Aspirin (Aspirin 325 Mg Enteric Coated Tablet) 325 mg PO QHS [facility] Last Admin: 08/13/21 21:14 Dose: 325 mg Documented by: Ciprofloxacin (Ciprofloxacin 500 Mg Tablet) 500 mg PO BID [facility]; Protocol Last Admin: 08/13/21 21:15 Dose: 500 mg Documented by: Citalopram Hydrobromide (Citalopram 20 Mg Tablet) 20 mg PO QDAY [facility] Last Admin: 08/13/21 09:29 Dose: 20 mg Documented by: Docusate Sodium (Docusate Sodium 100 Mg Capsule) 100 mg PO BID [facility] Last Admin: 08/13/21 21:16 Dose: Not Given Documented by: Enoxaparin Sodium (Enoxaparin 40 Mg/0.4 Ml Syringe) 40 mg SQ DAILY [facility] Last Admin: 08/13/21 09:30 Dose: 40 mg Documented by: Hydralazine HCl (Hydralazine 20 Mg/Ml Vial) 0 mg IV Q2HP PRN PRN Reason: Hypertension Levothyroxine Sodium (Levothyroxine Sodium 112 Mcg Tablet) 112 mcg PO QHS [facility] Last Admin: 08/13/21 21:15 Dose: 112 mcg Documented by: Loperamide HCl (Loperamide 2 Mg Capsule) 2 mg PO PRN PRN PRN Reason: Diarrhea Metoprolol Succinate (Metoprolol Succinate 25 Mg Tab.Xl.24h) 25 mg PO QHS [facility] Last Admin: 08/13/21 21:15 Dose: 25 mg Documented by: Metronidazole (Metronidazole 500 Mg Tablet) 500 mg PO Q8 [facility]; Protocol Last Admin: 08/14/21 05:58 Dose: 500 mg Documented by: Morphine Sulfate (Morphine 4 Mg/Ml Vial) 4 mg IV Q4HP PRN; Protocol PRN Reason: Per Pain Protocol Ondansetron HCl (Ondansetron 4 Mg/2 Ml Vial) 4 mg IV Q6HP PRN PRN Reason: Nausea And Vomiting Oxycodone HCl (Oxycodone Hcl 5 Mg Tablet) 5 mg PO Q4HP PRN; Protocol PRN Reason: Per Pain Protocol Last Admin: 08/13/21 09:29 Dose: 5 mg Documented by: Carbidopa-Levodopa- (Entacapone 1 Tab)) 1 dose PO TID [facility] Last Admin: 08/13/21 21:14 Dose: 1 dose Documented by: Ropinirole Er 8 Mg (Tablets) 1 dose PO HS [facility] Last Admin: 08/13/21 21:14 Dose: 1 dose Documented by: Senna (Sennosides 1 Tablet) 2 tab PO [facility] Last Admin: 08/13/21 21:16 Dose: Not Given Documented by: Simvastatin (Simvastatin 20 Mg Tablet) 20 mg PO QHS [facility] Last Admin: 08/13/21 21:15 Dose: 20 mg Documented by: Sodium Chloride (0.9 % Sodium Chloride 10 Ml Syringe) 10 ml IV Q8 [facility] Last Admin: 08/14/21 05:58 Dose: 10 ml Documented by: Zolpidem Tartrate (Zolpidem 5 Mg Tablet) 5 mg PO HSP PRN PRN Reason: Insomnia A/P Narrative A/P Narrative: Assessment and Plans: # Colitis, descending, sigmoid, and rectal: -C Diff PCR re-test negative -Ciprofloxacin/Metronidazole -Leukocytosis resolved #HTN/HLD: cont beta-albert #Parkinson disease: Continue Sinemet #Dementia: worsening per #Depression: #Restless leg syndrome: Continue ropinirole #Anemia, chronic: #Hypothyroidism: DVT prophylaxis: Lovenox CODE STATUS: DNI/DNR Time Spent With Patient Time: Total time spent is greater than 50% in coordination of care (as documented) at patient's floor/unit and/or counseling patient: QUALITY VTE Deep Vein Thrombosis/Pulmonary Embolism Present on Admission: No
--- NOTE | 2021-08-14 08:59 | Cat Scan Report ---
INDICATION: S/P Fall COMPARISON: Previous examination dated 03/14/2021 TECHNIQUE: Axial noncontrast-enhanced images through the brain. Sagittally and coronally reformatted images. FINDINGS: Cerebral hemispheres:Negative. No intra-axial abnormality. No intra-axial hematoma. No localized mass effect. Brain volume is within normal limits. No hydrocephalus Brainstem and cerebellum:No intra-axial abnormality Extra-axial:No acute hemorrhage. No subdural or epidural hematoma. No subarachnoid hemorrhage. Basilar cisterns are normal Calvarial:No calvarial fracture. No lytic lesion Temporal bones are negative. No destructive lesions Soft tissue, orbits, sinuses:Orbits and visualized facial soft tissues and paranasal sinuses are negative IMPRESSION: Negative noncontrast enhanced brain CT scan. No intracranial hemorrhage The exam was performed using radiation dose optimization techniques including, but not limited to, automated exposure control, adjustment of the mA and/or kV according to patient size and use of iterative reconstruction technique. Interpreted and Authenticated by: Adrian Looney 08/14/21
[2021-08-14] MEDS: DOCUSATE SODIUM 100 MG CAPSULE PO SCH ×2 (10:25→20:03)
[2021-08-14] MEDS: CIPROFLOXACIN 500 MG TABLET PO SCH ×2 (10:25→20:15)
[2021-08-14] MEDS: ENOXAPARIN 40 MG/0.4 ML SYRINGE SQ SCH (10:26)
[2021-08-14] MEDS: CITALOPRAM 20 MG TABLET PO SCH (10:26)
[2021-08-14] MEDS: CARBIDOPA LEVODOPA ENTACAPONE PO SCH ×3 (10:27→20:17)
--- NOTE | 2021-08-14 14:31 | XRay Report ---
INDICATION: fall/pain TECHNIQUE: AP internal and external rotation, Y views COMPARISON: Previous examination dated 06/21/2019 FINDINGS: Previous right Suzanne procedure. There is degenerative joint disease in the right glenohumeral joint. There is superior decentering of the right humeral head consistent with rotator cuff degeneration. Right humeral head contacts the undersurface of the acromion process. No acute fracture. No acute dislocation. No interval change. IMPRESSION: 1. No acute abnormality. No acute fracture or glenohumeral dislocation 2. 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 No interval change since 06/21/2019 Interpreted and Authenticated by: Adrian Looney 08/14/21
[2021-08-14] MEDS: SENNOSIDES 1 TABLET PO SCH (20:04)
[2021-08-14] MEDS: SIMVASTATIN 20 MG TABLET PO SCH (20:15)
[2021-08-14] MEDS: METOPROLOL SUCCINATE 25 MG TAB.XL.24H PO SCH (20:16)
[2021-08-14] MEDS: LEVOTHYROXINE SODIUM 112 MCG TABLET PO SCH (20:16)
[2021-08-14] MEDS: ASPIRIN 325 MG ENTERIC COATED TABLET PO SCH (20:16)
[2021-08-14] MEDS: ROPINIROLE 8 MG PO SCH (20:17)
[2021-08-15] MEDS: metroNIDAZOLE 500 MG TABLET PO SCH ×3 (05:24→21:47)
[2021-08-15] MEDS: 0.9 % SODIUM CHLORIDE 10 ML SYRINGE IV SCH ×3 (05:24→21:48)
--- NOTE | 2021-08-15 07:36 | Internal Med Progress Note ---
SUBJECTIVE Subjective Patient information: Note initiated : 08/15/21 at 7:33 am Service Date, if different from initiated Date: [] Patient: Ti Hallman a 81 y/o M admitted on 08/11/21 for ABD pain, diarrhea. Chief Complaint: [] Interval history: History of present illness: Mr. Hallman is a 81 year old M history of restless leg syndrome, Parkinson disease, essential HTN, mixed dyslipidemia, hypothyroidism, presenting with 2-day history of diarrhea and abdominal pain. There was no prior similar episode. According to the family, yesterday patient developed acute onset of the multiple episode of watery diarrhea, in addition to diffuse abdominal pain. The pain is graded as moderate to severe, cramping, constant. No associated fever or shaking chills or diaphoresis. No reported nausea vomiting. No alleviating or exacerbating factors. Decreased appetite since yesterday. Vital signs at ED presentations significant for mild bradycardia with heart rate in the 50s, as well as softer blood pressure as low as 80s over 50s mmHg. Labs significant for leukocytosis with WBC 17.1. Lactic acid elevated 2.4. Initial CT screening negative. CT a bdomen pelvis showing thickened colonic wall involving the rectum sigmoid colon and descending colon suggestive of colitis. 08/12: Afebrile overnight. C diff toxin PCR retest negative. Blood culture negative to date. Subjective not obtained due to clinical situations. 08/13: Afebrile overnight. Still has 10 BMs overnight as per patient. Denies abdominal pain. Denies fever chills or sweating. 08/14 Patient found down to the bathroom. Was felt he might of bumped his head. CT head unremarkable. Leukocytosis resolved. No complaints other than some diarrhea 08/15 No overnight event or complaints. Patient states he feels his diarrhea is improving. Review of Systems: denies headache/fever/chills/nausea/vomiting/chest or abdominal pain/cough/dyspnea. Otherwise see above. Constitutional Vitals: Vital Signs Temp Pulse Resp BP Pulse Ox 98.8 F 60 18 121/71 93 08/15/21 06:50 08/15/21 06:50 08/15/21 06:50 08/15/21 06:50 08/15/21 06:50 Period Temp Pulse Resp BP Sys/Van Pulse Ox Last 24 Hr 96.5 F-98.8 F 59-93 16-22 111-147/62-87 90-97 Intake and Output 08/14/21 08/15/21 08/15/21 21:59 05:59 13:59 Intake Total 120 400 Output Total 255 2 Balance -135 398 Weight 64.047 kg Intake & Output: Intake & Output 08/14/21 08/15/21 08/15/21 21:59 05:59 13:59 Intake Total 120 400 Output Total 255 2 Balance -135 398 Weight 64.047 kg Intake: Oral 120 400 Output: Void Amount 250 # of times incontinent of urine 5 2 Other: Meal Dinner Percent of Meal Consumed 75% Feeding Ability Assist with Tray Set Up Stool Size Small Small Stool Color Brown Brown Stool Consistency Soft Liquid Loose # of times incontinent of 1 1 Bowels Exam: General: Alert, Awake, No acute Distress Eyes/N/T: EOMI, Head/Neck: neck supple, CV: RRR, 2/6 SM Pulm: Clear b/l, no wheezing/rhonchi/rales Abd: soft, nontender, +BS x4 Ext: no clubbing/cyanosis/edema Neuro: Alert, no focal deficits, moves all extremities, Skin: warm/dry OBJ DATA Labs CBC & Chem 7: 08/13/21 05:32 08/13/21 05:32 Labs: Abnormal Lab Results 08/13/21 08/13/21 08/12/21 05:32 05:32 09:22 WBC RBC 3.93 L Hgb 9.9 L Hct 32.6 L MCH 25.2 L MCHC 30.4 L RDW 17.0 H Plt Count 101 L Neut % (Auto) 82.7 H Lymph % (Auto) 8.8 L Lymph # (Auto) 0.62 L Tyler # (Auto) Absolute Neutrophils Carbon Dioxide 21 L Creatinine 0.6 L Calcium 8.2 L 7.9 L Total Protein 5.5 L 5.3 L Albumin 3.0 L 2.8 L 08/12/21 06:33 WBC 11.9 H RBC 3.79 L Hgb 9.6 L Hct 30.6 L MCH 25.3 L MCHC RDW 17.2 H Plt Count 89 L Neut % (Auto) 83.4 H Lymph % (Auto) 6.7 L Lymph # (Auto) 0.79 L Tyler # (Auto) 1.06 H Absolute Neutrophils 9.90 H Carbon Dioxide Creatinine Calcium Total Protein Albumin Meds: Medications Acetaminophen (Acetaminophen 325 Mg Tablet) 650 mg PO Q6HP PRN; Protocol PRN Reason: Per Pain Protocol/Fever > 101 Aspirin (Aspirin 325 Mg Enteric Coated Tablet) 325 mg PO QHS [facility] Last Admin: 08/14/21 20:16 Dose: 325 mg Documented by: Ciprofloxacin (Ciprofloxacin 500 Mg Tablet) 500 mg PO BID [facility]; Protocol Last Admin: 08/14/21 20:15 Dose: 500 mg Documented by: Citalopram Hydrobromide (Citalopram 20 Mg Tablet) 20 mg PO QDAY [facility] Last Admin: 08/14/21 10:26 Dose: 20 mg Documented by: Docusate Sodium (Docusate Sodium 100 Mg Capsule) 100 mg PO BID [facility] Last Admin: 08/14/21 20:03 Dose: Not Given Documented by: Enoxaparin Sodium (Enoxaparin 40 Mg/0.4 Ml Syringe) 40 mg SQ DAILY [facility] Last Admin: 08/14/21 10:26 Dose: 40 mg Documented by: Hydralazine HCl (Hydralazine 20 Mg/Ml Vial) 0 mg IV Q2HP PRN PRN Reason: Hypertension Levothyroxine Sodium (Levothyroxine Sodium 112 Mcg Tablet) 112 mcg PO QHS [facility] Last Admin: 08/14/21 20:16 Dose: 112 mcg Documented by: Loperamide HCl (Loperamide 2 Mg Capsule) 2 mg PO PRN PRN PRN Reason: Diarrhea Metoprolol Succinate (Metoprolol Succinate 25 Mg Tab.Xl.24h) 25 mg PO QHS [facility] Last Admin: 08/14/21 20:16 Dose: 25 mg Documented by: Metronidazole (Metronidazole 500 Mg Tablet) 500 mg PO Q8 [facility]; Protocol Last Admin: 08/15/21 05:24 Dose: 500 mg Documented by: Morphine Sulfate (Morphine 4 Mg/Ml Vial) 4 mg IV Q4HP PRN; Protocol PRN Reason: Per Pain Protocol Ondansetron HCl (Ondansetron 4 Mg/2 Ml Vial) 4 mg IV Q6HP PRN PRN Reason: Nausea And Vomiting Oxycodone HCl (Oxycodone Hcl 5 Mg Tablet) 5 mg PO Q4HP PRN; Protocol PRN Reason: Per Pain Protocol Last Admin: 08/13/21 09:29 Dose: 5 mg Documented by: Carbidopa-Levodopa- (Entacapone 1 Tab)) 1 dose PO TID [facility] Last Admin: 08/14/21 20:17 Dose: 1 dose Documented by: Ropinirole Er 8 Mg (Tablets) 1 dose PO HS [facility] Last Admin: 08/14/21 20:17 Dose: 1 dose Documented by: Senna (Sennosides 1 Tablet) 2 tab PO [facility] Last Admin: 08/14/21 20:04 Dose: Not Given Documented by: Simvastatin (Simvastatin 20 Mg Tablet) 20 mg PO QHS [facility] Last Admin: 08/14/21 20:15 Dose: 20 mg Documented by: Sodium Chloride (0.9 % Sodium Chloride 10 Ml Syringe) 10 ml IV Q8 [facility] Last Admin: 08/15/21 05:24 Dose: 10 ml Documented by: Zolpidem Tartrate (Zolpidem 5 Mg Tablet) 5 mg PO HSP PRN PRN Reason: Insomnia A/P Narrative A/P Narrative: Assessment and Plans: # Colitis, descending, sigmoid, and rectal: -C Diff PCR re-test negative -Ciprofloxacin/Metronidazole -Leukocytosis resolved #HTN/HLD: cont beta-albert #Parkinson disease: Continue Sinemet #Dementia: worsening per #Depression: #Restless leg syndrome: Continue ropinirole #Anemia, chronic: #Hypothyroidism: CM for placement DVT prophylaxis: Lovenox CODE STATUS: DNI/DNR Time Spent With Patient Time: Total time spent is greater than 50% in coordination of care (as documented) at patient's floor/unit and/or counseling patient: QUALITY VTE Deep Vein Thrombosis/Pulmonary Embolism Present on Admission: No
[2021-08-15] MEDS: DOCUSATE SODIUM 100 MG CAPSULE PO SCH ×2 (10:29→20:09)
[2021-08-15] MEDS: CIPROFLOXACIN 500 MG TABLET PO SCH ×2 (12:21→20:08)
[2021-08-15] MEDS: LOPERAMIDE 2 MG CAPSULE PO PRN ×2 (12:21→20:07)
[2021-08-15] MEDS: CITALOPRAM 20 MG TABLET PO SCH (12:21)
[2021-08-15] MEDS: ENOXAPARIN 40 MG/0.4 ML SYRINGE SQ SCH (12:22)
[2021-08-15] MEDS: CARBIDOPA LEVODOPA ENTACAPONE PO SCH ×3 (12:22→20:08)
[2021-08-15] MEDS: ROPINIROLE 8 MG PO SCH (20:08)
[2021-08-15] MEDS: ASPIRIN 325 MG ENTERIC COATED TABLET PO SCH (20:08)
[2021-08-15] MEDS: SIMVASTATIN 20 MG TABLET PO SCH (20:08)
[2021-08-15] MEDS: LEVOTHYROXINE SODIUM 112 MCG TABLET PO SCH (20:08)
[2021-08-15] MEDS: METOPROLOL SUCCINATE 25 MG TAB.XL.24H PO SCH (20:08)
[2021-08-15] MEDS: SENNOSIDES 1 TABLET PO SCH (20:09)
[2021-08-16] MEDS: LOPERAMIDE 2 MG CAPSULE PO PRN ×2 (00:11→09:46)
[2021-08-16] MEDS: 0.9 % SODIUM CHLORIDE 10 ML SYRINGE IV SCH ×3 (05:28→21:50)
[2021-08-16] MEDS: metroNIDAZOLE 500 MG TABLET PO SCH ×3 (05:28→21:49)
--- NOTE | 2021-08-16 07:27 | Internal Med Progress Note ---
SUBJECTIVE Subjective Patient information: Note initiated : 08/16/21 at 7:27 am Service Date, if different from initiated Date: [] Patient: Ti Hallman a 81 y/o M admitted on 08/11/21 for ABD pain, diarrhea. Chief Complaint: [] Interval history: History of present illness: Mr. Hallman is a 81 year old M history of restless leg syndrome, Parkinson disease, essential HTN, mixed dyslipidemia, hypothyroidism, presenting with 2-day history of diarrhea and abdominal pain. There was no prior similar episode. According to the family, yesterday patient developed acute onset of the multiple episode of watery diarrhea, in addition to diffuse abdominal pain. The pain is graded as moderate to severe, cramping, constant. No associated fever or shaking chills or diaphoresis. No reported nausea vomiting. No alleviating or exacerbating factors. Decreased appetite since yesterday. Vital signs at ED presentations significant for mild bradycardia with heart rate in the 50s, as well as softer blood pressure as low as 80s over 50s mmHg. Labs significant for leukocytosis with WBC 17.1. Lactic acid elevated 2.4. Initial CT screening negative. CT a bdomen pelvis showing thickened colonic wall involving the rectum sigmoid colon and descending colon suggestive of colitis. 08/12: Afebrile overnight. C diff toxin PCR retest negative. Blood culture negative to date. Subjective not obtained due to clinical situations. 08/13: Afebrile overnight. Still has 10 BMs overnight as per patient. Denies abdominal pain. Denies fever chills or sweating. 08/14 Patient found down to the bathroom. Was felt he might of bumped his head. CT head unremarkable. Leukocytosis resolved. No complaints other than some diarrhea 08/15 No overnight event or complaints. Patient states he feels his diarrhea is improving. 08/16 No new complaints. No overnight events. Awaiting placement. Review of Systems: denies headache/fever/chills/nausea/vomiting/chest or abdominal pain/cough/dyspnea. Otherwise see above. Constitutional Vitals: Vital Signs Temp Pulse Resp BP Pulse Ox 97.9 F 61 20 122/72 93 08/16/21 07:06 08/16/21 04:37 08/16/21 07:06 08/16/21 07:06 08/16/21 07:06 Period Temp Pulse Resp BP Sys/Van Pulse Ox Last 24 Hr 97.7 F-98.2 F 60-72 16-20 122-162/59-83 93-96 Intake and Output 08/15/21 08/16/21 08/16/21 21:59 05:59 13:59 Intake Total 400 Output Total 150 3 Balance -150 397 Weight 61.779 kg Intake & Output: Intake & Output 08/15/21 08/16/21 08/16/21 21:59 05:59 13:59 Intake Total 400 Output Total 150 3 Balance -150 397 Weight 61.779 kg Intake: Oral 400 Output: Void Amount 150 # of times incontinent of urine 3 Other: Meal Dinner Percent of Meal Consumed 100% Feeding Ability Needs Supervision Urine Appearance Cloudy Urine Color Tea Colored Stool Size Small Smear Stool Color Brown Brown Yellow Yellow Stool Consistency Loose Loose # Bowel Movements 1 1 # of times incontinent of 1 1 Bowels Exam: General: Alert, Awake, No acute Distress Eyes/N/T: EOMI, Head/Neck: neck supple, CV: RRR, 2/6 SM Pulm: Clear b/l, no wheezing/rhonchi/rales Abd: soft, nontender, +BS x4 Ext: no clubbing/cyanosis/edema Neuro: Alert, no focal deficits, moves all extremities, Skin: warm/dry OBJ DATA Labs CBC & Chem 7: 08/13/21 05:32 08/13/21 05:32 Labs: Abnormal Lab Results 08/13/21 08/13/21 05:32 05:32 RBC 3.93 L Hgb 9.9 L Hct 32.6 L MCH 25.2 L MCHC 30.4 L RDW 17.0 H Plt Count 101 L Neut % (Auto) 82.7 H Lymph % (Auto) 8.8 L Lymph # (Auto) 0.62 L Creatinine 0.6 L Calcium 8.2 L Total Protein 5.5 L Albumin 3.0 L Meds: Medications Acetaminophen (Acetaminophen 325 Mg Tablet) 650 mg PO Q6HP PRN; Protocol PRN Reason: Per Pain Protocol/Fever > 101 Aspirin (Aspirin 325 Mg Enteric Coated Tablet) 325 mg PO QHS [facility] Last Admin: 08/15/21 20:08 Dose: 325 mg Documented by: Ciprofloxacin (Ciprofloxacin 500 Mg Tablet) 500 mg PO BID [facility]; Protocol Last Admin: 08/15/21 20:08 Dose: 500 mg Documented by: Citalopram Hydrobromide (Citalopram 20 Mg Tablet) 20 mg PO QDAY [facility] Last Admin: 08/15/21 12:21 Dose: 20 mg Documented by: Docusate Sodium (Docusate Sodium 100 Mg Capsule) 100 mg PO BID [facility] Last Admin: 08/15/21 20:09 Dose: Not Given Documented by: Enoxaparin Sodium (Enoxaparin 40 Mg/0.4 Ml Syringe) 40 mg SQ DAILY [facility] Last Admin: 08/15/21 12:22 Dose: 40 mg Documented by: Hydralazine HCl (Hydralazine 20 Mg/Ml Vial) 0 mg IV Q2HP PRN PRN Reason: Hypertension Levothyroxine Sodium (Levothyroxine Sodium 112 Mcg Tablet) 112 mcg PO QHS [facility] Last Admin: 08/15/21 20:08 Dose: 112 mcg Documented by: Loperamide HCl (Loperamide 2 Mg Capsule) 2 mg PO PRN PRN PRN Reason: Diarrhea Last Admin: 08/16/21 00:11 Dose: 2 mg Documented by: Metoprolol Succinate (Metoprolol Succinate 25 Mg Tab.Xl.24h) 25 mg PO QHS [facility] Last Admin: 08/15/21 20:08 Dose: 25 mg Documented by: Metronidazole (Metronidazole 500 Mg Tablet) 500 mg PO Q8 [facility]; Protocol Last Admin: 08/16/21 05:28 Dose: 500 mg Documented by: Morphine Sulfate (Morphine 4 Mg/Ml Vial) 4 mg IV Q4HP PRN; Protocol PRN Reason: Per Pain Protocol Ondansetron HCl (Ondansetron 4 Mg/2 Ml Vial) 4 mg IV Q6HP PRN PRN Reason: Nausea And Vomiting Oxycodone HCl (Oxycodone Hcl 5 Mg Tablet) 5 mg PO Q4HP PRN; Protocol PRN Reason: Per Pain Protocol Last Admin: 08/13/21 09:29 Dose: 5 mg Documented by: Carbidopa-Levodopa- (Entacapone 1 Tab)) 1 dose PO TID [facility] Last Admin: 08/15/21 20:08 Dose: 1 dose Documented by: Ropinirole Er 8 Mg (Tablets) 1 dose PO HS [facility] Last Admin: 08/15/21 20:08 Dose: 1 dose Documented by: Senna (Sennosides 1 Tablet) 2 tab PO HS [facility] Last Admin: 08/15/21 20:09 Dose: Not Given Documented by: Simvastatin (Simvastatin 20 Mg Tablet) 20 mg PO QHS [facility] Last Admin: 08/15/21 20:08 Dose: 20 mg Documented by: Sodium Chloride (0.9 % Sodium Chloride 10 Ml Syringe) 10 ml IV Q8 [facility] Last Admin: 08/16/21 05:28 Dose: 10 ml Documented by: Zolpidem Tartrate (Zolpidem 5 Mg Tablet) 5 mg PO HSP PRN PRN Reason: Insomnia A/P Narrative A/P Narrative: Assessment and Plans: # Colitis, descending, sigmoid, and rectal: -C Diff PCR re-test negative -Ciprofloxacin/Metronidazole -Leukocytosis resolved #HTN/HLD: cont beta-albert #Parkinson disease: Continue Sinemet #Dementia: worsening per #Depression: #Restless leg syndrome: Continue ropinirole #Anemia, chronic: #Hypothyroidism: CM for placement DVT prophylaxis: Lovenox CODE STATUS: DNI/DNR Time Spent With Patient Time: Total time spent is greater than 50% in coordination of care (as documented) at patient's floor/unit and/or counseling patient: QUALITY VTE Deep Vein Thrombosis/Pulmonary Embolism Present on Admission: No
[2021-08-16] MEDS: CARBIDOPA LEVODOPA ENTACAPONE PO SCH ×3 (09:01→21:48)
[2021-08-16] MEDS: CIPROFLOXACIN 500 MG TABLET PO SCH ×2 (09:01→21:49)
[2021-08-16] MEDS: ENOXAPARIN 40 MG/0.4 ML SYRINGE SQ SCH (09:01)
[2021-08-16] MEDS: DOCUSATE SODIUM 100 MG CAPSULE PO SCH ×2 (09:01→21:49)
[2021-08-16] MEDS: CITALOPRAM 20 MG TABLET PO SCH (09:01)
[2021-08-16] MEDS: ROPINIROLE 8 MG PO SCH (21:48)
[2021-08-16] MEDS: SIMVASTATIN 20 MG TABLET PO SCH (21:49)
[2021-08-16] MEDS: ASPIRIN 325 MG ENTERIC COATED TABLET PO SCH (21:49)
[2021-08-16] MEDS: LEVOTHYROXINE SODIUM 112 MCG TABLET PO SCH (21:49)
[2021-08-16] MEDS: METOPROLOL SUCCINATE 25 MG TAB.XL.24H PO SCH (21:49)
[2021-08-16] MEDS: SENNOSIDES 1 TABLET PO SCH (21:49)
[2021-08-17] MEDS: 0.9 % SODIUM CHLORIDE 10 ML SYRINGE IV SCH ×3 (05:05→21:33)
[2021-08-17] MEDS: metroNIDAZOLE 500 MG TABLET PO SCH ×3 (05:48→21:33)
--- NOTE | 2021-08-17 07:45 | Internal Med Progress Note ---
SUBJECTIVE Subjective Patient information: Note initiated : 08/17/21 at 7:44 am Service Date, if different from initiated Date: [] Patient: Ti Hallman a 81 y/o M admitted on 08/11/21 for ABD pain, diarrhea. Chief Complaint: [] Interval history: History of present illness: Mr. Hallman is a 81 year old M history of restless leg syndrome, Parkinson disease, essential HTN, mixed dyslipidemia, hypothyroidism, presenting with 2-day history of diarrhea and abdominal pain. There was no prior similar episode. According to the family, yesterday patient developed acute onset of the multiple episode of watery diarrhea, in addition to diffuse abdominal pain. The pain is graded as moderate to severe, cramping, constant. No associated fever or shaking chills or diaphoresis. No reported nausea vomiting. No alleviating or exacerbating factors. Decreased appetite since yesterday. Vital signs at ED presentations significant for mild bradycardia with heart rate in the 50s, as well as softer blood pressure as low as 80s over 50s mmHg. Labs significant for leukocytosis with WBC 17.1. Lactic acid elevated 2.4. Initial CT screening negative. CT a bdomen pelvis showing thickened colonic wall involving the rectum sigmoid colon and descending colon suggestive of colitis. 08/12: Afebrile overnight. C diff toxin PCR retest negative. Blood culture negative to date. Subjective not obtained due to clinical situations. 08/13: Afebrile overnight. Still has 10 BMs overnight as per patient. Denies abdominal pain. Denies fever chills or sweating. 08/14 Patient found down to the bathroom. Was felt he might of bumped his head. CT head unremarkable. Leukocytosis resolved. No complaints other than some diarrhea 08/15 No overnight event or complaints. Patient states he feels his diarrhea is improving. 08/16 No new complaints. No overnight events. Awaiting placement. 08/17 No changes. No overnight events. Awaiting placement. Review of Systems: denies headache/fever/chills/nausea/vomiting/chest or abdominal pain/cough/dyspnea. Otherwise see above. Constitutional Vitals: Vital Signs Temp Pulse Resp BP Pulse Ox 97.6 F 78 18 111/62 93 08/17/21 04:00 08/17/21 04:00 08/17/21 04:00 08/17/21 04:00 08/17/21 04:00 Period Temp Pulse Resp BP Sys/Van Pulse Ox Last 24 Hr 97.2 F-98.3 F 63-78 16-20 98-136/62-77 92-97 Intake and Output 08/16/21 08/17/21 08/17/21 21:59 05:59 13:59 Intake Total 480 Output Total 1 3 Balance 479 -3 Weight 61.405 kg Intake & Output: Intake & Output 08/16/21 08/17/21 08/17/21 21:59 05:59 13:59 Intake Total 480 Output Total 1 3 Balance 479 -3 Weight 61.405 kg Intake: Oral 480 Output: # of times incontinent of urine 1 3 Other: Urine Appearance Clear Urine Color Dark Flak[place] # Voids 1 Exam: General: Alert, Awake, No acute Distress Eyes/N/T: EOMI, Head/Neck: neck supple, CV: RRR, 2/6 SM Pulm: Clear b/l, no wheezing/rhonchi/rales Abd: soft, nontender, +BS x4 Ext: no clubbing/cyanosis/edema Neuro: Alert, no focal deficits, moves all extremities, Skin: warm/dry OBJ DATA Labs CBC & Chem 7: 08/13/21 05:32 08/13/21 05:32 Meds: Medications Acetaminophen (Acetaminophen 325 Mg Tablet) 650 mg PO Q6HP PRN; Protocol PRN Reason: Per Pain Protocol/Fever > 101 Aspirin (Aspirin 325 Mg Enteric Coated Tablet) 325 mg PO QHS [facility] Last Admin: 08/16/21 21:49 Dose: 325 mg Documented by: Ciprofloxacin (Ciprofloxacin 500 Mg Tablet) 500 mg PO BID [facility]; Protocol Last Admin: 08/16/21 21:49 Dose: 500 mg Documented by: Citalopram Hydrobromide (Citalopram 20 Mg Tablet) 20 mg PO QDAY [facility] Last Admin: 08/16/21 09:01 Dose: 20 mg Documented by: Docusate Sodium (Docusate Sodium 100 Mg Capsule) 100 mg PO BID [facility] Last Admin: 08/16/21 21:49 Dose: Not Given Documented by: Enoxaparin Sodium (Enoxaparin 40 Mg/0.4 Ml Syringe) 40 mg SQ DAILY [facility] Last Admin: 08/16/21 09:01 Dose: 40 mg Documented by: Hydralazine HCl (Hydralazine 20 Mg/Ml Vial) 0 mg IV Q2HP PRN PRN Reason: Hypertension Levothyroxine Sodium ([facility] 112 [facility]g [facility]t) [facility] Admin: 08/16/21 21:49 Dose: 112 mcg Documented by: Loperamide HCl (Loperamide 2 Mg Capsule) 2 mg PO PRN PRN PRN Reason: Diarrhea Last Admin: 08/16/21 09:46 Dose: 2 mg Documented by: Metoprolol Succinate (Metoprolol Succinate 25 Mg Tab.Xl.24h) 25 mg PO QHS [facility] Last Admin: 08/16/21 21:49 Dose: 25 mg Documented by: Metronidazole (Metronidazole 500 Mg Tablet) 500 mg PO Q8 [facility]; Protocol Last Admin: 08/17/21 05:48 Dose: 500 mg Documented by: Morphine Sulfate (Morphine 4 Mg/Ml Vial) 4 mg IV Q4HP PRN; Protocol PRN Reason: Per Pain Protocol Ondansetron HCl (Ondansetron 4 Mg/2 Ml Vial) 4 mg IV Q6HP PRN PRN Reason: Nausea And Vomiting Oxycodone HCl (Oxycodone Hcl 5 Mg Tablet) 5 mg PO Q4HP PRN; Protocol PRN Reason: Per Pain Protocol Last Admin: 08/13/21 09:29 Dose: 5 mg Documented by: Carbidopa-Levodopa- (Entacapone 1 Tab)) 1 dose PO TID [facility] Last Admin: 08/16/21 21:48 Dose: 1 dose Documented by: Ropinirole Er 8 Mg (Tablets) 1 dose PO [facility] Last Admin: 08/16/21 21:48 Dose: 1 dose Documented by: Senna (Sennosides 1 Tablet) 2 tab PO [facility] Last Admin: 08/16/21 21:49 Dose: Not Given Documented by: Simvastatin (Simvastatin 20 Mg Tablet) 20 mg PO QHS [facility] Last Admin: 08/16/21 21:49 Dose: 20 mg Documented by: Sodium Chloride (0.9 % Sodium Chloride 10 Ml Syringe) 10 ml IV Q8 [facility] Last Admin: 08/17/21 05:05 Dose: Not Given Documented by: Zolpidem Tartrate (Zolpidem 5 Mg Tablet) 5 mg PO HSP PRN PRN Reason: Insomnia A/P Narrative A/P Narrative: Assessment and Plans: # Colitis, descending, sigmoid, and rectal: -C Diff PCR re-test negative -Ciprofloxacin/Metronidazole -Leukocytosis resolved #HTN/HLD: cont beta-albert #Parkinson disease: Continue Sinemet #Dementia: worsening per #Depression: #Restless leg syndrome: Continue ropinirole #Anemia, chronic: #Hypothyroidism: CM for placement DVT prophylaxis: Lovenox CODE STATUS: DNI/DNR Time Spent With Patient Time: Total time spent is greater than 50% in coordination of care (as documented) at patient's floor/unit and/or counseling patient: QUALITY VTE Deep Vein Thrombosis/Pulmonary Embolism Present on Admission: No
[2021-08-17] MEDS: CARBIDOPA LEVODOPA ENTACAPONE PO SCH ×3 (09:09→21:30)
[2021-08-17] MEDS: CITALOPRAM 20 MG TABLET PO SCH (09:09)
[2021-08-17] MEDS: ENOXAPARIN 40 MG/0.4 ML SYRINGE SQ SCH (09:09)
[2021-08-17] MEDS: CIPROFLOXACIN 500 MG TABLET PO SCH ×2 (09:09→21:30)
[2021-08-17] MEDS: DOCUSATE SODIUM 100 MG CAPSULE PO SCH ×2 (09:09→21:31)
[2021-08-17] MEDS: LOPERAMIDE 2 MG CAPSULE PO PRN (09:12)
[2021-08-17] MEDS: ROPINIROLE 8 MG PO SCH (21:30)
[2021-08-17] MEDS: LEVOTHYROXINE SODIUM 112 MCG TABLET PO SCH (21:30)
[2021-08-17] MEDS: SENNOSIDES 1 TABLET PO SCH (21:31)
[2021-08-17] MEDS: SIMVASTATIN 20 MG TABLET PO SCH (21:31)
[2021-08-17] MEDS: ASPIRIN 325 MG ENTERIC COATED TABLET PO SCH (21:31)
[2021-08-17] MEDS: METOPROLOL SUCCINATE 25 MG TAB.XL.24H PO SCH (21:31)
[2021-08-18] MEDS: 0.9 % SODIUM CHLORIDE 10 ML SYRINGE IV SCH ×3 (05:33→21:15)
[2021-08-18] MEDS: metroNIDAZOLE 500 MG TABLET PO SCH ×3 (05:36→21:24)
[2021-08-18] MEDS: DOCUSATE SODIUM 100 MG CAPSULE PO SCH ×2 (09:00→21:15)
[2021-08-18] MEDS: ENOXAPARIN 40 MG/0.4 ML SYRINGE SQ SCH (09:00)
[2021-08-18] MEDS: CITALOPRAM 20 MG TABLET PO SCH (09:00)
[2021-08-18] MEDS: CIPROFLOXACIN 500 MG TABLET PO SCH ×2 (09:00→21:13)
[2021-08-18] MEDS: CARBIDOPA LEVODOPA ENTACAPONE PO SCH ×3 (09:01→21:26)
--- NOTE | 2021-08-18 10:04 | Internal Med Progress Note ---
SUBJECTIVE Subjective Patient information: Note initiated : 08/18/21 at 10:01 am Service Date, if different from initiated Date: [] Patient: Ti Hallman a 81 y/o M admitted on 08/11/21 for ABD pain, diarrhea. Chief Complaint: [] Interval history: History of present illness: Mr. Hallman is a 81 year old M history of restless leg syndrome, Parkinson disease, essential HTN, mixed dyslipidemia, hypothyroidism, presenting with 2-day history of diarrhea and abdominal pain. There was no prior similar episode. According to the family, yesterday patient developed acute onset of the multiple episode of watery diarrhea, in addition to diffuse abdominal pain. The pain is graded as moderate to severe, cramping, constant. No associated fever or shaking chills or diaphoresis. No reported nausea vomiting. No alleviating or exacerbating factors. Decreased appetite since yesterday. Vital signs at ED presentations significant for mild bradycardia with heart rate in the 50s, as well as softer blood pressure as low as 80s over 50s mmHg. Labs significant for leukocytosis with WBC 17.1. Lactic acid elevated 2.4. Initial CT screening negative. CT abdomen pelvis showing thickened colonic wall involving the rectum sigmoid colon and descending colon suggestive of colitis. 08/12: Afebrile overnight. C diff toxin PCR retest negative. Blood culture negative to date. Subjective not obtained due to clinical situations. 08/13: Afebrile overnight. Still has 10 BMs overnight as per patient. Denies abdominal pain. Denies fever chills or sweating. 08/14 Patient found down to the bathroom. Was felt he might of bumped his head. CT head unremarkable. Leukocytosis resolved. No complaints other than some diarrhea 08/15 No overnight event or complaints. Patient states he feels his diarrhea is improving. 08/16 No new complaints. No overnight events. Awaiting placement. 08/17 No changes. No overnight events. Awaiting placement. 08/18 No overnight event or new complaints, confusion at baseline. Awaiting placement. Review of Systems: denies headache/fever/chills/nausea/vomiting/chest or abdominal pain/cough/dyspnea. Otherwise see above. Constitutional Vitals: Vital Signs Temp Pulse Resp BP Pulse Ox 97.6 F 61 20 133/85 94 08/18/21 07:40 08/18/21 07:40 08/18/21 07:40 08/18/21 07:40 08/18/21 07:40 Period Temp Pulse Resp BP Sys/Van Pulse Ox Last 24 Hr 97.1 F-98.6 F 61-66 16-20 93-133/56-85 92-96 Intake and Output 08/17/21 08/18/21 08/18/21 21:59 05:59 13:59 Intake Total 360 500 Output Total 100 6 Balance 260 494 Weight 61.575 kg Intake & Output: Intake & Output 08/17/21 08/18/21 08/18/21 21:59 05:59 13:59 Intake Total 360 500 Output Total 100 6 Balance 260 494 Weight 61.575 kg Intake: Oral 360 500 Output: Void Amount 100 # of times incontinent of urine 6 Other: Meal Dinner Percent of Meal Consumed 75% Feeding Ability Total Assistance Urine Appearance Clear Urine Color Dark Flakita Stool Size Small Stool Color Brown Stool Consistency Loose # of times incontinent of 2 Bowels Exam: General: Alert, Awake, No acute Distress Eyes/N/T: EOMI, Head/Neck: neck supple, CV: RRR, 2/6 SM Pulm: Clear b/l, no wheezing/rhonchi/rales Abd: soft, nontender, +BS x4 Ext: no clubbing/cyanosis/edema Neuro: Alert, no focal deficits, moves all extremities, Skin: warm/dry OBJ DATA Labs CBC & Chem 7: 08/13/21 05:32 08/13/21 05:32 Meds: Medications Acetaminophen (Acetaminophen 325 Mg Tablet) 650 mg PO Q6HP PRN; Protocol PRN Reason: Per Pain Protocol/Fever > 101 Aspirin (Aspirin 325 Mg Enteric Coated Tablet) 325 mg PO QHS [facility] Last Admin: 08/17/21 21:31 Dose: 325 mg Documented by: Ciprofloxacin (Ciprofloxacin 500 Mg Tablet) 500 mg PO BID [facility]; Protocol Last Admin: 08/18/21 09:00 Dose: 500 mg Documented by: Citalopram Hydrobromide (Citalopram 20 Mg Tablet) 20 mg PO QDAY [facility] Last Admin: 08/18/21 09:00 Dose: 20 mg Documented by: Docusate Sodium (Docusate Sodium 100 Mg Capsule) 100 mg PO BID [facility] Last Admin: 08/18/21 09:00 Dose: Not Given Documented by: Enoxaparin Sodium (Enoxaparin 40 Mg/0.4 Ml Syringe) 40 mg SQ DAILY [facility] Last Admin: 08/18/21 09:00 Dose: 40 mg Documented by: Hydralazine HCl (Hydralazine 20 Mg/Ml Vial) 0 mg IV Q2HP PRN PRN Reason: Hypertension Levothyroxine Sodium (Levothyroxine Sodium 112 Mcg Tablet) 112 mcg PO QHS [facility] Last Admin: 08/17/21 21:30 Dose: 112 mcg Documented by: Loperamide HCl (Loperamide 2 Mg Capsule) 2 mg PO PRN PRN PRN Reason: Diarrhea Last Admin: 08/17/21 09:12 Dose: 2 mg Documented by: Metoprolol Succinate (Metoprolol Succinate 25 Mg Tab.Xl.24h) 25 mg PO QHS [facility] Last Admin: 08/17/21 21:31 Dose: 25 mg Documented by: Metronidazole (Metronidazole 500 Mg Tablet) 500 mg PO Q8 [facility]; Protocol Last Admin: 08/18/21 05:36 Dose: 500 mg Documented by: Morphine Sulfate (Morphine 4 Mg/Ml Vial) 4 mg IV Q4HP PRN; Protocol PRN Reason: Per Pain Protocol Ondansetron HCl (Ondansetron 4 Mg/2 Ml Vial) 4 mg IV Q6HP PRN PRN Reason: Nausea And Vomiting Oxycodone HCl (Oxycodone Hcl 5 Mg Tablet) 5 mg PO Q4HP PRN; Protocol PRN Reason: Per Pain Protocol Last Admin: 08/13/21 09:29 Dose: 5 mg Documented by: Carbidopa-Levodopa- (Entacapone 1 Tab)) 1 dose PO TID [facility] Last Admin: 08/18/21 09:01 Dose: 1 dose Documented by: Ropinirole Er 8 Mg (Tablets) 1 dose PO [facility] Last Admin: 08/17/21 21:30 Dose: 1 dose Documented by: Senna (Sennosides 1 Tablet) 2 tab PO [facility] Last Admin: 08/17/21 21:31 Dose: Not Given Documented by: Simvastatin (Simvastatin 20 Mg Tablet) 20 mg PO QHS [facility] Last Admin: 08/17/21 21:31 Dose: 20 mg Documented by: Sodium Chloride (0.9 % Sodium Chloride 10 Ml Syringe) 10 ml IV Q8 [facility] Last Admin: 08/18/21 05:33 Dose: Not Given Documented by: Zolpidem Tartrate (Zolpidem 5 Mg Tablet) 5 mg PO HSP PRN PRN Reason: Insomnia A/P Narrative A/P Narrative: Assessment and Plans: # Colitis, descending, sigmoid, and rectal: -C Diff PCR re-test negative -Ciprofloxacin/Metronidazole finish abx today -Leukocytosis resolved #HTN/HLD: cont beta-albert #Parkinson disease: Continue Sinemet #Dementia: worsening per #Oral pharyngeal dysphagia, moderate: -cont diet per ST #Depression: #Restless leg syndrome: Continue ropinirole #Anemia, chronic: #Hypothyroidism: CM for placement DVT prophylaxis: Lovenox CODE STATUS: DNI/DNR Time Spent With Patient Time: Total time spent is greater than 50% in coordination of care (as documented) at patient's floor/unit and/or counseling patient: QUALITY VTE Deep Vein Thrombosis/Pulmonary Embolism Present on Admission: No
[2021-08-18] MEDS: METOPROLOL SUCCINATE 25 MG TAB.XL.24H PO SCH (21:13)
[2021-08-18] MEDS: SIMVASTATIN 20 MG TABLET PO SCH (21:14)
[2021-08-18] MEDS: ASPIRIN 325 MG ENTERIC COATED TABLET PO SCH (21:14)
[2021-08-18] MEDS: SENNOSIDES 1 TABLET PO SCH ×2 (21:14→21:16)
[2021-08-18] MEDS: LEVOTHYROXINE SODIUM 112 MCG TABLET PO SCH (21:14)
[2021-08-18] MEDS: ROPINIROLE 8 MG PO SCH (21:26)
[2021-08-19] MEDS: LOPERAMIDE 2 MG CAPSULE PO PRN (02:44)
[2021-08-19] MEDS: metroNIDAZOLE 500 MG TABLET PO SCH (05:08)
[2021-08-19] MEDS: CITALOPRAM 20 MG TABLET PO SCH (08:31)
[2021-08-19] MEDS: ENOXAPARIN 40 MG/0.4 ML SYRINGE SQ SCH (08:32)
[2021-08-19] MEDS: DOCUSATE SODIUM 100 MG CAPSULE PO SCH ×2 (08:32→23:18)
[2021-08-19] MEDS: CARBIDOPA LEVODOPA ENTACAPONE PO SCH ×3 (08:32→22:15)
--- NOTE | 2021-08-19 10:03 | Internal Med Progress Note ---
SUBJECTIVE Subjective Patient information: Note initiated : 08/19/21 at 10:02 am Service Date, if different from initiated Date: [] Patient: Ti Hallman a 81 y/o M admitted on 08/11/21 for ABD pain, diarrhea. Chief Complaint: [] Interval history: History of present illness: Mr. Hallman is a 81 year old M history of restless leg syndrome, Parkinson disease, essential HTN, mixed dyslipidemia, hypothyroidism, presenting with 2-day history of diarrhea and abdominal pain. There was no prior similar episode. According to the family, yesterday patient developed acute onset of the multiple episode of watery diarrhea, in addition to diffuse abdominal pain. The pain is graded as moderate to severe, cramping, constant. No associated fever or shaking chills or diaphoresis. No reported nausea vomiting. No alleviating or exacerbating factors. Decreased appetite since yesterday. Vital signs at ED presentations significant for mild bradycardia with heart rate in the 50s, as well as softer blood pressure as low as 80s over 50s mmHg. Labs significant for leukocytosis with WBC 17.1. Lactic acid elevated 2.4. Initial CT screening negative. CT abdomen pelvis showing thickened colonic wall involving the rectum sigmoid colon and descending colon suggestive of colitis. 08/12: Afebrile overnight. C diff toxin PCR retest negative. Blood culture negative to date. Subjective not obtained due to clinical situations. 08/13: Afebrile overnight. Still has 10 BMs overnight as per patient. Denies abdominal pain. Denies fever chills or sweating. 08/14 Patient found down to the bathroom. Was felt he might of bumped his head. CT head unremarkable. Leukocytosis resolved. No complaints other than some diarrhea 08/15 No overnight event or complaints. Patient states he feels his diarrhea is improving. 08/16 No new complaints. No overnight events. Awaiting placement. 08/17 No changes. No overnight events. Awaiting placement. 08/18 No overnight event or new complaints, confusion at baseline. Awaiting placement. 08/19 No changes, awaiting placement Constitutional Vitals: Vital Signs Temp Pulse Resp BP Pulse Ox 98.0 F 64 20 106/67 94 08/19/21 08:00 08/19/21 08:00 08/19/21 08:00 08/19/21 08:00 08/19/21 08:00 Period Temp Pulse Resp BP Sys/Van Pulse Ox Last 24 Hr 97.7 F-98.6 F 60-64 12-20 93-137/57-73 91-95 Intake and Output 08/18/21 08/19/21 08/19/21 21:59 05:59 13:59 Intake Total 0 120 240 Output Total 5 100 1 Balance -5 20 239 Weight 62.188 kg Intake & Output: Intake & Output 08/18/21 08/19/21 08/19/21 21:59 05:59 13:59 Intake Total 0 120 240 Output Total 5 100 1 Balance -5 20 239 Weight 62.188 kg Intake: Oral 0 120 240 Output: Void Amount 100 # of times incontinent of urine 5 1 Other: Meal Dinner snack Breakfast Percent of Meal Consumed 50% 100% Feeding Ability Independent Assist with Tray Set Up Nourishment/Supplement name refused 1 pudding cup and 1 applesauce cup Urine Appearance Clear Urine Color Dark Yellow Stool Size Small Moderate Small Stool Color Brown Brown Brown Stool Consistency Loose Loose Soft # Bowel Movements 2 # of times incontinent of 1 1 1 Bowels Exam: General: Awake, No acute Distress Eyes/N/T: EOMI, Head/Neck: neck supple, CV: RRR, 2/6 SM Pulm: Clear b/l, no wheezing/rhonchi/rales Abd: soft, nontender, +BS x4 Ext: no clubbing/cyanosis/edema Neuro: Alert, no focal deficits, moves all extremities, Skin: warm/dry OBJ DATA Labs CBC & Chem 7: 08/13/21 05:32 08/13/21 05:32 Meds: Medications Acetaminophen (Acetaminophen 325 Mg Tablet) 650 mg PO Q6HP PRN; Protocol PRN Reason: Per Pain Protocol/Fever > 101 Aspirin (Aspirin 325 Mg Enteric Coated Tablet) 325 mg PO QHS [facility] Last Admin: 08/18/21 21:14 Dose: 325 mg Documented by: Citalopram Hydrobromide (Citalopram 20 Mg Tablet) 20 mg PO QDAY [facility] Last Admin: 08/19/21 08:31 Dose: 20 mg Documented by: Docusate Sodium (Docusate Sodium 100 Mg Capsule) 100 mg PO BID [facility] Last Admin: 08/19/21 08:32 Dose: Not Given Documented by: Enoxaparin Sodium (Enoxaparin 40 Mg/0.4 Ml Syringe) 40 mg SQ DAILY [facility] Last Admin: 08/19/21 08:32 Dose: 40 mg Documented by: Hydralazine HCl (Hydralazine 20 Mg/Ml Vial) 0 mg IV Q2HP PRN PRN Reason: Hypertension Levothyroxine Sodium (Levothyroxine Sodium 112 Mcg Tablet) 112 mcg PO QHS [facility] Last Admin: 08/18/21 21:14 Dose: 112 mcg Documented by: Loperamide HCl (Loperamide 2 Mg Capsule) 2 mg PO PRN PRN PRN Reason: Diarrhea Last Admin: 08/19/21 02:44 Dose: 2 mg Documented by: Metoprolol Succinate (Metoprolol Succinate 25 Mg Tab.Xl.24h) 25 mg PO QHS [facility] Last Admin: 08/18/21 21:13 Dose: 25 mg Documented by: Metronidazole (Metronidazole 500 Mg Tablet) 500 mg PO Q8 [facility]; Protocol Stop: 08/19/21 12:00 Last Admin: 08/19/21 05:08 Dose: 500 mg Documented by: Morphine Sulfate (Morphine 4 Mg/Ml Vial) 4 mg IV Q4HP PRN; Protocol PRN Reason: Per Pain Protocol Ondansetron HCl (Ondansetron 4 Mg/2 Ml Vial) 4 mg IV Q6HP PRN PRN Reason: Nausea And Vomiting Oxycodone HCl (Oxycodone Hcl 5 Mg Tablet) 5 mg PO Q4HP PRN; Protocol PRN Reason: Per Pain Protocol Last Admin: 08/13/21 09:29 Dose: 5 mg Documented by: Carbidopa-Levodopa- (Entacapone 1 Tab)) 1 dose PO TID [facility] Last Admin: 08/19/21 08:32 Dose: 1 dose Documented by: Ropinirole Er 8 Mg (Tablets) 1 dose PO [facility] Last Admin: 08/18/21 21:26 Dose: 1 dose Documented by: Senna (Sennosides 1 Tablet) 2 tab PO [facility] Last Admin: 08/18/21 21:16 Dose: Not Given Documented by: Simvastatin (Simvastatin 20 Mg Tablet) 20 mg PO QHS [facility] Last Admin: 08/18/21 21:14 Dose: 20 mg Documented by: Zolpidem Tartrate (Zolpidem 5 Mg Tablet) 5 mg PO HSP PRN PRN Reason: Insomnia A/P Narrative A/P Narrative: Assessment and Plans: # Colitis, descending, sigmoid, and rectal: -C Diff PCR re-test negative -Ciprofloxacin/Metronidazole finish abx -Leukocytosis resolved #HTN/HLD: cont beta-albert #Parkinson disease: Continue Sinemet #Dementia: worsening per #Oral pharyngeal dysphagia, moderate: -cont diet per ST #Depression: #Restless leg syndrome: Continue ropinirole #Anemia, chronic: #Hypothyroidism: CM for placement DVT prophylaxis: Lovenox CODE STATUS: DNI/DNR Time Spent With Patient Time: Total time spent is greater than 50% in coordination of care (as documented) at patient's floor/unit and/or counseling patient: QUALITY VTE Deep Vein Thrombosis/Pulmonary Embolism Present on Admission: No
--- NOTE | 2021-08-19 10:05 | Discharge Summary ---
Discharge Provider Provider Patient information: Note initiated : 08/19/21 at 10:03 am Service Date, if different from initiated Date: [] Patient: Ti Hallman 81 y/o M admitted on 08/11/21 for ABD pain, diarrhea. Chief Complaint: [] Date of admission: 08/11/21 10:45 Primary care physician: Henrry Evans PA-C Consults: 08/11/21 09:09 Consult to Physician [CONS] Stat Comment: Consulting Provider: Rony Negrete Reason For Exam: Physician to Consult 08/13/21 14:19 Consult to Physician [CONS] Routine Comment: snf referral Consulting Provider: [facility] Reason For Exam: Physician to Consult Discharge Meds Discharge Medications Home Medications aspirin 325 mg tablet,delayed release 325 mg PO QHS 11/04/15 [History Confirmed 08/11/21 Last Taken 03/13/21 09:00 325 mg] metoprolol succinate 25 mg capsule sprinkle, ext. release 24 hr 25 mg PO QHS 11/10/19 [History Confirmed 08/11/21 Last Taken 03/13/21 09:00 25 mg] [id number] 1 tab PO TID 03/14/21 [History Confirmed 08/11/21 Last Taken 03/13/21 09:00 tid] levothyroxine 112 mcg tablet 112 mcg PO QHS 90 Days #90 tab 04/15/21 [Rx Confirmed 08/11/21 Last Taken Unknown] citalopram 20 mg tablet 20 mg PO QDAY #30 tab 06/02/21 [Rx Confirmed 08/11/21 Last Taken Unknown] ropinirole 8 mg tablet,extended release 24 hr 16 mg PO HS #180 tab 06/02/21 [Rx Confirmed 08/11/21 Last Taken Unknown] simvastatin 20 mg tablet 20 mg PO QHS 90 Days #90 tab 07/10/21 [Rx Confirmed 08/11/21 Last Taken Unknown] COURSE Hospital Course Hospital course: Interval history: History of present illness: Mr. Hallman is a 81 year old M history of restless leg syndrome, Parkinson disease, essential HTN, mixed dyslipidemia, hypothyroidism, presenting with 2-day history of diarrhea and abdominal pain. There was no prior similar episode. According to the family, yesterday patient developed acute onset of the multiple episode of watery diarrhea, in addition to diffuse abdominal pain. The pain is graded as moderate to severe, cramping, constant. No associated fever or shaking chills or diaphoresis. No reported nausea vomiting. No alleviating or exacerbating factors. Decreased appetite since yesterday. Vital signs at ED presentations significant for mild bradycardia with heart rate in the 50s, as well as softer blood pressure as low as 80s over 50s mmHg. Labs significant for leukocytosis with WBC 17.1. Lactic acid elevated 2.4. Initial CT screening negative. CT abdomen pelvis showing thickened colonic wall involving the rectum sigmoid colon and descending colon suggestive of colitis. 08/12: Afebrile overnight. C diff toxin PCR retest negative. Blood culture negative to date. Subjective not obtained due to clinical situations. 08/13: Afebrile overnight. Still has 10 BMs overnight as per patient. Denies abdominal pain. Denies fever chills or sweating. 08/14 Patient found down to the bathroom. Was felt he might of bumped his head. CT head unremarkable. Leukocytosis resolved. No complaints other than some diarrhea 08/15 No overnight event or complaints. Patient states he feels his diarrhea is improving. 08/16 No new complaints. No overnight events. Awaiting placement. 08/17 No changes. No overnight events. Awaiting placement. 08/18 No overnight event or new complaints, confusion at baseline. Awaiting placement. 08/19 No changes, awaiting placement Given age and comorbidities patient high risk for readmission A/P Narrative: Assessment and Plans: # Colitis, descending, sigmoid, and rectal: #HTN/HLD: cont beta-albert #Parkinson disease: Continue Sinemet #Dementia: worsening per #Oral pharyngeal dysphagia, moderate: -cont diet per ST #Depression: #Restless leg syndrome: Continue ropinirole #Anemia, chronic: #Hypothyroidism: CM for placement DVT prophylaxis: Lovenox Discharge diagnosis: Colitis hypertension Parkinson's dementia dysphagia depression chronic anem Time Spent with Patient Time attestation: Total time spent providing and/or coordinating discharge services: Time spent: Greater than 30 minutes EXAM Constitutional Vitals: Temp Pulse Resp BP Pulse Ox 98.0 F 64 20 106/67 94 08/19/21 08:00 08/19/21 08:00 08/19/21 08:00 08/19/21 08:00 08/19/21 08:00 Discharge Plan Patient/Caregiver Discharge Instructions Activity: ambulate only with your walker and increase activity as tolerated Diet: Dysphagia Level 5 Minced & Moist Foods Activity Restrictions/Additional Instructions: Diet: Mildly thick liquids Prescriptions: Continued levothyroxine 112 mcg tablet 112 mcg PO QHS 90 Days Qty: 90 RF: 1 simvastatin 20 mg tablet 20 mg PO QHS 90 Days Qty: 90 RF: 1 aspirin 325 mg tablet,delayed release (DR/EC) 325 mg PO QHS RF: 0 citalopram 20 mg tablet 20 mg PO QDAY Qty: 30 RF: 2 ropinirole 8 mg tablet extended release 24 hr 16 mg PO HS Qty: 180 RF: 1 metoprolol succinate 25 mg capsule,sprinkle,ER 24hr 25 mg PO QHS RF: 0 [id number]-zgppvznm-nobzfiidiw 25-100-200 mg tablet 1 tab PO TID RF: 0 Follow Up Plan Follow up with: Henrry Evans PA-C [Primary Care Provider] - Patient Disposition: er [facility] Prognosis: Fair Rehab Potential: Fair I certify that the patient requires SNF services: Yes Overall status at discharge: patient is progressing back to baseline QUALITY VTE Deep Vein Thrombosis/Pulmonary Embolism Present on Admission: No
[2021-08-19] MEDS: ASPIRIN 325 MG ENTERIC COATED TABLET PO SCH (22:14)
[2021-08-19] MEDS: METOPROLOL SUCCINATE 25 MG TAB.XL.24H PO SCH (22:14)
[2021-08-19] MEDS: SIMVASTATIN 20 MG TABLET PO SCH (22:15)
[2021-08-19] MEDS: ROPINIROLE 8 MG PO SCH (22:15)
[2021-08-19] MEDS: LEVOTHYROXINE SODIUM 112 MCG TABLET PO SCH (22:15)
[2021-08-19] MEDS: SENNOSIDES 1 TABLET PO SCH (23:18)
[2021-08-20] MEDS: LOPERAMIDE 2 MG CAPSULE PO PRN (00:49)
--- NOTE | 2021-08-20 07:42 | Internal Med Progress Note ---
SUBJECTIVE Subjective Patient information: Note initiated : 08/20/21 at 7:41 am Service Date, if different from initiated Date: [] Patient: Ti Hallman a 81 y/o M admitted on 08/11/21 for ABD pain, diarrhea. Chief Complaint: [] Interval history: History of present illness: Mr. Hallman is a 81 year old M history of restless leg syndrome, Parkinson disease, essential HTN, mixed dyslipidemia, hypothyroidism, presenting with 2-day history of diarrhea and abdominal pain. There was no prior similar episode. According to the family, yesterday patient developed acute onset of the multiple episode of watery diarrhea, in addition to diffuse abdominal pain. The pain is graded as moderate to severe, cramping, constant. No associated fever or shaking chills or diaphoresis. No reported nausea vomiting. No alleviating or exacerbating factors. Decreased appetite since yesterday. Vital signs at ED presentations significant for mild bradycardia with heart rate in the 50s, as well as softer blood pressure as low as 80s over 50s mmHg. Labs significant for leukocytosis with WBC 17.1. Lactic acid elevated 2.4. Initial CT screening negative. CT a bdomen pelvis showing thickened colonic wall involving the rectum sigmoid colon and descending colon suggestive of colitis. 08/12: Afebrile overnight. C diff toxin PCR retest negative. Blood culture negative to date. Subjective not obtained due to clinical situations. 08/13: Afebrile overnight. Still has 10 BMs overnight as per patient. Denies abdominal pain. Denies fever chills or sweating. 08/14 Patient found down to the bathroom. Was felt he might of bumped his head. CT head unremarkable. Leukocytosis resolved. No complaints other than some diarrhea 08/15 No overnight event or complaints. Patient states he feels his diarrhea is improving. 08/16 No new complaints. No overnight events. Awaiting placement. 08/17 No changes. No overnight events. Awaiting placement. 08/18 No overnight event or new complaints, confusion at baseline. Awaiting placement. 10 No changes, awaiting placement 10 Stools are soft and occasional loose Constitutional Vitals: Vital Signs Temp Pulse Resp BP Pulse Ox 98.0 F 60 16 99/60 94 08/20/21 04:26 08/20/21 04:26 08/20/21 04:26 08/20/21 04:26 08/20/21 04:26 Period Temp Pulse Resp BP Sys/Van Pulse Ox Last 24 Hr 97.7 F-98.4 F 60-69 16-20 91-135/54-70 94-97 Intake and Output 08/19/21 08/20/21 08/20/21 21:59 05:59 13:59 Intake Total 120 Output Total 1 3 Balance -1 117 Weight 63.866 kg Intake & Output: Intake & Output 08/19/21 08/20/21 08/20/21 21:59 05:59 13:59 Intake Total 120 Output Total 1 3 Balance -1 117 Weight 63.866 kg Intake: Oral 120 Output: # of times incontinent of urine 1 3 Other: Meal Dinner Percent of Meal Consumed 75% Feeding Ability Independent Urine Appearance Clear Urine Color Light [place] Stool Size Small Large Stool Color Brown Brown Stool Consistency Soft Loose # Voids 2 # Bowel Movements 2 # of times incontinent of 1 1 Bowels Exam: General: Awake, No acute Distress Eyes/N/T: EOMI, Head/Neck: neck supple, CV: RRR, 2/6 SM Pulm: Clear b/l, no wheezing/rhonchi/rales Abd: soft, nontender, +BS x4 Ext: no clubbing/cyanosis/edema Neuro: Alert, no focal deficits, moves all extremities, Skin: warm/dry OBJ DATA Labs CBC & Chem 7: 08/13/21 05:32 08/13/21 05:32 Meds: Medications Acetaminophen (Acetaminophen 325 Mg Tablet) 650 mg PO Q6HP PRN; Protocol PRN Reason: Per Pain Protocol/Fever > 101 Last Admin: 08/20/21 00:49 Dose: 650 mg Documented by: Aspirin (Aspirin 325 Mg Enteric Coated Tablet) 325 mg PO QHS [facility] Last Admin: 08/19/21 22:14 Dose: 325 mg Documented by: Citalopram Hydrobromide (Citalopram 20 Mg Tablet) 20 mg PO QDAY [facility] Last Admin: 08/19/21 08:31 Dose: 20 mg Documented by: Docusate Sodium (Docusate Sodium 100 Mg Capsule) 100 mg PO BID [facility] Last Admin: 08/19/21 23:18 Dose: Not Given Documented by: Enoxaparin Sodium (Enoxaparin 40 Mg/0.4 Ml Syringe) 40 mg SQ DAILY [facility] Last Admin: 08/19/21 08:32 Dose: 40 mg Documented by: Hydralazine HCl (Hydralazine 20 Mg/Ml Vial) 0 mg IV Q2HP PRN PRN Reason: Hypertension Levothyroxine Sodium (Levothyroxine Sodium 112 Mcg Tablet) 112 mcg PO QHS [facility] Last Admin: 08/19/21 22:15 Dose: 112 mcg Documented by: Loperamide HCl (Loperamide 2 Mg Capsule) 2 mg PO PRN PRN PRN Reason: Diarrhea Last Admin: 08/20/21 00:49 Dose: 2 mg Documented by: Metoprolol Succinate (Metoprolol Succinate 25 Mg Tab.Xl.24h) [facility] Last Admin: 08/19/21 22:14 Dose: 25 mg Documented by: Morphine Sulfate (Morphine 4 Mg/Ml Vial) 4 mg IV Q4HP PRN; Protocol PRN Reason: Per Pain Protocol Ondansetron HCl (Ondansetron 4 Mg/2 Ml Vial) 4 mg IV Q6HP PRN PRN Reason: Nausea And Vomiting Oxycodone HCl (Oxycodone Hcl 5 Mg Tablet) 5 mg PO Q4HP PRN; Protocol PRN Reason: Per Pain Protocol Last Admin: 08/13/21 09:29 Dose: 5 mg Documented by: Carbidopa-Levodopa- (Entacapone 1 Tab)) 1 dose PO TID [facility] Last Admin: 08/19/21 22:15 Dose: 1 dose Documented by: Ropinirole Er 8 Mg (Tablets) 1 dose PO [facility] Last Admin: 08/19/21 22:15 Dose: 1 dose Documented by: Senna (Sennosides 1 Tablet) 2 tab PO [facility] Last Admin: 08/19/21 23:18 Dose: Not Given Documented by: Simvastatin (Simvastatin 20 Mg Tablet) 20 mg PO QHS [facility] Last Admin: 08/19/21 22:15 Dose: 20 mg Documented by: Zolpidem Tartrate (Zolpidem 5 Mg Tablet) 5 mg PO HSP PRN PRN Reason: Insomnia A/P Narrative A/P Narrative: Assessment and Plans: # Colitis, descending, sigmoid, and rectal: -C Diff PCR re-test negative -Ciprofloxacin/Metronidazole finish abx -Leukocytosis resolved #HTN/HLD: cont beta-albret #Parkinson disease: Continue Sinemet #Dementia: worsening per #Oral pharyngeal dysphagia, moderate: -cont diet per ST #Depression: #Restless leg syndrome: Continue ropinirole #Anemia, chronic: #Hypothyroidism: CM for placement DVT prophylaxis: Lovenox CODE STATUS: DNI/DNR Time Spent With Patient Time: Total time spent is greater than 50% in coordination of care (as documented) at patient's floor/unit and/or counseling patient: QUALITY VTE Deep Vein Thrombosis/Pulmonary Embolism Present on Admission: No
[2021-08-20] MEDS: oxyCODONE HCL 5 MG TABLET PO PRN (08:02)
[2021-08-20] MEDS: CITALOPRAM 20 MG TABLET PO SCH (08:02)
[2021-08-20] MEDS: DOCUSATE SODIUM 100 MG CAPSULE PO SCH ×2 (08:02→21:04)
[2021-08-20] MEDS: ENOXAPARIN 40 MG/0.4 ML SYRINGE SQ SCH (08:03)
[2021-08-20] MEDS: CARBIDOPA LEVODOPA ENTACAPONE PO SCH ×3 (08:03→21:05)
[2021-08-20] MEDS ORDERED: LOPERAMIDE 2 MG CAPSULE PO ONE (08:34)
[2021-08-20] MEDS: SENNOSIDES 1 TABLET PO SCH (21:04)
[2021-08-20] MEDS: ROPINIROLE 8 MG PO SCH (21:05)
[2021-08-20] MEDS: LEVOTHYROXINE SODIUM 112 MCG TABLET PO SCH (21:05)
[2021-08-20] MEDS: METOPROLOL SUCCINATE 25 MG TAB.XL.24H PO SCH (21:05)
[2021-08-20] MEDS: SIMVASTATIN 20 MG TABLET PO SCH (21:05)
[2021-08-20] MEDS: ASPIRIN 325 MG ENTERIC COATED TABLET PO SCH (21:05)
[2021-08-21] MEDS: ENOXAPARIN 40 MG/0.4 ML SYRINGE SQ SCH (10:39)
[2021-08-21] MEDS: CITALOPRAM 20 MG TABLET PO SCH (10:39)
[2021-08-21] MEDS: CARBIDOPA LEVODOPA ENTACAPONE PO SCH ×3 (10:39→20:40)
[2021-08-21] MEDS: DOCUSATE SODIUM 100 MG CAPSULE PO SCH ×2 (10:40→20:40)
--- NOTE | 2021-08-21 12:40 | Internal Med Progress Note ---
SUBJECTIVE Subjective Patient information: Note initiated : 08/21/21 at 12:35 pm Service Date, if different from initiated Date: [] Patient: Ti Hallman a 81 y/o M admitted on 08/11/21 for ABD pain, diarrhea. Chief Complaint: [colitis] Interval history: History of present illness: Mr. Hallman is a 81 year old M history of restless leg syndrome, Parkinson disease, essential HTN, mixed dyslipidemia, hypothyroidism, presenting with 2-day history of diarrhea and abdominal pain. There was no prior similar episode. According to the family, yesterday patient developed acute onset of the multiple episode of watery diarrhea, in addition to diffuse abdominal pain. The pain is graded as moderate to severe, cramping, constant. No associated fever or shaking chills or diaphoresis. No reported nausea vomiting. No alleviating or exacerbating facto rs. Decreased appetite since yesterday. Vital signs at ED presentations significant for mild bradycardia with heart rate in the 50s, as well as softer blood pressure as low as 80s over 50s mmHg. Labs significant for leukocytosis with WBC 17.1. Lactic acid elevated 2.4. Initial CT screening negative. CT abdomen pelvis showing thickened colonic wall involving the rectum sigmoid colon and descending colon suggestive of colitis. 08/12: Afebrile overnight. C diff toxin PCR retest negative. Blood culture negative to date. Subjective not obtained due to clinical situations. 08/13: Afebrile overnight. Still has 10 BMs overnight as per patient. Denies abdominal pain. Denies fever chills or sweating. 08/14 Patient found down to the bathroom. Was felt he might of bumped his head. CT head unremarkable. Leukocytosis resolved. No complaints other than some diarrhea 08/15 No overnight event or complaints. Patient states he feels his diarrhea is improving. 08/16 No new complaints. No overnight events. Awaiting placement. 08/17 No changes. No overnight events. Awaiting placement. 08/18 No overnight event or new complaints, confusion at baseline. Awaiting placement. 08/19 No changes, awaiting placement 10 Stools are soft and occasional loose 08/21: There was no major overnight events. Pending placement. There is no complaints from patient. Constitutional Vitals: Vital Signs Temp Pulse Resp BP Pulse Ox 36.8 C 74 20 135/78 94 08/21/21 08:00 08/21/21 08:00 08/21/21 08:00 08/21/21 08:00 08/21/21 08:00 Period Temp Pulse Resp BP Sys/Van Pulse Ox Last 24 Hr 36.3 C-36.8 C 63-74 20-20 110-167/66-81 93-96 Intake and Output 08/20/21 08/21/21 08/21/21 21:59 05:59 13:59 Intake Total 570 300 Output Total 151 304 Balance 419 -4 Weight 63.458 kg Intake & Output: Intake & Output 08/20/21 08/21/21 08/21/21 21:59 05:59 13:59 Intake Total 570 300 Output Total 151 304 Balance 419 -4 Weight 63.458 kg Intake: Oral 570 300 Output: Void Amount 150 300 # of times incontinent of urine 1 4 Other: Meal applesauce cup Percent of Meal Consumed 100% Feeding Ability Total Assistance Urine Appearance Clear Clear Urine Color Bright Yellow Dark Yellow Stool Size Moderate Moderate Stool Color Brown Brown Stool Consistency Soft Soft # Voids 1 1 # Bowel Movements 1 1 General appearance: cooperative and no acute distress Head Head exam: Present atraumatic and normocephalic Eye Eye exam: Present EOMI and PERRL ENT ENT exam: Present mucous membranes moist, normal exam and normal external ear exam Neck Neck exam: Present normal inspection; Absent lymphadenopathy, tenderness and thyromegaly Respiratory Respiratory exam: Absent accessory muscle use, respiratory distress and wheezes Cardiovascular Cardiovascular exam: Present normal rate and rhythm; Absent JVD GI/Abdominal GI/Abdominal exam: Present normal bowel sounds and soft; Absent organomegaly and tenderness Rectal Rectal exam: Present deferred Extremities Exam Extremities exam: Present full ROM, normal capillary refill and normal inspection; Absent tenderness Neurological Exam Neurological exam: Present alert, CN II-XII intact and oriented X3; Absent motor sensory deficit Psychiatric Psychiatric exam: Present normal affect and normal mood; Absent anxious and depressed Skin Skin exam: Present dry and intact OBJ DATA Labs CBC & Chem 7: 08/13/21 05:32 08/13/21 05:32 Meds: Medications Acetaminophen (Acetaminophen 325 Mg Tablet) 650 mg PO Q6HP PRN; Protocol PRN Reason: Per Pain Protocol/Fever > 101 Last Admin: 08/20/21 00:49 Dose: 650 mg Documented by: Aspirin (Aspirin 325 Mg Enteric Coated Tablet) 325 mg PO QHS [facility] Last Admin: 08/20/21 21:05 Dose: 325 mg Documented by: Citalopram Hydrobromide (Citalopram 20 Mg Tablet) 20 mg PO QDAY [facility] Last Admin: 08/21/21 10:39 Dose: 20 mg Documented by: Docusate Sodium (Docusate Sodium 100 Mg Capsule) 100 mg PO BID [facility] Last Admin: 08/21/21 10:40 Dose: Not Given Documented by: Enoxaparin Sodium (Enoxaparin 40 Mg/0.4 Ml Syringe) 40 mg SQ DAILY [facility] Last Admin: 08/21/21 10:39 Dose: 40 mg Documented by: Hydralazine HCl (Hydralazine 20 Mg/Ml Vial) 0 mg IV Q2HP PRN PRN Reason: Hypertension Levothyroxine Sodium (Levothyroxine Sodium 112 Mcg Tablet) 112 mcg PO QHS [facility] Last Admin: 08/20/21 21:05 Dose: 112 mcg Documented by: Loperamide HCl (Loperamide 2 Mg Capsule) 2 mg PO PRN PRN PRN Reason: Diarrhea Last Admin: 08/20/21 00:49 Dose: 2 mg Documented by: Metoprolol Succinate (Metoprolol Succinate 25 Mg Tab.Xl.24h) 25 mg PO QHS [facility] Last Admin: 08/20/21 21:05 Dose: 25 mg Documented by: Morphine Sulfate (Morphine 4 Mg/Ml Vial) 4 mg IV Q4HP PRN; Protocol PRN Reason: Per Pain Protocol Ondansetron HCl (Ondansetron 4 Mg/2 Ml Vial) 4 mg IV Q6HP PRN PRN Reason: Nausea And Vomiting Oxycodone HCl (Oxycodone Hcl 5 Mg Tablet) 5 mg PO Q4HP PRN; Protocol PRN Reason: Per Pain Protocol Last Admin: 08/20/21 08:02 Dose: 5 mg Documented by: Carbidopa-Levodopa- (Entacapone 1 Tab)) 1 dose PO TID [facility] Last Admin: 08/21/21 10:39 Dose: 1 dose Documented by: Ropinirole Er 8 Mg (Tablets) 1 dose PO [facility] Last Admin: 08/20/21 21:05 Dose: 1 dose Documented by: Senna (Sennosides 1 Tablet) 2 tab PO [facility] Last Admin: 08/20/21 21:04 Dose: Not Given Documented by: Simvastatin (Simvastatin 20 Mg Tablet) 20 mg PO QHS [facility] Last Admin: 08/20/21 21:05 Dose: 20 mg Documented by: Zolpidem Tartrate (Zolpidem 5 Mg Tablet) 5 mg PO HSP PRN PRN Reason: Insomnia A/P Assessment and plan (1) Hypertension, essential: Status: Chronic (2) Restless legs syndrome: Status: Chronic (3) Parkinsons disease: Status: Chronic Comment: 2010 (4) Hyperlipidemia: Status: Chronic Qualifiers: Hyperlipidemia type: unspecified Qualified Code(s): E78.5 - Hyperli pidemia, unspecified (5) Hypothyroidism: Status: Chronic Qualifiers: Hypothyroidism type: acquired Qualified Code(s): E03.9 - Hypothyroidism, unspecified (6) Colitis: Status: Acute Narrative A/P Narrative: Assessment and Plans: 1. Colitis, descending, sigmoid, and rectal: Stays in inpatient med surg C Diff PCR re-test negative Remove contact isolation Finished antibiotics therapy including ciprofloxacin and metronidazole Imodium PRN loose stool Oxycodone as needed moderate pain Morphine IV as needed severe pain Dysphagia level 5 diet Saline lock #2 history of essential hypertension: Given soft blood pressure, will hold any oral antihypertensives including beta- albert #3 mixed dyslipidemia: Continue statin therapy 4. Parkinson disease: Continue Sinemet 5. Restless leg syndrome: Continue ropinirole 6. Hypothyroidism: Continue oral thyroid replacement GI prophylaxis: Not currently indicated DVT prophylaxis: Lovenox CODE STATUS: DNI DNR Prognosis: Stable Dispositions: Inpatient MedSurg; awaiting placement Time Spent With Patient Time: Total time spent is greater than 50% in coordination of care (as documented) at patient's floor/unit and/or counseling patient: QUALITY VTE Deep Vein Thrombosis/Pulmonary Embolism Present on Admission: No
[2021-08-21] MEDS: ASPIRIN 325 MG ENTERIC COATED TABLET PO SCH (20:40)
[2021-08-21] MEDS: SIMVASTATIN 20 MG TABLET PO SCH (20:40)
[2021-08-21] MEDS: LEVOTHYROXINE SODIUM 112 MCG TABLET PO SCH (20:40)
[2021-08-21] MEDS: SENNOSIDES 1 TABLET PO SCH (20:40)
[2021-08-21] MEDS: ROPINIROLE 8 MG PO SCH (20:40)
[2021-08-21] MEDS: METOPROLOL SUCCINATE 25 MG TAB.XL.24H PO SCH (20:40)
[2021-08-22] MEDS: DOCUSATE SODIUM 100 MG CAPSULE PO SCH ×2 (12:01→21:37)
[2021-08-22] MEDS: CARBIDOPA LEVODOPA ENTACAPONE PO SCH ×3 (12:04→21:37)
[2021-08-22] MEDS: CITALOPRAM 20 MG TABLET PO SCH (12:04)
[2021-08-22] MEDS: ENOXAPARIN 40 MG/0.4 ML SYRINGE SQ SCH (12:06)
--- NOTE | 2021-08-22 12:35 | Internal Med Progress Note ---
SUBJECTIVE Subjective Patient information: Note initiated : 08/22/21 at 12:34 pm Service Date, if different from initiated Date: [] Patient: Ti Hallman a 81 y/o M admitted on 08/11/21 for ABD pain, diarrhea. Chief Complaint: [colitis] Interval history: History of present illness: Mr. Hallman is a 81 year old M history of restless leg syndrome, Parkinson disease, essential HTN, mixed dyslipidemia, hypothyroidism, presenting with 2-day history of diarrhea and abdominal pain. There was no prior similar episode. According to the family, yesterday patient developed acute onset of the multiple episode of watery diarrhea, in addition to diffuse abdominal pain. The pain is graded as moderate to severe, cramping, constant. No associated fever or shaking chills or diaphoresis. No reported nausea vomiting. No alleviating or exacerbating facto rs. Decreased appetite since yesterday. Vital signs at ED presentations significant for mild bradycardia with heart rate in the 50s, as well as softer blood pressure as low as 80s over 50s mmHg. Labs significant for leukocytosis with WBC 17.1. Lactic acid elevated 2.4. Initial CT screening negative. CT abdomen pelvis showing thickened colonic wall involving the rectum sigmoid colon and descending colon suggestive of colitis. 08/12: Afebrile overnight. C diff toxin PCR retest negative. Blood culture negative to date. Subjective not obtained due to clinical situations. 08/13: Afebrile overnight. Still has 10 BMs overnight as per patient. Denies abdominal pain. Denies fever chills or sweating. 08/14 Patient found down to the bathroom. Was felt he might of bumped his head. CT head unremarkable. Leukocytosis resolved. No complaints other than some diarrhea 08/15 No overnight event or complaints. Patient states he feels his diarrhea is improving. 08/16 No new complaints. No overnight events. Awaiting placement. 08/17 No changes. No overnight events. Awaiting placement. 08/18 No overnight event or new complaints, confusion at baseline. Awaiting placement. 08/19 No changes, awaiting placement 10 Stools are soft and occasional loose 08/21: There was no major overnight events. Pending placement. There is no complaints from patient. 08/22: There was no major overnight events. Pending placement. There is no complaints from patient. Constitutional Vitals: Vital Signs Temp Pulse Resp BP Pulse Ox 36.1 C 62 20 113/59 94 08/22/21 07:35 08/22/21 02:50 08/22/21 07:35 08/22/21 07:35 08/22/21 07:35 Period Temp Pulse Resp BP Sys/Van Pulse Ox Last 24 Hr 36.0 C-36.4 C 61-72 20-20 113-145/59-76 93-96 Intake and Output 08/21/21 08/22/21 08/22/21 21:59 05:59 13:59 Intake Total 890 450 Output Total 404 152 Balance 486 298 Weight 61.87 kg Intake & Output: Intake & Output 08/21/21 08/22/21 08/22/21 21:59 05:59 13:59 Intake Total 890 450 Output Total 404 152 Balance 486 298 Weight 61.87 kg Intake: Oral 890 450 Output: Void Amount 400 150 # of times incontinent of urine 4 2 Other: Meal Dinner Breakfast Percent of Meal Consumed 100% 75% Feeding Ability Independent Urine Appearance Clear Clear Urine Color Dark Yellow Dark Yellow Stool Size Moderate Moderate Stool Color Brown Brown Stool Consistency Soft Soft # Voids 1 # Bowel Movements 2 1 General appearance: cooperative and no acute distress Head Head exam: Present atraumatic and normocephalic Eye Eye exam: Present EOMI and PERRL ENT ENT exam: Present mucous membranes moist, normal exam and normal external ear exam Neck Neck exam: Present normal inspection; Absent lymphadenopathy, tenderness and thyromegaly Respiratory Respiratory exam: Absent accessory muscle use, respiratory distress and wheezes Cardiovascular Cardiovascular exam: Present normal rate and rhythm; Absent JVD GI/Abdominal GI/Abdominal exam: Present normal bowel sounds and soft; Absent organomegaly and tenderness Rectal Rectal exam: Present deferred Extremities Exam Extremities exam: Present full ROM, normal capillary refill and normal inspection; Absent tenderness Neurological Exam Neurological exam: Present alert, CN II-XII intact and oriented X3; Absent motor sensory deficit Psychiatric Psychiatric exam: Present normal affect and normal mood; Absent anxious and depressed Skin Skin exam: Present dry and intact OBJ DATA Labs CBC & Chem 7: 08/13/21 05:32 08/13/21 05:32 Meds: Medications Acetaminophen (Acetaminophen 325 Mg Tablet) 650 mg PO Q6HP PRN; Protocol PRN Reason: Per Pain Protocol/Fever > 101 Last Admin: 10/06/21 00:49 Dose: 650 mg Documented by: Aspirin (Aspirin 325 Mg Enteric Coated Tablet) 325 mg PO QHS [facility] Last Admin: 08/21/21 20:40 Dose: 325 mg Documented by: Citalopram Hydrobromide (Citalopram 20 Mg Tablet) 20 mg PO QDAY [facility] Last Admin: 08/22/21 12:04 Dose: 20 mg Documented by: Docusate Sodium (Docusate Sodium 100 Mg Capsule) 100 mg PO BID [facility] Last Admin: 08/22/21 12:01 Dose: Not Given Documented by: Enoxaparin Sodium (Enoxaparin 40 Mg/0.4 Ml Syringe) 40 mg SQ DAILY [facility] Last Admin: 08/22/21 12:06 Dose: 40 mg Documented by: Hydralazine HCl (Hydralazine 20 Mg/Ml Vial) 0 mg IV Q2HP PRN PRN Reason: Hypertension Levothyroxine Sodium (Levothyroxine Sodium 112 Mcg Tablet) 112 mcg PO QHS [facility] Last Admin: 08/21/21 20:40 Dose: 112 mcg Documented by: Loperamide HCl (Loperamide 2 Mg Capsule) 2 mg PO PRN PRN PRN Reason: Diarrhea Last Admin: 08/20/21 00:49 Dose: 2 mg Documented by: Metoprolol Succinate (Metoprolol Succinate 25 Mg Tab.Xl.24h) 25 mg PO QHS [facility] Last Admin: 08/21/21 20:40 Dose: 25 mg Documented by: Morphine Sulfate (Morphine 4 Mg/Ml Vial) 4 mg IV Q4HP PRN; Protocol PRN Reason: Per Pain Protocol Ondansetron HCl (Ondansetron 4 Mg/2 Ml Vial) 4 mg IV Q6HP PRN PRN Reason: Nausea And Vomiting Oxycodone HCl (Oxycodone Hcl 5 Mg Tablet) 5 mg PO Q4HP PRN; Protocol PRN Reason: Per Pain Protocol Last Admin: 08/20/21 08:02 Dose: 5 mg Documented by: Carbidopa-Levodopa- (Entacapone 1 Tab)) 1 dose PO TID [facility] Last Admin: 08/22/21 12:04 Dose: 1 dose Documented by: Ropinirole Er 8 Mg (Tablets) 1 dose PO [facility] Last Admin: 08/21/21 20:40 Dose: 1 dose Documented by: Senna (Sennosides 1 Tablet) 2 tab PO HS [facility] Last Admin: 08/21/21 20:40 Dose: Not Given Documented by: Simvastatin (Simvastatin 20 Mg Tablet) 20 mg PO QHS [facility] Last Admin: 08/21/21 20:40 Dose: 20 mg Documented by: Zolpidem Tartrate (Zolpidem 5 Mg Tablet) 5 mg PO HSP PRN PRN Reason: Insomnia A/P Assessment and plan (1) Hypertension, essential: Status: Chronic (2) Restless legs syndrome: Status: Chronic (3) Parkinsons disease: Status: Chronic Comment: 2010 (4) Hyperlipidemia: Status: Chronic Qualifiers: Hyperlipidemia type: unspecified Qualified Code(s): E78.5 - Hyperlipi demia, unspecified (5) Hypothyroidism: Status: Chronic Qualifiers: Hypothyroidism type: acquired Qualified Code(s): E03.9 - Hypothyroidism, unspecified (6) Colitis: Status: Acute Narrative A/P Narrative: Assessment and Plans: 1. Colitis, descending, sigmoid, and rectal: Stays in inpatient med surg C Diff PCR re-test negative Remove contact isolation Finished antibiotics therapy including ciprofloxacin and metronidazole Imodium PRN loose stool Oxycodone as needed moderate pain Morphine IV as needed severe pain Dysphagia level 5 diet Saline lock #2 history of essential hypertension: Given soft blood pressure, will hold any oral antihypertensives including beta- albert #3 mixed dyslipidemia: Continue statin therapy 4. Parkinson disease: Continue Sinemet 5. Restless leg syndrome: Continue ropinirole 6. Hypothyroidism: Continue oral thyroid replacement GI prophylaxis: Not currently indicated DVT prophylaxis: Lovenox CODE STATUS: DNI DNR Prognosis: Stable Dispositions: Inpatient MedSurg; awaiting placement Time Spent With Patient Time: Total time spent is greater than 50% in coordination of care (as documented) at patient's floor/unit and/or counseling patient: QUALITY VTE Deep Vein Thrombosis/Pulmonary Embolism Present on Admission: No
[2021-08-22] MEDS: SENNOSIDES 1 TABLET PO SCH (21:37)
[2021-08-22] MEDS: METOPROLOL SUCCINATE 25 MG TAB.XL.24H PO SCH (21:38)
[2021-08-22] MEDS: ROPINIROLE 8 MG PO SCH (21:38)
[2021-08-22] MEDS: SIMVASTATIN 20 MG TABLET PO SCH (21:38)
[2021-08-22] MEDS: ASPIRIN 325 MG ENTERIC COATED TABLET PO SCH (21:38)
[2021-08-22] MEDS: LEVOTHYROXINE SODIUM 112 MCG TABLET PO SCH (21:38)
[2021-08-23] MEDS: DOCUSATE SODIUM 100 MG CAPSULE PO SCH ×2 (08:57→21:24)
[2021-08-23] MEDS: CARBIDOPA LEVODOPA ENTACAPONE PO SCH ×3 (08:59→21:22)
[2021-08-23] MEDS: CITALOPRAM 20 MG TABLET PO SCH (08:59)
[2021-08-23] MEDS: ENOXAPARIN 40 MG/0.4 ML SYRINGE SQ SCH (09:00)
--- NOTE | 2021-08-23 12:24 | Internal Med Progress Note ---
SUBJECTIVE Subjective Patient information: Note initiated : 08/23/21 at 12:23 pm Service Date, if different from initiated Date: [] Patient: Ti Hallman a 81 y/o M admitted on 08/11/21 for ABD pain, diarrhea. Chief Complaint: [colitis] Interval history: History of present illness: Mr. Hallman is a 81 year old M history of restless leg syndrome, Parkinson disease, essential HTN, mixed dyslipidemia, hypothyroidism, presenting with 2-day history of diarrhea and abdominal pain. There was no prior similar episode. According to the family, yesterday patient developed acute onset of the multiple episode of watery diarrhea, in addition to diffuse abdominal pain. The pain is graded as moderate to severe, cramping, constant. No associated fever or shaking chills or diaphoresis. No reported nausea vomiting. No alleviating or exacerbating facto rs. Decreased appetite since yesterday. Vital signs at ED presentations significant for mild bradycardia with heart rate in the 50s, as well as softer blood pressure as low as 80s over 50s mmHg. Labs significant for leukocytosis with WBC 17.1. Lactic acid elevated 2.4. Initial CT screening negative. CT abdomen pelvis showing thickened colonic wall involving the rectum sigmoid colon and descending colon suggestive of colitis. 08/12: Afebrile overnight. C diff toxin PCR retest negative. Blood culture negative to date. Subjective not obtained due to clinical situations. 08/13: Afebrile overnight. Still has 10 BMs overnight as per patient. Denies abdominal pain. Denies fever chills or sweating. 08/14 Patient found down to the bathroom. Was felt he might of bumped his head. CT head unremarkable. Leukocytosis resolved. No complaints other than some diarrhea 08/15 No overnight event or complaints. Patient states he feels his diarrhea is improving. 08/16 No new complaints. No overnight events. Awaiting placement. 08/17 No changes. No overnight events. Awaiting placement. 08/18 No overnight event or new complaints, confusion at baseline. Awaiting placement. 08/19 No changes, awaiting placement 10 Stools are soft and occasional loose 08/21: There was no major overnight events. Pending placement. There is no complaints from patient. 08/22: There was no major overnight events. Pending placement. There is no complaints from patient. 08/23: There was no major overnight events. Pending placement. There is no complaints from patient. Constitutional Vitals: Vital Signs Temp Pulse Resp BP Pulse Ox 36.3 C 64 18 108/63 94 08/23/21 11:32 08/23/21 11:32 08/23/21 11:32 08/23/21 11:32 08/23/21 11:32 Period Temp Pulse Resp BP Sys/Van Pulse Ox Last 24 Hr 36.1 C-37.1 C 60-70 16-20 102-127/48-74 93-95 Intake and Output 08/22/21 08/23/21 08/23/21 21:59 05:59 13:59 Intake Total 300 Output Total 52 152 1 Balance 248 -152 -1 Weight 62.227 kg Intake & Output: Intake & Output 08/22/21 08/23/21 08/23/21 21:59 05:59 13:59 Intake Total 300 Output Total 52 152 1 Balance 248 -152 -1 Weight 62.227 kg Intake: Oral 300 Output: Urine Catheter Amount 50 Void Amount 150 # of times incontinent of urine 2 2 1 Other: Meal Dinner Percent of Meal Consumed 100% Feeding Ability Assist with Tray Set Up Urine Appearance Clear Clear Clear Urine Color Bright Yellow [place] Dark Yellow Urine Odor Strong Normal Stool Size Small Smear Small Stool Color Brown Brown Brown Stool Consistency Formed Soft # Voids 1 1 # Bowel Movements 1 # of times incontinent of 1 Bowels General appearance: cooperative and no acute distress Head Head exam: Present atraumatic and normocephalic Eye Eye exam: Present EOMI and PERRL ENT ENT exam: Present mucous membranes moist, normal exam and normal external ear exam Neck Neck exam: Present normal inspection; Absent lymphadenopathy, tenderness and thyromegaly Respiratory Respiratory exam: Absent accessory muscle use, respiratory distress and wheezes Cardiovascular Cardiovascular exam: Present normal rate and rhythm; Absent JVD GI/Abdominal GI/Abdominal exam: Present normal bowel sounds and soft; Absent organomegaly and tenderness Rectal Rectal exam: Present deferred Extremities Exam Extremities exam: Present full ROM, normal capillary refill and normal inspection; Absent tenderness Neurological Exam Neurological exam: Present alert, CN II-XII intact and oriented X3; Absent motor sensory deficit Psychiatric Psychiatric exam: Present normal affect and normal mood; Absent anxious and depressed Skin Skin exam: Present dry and intact OBJ DATA Labs CBC & Chem 7: 08/13/21 05:32 08/13/21 05:32 Meds: Medications Acetaminophen (Acetaminophen 325 Mg Tablet) 650 mg PO Q6HP PRN; Protocol PRN Reason: Per Pain Protocol/Fever > 101 Last Admin: 08/20/21 00:49 Dose: 650 mg Documented by: Aspirin (Aspirin 325 Mg Enteric Coated Tablet) 325 mg PO QHS [facility] Last Admin: 08/22/21 21:38 Dose: 325 mg Documented by: Citalopram Hydrobromide (Citalopram 20 Mg Tablet) 20 mg PO QDAY [facility] Last Admin: 08/23/21 08:59 Dose: 20 mg Documented by: Docusate Sodium (Docusate Sodium 100 Mg Capsule) 100 mg PO BID [facility] Last Admin: 08/23/21 08:57 Dose: Not Given Documented by: Enoxaparin Sodium (Enoxaparin 40 Mg/0.4 Ml Syringe) 40 mg SQ DAILY [facility] Last Admin: 08/23/21 09:00 Dose: 40 mg Documented by: Hydralazine HCl (Hydralazine 20 Mg/Ml Vial) 0 mg IV Q2HP PRN PRN Reason: Hypertension Levothyroxine Sodium (Levothyroxine Sodium 112 Mcg Tablet) 112 mcg PO QHS [facility] Last Admin: 08/22/21 21:38 Dose: 112 mcg Documented by: Loperamide HCl (Loperamide 2 Mg Capsule) 2 mg PO PRN PRN PRN Reason: Diarrhea Last Admin: 08/20/21 00:49 Dose: 2 mg Documented by: Metoprolol Succinate (Metoprolol Succinate 25 Mg Tab.Xl.24h) 25 mg PO QHS [facility] Last Admin: 08/22/21 21:38 Dose: 25 mg Documented by: Morphine Sulfate (Morphine 4 Mg/Ml Vial) 4 mg IV Q4HP PRN; Protocol PRN Reason: Per Pain Protocol Ondansetron HCl (Ondansetron 4 Mg/2 Ml Vial) 4 mg IV Q6HP PRN PRN Reason: Nausea And Vomiting Oxycodone HCl (Oxycodone Hcl 5 Mg Tablet) 5 mg PO Q4HP PRN; Protocol PRN Reason: Per Pain Protocol Last Admin: 08/20/21 08:02 Dose: 5 mg Documented by: Carbidopa-Levodopa- (Entacapone 1 Tab)) 1 dose PO TID [facility] Last Admin: 08/23/21 08:59 Dose: 1 dose Documented by: Ropinirole Er 8 Mg (Tablets) 1 dose PO [facility] Last Admin: 08/22/21 21:38 Dose: 1 dose Documented by: Senna (Sennosides 1 Tablet) 2 tab PO [facility] Last Admin: 08/22/21 21:37 Dose: Not Given Documented by: Simvastatin (Simvastatin 20 Mg Tablet) 20 mg PO QHS [facility] Last Admin: 08/22/21 21:38 Dose: 20 mg Documented by: Zolpidem Tartrate (Zolpidem 5 Mg Tablet) 5 mg PO HSP PRN PRN Reason: Insomnia A/P Assessment and plan (1) Hypertension, essential: Status: Chronic (2) Restless legs syndrome: Status: Chronic (3) Parkinsons disease: Status: Chronic Comment: 2010 (4) Hyperlipidemia: Status: Chronic Qualifiers: Hyperlipidemia type: unspecified Qualified Code(s): E78.5 - Hyperlipidemia, unspecified (5) Hypothyroidism: Status: Chronic Qualifiers: Hypothyroidism type: acquired Qualified Code(s): E03.9 - Hypothyroidism, unspecified (6) Colitis: Status: Acute Narrative A/P Narrative: Assessment and Plans: 1. Colitis, descending, sigmoid, and rectal: Stays in inpatient med surg C Diff PCR re-test negative Remove contact isolation Finished antibiotics therapy including ciprofloxacin and metronidazole Imodium PRN loose stool Oxycodone as needed moderate pain Morphine IV as needed severe pain Dysphagia level 5 diet Saline lock #2 history of essential hypertension: Given soft blood pressure, will hold any oral antihypertensives including beta- albert #3 mixed dyslipidemia: Continue statin therapy 4. Parkinson disease: Continue Sinemet 5. Restless leg syndrome: Continue ropinirole 6. Hypothyroidism: Continue oral thyroid replacement GI prophylaxis: Not currently indicated DVT prophylaxis: Lovenox CODE STATUS: DNI DNR Prognosis: Stable Dispositions: Inpatient MedSurg; awaiting placement Time Spent With Patient Time: Total time spent is greater than 50% in coordination of care (as documented) at patient's floor/unit and/or counseling patient: QUALITY VTE Deep Vein Thrombosis/Pulmonary Embolism Present on Admission: No
[2021-08-23] MEDS: oxyCODONE HCL 5 MG TABLET PO PRN (18:55)
[2021-08-23] MEDS: ROPINIROLE 8 MG PO SCH (21:23)
[2021-08-23] MEDS: ASPIRIN 325 MG ENTERIC COATED TABLET PO SCH (21:23)
[2021-08-23] MEDS: SIMVASTATIN 20 MG TABLET PO SCH (21:23)
[2021-08-23] MEDS: METOPROLOL SUCCINATE 25 MG TAB.XL.24H PO SCH (21:23)
[2021-08-23] MEDS: LEVOTHYROXINE SODIUM 112 MCG TABLET PO SCH (21:23)
[2021-08-23] MEDS: SENNOSIDES 1 TABLET PO SCH (21:24)
[2021-08-24] MEDS: ENOXAPARIN 40 MG/0.4 ML SYRINGE SQ SCH (09:12)
[2021-08-24] MEDS: CITALOPRAM 20 MG TABLET PO SCH (09:12)
[2021-08-24] MEDS: DOCUSATE SODIUM 100 MG CAPSULE PO SCH ×2 (09:12→20:33)
[2021-08-24] MEDS: CARBIDOPA LEVODOPA ENTACAPONE PO SCH ×3 (09:12→20:41)
--- NOTE | 2021-08-24 12:38 | Internal Med Progress Note ---
SUBJECTIVE Subjective Patient information: Note initiated : 08/24/21 at 12:37 pm Service Date, if different from initiated Date: [] Patient: Ti Hallman a 81 y/o M admitted on 08/11/21 for ABD pain, diarrhea. Chief Complaint: [Colitis] Interval history: History of present illness: Mr. Hallman is a 81 year old M history of restless leg syndrome, Parkinson disease, essential HTN, mixed dyslipidemia, hypothyroidism, presenting with 2-day history of diarrhea and abdominal pain. There was no prior similar episode. According to the family, yesterday patient developed acute onset of the multiple episode of watery diarrhea, in addition to diffuse abdominal pain. The pain is graded as moderate to severe, cramping, constant. No associated fever or shaking chills or diaphoresis. No reported nausea vomiting. No alleviating or exacerbating facto rs. Decreased appetite since yesterday. Vital signs at ED presentations significant for mild bradycardia with heart rate in the 50s, as well as softer blood pressure as low as 80s over 50s mmHg. Labs significant for leukocytosis with WBC 17.1. Lactic acid elevated 2.4. Initial CT screening negative. CT abdomen pelvis showing thickened colonic wall involving the rectum sigmoid colon and descending colon suggestive of colitis. 08/12: Afebrile overnight. C diff toxin PCR retest negative. Blood culture negative to date. Subjective not obtained due to clinical situations. 08/13: Afebrile overnight. Still has 10 BMs overnight as per patient. Denies abdominal pain. Denies fever chills or sweating. 08/14 Patient found down to the bathroom. Was felt he might of bumped his head. CT head unremarkable. Leukocytosis resolved. No complaints other than some diarrhea 08/15 No overnight event or complaints. Patient states he feels his diarrhea is improving. 08/16 No new complaints. No overnight events. Awaiting placement. 08/17 No changes. No overnight events. Awaiting placement. 08/18 No overnight event or new complaints, confusion at baseline. Awaiting placement. 08/19 No changes, awaiting placement 10 Stools are soft and occasional loose 08/21: There was no major overnight events. Pending placement. There is no complaints from patient. 08/22: There was no major overnight events. Pending placement. There is no complaints from patient. 08/23: There was no major overnight events. Pending placement. There is no complaints from patient. Constitutional Vitals: Vital Signs Temp Pulse Resp BP Pulse Ox 36.1 C 65 16 110/69 95 08/24/21 11:32 08/24/21 11:32 08/24/21 11:32 08/24/21 11:32 08/24/21 11:32 Period Temp Pulse Resp BP Sys/Van Pulse Ox Last 24 Hr 36.0 C-36.5 C 59-66 14-20 100-134/54-69 93-96 Intake and Output 08/23/21 08/24/21 08/24/21 21:59 05:59 13:59 Intake Total 200 360 Output Total 127 2 200 Balance 73 -2 160 Weight 62.171 kg Intake & Output: Intake & Output 08/23/21 08/24/21 08/24/21 21:59 05:59 13:59 Intake Total 200 360 Output Total 127 2 200 Balance 73 -2 160 Weight 62.171 kg Intake: Oral 200 360 Output: Void Amount 126 200 # of times incontinent of urine 1 2 Other: Meal Dinner 2 applesauces Breakfast Percent of Meal Consumed 100% 100% Feeding Ability Assist with Tray Set Up Independent Urine Appearance Clear Urine Color [place] Urine Odor Normal Stool Size Moderate Moderate Stool Color Brown Brown Stool Consistency Soft Soft # Voids 1 1 # Bowel Movements 1 1 # of times incontinent of 1 Bowels General appearance: cooperative and no acute distress Head Head exam: Present atraumatic and normocephalic Additional comments: Masked facies Eye Eye exam: Present EOMI and PERRL ENT ENT exam: Present mucous membranes moist, normal exam and normal external ear exam Neck Neck exam: Present normal inspection; Absent lymphadenopathy, tenderness and thyromegaly Respiratory Respiratory exam: Absent accessory muscle use, respiratory distress and wheezes Cardiovascular Cardiovascular exam: Present normal rate and rhythm; Absent JVD GI/Abdominal GI/Abdominal exam: Present normal bowel sounds and soft; Absent organomegaly and tenderness Rectal Rectal exam: Present deferred Extremities Exam Extremities exam: Present full ROM, normal capillary refill and normal inspection; Absent tenderness Neurological Exam Neurological exam: Present alert, CN II-XII intact and oriented X3; Absent motor sensory deficit Psychiatric Psychiatric exam: Present normal affect and normal mood; Absent anxious and depressed Skin Skin exam: Present dry and intact OBJ DATA Labs CBC & Chem 7: 08/13/21 05:32 08/13/21 05:32 Meds: Medications Acetaminophen (Acetaminophen 325 Mg Tablet) 650 mg PO Q6HP PRN; Protocol PRN Reason: Per Pain Protocol/Fever > 101 Last Admin: 08/20/21 00:49 Dose: 650 mg Documented by: Aspirin (Aspirin 325 Mg Enteric Coated Tablet) 325 mg PO QHS [facility] Last Admin: 08/23/21 21:23 Dose: 325 mg Documented by: Citalopram Hydrobromide (Citalopram 20 Mg Tablet) 20 mg PO QDAY [facility] Last Admin: 08/24/21 09:12 Dose: 20 mg Documented by: Docusate Sodium (Docusate Sodium 100 Mg Capsule) 100 mg PO BID [facility] Last Admin: 08/24/21 09:12 Dose: Not Given Documented by: Enoxaparin Sodium (Enoxaparin 40 Mg/0.4 Ml Syringe) 40 mg SQ DAILY [facility] Last Admin: 08/24/21 09:12 Dose: 40 mg Documented by: Hydralazine HCl (Hydralazine 20 Mg/Ml Vial) 0 mg IV Q2HP PRN PRN Reason: Hypertension Levothyroxine Sodium (Levothyroxine Sodium 112 Mcg Tablet) 112 mcg PO QHS [facility] Last Admin: 08/23/21 21:23 Dose: 112 mcg Documented by: Loperamide HCl (Loperamide 2 Mg Capsule) 2 mg PO PRN PRN PRN Reason: Diarrhea Last Admin: 08/20/21 00:49 Dose: 2 mg Documented by: Metoprolol Succinate (Metoprolol Succinate 25 Mg Tab.Xl.24h) 25 mg PO QHS [facility] Last Admin: 08/23/21 21:23 Dose: 25 mg Documented by: Morphine Sulfate (Morphine 4 Mg/Ml Vial) 4 mg IV Q4HP PRN; Protocol PRN Reason: Per Pain Protocol Ondansetron HCl (Ondansetron 4 Mg/2 Ml Vial) 4 mg IV Q6HP PRN PRN Reason: Nausea And Vomiting Oxycodone HCl (Oxycodone Hcl 5 Mg Tablet) 5 mg PO Q4HP PRN; Protocol PRN Reason: Per Pain Protocol Last Admin: 08/23/21 18:55 Dose: 5 mg Documented by: Carbidopa-Levodopa- (Entacapone 1 Tab)) 1 dose PO TID [facility] Last Admin: 08/24/21 09:12 Dose: 1 dose Documented by: Ropinirole Er 8 Mg (Tablets) 1 dose PO [facility] Last Admin: 08/23/21 21:23 Dose: 1 dose Documented by: Senna (Sennosides 1 Tablet) 2 tab PO [facility] Last Admin: 08/23/21 21:24 Dose: Not Given Documented by: Simvastatin (Simvastatin 20 Mg Tablet) 20 mg PO QHS [facility] Last Admin: 08/23/21 21:23 Dose: 20 mg Documented by: Zolpidem Tartrate (Zolpidem 5 Mg Tablet) 5 mg PO HSP PRN PRN Reason: Insomnia A/P Assessment and plan (1) Hypertension, essential: Status: Chronic (2) Restless legs syndrome: Status: Chronic (3) Parkinsons disease: Status: Chronic Comment: 2010 (4) Hyperlipidemia: Status: Chronic Qualifiers: Hyperlipidemia type: unspecified Qualified Code(s): E78.5 - Hyperlipidemia, unspecified (5) Hypothyroidism: Status: Chronic Qualifiers: Hypothyroidism type: acquired Qualified Code(s): E03.9 - Hypothyroidism, unspecified (6) Colitis: Status: Acute Narrative A/P Narrative: Assessment and Plans: 1. Colitis, descending, sigmoid, and rectal: Stays in inpatient med surg C Diff PCR re-test negative Remove contact isolation Finished antibiotics therapy including ciprofloxacin and metronidazole Imodium PRN loose stool Oxycodone as needed moderate pain Morphine IV as needed severe pain Dysphagia level 5 diet Saline lock #2 history of essential hypertension: Given soft blood pressure, will hold any oral antihypertensives including beta- albert #3 mixed dyslipidemia: Continue statin therapy 4. Parkinson disease: Continue Sinemet 5. Restless leg syndrome: Continue ropinirole 6. Hypothyroidism: Continue oral thyroid replacement GI prophylaxis: Not currently indicated DVT prophylaxis: Lovenox CODE STATUS: DNI DNR Prognosis: Stable Dispositions: Inpatient MedSurg; awaiting placement Time Spent With Patient Time: Total time spent is greater than 50% in coordination of care (as documented) at patient's floor/unit and/or counseling patient: QUALITY VTE Deep Vein Thrombosis/Pulmonary Embolism Present on Admission: No
[2021-08-24] MEDS: oxyCODONE HCL 5 MG TABLET PO PRN ×2 (14:48→21:20)
[2021-08-24] MEDS: SENNOSIDES 1 TABLET PO SCH (20:34)
[2021-08-24] MEDS: CYCLOBENZAPRINE 10 MG TABLET PO PRN (20:41)
[2021-08-24] MEDS: METOPROLOL SUCCINATE 25 MG TAB.XL.24H PO SCH (20:42)
[2021-08-24] MEDS: LEVOTHYROXINE SODIUM 112 MCG TABLET PO SCH (20:42)
[2021-08-24] MEDS: ROPINIROLE 8 MG PO SCH (20:42)
[2021-08-24] MEDS: ASPIRIN 325 MG ENTERIC COATED TABLET PO SCH (20:42)
[2021-08-24] MEDS: SIMVASTATIN 20 MG TABLET PO SCH (20:43)
[2021-08-25] MEDS: DOCUSATE SODIUM 100 MG CAPSULE PO SCH ×2 (08:36→21:29)
[2021-08-25] MEDS: CARBIDOPA LEVODOPA ENTACAPONE PO SCH ×3 (08:37→21:27)
[2021-08-25] MEDS: CITALOPRAM 20 MG TABLET PO SCH (08:37)
[2021-08-25] MEDS: ENOXAPARIN 40 MG/0.4 ML SYRINGE SQ SCH (08:43)
--- NOTE | 2021-08-25 12:55 | Internal Med Progress Note ---
SUBJECTIVE Subjective Patient information: Note initiated : 08/25/21 at 12:54 pm Service Date, if different from initiated Date: [] Patient: Ti Hallman a 81 y/o M admitted on 08/11/21 for ABD pain, diarrhea. Chief Complaint: [colitis] Interval history: History of present illness: Mr. Hallman is a 81 year old M history of restless leg syndrome, Parkinson disease, essential HTN, mixed dyslipidemia, hypothyroidism, presenting with 2-day history of diarrhea and abdominal pain. There was no prior similar episode. According to the family, yesterday patient developed acute onset of the multiple episode of watery diarrhea, in addition to diffuse abdominal pain. The pain is graded as moderate to severe, cramping, constant. No associated fever or shaking chills or diaphoresis. No reported nausea vomiting. No alleviating or exacerbating facto rs. Decreased appetite since yesterday. Vital signs at ED presentations significant for mild bradycardia with heart rate in the 50s, as well as softer blood pressure as low as 80s over 50s mmHg. Labs significant for leukocytosis with WBC 17.1. Lactic acid elevated 2.4. Initial CT screening negative. CT abdomen pelvis showing thickened colonic wall involving the rectum sigmoid colon and descending colon suggestive of colitis. 08/12: Afebrile overnight. C diff toxin PCR retest negative. Blood culture negative to date. Subjective not obtained due to clinical situations. 08/13: Afebrile overnight. Still has 10 BMs overnight as per patient. Denies abdominal pain. Denies fever chills or sweating. 08/14 Patient found down to the bathroom. Was felt he might of bumped his head. CT head unremarkable. Leukocytosis resolved. No complaints other than some diarrhea 08/15 No overnight event or complaints. Patient states he feels his diarrhea is improving. 08/16 No new complaints. No overnight events. Awaiting placement. 08/17 No changes. No overnight events. Awaiting placement. 08/18 No overnight event or new complaints, confusion at baseline. Awaiting placement. 08/19 No changes, awaiting placement 10 Stools are soft and occasional loose 08/21: There was no major overnight events. Pending placement. There is no complaints from patient. 08/22: There was no major overnight events. Pending placement. There is no complaints from patient. 08/23: There was no major overnight events. Pending placement. There is no complaints from patient. 08/24: There was no major overnight events. Pending placement. There is no complaints from patient. 08/25: There was no major overnight events. Pending placement. There is no complaints from patient. Constitutional Vitals: Vital Signs Temp Pulse Resp BP Pulse Ox 36.4 C 63 20 105/63 92 08/25/21 08:00 08/25/21 08:00 08/25/21 08:00 08/25/21 08:00 08/25/21 08:00 Period Temp Pulse Resp BP Sys/Van Pulse Ox Last 24 Hr 36.1 C-36.8 C 59-78 16-20 101-116/59-69 91-96 Intake and Output 08/24/21 08/25/21 08/25/21 21:59 05:59 13:59 Intake Total 480 480 300 Output Total 21 2 1 Balance 459 478 299 Weight 64.524 kg Intake & Output: Intake & Output 08/24/21 08/25/21 08/25/21 21:59 05:59 13:59 Intake Total 480 480 300 Output Total 21 2 1 Balance 459 478 299 Weight 64.524 kg Intake: Oral 480 480 300 Output: Void Amount 20 # of times incontinent of urine 1 2 1 Other: Urine Appearance Clear Urine Color Dark Yellow Dark Yellow Urine Odor Normal Strong Stool Size Moderate Moderate Stool Color Brown Brown Stool Consistency Soft Soft # Voids 1 # of times incontinent of 1 1 Bowels General appearance: cooperative and no acute distress Head Head exam: Present atraumatic and normocephalic Additional comments: Masked facies Eye Eye exam: Present EOMI and PERRL ENT ENT exam: Present mucous membranes moist, normal exam and normal external ear exam Neck Neck exam: Present normal inspection; Absent lymphadenopathy, tenderness and thyromegaly Respiratory Respiratory exam: Absent accessory muscle use, respiratory distress and wheezes Cardiovascular Cardiovascular exam: Present normal rate and rhythm; Absent JVD GI/Abdominal GI/Abdominal exam: Present normal bowel sounds and soft; Absent organomegaly and tenderness Rectal Rectal exam: Present deferred Extremities Exam Extremities exam: Present full ROM, normal capillary refill and normal inspection; Absent tenderness Neurological Exam Neurological exam: Present alert, CN II-XII intact and oriented X3; Absent motor sensory deficit Psychiatric Psychiatric exam: Present normal affect and normal mood; Absent anxious and depressed Skin Skin exam: Present dry and intact OBJ DATA Labs CBC & Chem 7: 08/13/21 05:32 08/13/21 05:32 Meds: Medications Acetaminophen (Acetaminophen 325 Mg Tablet) 650 mg PO Q6HP PRN; Protocol PRN Reason: Per Pain Protocol/Fever > 101 Last Admin: 08/20/21 00:49 Dose: 650 mg Documented by: Aspirin (Aspirin 325 Mg Enteric Coated Tablet) 325 mg PO QHS [facility] Last Admin: 08/24/21 20:42 Dose: 325 mg Documented by: Citalopram Hydrobromide (Citalopram 20 Mg Tablet) 20 mg PO QDAY [facility] Last Admin: 08/25/21 08:37 Dose: 20 mg Documented by: Cyclobenzaprine HCl (Cyclobenzaprine 10 Mg Tablet) 5 mg PO TIDP PRN PRN Reason: Muscle Spasm Last Admin: 08/24/21 20:41 Dose: 5 mg Documented by: Docusate Sodium (Docusate Sodium 100 Mg Capsule) 100 mg PO BID [facility] Last Admin: 08/25/21 08:36 Dose: Not Given Documented by: Enoxaparin Sodium (Enoxaparin 40 Mg/0.4 Ml Syringe) 40 mg SQ DAILY [facility] Last Admin: 08/25/21 08:43 Dose: 40 mg Documented by: Hydralazine HCl (Hydralazine 20 Mg/Ml Vial) 0 mg IV Q2HP PRN PRN Reason: Hypertension Levothyroxine Sodium (Levothyroxine Sodium 112 Mcg Tablet) 112 mcg PO QHS [facility] Last Admin: 08/24/21 20:42 Dose: 112 mcg Documented by: Loperamide HCl (Loperamide 2 Mg Capsule) 2 mg PO PRN PRN PRN Reason: Diarrhea Last Admin: 08/20/21 00:49 Dose: 2 mg Documented by: Metoprolol Succinate (Metoprolol Succinate 25 Mg Tab.Xl.24h) 25 mg PO QHS [facility] Last Admin: 08/24/21 20:42 Dose: 25 mg Documented by: Morphine Sulfate (Morphine 4 Mg/Ml Vial) 4 mg IV Q4HP PRN; Protocol PRN Reason: Per Pain Protocol Ondansetron HCl (Ondansetron 4 Mg/2 Ml Vial) 4 mg IV Q6HP PRN PRN Reason: Nausea And Vomiting Oxycodone HCl (Oxycodone Hcl 5 Mg Tablet) 5 mg PO Q4HP PRN; Protocol PRN Reason: Per Pain Protocol Last Admin: 08/24/21 21:20 Dose: 5 mg Documented by: Carbidopa-Levodopa- (Entacapone 1 Tab)) 1 dose PO TID [facility] Last Admin: 08/25/21 08:37 Dose: 1 dose Documented by: Ropinirole Er 8 Mg (Tablets) 1 dose PO [facility] Last Admin: 08/24/21 20:42 Dose: 1 dose Documented by: Senna (Sennosides 1 Tablet) 2 tab PO [facility] Last Admin: 08/24/21 20:34 Dose: Not Given Documented by: Simvastatin (Simvastatin 20 Mg Tablet) 20 mg PO QHS [facility] Last Admin: 08/24/21 20:43 Dose: 20 mg Documented by: Zolpidem Tartrate (Zolpidem 5 Mg Tablet) 5 mg PO HSP PRN PRN Reason: Insomnia A/P Assessment and plan (1) Hypertension, essential: Status: Chronic (2) Restless legs syndrome: Status: Chronic (3) Parkinsons disease: Status: Chronic Comment: 2010 (4) Hyperlipidemia: Status: Chronic Qualifiers: Hyperlipidemia type: unspecified Qualified Code(s): E78.5 - Hyperlipidemia, unspecified (5) Hypothyroidism: Status: Chronic Qualifiers: Hypothyroidism type: acquired Qualified Code(s): E03.9 - Hypothyro idism, unspecified (6) Colitis: Status: Acute Narrative A/P Narrative: Assessment and Plans: 1. Colitis, descending, sigmoid, and rectal: Stays in inpatient med surg C Diff PCR re-test negative Remove contact isolation Finished antibiotics therapy including ciprofloxacin and metronidazole Imodium PRN loose stool Oxycodone as needed moderate pain Morphine IV as needed severe pain Dysphagia level 5 diet Saline lock #2 history of essential hypertension: Given soft blood pressure, will hold any oral antihypertensives including beta- albert #3 mixed dyslipidemia: Continue statin therapy 4. Parkinson disease: Continue Sinemet 5. Restless leg syndrome: Continue ropinirole 6. Hypothyroidism: Continue oral thyroid replacement GI prophylaxis: Not currently indicated DVT prophylaxis: Lovenox CODE STATUS: DNI DNR Prognosis: Stable Dispositions: Inpatient MedSurg; awaiting placement Time Spent With Patient Time: Total time spent is greater than 50% in coordination of care (as documented) at patient's floor/unit and/or counseling patient: QUALITY VTE Deep Vein Thrombosis/Pulmonary Embolism Present on Admission: No
[2021-08-25] MEDS: LOPERAMIDE 2 MG CAPSULE PO PRN ×2 (14:22→21:28)
[2021-08-25] MEDS: ROPINIROLE 8 MG PO SCH (21:27)
[2021-08-25] MEDS: CYCLOBENZAPRINE 10 MG TABLET PO PRN (21:28)
[2021-08-25] MEDS: METOPROLOL SUCCINATE 25 MG TAB.XL.24H PO SCH (21:28)
[2021-08-25] MEDS: ASPIRIN 325 MG ENTERIC COATED TABLET PO SCH (21:28)
[2021-08-25] MEDS: LEVOTHYROXINE SODIUM 112 MCG TABLET PO SCH (21:28)
[2021-08-25] MEDS: SIMVASTATIN 20 MG TABLET PO SCH (21:28)
[2021-08-25] MEDS: SENNOSIDES 1 TABLET PO SCH (21:29)
[2021-08-26] MEDS: ENOXAPARIN 40 MG/0.4 ML SYRINGE SQ SCH (09:42)
[2021-08-26] MEDS: CARBIDOPA LEVODOPA ENTACAPONE PO SCH ×3 (09:43→20:45)
[2021-08-26] MEDS: DOCUSATE SODIUM 100 MG CAPSULE PO SCH ×2 (09:43→20:46)
[2021-08-26] MEDS: CITALOPRAM 20 MG TABLET PO SCH (09:43)
--- NOTE | 2021-08-26 12:09 | Internal Med Progress Note ---
SUBJECTIVE Subjective Patient information: Note initiated : 08/26/21 at 12:06 pm Service Date, if different from initiated Date: [] Patient: Ti Hallman a 81 y/o M admitted on 08/11/21 for ABD pain, diarrhea. Chief Complaint: [colitis] Interval history: History of present illness: Mr. Hallman is a 81 year old M history of restless leg syndrome, Parkinson disease, essential HTN, mixed dyslipidemia, hypothyroidism, presenting with 2-day history of diarrhea and abdominal pain. There was no prior similar episode. According to the family, yesterday patient developed acute onset of the multiple episode of watery diarrhea, in addition to diffuse abdominal pain. The pain is graded as moderate to severe, cramping, constant. No associated fever or shaking chills or diaphoresis. No reported nausea vomiting. No alleviating or exacerbating facto rs. Decreased appetite since yesterday. Vital signs at ED presentations significant for mild bradycardia with heart rate in the 50s, as well as softer blood pressure as low as 80s over 50s mmHg. Labs significant for leukocytosis with WBC 17.1. Lactic acid elevated 2.4. Initial CT screening negative. CT abdomen pelvis showing thickened colonic wall involving the rectum sigmoid colon and descending colon suggestive of colitis. 08/12: Afebrile overnight. C diff toxin PCR retest negative. Blood culture negative to date. Subjective not obtained due to clinical situations. 08/13: Afebrile overnight. Still has 10 BMs overnight as per patient. Denies abdominal pain. Denies fever chills or sweating. 08/14 Patient found down to the bathroom. Was felt he might of bumped his head. CT head unremarkable. Leukocytosis resolved. No complaints other than some diarrhea 08/15 No overnight event or complaints. Patient states he feels his diarrhea is improving. 08/16 No new complaints. No overnight events. Awaiting placement. 08/17 No changes. No overnight events. Awaiting placement. 08/18 No overnight event or new complaints, confusion at baseline. Awaiting placement. 08/19 No changes, awaiting placement 10 Stools are soft and occasional loose 08/21: There was no major overnight events. Pending placement. There is no complaints from patient. 08/22: There was no major overnight events. Pending placement. There is no complaints from patient. 08/23: There was no major overnight events. Pending placement. There is no complaints from patient. 08/24: There was no major overnight events. Pending placement. There is no complaints from patient. 08/25: There was no major overnight events. Pending placement. There is no complaints from patient. 08/26: There was no major overnight events. Pending placement. There is no complaints from patient. Constitutional Vitals: Vital Signs Temp Pulse Resp BP Pulse Ox 36.9 C 64 20 98/58 92 08/26/21 04:00 08/26/21 08:00 08/26/21 08:00 08/26/21 08:00 08/26/21 08:00 Period Temp Pulse Resp BP Sys/Van Pulse Ox Last 24 Hr 36.4 C-36.9 C 60-84 14-20 98-154/58-83 92-95 Intake and Output 08/25/21 08/26/21 08/26/21 21:59 05:59 13:59 Intake Total 600 200 Output Total 1 9 Balance 599 -9 200 Weight 64.949 kg Intake & Output: Intake & Output 08/25/21 08/26/21 08/26/21 21:59 05:59 13:59 Intake Total 600 200 Output Total 1 9 Balance 599 -9 200 Weight 64.949 kg Intake: Oral 600 200 Output: # of times incontinent of urine 1 9 Other: Meal Dinner Breakfast Percent of Meal Consumed 100% 100% Feeding Ability Assist with Tray Set Up Assist with Tray Set Up Urine Color Tea Colored Dark Yellow Tea Colored Urine Odor Normal Strong Normal Stool Size Large Small Stool Color Brown Brown Stool Consistency Soft Loose # of times incontinent of 1 2 Bowels General appearance: cooperative and no acute distress Head Head exam: Present atraumatic and normocephalic Additional comments: masked facies Eye Eye exam: Present EOMI and PERRL ENT ENT exam: Present mucous membranes moist, normal exam and normal external ear exam Neck Neck exam: Present normal inspection; Absent lymphadenopathy, tenderness and thyromegaly Respiratory Respiratory exam: Absent accessory muscle use, respiratory distress and wheezes Cardiovascular Cardiovascular exam: Present normal rate and rhythm; Absent JVD GI/Abdominal GI/Abdominal exam: Present normal bowel sounds and soft; Absent organomegaly and tenderness Rectal Rectal exam: Present deferred Extremities Exam Extremities exam: Present full ROM, normal capillary refill and normal inspection; Absent tenderness Neurological Exam Neurological exam: Present alert, CN II-XII intact and oriented X3; Absent motor sensory deficit Psychiatric Psychiatric exam: Present normal affect and normal mood; Absent anxious and de pressed Skin Skin exam: Present dry and intact OBJ DATA Labs CBC & Chem 7: 08/13/21 05:32 08/13/21 05:32 Meds: Medications Acetaminophen (Acetaminophen 325 Mg Tablet) 650 mg PO Q6HP PRN; Protocol PRN Reason: Per Pain Protocol/Fever > 101 Last Admin: 08/20/21 00:49 Dose: 650 mg Documented by: Aspirin (Aspirin 325 Mg Enteric Coated Tablet) 325 mg PO QHS [facility] Last Admin: 08/25/21 21:28 Dose: 325 mg Documented by: Citalopram Hydrobromide (Citalopram 20 Mg Tablet) 20 mg PO QDAY [facility] Last Admin: 08/26/21 09:43 Dose: 20 mg Documented by: Cyclobenzaprine HCl (Cyclobenzaprine 10 Mg Tablet) 5 mg PO TIDP PRN PRN Reason: Muscle Spasm Last Admin: 08/25/21 21:28 Dose: 5 mg Documented by: Docusate Sodium (Docusate Sodium 100 Mg Capsule) 100 mg PO BID [facility] Last Admin: 08/26/21 09:43 Dose: Not Given Documented by: Enoxaparin Sodium (Enoxaparin 40 Mg/0.4 Ml Syringe) 40 mg SQ DAILY [facility] Last Admin: 08/26/21 09:42 Dose: 40 mg Documented by: Hydralazine HCl (Hydralazine 20 Mg/Ml Vial) 0 mg IV Q2HP PRN PRN Reason: Hypertension Levothyroxine Sodium (Levothyroxine Sodium 112 Mcg Tablet) 112 mcg PO QHS [facility] Last Admin: 08/25/21 21:28 Dose: 112 mcg Documented by: Loperamide HCl (Loperamide 2 Mg Capsule) 2 mg PO PRN PRN PRN Reason: Diarrhea Last Admin: 08/25/21 21:28 Dose: 2 mg Documented by: Metoprolol Succinate (Metoprolol Succinate 25 Mg Tab.Xl.24h) 25 mg PO QHS [facility] Last Admin: 08/25/21 21:28 Dose: 25 mg Documented by: Morphine Sulfate (Morphine 4 Mg/Ml Vial) 4 mg IV Q4HP PRN; Protocol PRN Reason: Per Pain Protocol Ondansetron HCl (Ondansetron 4 Mg/2 Ml Vial) 4 mg IV Q6HP PRN PRN Reason: Nausea And Vomiting Oxycodone HCl (Oxycodone Hcl 5 Mg Tablet) 5 mg PO Q4HP PRN; Protocol PRN Reason: Per Pain Protocol Last Admin: 08/24/21 21:20 Dose: 5 mg Documented by: Carbidopa-Levodopa- (Entacapone 1 Tab)) 1 dose PO TID [facility] Last Admin: 08/26/21 09:43 Dose: 1 dose Documented by: Ropinirole Er 8 Mg (Tablets) 1 dose PO [facility] Last Admin: 08/25/21 21:27 Dose: 1 dose Documented by: Senna (Sennosides 1 Tablet) 2 tab PO [facility] Last Admin: 08/25/21 21:29 Dose: Not Given Documented by: Simvastatin (Simvastatin 20 Mg Tablet) 20 mg PO QHS [facility] Last Admin: 08/25/21 21:28 Dose: 20 mg Documented by: Zolpidem Tartrate (Zolpidem 5 Mg Tablet) 5 mg PO HSP PRN PRN Reason: Insomnia A/P Assessment and plan (1) Hypertension, essential: Status: Chronic (2) Restless legs syndrome: Status: Chronic (3) Parkinsons disease: Status: Chronic Comment: 2010 (4) Hyperlipidemia: Status: Chronic Qualifiers: Hyperlipidemia type: unspecified Qualified Code(s): E78.5 - Hyperlipidemia, unspecified (5) Hypothyroidism: Status: Chronic Qualifiers: Hypothyroidism type: acquired Qualified Code(s): E03.9 - Hypothyroidism, unspecified (6) Colitis: Status: Acute Narrative A/P Narrative: Assessment and Plans: 1. Colitis, descending, sigmoid, and rectal: Stays in inpatient med surg C Diff PCR re-test negative Remove contact isolation Finished antibiotics therapy including ciprofloxacin and metronidazole Imodium PRN loose stool Oxycodone as needed moderate pain Morphine IV as needed severe pain Dysphagia level 5 diet Saline lock #2 history of essential hypertension: Given soft blood pressure, will hold any oral antihypertensives including beta- albert #3 mixed dyslipidemia: Continue statin therapy 4. Parkinson disease: Continue Sinemet 5. Restless leg syndrome: Continue ropinirole 6. Hypothyroidism: Continue oral thyroid replacement GI prophylaxis: Not currently indicated DVT prophylaxis: Lovenox CODE STATUS: DNI DNR Prognosis: Stable Dispositions: Inpatient MedSurg; awaiting placement Time Spent With Patient Time: Total time spent is greater than 50% in coordination of care (as documented) at patient's floor/unit and/or counseling patient: QUALITY VTE Deep Vein Thrombosis/Pulmonary Embolism Present on Admission: No
[2021-08-26] MEDS: SIMVASTATIN 20 MG TABLET PO SCH (20:45)
[2021-08-26] MEDS: ROPINIROLE 8 MG PO SCH (20:45)
[2021-08-26] MEDS: LEVOTHYROXINE SODIUM 112 MCG TABLET PO SCH (20:45)
[2021-08-26] MEDS: METOPROLOL SUCCINATE 25 MG TAB.XL.24H PO SCH (20:45)
[2021-08-26] MEDS: CYCLOBENZAPRINE 10 MG TABLET PO PRN (20:45)
[2021-08-26] MEDS: SENNOSIDES 1 TABLET PO SCH (20:46)
[2021-08-26] MEDS: ASPIRIN 325 MG ENTERIC COATED TABLET PO SCH (20:46)
[2021-08-27] MEDS: DOCUSATE SODIUM 100 MG CAPSULE PO SCH (07:10)
[2021-08-27] MEDS: ENOXAPARIN 40 MG/0.4 ML SYRINGE SQ SCH (10:05)
[2021-08-27] MEDS: CARBIDOPA LEVODOPA ENTACAPONE PO SCH (10:05)
[2021-08-27] MEDS: CITALOPRAM 20 MG TABLET PO SCH (10:05)
--- NOTE | 2021-08-27 11:00 | Internal Med Progress Note ---
SUBJECTIVE Subjective Patient information: Note initiated : 08/27/21 at 10:59 am Service Date, if different from initiated Date: [] Patient: Ti Hallman a 81 y/o M admitted on 08/11/21 for ABD pain, diarrhea. Chief Complaint: [Colitis] Interval history: History of present illness: Mr. Hallman is a 81 year old M history of restless leg syndrome, Parkinson disease, essential HTN, mixed dyslipidemia, hypothyroidism, presenting with 2-day history of diarrhea and abdominal pain. There was no prior similar episode. According to the family, yesterday patient developed acute onset of the multiple episode of watery diarrhea, in addition to diffuse abdominal pain. The pain is graded as moderate to severe, cramping, constant. No associated fever or shaking chills or diaphoresis. No reported nausea vomiting. No alleviating or exacerbating facto rs. Decreased appetite since yesterday. Vital signs at ED presentations significant for mild bradycardia with heart rate in the 50s, as well as softer blood pressure as low as 80s over 50s mmHg. Labs significant for leukocytosis with WBC 17.1. Lactic acid elevated 2.4. Initial CT screening negative. CT abdomen pelvis showing thickened colonic wall involving the rectum sigmoid colon and descending colon suggestive of colitis. 08/12: Afebrile overnight. C diff toxin PCR retest negative. Blood culture negative to date. Subjective not obtained due to clinical situations. 08/13: Afebrile overnight. Still has 10 BMs overnight as per patient. Denies abdominal pain. Denies fever chills or sweating. 08/14 Patient found down to the bathroom. Was felt he might of bumped his head. CT head unremarkable. Leukocytosis resolved. No complaints other than some diarrhea 08/15 No overnight event or complaints. Patient states he feels his diarrhea is improving. 08/16 No new complaints. No overnight events. Awaiting placement. 08/17 No changes. No overnight events. Awaiting placement. 08/18 No overnight event or new complaints, confusion at baseline. Awaiting placement. 08/19 No changes, awaiting placement 10 Stools are soft and occasional loose 08/21: There was no major overnight events. Pending placement. There is no complaints from patient. 08/22: There was no major overnight events. Pending placement. There is no complaints from patient. 08/23: There was no major overnight events. Pending placement. There is no complaints from patient. 08/24: There was no major overnight events. Pending placement. There is no complaints from patient. 08/25: There was no major overnight events. Pending placement. There is no complaints from patient. 08/26: There was no major overnight events. Pending placement. There is no complaints from patient. 08/27: There was no major overnight events. Pending placement. There is no complaints from patient. Constitutional Vitals: Vital Signs Temp Pulse Resp BP Pulse Ox 36.4 C 61 20 102/67 96 08/27/21 08:00 08/27/21 08:00 08/27/21 08:00 08/27/21 08:00 08/27/21 08:00 Period Temp Pulse Resp BP Sys/Van Pulse Ox Last 24 Hr 34.7 C-36.7 C 61-69 14-20 99-128/46-75 92-97 Intake and Output 08/26/21 08/27/21 08/27/21 21:59 05:59 13:59 Intake Total 700 Output Total 102 7 1 Balance 598 -7 -1 Weight 64.013 kg Intake & Output: Intake & Output 08/26/21 08/27/21 08/27/21 21:59 05:59 13:59 Intake Total 700 Output Total 102 7 1 Balance 598 -7 -1 Weight 64.013 kg Intake: Oral 700 Output: Void Amount 100 # of times incontinent of urine 2 7 1 Other: Meal Dinner Percent of Meal Consumed 100% Feeding Ability Assist with Tray Set Up Urine Appearance Clear Urine Color Light [place] Dark Yellow Urine Odor Strong Stool Size Moderate Large Stool Color Brown Brown Stool Consistency Soft Soft Loose # Bowel Movements 1 1 General appearance: cooperative and no acute distress Head Head exam: Present atraumatic and normocephalic Eye Eye exam: Present EOMI and PERRL ENT ENT exam: Present mucous membranes moist, normal exam and normal external ear exam Neck Neck exam: Present normal inspection; Absent lymphadenopathy, tenderness and thyromegaly Respiratory Respiratory exam: Absent accessory muscle use, respiratory distress and wheezes Cardiovascular Cardiovascular exam: Present normal rate and rhythm; Absent JVD GI/Abdominal GI/Abdominal exam: Present normal bowel sounds and soft; Absent organomegaly and tenderness Rectal Rectal exam: Present deferred Extremities Exam Extremities exam: Present full ROM, normal capillary refill and normal inspection; Absent tenderness Neurological Exam Neurological exam: Present alert, CN II-XII intact and oriented X3; Absent motor sensory deficit Psychiatric Psychiatric exam: Present normal affect and normal mood; Absent anxious and de pressed Skin Skin exam: Present dry and intact OBJ DATA Labs CBC & Chem 7: 08/13/21 05:32 08/13/21 05:32 Meds: Medications Acetaminophen (Acetaminophen 325 Mg Tablet) 650 mg PO Q6HP PRN; Protocol PRN Reason: Per Pain Protocol/Fever > 101 Last Admin: 08/20/21 00:49 Dose: 650 mg Documented by: Aspirin (Aspirin 325 Mg Enteric Coated Tablet) 325 mg PO QHS [facility] Last Admin: 08/26/21 20:46 Dose: 325 mg Documented by: Citalopram Hydrobromide (Citalopram 20 Mg Tablet) 20 mg PO QDAY [facility] Last Admin: 08/27/21 10:05 Dose: 20 mg Documented by: Cyclobenzaprine HCl (Cyclobenzaprine 10 Mg Tablet) 5 mg PO TIDP PRN PRN Reason: Muscle Spasm Last Admin: 08/26/21 20:45 Dose: 5 mg Documented by: Docusate Sodium (Docusate Sodium 100 Mg Capsule) 100 mg PO BID [facility] Last Admin: 08/27/21 07:10 Dose: Not Given Documented by: Enoxaparin Sodium (Enoxaparin 40 Mg/0.4 Ml Syringe) 40 mg SQ DAILY [facility] Last Admin: 08/27/21 10:05 Dose: 40 mg Documented by: Hydralazine HCl (Hydralazine 20 Mg/Ml Vial) 0 mg IV Q2HP PRN PRN Reason: Hypertension Levothyroxine Sodium (Levothyroxine Sodium 112 Mcg Tablet) 112 mcg PO QHS [facility] Last Admin: 08/26/21 20:45 Dose: 112 mcg Documented by: Loperamide HCl (Loperamide 2 Mg Capsule) 2 mg PO PRN PRN PRN Reason: Diarrhea Last Admin: 08/25/21 21:28 Dose: 2 mg Documented by: Metoprolol Succinate (Metoprolol Succinate 25 Mg Tab.Xl.24h) 25 mg PO QHS [facility] Last Admin: 08/26/21 20:45 Dose: 25 mg Documented by: Morphine Sulfate (Morphine 4 Mg/Ml Vial) 4 mg IV Q4HP PRN; Protocol PRN Reason: Per Pain Protocol Ondansetron HCl (Ondansetron 4 Mg/2 Ml Vial) 4 mg IV Q6HP PRN PRN Reason: Nausea And Vomiting Oxycodone HCl (Oxycodone Hcl 5 Mg Tablet) 5 mg PO Q4HP PRN; Protocol PRN Reason: Per Pain Protocol Last Admin: 08/24/21 21:20 Dose: 5 mg Documented by: Carbidopa-Levodopa- (Entacapone 1 Tab)) 1 dose PO TID [facility] Last Admin: 08/27/21 10:05 Dose: 1 dose Documented by: Ropinirole Er 8 Mg (Tablets) 1 dose PO [facility] Last Admin: 08/26/21 20:45 Dose: 1 dose Documented by: Senna (Sennosides 1 Tablet) 2 tab PO [facility] Last Admin: 08/26/21 20:46 Dose: Not Given Documented by: Simvastatin (Simvastatin 20 Mg Tablet) 20 mg PO QHS [facility] Last Admin: 08/26/21 20:45 Dose: 20 mg Documented by: Zolpidem Tartrate (Zolpidem 5 Mg Tablet) 5 mg PO HSP PRN PRN Reason: Insomnia A/P Assessment and plan (1) Hypertension, essential: Status: Chronic (2) Restless legs syndrome: Status: Chronic (3) Parkinsons disease: Status: Chronic Comment: 2010 (4) Hyperlipidemia: Status: Chronic Qualifiers: Hyperlipidemia type: unspecified Qualified Code(s): E78.5 - Hyperlipidemia, unspecified (5) Hypothyroidism: Status: Chronic Qualifiers: Hypothyroidism type: acquired Qualified Code(s): E03.9 - Hypothyroidism, unspecified (6) Colitis: Status: Acute Narrative A/P Narrative: Assessment and Plans: 1. Colitis, descending, sigmoid, and rectal: Stays in inpatient med surg C Diff PCR re-test negative Remove contact isolation Finished antibiotics therapy including ciprofloxacin and metronidazole Imodium PRN loose stool Oxycodone as needed moderate pain Morphine IV as needed severe pain Dysphagia level 5 diet Saline lock #2 history of essential hypertension: Given soft blood pressure, will hold any oral antihypertensives including beta- albert #3 mixed dyslipidemia: Continue statin therapy 4. Parkinson disease: Continue Sinemet 5. Restless leg syndrome: Continue ropinirole 6. Hypothyroidism: Continue oral thyroid replacement GI prophylaxis: Not currently indicated DVT prophylaxis: Lovenox CODE STATUS: DNI DNR Prognosis: Stable Dispositions: Inpatient MedSurg; awaiting placement Time Spent With Patient Time: Total time spent is greater than 50% in coordination of care (as documented) at patient's floor/unit and/or counseling patient: QUALITY VTE Deep Vein Thrombosis/Pulmonary Embolism Present on Admission: No
--- NOTE | 2021-08-27 11:33 | Discharge Summary ---
Discharge Provider Provider Patient information: Note initiated : 08/27/21 at 11:32 am Service Date, if different from initiated Date: [] Patient: Ti Hallman a 81 y/o M admitted on 08/11/21 for ABD pain, diarrhea. Chief Complaint: [colitis] History of present illness: Mr. Hallman is a 81 year old M history of restless leg syndrome, Parkinson disease, essential HTN, mixed dyslipidemia, hypothyroidism, presenting with 2-day history of diarrhea and abdominal pain. There was no prior similar episode. According to the family, yesterday patient developed acute onset of the multiple episode of watery diarrhea, in addition to diffuse abdominal pain. The pain is graded as moderate to severe, cramping, constant. No associated fever or shaking chills or diaphoresis. No reported nausea vomiting. No alleviating or exacerbating factors. Decreased appetite since yesterday. Vital signs at ED presentations significant for mild bradycardia with heart rate in the 50s, as well as softer blood pressure as low as 80s over 50s mmHg. Labs significant for leukocytosis with WBC 17.1. Lactic acid elevated 2.4. Initial CT screening negative. CT abdomen pelvis showing thickened colonic wall involving the rectum sigmoid colon and descending colon suggestive of colitis. Date of admission: 08/11/21 10:45 Discharge date: 08/27/21 Primary care physician: Henrry Evans PA-C Consults: 08/11/21 09:09 Consult to Physician [CONS] Stat Comment: Consulting Provider: Rony Negrete Reason For Exam: Physician to Consult 08/13/21 14:19 Consult to Physician [CONS] Routine Comment: snf referral Consulting Provider: [facility] Reason For Exam: Physician to Consult Discharge Meds Discharge Medications Home Medications aspirin 325 mg tablet,delayed release 325 mg PO QHS 11/04/15 [History Confirmed 08/11/21 Last Taken 03/13/21 09:00 325 mg] metoprolol succinate 25 mg capsule sprinkle, ext. release 24 hr 25 mg PO QHS 11/10/19 [History Confirmed 08/11/21 Last Taken 03/13/21 09:00 25 mg] [id number] 1 tab PO TID 03/14/21 [History Confirmed 08/11/21 Last Taken 03/13/21 09:00 tid] levothyroxine 112 mcg tablet 112 mcg PO QHS 90 Days #90 tab 04/15/21 [Rx Confirmed 08/11/21 Last Taken Unknown] citalopram 20 mg tablet 20 mg PO QDAY #30 tab 06/02/21 [Rx Confirmed 08/11/21 Last Taken Unknown] ropinirole 8 mg tablet,extended release 24 hr 16 mg PO HS #180 tab 06/02/21 [Rx Confirmed 08/11/21 Last Taken Unknown] simvastatin 20 mg tablet 20 mg PO QHS 90 Days #90 tab 07/10/21 [Rx Confirmed 08/11/21 Last Taken Unknown] COURSE Hospital Course Hospital course: 08/12: Afebrile overnight. C diff toxin PCR retest negative. Blood culture negative to date. Subjective not obtained due to clinical situations. 08/13: Afebrile overnight. Still has 10 BMs overnight as per patient. Denies abdominal pain. Denies fever chills or sweating. 08/14 Patient found down to the bathroom. Was felt he might of bumped his head. CT head unremarkable. Leukocytosis resolved. No complaints other than some diarrhea 08/15 No overnight event or complaints. Patient states he feels his diarrhea is improving. 08/16 No new complaints. No overnight events. Awaiting placement. 08/17 No changes. No overnight events. Awaiting placement. 08/18 No overnight event or new complaints, confusion at baseline. Awaiting placement. 10 No changes, awaiting placement 10 Stools are soft and occasional loose 107: There was no major overnight events. Pending placement. There is no complaints from patient. 108: There was no major overnight events. Pending placement. There is no complaints from patient. 10: There was no major overnight events. Pending placement. There is no complaints from patient. 10: There was no major overnight events. Pending placement. There is no complaints from patient. 10: There was no major overnight events. Pending placement. There is no complaints from patient. 08/26: There was no major overnight events. Pending placement. There is no complaints from patient. 08/27: There was no major overnight events. Pending placement. There is no complaints from patient. 08/28: Discharged to SNF Discharge diagnosis: colitis Time Spent with Patient Time attestation: Total time spent providing and/or coordinating discharge services: 08/12: Afebrile overnight. C diff toxin PCR retest negative. Blood culture negative to date. Subjective not obtained due to clinical situations. 08/13: Afebrile overnight. Still has 10 BMs overnight as per patient. Denies abdominal pain. Denies fever chills or sweating. 08/14 Patient found down to the bathroom. Was felt he might of bumped his head. CT head unremarkable. Leukocytosis resolved. No complaints other than some diarrhea 08/15 No overnight event or complaints. Patient states he feels his diarrhea is improving. 08/16 No new complaints. No overnight events. Awaiting placement. 08/17 No changes. No overnight events. Awaiting placement. 08/18 No overnight event or new complaints, confusion at baseline. Awaiting placement. 08/19 No changes, awaiting placement 08/20 Stools are soft and occasional loose 08/21: There was no major overnight events. Pending placement. There is no complaints from patient. 08/22: There was no major overnight events. Pending placement. There is no complaints from patient. 08/23: There was no major overnight events. Pending placement. There is no complaints from patient. 08/24: There was no major overnight events. Pending placement. There is no complaints from patient. 08/25: There was no major overnight events. Pending placement. There is no complaints from patient. 08/26: There was no major overnight events. Pending placement. There is no complaints from patient. 08/27: There was no major overnight events. Pending placement. There is no complaints from patient. 08/28: Discharged to SNF EXAM Constitutional Vitals: Temp Pulse Resp BP Pulse Ox 36.4 C 61 20 102/67 96 08/27/21 08:00 08/27/21 08:00 08/27/21 08:00 08/27/21 08:00 08/27/21 08:00 General appearance: cooperative and no acute distress Head Head exam: Present atraumatic and normocephalic Eye Eye exam: Present EOMI and PERRL ENT ENT exam: Present mucous membranes moist, normal exam and normal external ear exam Neck Neck exam: Present normal inspection; Absent lymphadenopathy, tenderness and thyromegaly Respiratory Respiratory exam: Absent accessory muscle use, respiratory distress and wheezes Cardiovascular Cardiovascular exam: Present normal rate and rhythm; Absent JVD GI/Abdominal GI/Abdominal exam: Present normal bowel sounds and soft; Absent organomegaly and tenderness Rectal Rectal exam: Present deferred Extremities Exam Extremities exam: Present full ROM, normal capillary refill and normal inspect ion; Absent tenderness Neurological Exam Neurological exam: Present alert, CN II-XII intact and oriented X3; Absent motor sensory deficit Psychiatric Psychiatric exam: Present normal affect and normal mood; Absent anxious and depressed Skin Skin exam: Present dry and intact Discharge Plan Patient/Caregiver Discharge Instructions Activity: ambulate only with your walker and increase activity as tolerated Diet: Dysphagia Level 5 Minced & Moist Foods Activity Restrictions/Additional Instructions: Diet: Mildly thick liquids Prescriptions: Continued levothyroxine 112 mcg tablet 112 mcg PO QHS 90 Days Qty: 90 RF: 1 simvastatin 20 mg tablet 20 mg PO QHS 90 Days Qty: 90 RF: 1 aspirin 325 mg tablet,delayed release (DR/EC) 325 mg PO QHS RF: 0 citalopram 20 mg tablet 20 mg PO QDAY Qty: 30 RF: 2 ropinirole 8 mg tablet extended release 24 hr 16 mg PO HS Qty: 180 RF: 1 metoprolol succinate 25 mg capsule,sprinkle,ER 24hr 25 mg PO QHS RF: 0 [id number]-lvyvzohjok 25-100-200 mg tablet 1 tab PO TID RF: 0 Follow Up Plan Follow up with: Henrry Evans PA-C [Primary Care Provider] - Patient Disposition: Xfer SNF Prognosis: Fair Rehab Potential: Fair I certify that the patient requires SNF services: Yes Overall status at discharge: patient is progressing back to baseline Discharge Orders: Discharge Order (Routine); Ordered 08/27/21 Ordered By: Rony MORENO VTE Deep Vein Thrombosis/Pulmonary Embolism Present on Admission: No
== END 2021-08-27 13:40 | disposition home health service (06) | DRG 392 ==
LOC: ED 01:33 → MEDSUR 10:45
PROVIDERS: ADMIT Internal Medicine; ATTEND Internal Medicine

== ENCOUNTER 2022-01-28 20:17 | Inpatient (IN) ==
[2022-01-28] MEDS ORDERED: IPRATROPIUM/ALBUTEROL 3 ML AMPUL.NEB NEB ONE (22:42)
[2022-01-28] MEDS ORDERED: metroNIDAZOLE 500 MG in PREMIX 1 BAG IV ONE (23:52)
[2022-01-28] MEDS ORDERED: cefTRIAXone 1 GM VIAL IV ONE (23:52)
[2022-01-29 00:19] LABS: Basophils # (Auto) 0.04 K/mcL (0.00-0.30); Basophils % (Auto) 0.2 % (0.0-2.0); Eosinophils # (Auto) 0.05 K/mcL (0.00-0.70); Eosinophils % (Auto) 0.3 % (0.0-7.0); Hematocrit 32.9 % (40.1-51.0); Hemoglobin 10.4 g/dL (13.7-17.5); Lymphocytes # (Auto) 0.78 K/mcL (1.50-4.80); Lymphocytes % (Auto) 4.7 % (15.5-49.0); Mean Cell Volume 81.6 fL (80.0-100.0); Mean Corpuscular HGB Conc 31.6 g/dL (31.0-36.0); Mean Platelet Volume 9.5 fL (7.4-10.4); Monocytes # (Auto) 0.53 K/mcL (0.10-0.90); Monocytes % (Auto) 3.2 % (1.0-12.0); Neutrophils % (Auto) 91.6 % (38.0-78.0); Platelet Count 146 K/mcL (140-440); RBC 4.03 M/mcL (4.63-6.08); Red Cell Distribution Width 15.3 % (11.5-14.5); WBC 16.7 K/mcL (4.5-11.0)
[2022-01-29 00:22] LABS: Blood Urea Nitrogen 23 mg/dL (8-23); Calcium 8.5 mg/dL (8.6-10.4); Carbon Dioxide 26 mmol/L (22-30); Chloride 99 mmol/L (96-108); Glomerular Filtration Rate 88; Glucose 110 mg/dL (70-105)
[2022-01-29] MEDS ORDERED: ONDANSETRON 4 MG/2 ML VIAL IV PRN ×2 (01:08→10:23)
[2022-01-29] MEDS ORDERED: ACETAMINOPHEN 325 MG TABLET PO PRN ×2 (01:08→10:23)
[2022-01-29] MEDS: LACTATED RINGERS 1,000 ML IV SCH ×2 (02:27→21:21)
--- NOTE | 2022-01-29 03:24 | XRay Report ---
CLINICAL INFORMATION: Shortness of breath COMPARISON: 08/11/2021 TECHNIQUE: Portable FINDINGS: The heart is mildly enlarged. Aortic valve prostheses in stable position. Sternotomy changes noted. Pacemaker leads in satisfactory position. Mediastinum and pulmonary vessels are normal. Moderate right and small left basilar infiltrates appreciated. There are no effusions. IMPRESSION: Moderate right and small left basilar infiltrates Interpreted and Authenticated by: Adrian Malone 01/29/22
--- NOTE | 2022-01-29 03:27 | Cat Scan Report ---
CLINICAL INFORMATION: Trauma COMPARISON: 08/14/2021 TECHNIQUE: 2.5 mm helical slices were obtained in the skull base to vertex. Following reconstruction, axial reformatted images were reviewed at bone and parenchymal windows. The exam was performed using radiation dose optimization techniques including, but not limited to, automated exposure control, adjustment of the mA and/or kV according to patient size and use of iterative reconstruction technique. FINDINGS: The ventricles, sulci, fissures, and cisterns are symmetrically enlarged compatible with mild age-related atrophy. No extra-axial fluid collections are identified. Mild patchy chronic ischemic changes, in the deep cerebral white matter, are expected for age. An 8 mm remote lacunar infarct is again seen in the right caudate nucleus head. There is no hemorrhage, mass effect, or edema. Bone windows show no osseous abnormality. IMPRESSION: Mild atrophy and chronic ischemic changes in the deep cerebral white matter-expected for age. 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 No intracerebral hemorrhage or other acute finding. Interpreted and Authenticated by: Adrian Malone 01/29/22
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
[2022-01-29] MEDS ORDERED: DEXAMETHASONE OU SCH (09:00)
[2022-01-29] MEDS ORDERED: NEOMYCIN OU SCH (09:00)
[2022-01-29] MEDS ORDERED: CITALOPRAM 20 MG TABLET PO SCH (09:00)
[2022-01-29] MEDS ORDERED: POLYMYXIN B OU SCH (09:00)
[2022-01-29] MEDS ORDERED: SENNOSIDES 1 TABLET PO PRN (10:23)
[2022-01-29] MEDS ORDERED: POLYETHYLENE GLYCOL 3350 17 GM PACKET PO PRN (10:23)
[2022-01-29] MEDS ORDERED: POTASSIUM CHLORIDE 40 MEQ in DEXTROSE 5% IN WATER 500 ML IV PRN (10:23)
[2022-01-29] MEDS ORDERED: MAGNESIUM SULFATE 2 GM/50 ML BAG IV PRN (10:23)
[2022-01-29] MEDS ORDERED: POTASSIUM CHLORIDE 20 MEQ TABLET PO PRN ×2 (10:23)
[2022-01-29] MEDS ORDERED: IPRATROPIUM/ALBUTEROL 3 ML AMPUL.NEB NEB PRN (10:23)
[2022-01-29] MEDS ORDERED: 0.9 % SODIUM CHLORIDE 1,000 ML IV ONE (10:25)
[2022-01-29] MEDS ORDERED: ENOXAPARIN 40 MG/0.4 ML SYRINGE SQ SCH (10:30)
[2022-01-29 11:45] LABS: Prealbumin 15.2 mg/dL (20.0-40.0)
[2022-01-29] MEDS: metroNIDAZOLE 500 MG in PREMIX 1 BAG IV SCH ×2 (14:03→21:25)
[2022-01-29] MEDS: 0.9 % SODIUM CHLORIDE 10 ML SYRINGE IV SCH ×2 (14:04→21:25)
[2022-01-29] MEDS: DULoxetine 20 MG CAPSULE PO SCH ×2 (14:44→21:02)
[2022-01-29] MEDS: CARBIDOPA LEVODOPA ENTACAPONE PO SCH ×3 (14:45→21:02)
[2022-01-29] MEDS ORDERED: cefTRIAXone 2 GM in DEXTROSE 5% IN WATER 50 ML IV SCH (16:00)
[2022-01-29] MEDS ORDERED: OLANZapine 5 MG TABLET PO PRN (19:20)
[2022-01-29] MEDS ORDERED: HALOPERIDOL LACTATE 5 MG/ML VIAL IV ONE (19:20)
[2022-01-29] MEDS ORDERED: HALOPERIDOL LACTATE 5 MG/ML VIAL ONE (19:35)
[2022-01-29] MEDS ORDERED: ASPIRIN 325 MG ENTERIC COATED TABLET PO SCH (21:00)
[2022-01-29] MEDS ORDERED: METOPROLOL SUCCINATE 25 MG TAB.XL.24H PO SCH (21:00)
[2022-01-29] MEDS ORDERED: ROPINIROLE 8 MG PO SCH (21:00)
[2022-01-29] MEDS ORDERED: DOCUSATE SODIUM 100 MG CAPSULE PO SCH (21:00)
[2022-01-29] MEDS ORDERED: SIMVASTATIN 20 MG TABLET PO SCH (21:00)
[2022-01-29] MEDS ORDERED: OLANZapine 10 MG VIAL IM SCH (21:00)
[2022-01-29] MEDS ORDERED: LEVOTHYROXINE SODIUM 112 MCG TABLET PO SCH (21:00)
[2022-01-29] MEDS ORDERED: OLANZapine 10 MG VIAL IM PRN (21:05)
--- NOTE | 2022-01-29 23:16 | Event Note ---
Event Note Event Note: pt continues to aspirate causing hypoxia and difficulty in raising oxygen level back up to 90's. Early a conversation with and nursing indicated no aggressive measures, that comfort was the focus if he declined. Nursing reached out to again this evening given his further decline. After that discussion it was decided to transition to comfort care only. The is coming in tonight to be with .
[2022-01-29] MEDS ORDERED: morphine 4 MG/ML VIAL NEB PRN (23:31)
[2022-01-29] MEDS ORDERED: LACTOPEROXI/GLUC OXID/POT THIO 1 EACH GEL..EA. TOPICAL PRN (23:31)
[2022-01-29] MEDS ORDERED: morphine 4 MG/ML VIAL IV PRN (23:31)
[2022-01-29] MEDS ORDERED: LORazepam 2 MG/ML VIAL IV PRN (23:31)
[2022-01-30] MEDS ORDERED: morphine 4 MG/ML VIAL ONE (01:01)
[2022-01-30] MEDS ORDERED: 0.9 % SODIUM CHLORIDE 10 ML SYRINGE IV SCH (06:00)
--- NOTE | 2022-01-30 07:17 | Death Note ---
Discharge Sum: Prov Provider Patient information: Note initiated : 01/30/22 at 7:15 am Service Date, if different from initiated Date: [] Patient: Ti Hallman a 81 y/o M admitted on 01/29/22 for short of breath. Chief Complaint: [] Primary care physician: Henrry Evans PA-C Consults: 01/29/22 Consult to Physician [CONS] Stat Comment: Consulting Provider: Omid Rosario Reason For Exam: Physician to Consult Discharge Sum: Summary Date and Time Date of admission: 01/29/22 02:11 Date of : 01/30/22 Time of : 03:55 Summary Details: History of present illness: Mr. Hallman is a 81 year old M Presents to the ED after choking on milk and increased shortness of breath. Patient increased weakness and cannot clear secretions per EMS sats were 87% on room air. History obtained from chart given patient's dementia. Patient does admit to shortness of breath and coughing. Patient has a history of dementia and Parkinson's. When EMS arrived he also bloody tinged sputum family reported that he seemed having trouble with milk and they told EMS they thought he aspirated. CT brain negative. Chest x-ray with right lower lobe filtrate Work-up in the ED concluded to likely aspiration pneumonia. Patient started antibiotic pt continues to aspirate causing hypoxia and difficulty in raising oxygen level back up to 90's. Early a conversation with and nursing indicated no aggressive measures, that comfort was the focus if he declined. Nursing reached out to again this evening given his further decline. After that discussion it was decided to transition to comfort care only. The is coming in tonight to be with . pt at [id number]. A: *Aspiration pneumonitis/pneumonia: Recurrent Aspiration *Acute hypoxic respiratory failure: 2/2 above *Parkinson disease / RLS: Continue Sinemet *Dementia: worsening per noted on last admit in September *Oral pharyngeal dysphagia, moderate: *Volume depletion: *CAD w/cabg: *h/o CVA: per CT *Depression: *Restless leg syndrome: Continue ropinirole *Anemia, chronic: *Hypothyroidism: *HTN/HLD: cont beta-albert *Cachexia/sarcopenia: Additional Data Attending physician: Omid Rosario
--- NOTE | 2022-01-30 16:12 | EKG ---
[facility] Test Date: 2022-01-28 Pat Name: Ti Hallman Department: [facility] Room: 112 Gender: Male [employer] Executive: : 1940 Requested By: Osiel Medina Order Number: [id number] Reading MD: Josseline Stevens D.O. Measurements Intervals Matthews Rate: 89 P: 247 CT: 171 QRS: -51 QRSD: 96 T: 57 QT: 381 QTc: 464 Interpretive Statements Sinus or ectopic atrial rhythm Left ventricular hypertrophy Electronically Signed On 01-30-2022 16:11:52 PDT by Josseline Stevens D.O. /store/[id number]
== END 2022-01-30 16:35 | disposition expired | DRG 177 ==
LOC: ED 20:17 → MEDSUR 01-29 02:11
PROVIDERS: ADMIT Internal Medicine; ATTEND Internal Medicine